=== PATIENT | female | born 1955 | race Caucasian/White ===

== ENCOUNTER → 2017-07-01 | Outpatient (CLI) | payer BC ==
--- NOTE | 2017-07-01 12:18 | MR ---
EXAMINATION TYPE: MR lumbar spine wo con DATE OF EXAM: 07/01/2017 12:06 PM COMPARISON: NONE HISTORY: Lumbar Radiculopathy , rt foot numbness Multiplanar, MultiSpin echo imaging of the lumbar spine was performed. L1-L2: Mild to moderate disc desiccation is noted. Circumferential disc bulge with mild effacement ve ntral thecal sac. No evidence for herniation protrusion or central stenosis. Foramina are patent bila terally. L2-L3: Moderate disc desiccation noted. Circumferential disc bulge greatest posteriorly effaces the v entral thecal sac. There is constriction of the thecal sac with borderline stenosis. Mild bilateral f oraminal encroachment identified. L3-L4: Moderate disc desiccation noted. Circumferential disc bulge with annular tear greatest posteri samir effaces the ventral thecal sac. There is constriction of the thecal sac with borderline stenosis . Mild bilateral foraminal encroachment identified. L4-L5: Severe disc desiccation with vacuum disc. Broad-based subligamentous disc herniation difficult to exclude. Effacement ventral thecal sac with effacement of the ventral thecal sac. No evidence for central stenosis. Bilateral lateral recess stenosis suspected. L5-S1: Normal disc appearance without desiccation. No herniation, protrusion or disc bulging. No ca nal stenosis is present. Foramina are patent bilaterally. Lumbar segments are intact. No paraspinal masses are identified. Conus medullaris has a normal appe arance. IMPRESSION: 1. Multilevel degenerative disc disease. 2. Borderline central stenosis at L2-3 and L3-4. 3. Bilateral lateral recess stenosis L4-5.
== END | disposition home or self-care (01) ==
LOC: RADMRIMAIN 10:47
PROVIDERS: ATTEND Family Medicine
DX: M48.06 Spinal stenosis, lumbar region (principal); M51.16 Intervertebral disc disorders with radiculopathy, lumbar region
CPT/HCPCS: 72148

== ENCOUNTER → 2017-09-03 | Outpatient (CLI) | payer BC ==
[2017-09-03 09:44] LABS: Blood Urea Nitrogen 18 mg/dL (7-17); Non-African American GFR(MDRD) >60 (>60 ml/min/1.73 sqM)
--- NOTE | 2017-09-03 10:59 | MR ---
EXAMINATION TYPE: MR iac wo/w con DATE OF EXAM: 09/03/2017 10:37 AM COMPARISON: NONE HISTORY: Hearing loss TECHNIQUE: Multiplanar and multispin-echo imaging of the brain was performed both before and after the administr ation of contrast. High-resolution images are obtained of the internal auditory canals performed uti lizing 10.5 mL intravenous Gadavist contrast. The ventricles, basal cisterns and sulci overlying the cerebral convexities are within normal limits. Mild periventricular white matter ischemic demyelination and a few remote deep white matter insults . There is no evidence for midline shift or mass effect. Acute intracranial hemorrhage or extra-axial collection is not evident. There are no abnormal areas of increased or decreased signal intensity within the brain parenchyma. High-resolution imaging of the internal auditory canals fails demonstrate evidence for an enhancing a coustic schwannoma or cerebellopontine cistern angle mass. Following contrast administration, there is no evidence for pathologic enhancement or enhancing mass. Mucous retention cyst right maxillary sinus. Chronic ethmoidal and maxillary sinusitis. Mastoid air c ells are well-aerated. IMPRESSION: 1. No evidence of acoustic schwannoma or cerebellopontine angle mass.
== END | disposition home or self-care (01) ==
LOC: RADMRIMAIN 09:13
PROVIDERS: ATTEND Otolaryngology
DX: H93.19 Tinnitus, unspecified ear (principal); H91.90 Unspecified hearing loss, unspecified ear
CPT/HCPCS: 82565; 84520; 70553; 36415; A9581

== ENCOUNTER 2020-02-17 23:50 | Inpatient (IN) | payer MEDICARE ==
[2020-02-18] MEDS ORDERED: MORPHINE SULFATE 4 MG/ML SYRINGE IV STA ×2 (00:14→02:11)
--- NOTE | 2020-02-18 01:23 | ED ---
General Adult HPI - General Chief complaint: Recheck/Abnormal Lab/Rx Stated complaint: cant walk Time Seen by Provider: 02/18/20 00:02 Source: patient Mode of arrival: wheelchair Limitations: no limitations - History of Present Illness Initial comments: This patient is 64-year-old woman who presents to be evaluated for a number of symptoms. She states that she has been having some leg pains and some difficulty walking. This been going on for a couple of weeks. For the past few days she has also been having increasing exertional dyspnea and she noted some left upper quadrant/costal margin pains that have been going on for the past day. The patient denies anginal type symptoms, no diaphoresis, nausea vomiting, palpitations, or syncope. Patient denies bloody or melanotic stools. -: days(s) Location: chest, abdomen Radiation: non-radiation Quality: aching Consistency: constant Improves with: none Worsens with: none Associated Symptoms: shortness of breath Treatments Prior to Arrival: none - Related Data Home Medications Medication Instructions Recorded Confirmed Aspirin [Adult Low Dose Aspirin EC] 81 mg PO DAILY 02/18/20 02/18/20 Lisinopril 20 mg PO DAILY 02/18/20 02/18/20 Vit B Complx C/Folic Acid/Zinc 1 each PO DAILY 02/18/20 02/18/20 [Renaplex Tablet] metFORMIN HCL [Glucophage] 500 mg PO DAILY 02/18/20 02/18/20 predniSONE See Taper PO DAILY 02/18/20 02/18/20 Allergies Allergy/AdvReac Type Severity Reaction Status Date / Time No Known Allergies Allergy Verified 02/18/20 08:31 Review of Systems ROS Statement: Those systems with pertinent positive or pertinent negative responses have been documented in the HPI. ROS Other: All systems not noted in ROS Statement are negative. Constitutional: Reports: weakness. Denies: fever, chills Eyes: Denies: vision change Respiratory: Reports: dyspnea. Denies: cough, wheezes, hemoptysis Cardiovascular: Reports: as per HPI, chest pain, dyspnea on exertion. Denies: palpitations, orthopnea, edema, syncope Gastrointestinal: Denies: abdominal pain, nausea, vomiting, melena, hematochezia Genitourinary: Denies: dysuria, hematuria Musculoskeletal: Denies: back pain Skin: Denies: rash Neurological: Denies: headache, weakness, numbness, paresthesias Hematological/Lymphatic: Denies: easy bleeding Past Medical History Past Medical History: Diabetes Mellitus, Hypertension History of Any Multi-Drug Resistant Organisms: None Reported Past Surgical History: Section, Orthopedic Surgery, Tonsillectomy Past Psychological History: No Psychological Hx Reported Smoking Status: Never smoker Past Alcohol Use History: None Reported Past Drug Use History: None Reported - Past Family History Mother Additional Family Medical History / Comment(s): MRSA infection in foot General Exam Limitations: no limitations General appearance: alert, in distress Head exam: Present: atraumatic, normocephalic Eye exam: Present: normal appearance. Absent: scleral icterus, conjunctival injection ENT exam: Present: normal oropharynx Neck exam: Present: normal inspection, full ROM. Absent: tenderness, meningismus Respiratory exam: Present: respiratory distress (Mild tachypnea). Absent: wheezes, rales, rhonchi, stridor, chest wall tenderness, accessory muscle use Cardiovascular Exam: Present: normal rhythm, tachycardia (Rate is approximately 112 at my exam), systolic murmur. Absent: diastolic murmur, rubs, gallop GI/Abdominal exam: Present: soft. Absent: distended, tenderness, guarding, rebound, rigid, mass, pulsatile mass, hernia Extremities exam: Present: normal inspection, normal capillary refill, other (Minimal left leg edema and comparison with right). Absent: tenderness, calf tenderness Back exam: Present: normal inspection. Absent: CVA tenderness (R), CVA tenderness (L) Neurological exam: Present: alert. Absent: motor sensory deficit Skin exam: Present: warm, dry, intact, pallor. Absent: rash Course Vital Signs 02/17/20 02/18/20 02/18/20 23:52 00:48 00:50 Temperature 98.3 F Pulse Rate 124 H 110 H 109 H Respiratory 18 Rate Blood Pressure 141/63 O2 Sat by Pulse 96 90 L Oximetry 02/18/20 02/18/20 02/18/20 01:00 01:10 01:20 Temperature Pulse Rate 107 H 107 H 100 Respiratory Rate Blood Pressure O2 Sat by Pulse 91 L 90 L 97 Oximetry 02/18/20 02/18/20 02/18/20 01:30 01:40 01:50 Temperature Pulse Rate 105 H 109 H 110 H Respiratory Rate Blood Pressure 130/78 130/78 O2 Sat by Pulse 98 98 97 Oximetry 02/18/20 02/18/20 02/18/20 02:00 02:10 02:20 Temperature Pulse Rate 107 H 115 H 106 H Respiratory Rate Blood Pressure 130/78 130/78 130/79 O2 Sat by Pulse 96 Oximetry 02/18/20 02/18/20 02/18/20 02:30 02:40 02:50 Temperature Pulse Rate 102 H 101 H 105 H Respiratory Rate Blood Pressure 130/79 130/79 130/79 O2 Sat by Pulse 96 97 97 Oximetry 02/18/20 02/18/20 02/18/20 03:00 03:10 03:20 Temperature Pulse Rate 107 H Respiratory Rate Blood Pressure 130/79 124/75 124/75 O2 Sat by Pulse 96 87 L Oximetry 02/18/20 02/18/20 02/18/20 03:30 03:40 03:50 Temperature Pulse Rate 100 100 101 H Respiratory Rate Blood Pressure 124/75 124/75 124/75 O2 Sat by Pulse 99 100 100 Oximetry 02/18/20 02/18/20 02/18/20 04:00 04:10 04:20 Temperature Pulse Rate 105 H 104 H 110 H Respiratory 18 Rate Blood Pressure 124/75 138/77 138/77 O2 Sat by Pulse 99 100 97 Oximetry 02/18/20 02/18/20 02/18/20 04:30 04:40 04:50 Temperature Pulse Rate 102 H 100 105 H Respiratory 18 Rate Blood Pressure 138/77 138/77 138/77 O2 Sat by Pulse 97 99 98 Oximetry EKG Findings - EKG Results: EKG: interpreted by ERMD, sinus rhythm, normal axis, normal QRS, normal ST/T, no acute changes EKG shows: tachycardia (Rate 106 bpm) Medical Decision Making - Medical Decision Making Patient is 64-year-old woman presenting with a constellation of symptoms that do include increasing exertional dyspnea and some pain on the left side of her torso at the costal margin. The initial workup does not reveal any cardiac ischemia however she is found to have severe abnormalities on the CBC, concerning for possible leukemia. Patient be admitted for transfusion as well as hematology consultation. - Lab Data Result diagrams: 02/26/20 06:02 02/25/20 05:38 Lab Results 02/18/20 02/18/20 02/18/20 Range/Units 01:00 01:00 01:00 WBC 115.1 H* (3.8-10.6) k/uL RBC 1.72 L (3.80-5.40) m/uL Hgb 6.3 L* (11.4-16.0) gm/dL Hct 19.9 L* (34.0-46.0) % MCV 115.4 H (80.0-100.0) fL MCH 36.6 H (25.0-35.0) pg MCHC 31.7 (31.0-37.0) g/dL RDW 16.1 H (11.5-15.5) % Plt Count 126 L (150-450) k/uL Neutrophils % (Manual) 44 % Band Neutrophils % 11 % Lymphocytes % (Manual) 16 % Monocytes % (Manual) 8 % Eosinophils % (Manual) 1 % Metamyelocytes % 15 % Myelocytes % 4 % Blast Cells % 3 H* % Neutrophils # (Manual) 63.30 H (1.3-7.7) k/uL Lymphocytes # (Manual) 18.42 H (1.0-4.8) k/uL Monocytes # (Manual) 9.21 H (0-1.0) k/uL Eosinophils # (Manual) 1.15 H (0-0.7) k/uL Metamyelocytes # (Man) 17.27 H (0) k/uL Myelocytes # (Manual) 4.60 H (0) k/uL Blast Cells # (Man) 3.45 H (0) k/uL Nucleated RBCs 0 (0-0) /100 WBC Manual Slide Review Performed Pathologist Review See comment A Poikilocytosis (manual Present Anisocytosis Slight Anisocytosis (manual) Not Reportable Macrocytosis Marked A PT 11.3 (9.0-12.0) sec INR 1.1 (<1.2) APTT 15.9 L (22.0-30.0) sec D-Dimer 5.75 H (<0.60) mg/L FEU Sodium 142 (137-145) mmol/L Potassium 4.7 (3.5-5.1) mmol/L Chloride 109 H (98-107) mmol/L Carbon Dioxide 22 (22-30) mmol/L Anion Gap 11 mmol/L BUN 19 H (7-17) mg/dL Creatinine 0.68 (0.52-1.04) mg/dL Est GFR (CKD-EPI)AfAm >90 (>60 ml/min/1.73 sqM) Est GFR (CKD-EPI)NonAf >90 (>60 ml/min/1.73 sqM) Glucose 148 H (74-99) mg/dL Lactic Ac Sepsis Rflx Plasma Lactic Acid Aj (0.7-2.0) mmol/L Calcium 8.7 (8.4-10.2) mg/dL Total Bilirubin 0.7 (0.2-1.3) mg/dL AST 90 H (14-36) U/L ALT 35 H (4-34) U/L Alkaline Phosphatase 178 H (38-126) U/L Troponin I (0.000-0.034) ng/mL NT-Pro-B Natriuret Pep pg/mL Total Protein 7.1 (6.3-8.2) g/dL Albumin 3.5 (3.5-5.0) g/dL Urine Color Urine Appearance (Clear) Urine pH (5.0-8.0) Ur Specific Sweeny (1.001-1.035) Urine Protein (Negative) Urine Glucose (UA) (Negative) Urine Ketones (Negative) Urine Blood (Negative) Urine Nitrite (Negative) Urine Bilirubin (Negative) Urine Urobilinogen (<2.0) mg/dL Ur Leukocyte Esterase (Negative) Urine RBC (0-5) /hpf Urine WBC (0-5) /hpf Urine WBC Clumps (None) /hpf Ur Squamous Epith Cells (0-4) /hpf Urine Bacteria (None) /hpf Hyaline Casts (0-2) /lpf Urine Mucus (None) /hpf Coronavirus (PCR) (Not Detectd) Blood Type Blood Type Recheck Bld Type Recheck Status Antibody Screen Antibody Identification Antigen Identification Direct Antiglob Test Crossmatch Spec Expiration Date 02/18/20 02/18/20 02/18/20 Range/Units 01:00 01:00 02:10 WBC (3.8-10.6) k/uL RBC (3.80-5.40) m/uL Hgb (11.4-16.0) gm/dL Hct (34.0-46.0) % MCV (80.0-100.0) fL MCH (25.0-35.0) pg MCHC (31.0-37.0) g/dL RDW (11.5-15.5) % Plt Count (150-450) k/uL Neutrophils % (Manual) % Band Neutrophils % % Lymphocytes % (Manual) % Monocytes % (Manual) % Eosinophils % (Manual) % Metamyelocytes % % Myelocytes % % Blast Cells % % Neutrophils # (Manual) (1.3-7.7) k/uL Lymphocytes # (Manual) (1.0-4.8) k/uL Monocytes # (Manual) (0-1.0) k/uL Eosinophils # (Manual) (0-0.7) k/uL Metamyelocytes # (Man) (0) k/uL Myelocytes # (Manual) (0) k/uL Blast Cells # (Man) (0) k/uL Nucleated RBCs (0-0) /100 WBC Manual Slide Review Pathologist Review Poikilocytosis (manual Anisocytosis Anisocytosis (manual) Macrocytosis PT (9.0-12.0) sec INR (<1.2) APTT (22.0-30.0) sec D-Dimer (<0.60) mg/L FEU Sodium (137-145) mmol/L Potassium (3.5-5.1) mmol/L Chloride (98-107) mmol/L Carbon Dioxide (22-30) mmol/L Anion Gap mmol/L BUN (7-17) mg/dL Creatinine (0.52-1.04) mg/dL Est GFR (CKD-EPI)AfAm (>60 ml/min/1.73 sqM) Est GFR (CKD-EPI)NonAf (>60 ml/min/1.73 sqM) Glucose (74-99) mg/dL Lactic Ac Sepsis Rflx Plasma Lactic Acid Aj (0.7-2.0) mmol/L Calcium (8.4-10.2) mg/dL Total Bilirubin (0.2-1.3) mg/dL AST (14-36) U/L ALT (4-34) U/L Alkaline Phosphatase (38-126) U/L Troponin I <0.012 (0.000-0.034) ng/mL NT-Pro-B Natriuret Pep 183 pg/mL Total Protein (6.3-8.2) g/dL Albumin (3.5-5.0) g/dL Urine Color Urine Appearance (Clear) Urine pH (5.0-8.0) Ur Specific Sweeny (1.001-1.035) Urine Protein (Negative) Urine Glucose (UA) (Negative) Urine Ketones (Negative) Urine Blood (Negative) Urine Nitrite (Negative) Urine Bilirubin (Negative) Urine Urobilinogen (<2.0) mg/dL Ur Leukocyte Esterase (Negative) Urine RBC (0-5) /hpf Urine WBC (0-5) /hpf Urine WBC Clumps (None) /hpf Ur Squamous Epith Cells (0-4) /hpf Urine Bacteria (None) /hpf Hyaline Casts (0-2) /lpf Urine Mucus (None) /hpf Coronavirus (PCR) (Not Detectd) Blood Type O Positive Blood Type Recheck No Previous Record Bld Type Recheck Status CABO Indicated Antibody Screen POSITIVE Antibody Identification Clin Significant ABs Ruled Out Antigen Identification C Antigen - POSITIVE Direct Antiglob Test Negative Crossmatch See Detail Spec Expiration Date 02/21/2020 - 230902/18/20 02/18/20 02/18/20 Range/Units 02:10 02:10 02:58 WBC (3.8-10.6) k/uL RBC (3.80-5.40) m/uL Hgb (11.4-16.0) gm/dL Hct (34.0-46.0) % MCV (80.0-100.0) fL MCH (25.0-35.0) pg MCHC (31.0-37.0) g/dL RDW (11.5-15.5) % Plt Count (150-450) k/uL Neutrophils % (Manual) % Band Neutrophils % % Lymphocytes % (Manual) % Monocytes % (Manual) % Eosinophils % (Manual) % Metamyelocytes % % Myelocytes % % Blast Cells % % Neutrophils # (Manual) (1.3-7.7) k/uL Lymphocytes # (Manual) (1.0-4.8) k/uL Monocytes # (Manual) (0-1.0) k/uL Eosinophils # (Manual) (0-0.7) k/uL Metamyelocytes # (Man) (0) k/uL Myelocytes # (Manual) (0) k/uL Blast Cells # (Man) (0) k/uL Nucleated RBCs (0-0) /100 WBC Manual Slide Review Pathologist Review Poikilocytosis (manual Anisocytosis Anisocytosis (manual) Macrocytosis PT (9.0-12.0) sec INR (<1.2) APTT (22.0-30.0) sec D-Dimer (<0.60) mg/L FEU Sodium (137-145) mmol/L Potassium (3.5-5.1) mmol/L Chloride (98-107) mmol/L Carbon Dioxide (22-30) mmol/L Anion Gap mmol/L BUN (7-17) mg/dL Creatinine (0.52-1.04) mg/dL Est GFR (CKD-EPI)AfAm (>60 ml/min/1.73 sqM) Est GFR (CKD-EPI)NonAf (>60 ml/min/1.73 sqM) Glucose (74-99) mg/dL Lactic Ac Sepsis Rflx Y Plasma Lactic Acid Aj 2.6 H* (0.7-2.0) mmol/L Calcium (8.4-10.2) mg/dL Total Bilirubin (0.2-1.3) mg/dL AST (14-36) U/L ALT (4-34) U/L Alkaline Phosphatase (38-126) U/L Troponin I (0.000-0.034) ng/mL NT-Pro-B Natriuret Pep pg/mL Total Protein (6.3-8.2) g/dL Albumin (3.5-5.0) g/dL Urine Color Yellow Urine Appearance Cloudy H (Clear) Urine pH 5.5 (5.0-8.0) Ur Specific Sweeny 1.021 (1.001-1.035) Urine Protein 2+ H (Negative) Urine Glucose (UA) Negative (Negative) Urine Ketones Negative (Negative) Urine Blood Trace H (Negative) Urine Nitrite Negative (Negative) Urine Bilirubin Negative (Negative) Urine Urobilinogen <2.0 (<2.0) mg/dL Ur Leukocyte Esterase Large H (Negative) Urine RBC 47 H (0-5) /hpf Urine WBC 111 H (0-5) /hpf Urine WBC Clumps Many H (None) /hpf Ur Squamous Epith Cells 2 (0-4) /hpf Urine Bacteria Many H (None) /hpf Hyaline Casts 5 H (0-2) /lpf Urine Mucus Occasional H (None) /hpf Coronavirus (PCR) (Not Detectd) Blood Type Blood Type Recheck Bld Type Recheck Status Antibody Screen Antibody Identification Antigen Identification Direct Antiglob Test Crossmatch Spec Expiration Date 02/18/20 Range/Units 03:20 WBC (3.8-10.6) k/uL RBC (3.80-5.40) m/uL Hgb (11.4-16.0) gm/dL Hct (34.0-46.0) % MCV (80.0-100.0) fL MCH (25.0-35.0) pg MCHC (31.0-37.0) g/dL RDW (11.5-15.5) % Plt Count (150-450) k/uL Neutrophils % (Manual) % Band Neutrophils % % Lymphocytes % (Manual) % Monocytes % (Manual) % Eosinophils % (Manual) % Metamyelocytes % % Myelocytes % % Blast Cells % % Neutrophils # (Manual) (1.3-7.7) k/uL Lymphocytes # (Manual) (1.0-4.8) k/uL Monocytes # (Manual) (0-1.0) k/uL Eosinophils # (Manual) (0-0.7) k/uL Metamyelocytes # (Man) (0) k/uL Myelocytes # (Manual) (0) k/uL Blast Cells # (Man) (0) k/uL Nucleated RBCs (0-0) /100 WBC Manual Slide Review Pathologist Review Poikilocytosis (manual Anisocytosis Anisocytosis (manual) Macrocytosis PT (9.0-12.0) sec INR (<1.2) APTT (22.0-30.0) sec D-Dimer (<0.60) mg/L FEU Sodium (137-145) mmol/L Potassium (3.5-5.1) mmol/L Chloride (98-107) mmol/L Carbon Dioxide (22-30) mmol/L Anion Gap mmol/L BUN (7-17) mg/dL Creatinine (0.52-1.04) mg/dL Est GFR (CKD-EPI)AfAm (>60 ml/min/1.73 sqM) Est GFR (CKD-EPI)NonAf (>60 ml/min/1.73 sqM) Glucose (74-99) mg/dL Lactic Ac Sepsis Rflx Plasma Lactic Acid Aj (0.7-2.0) mmol/L Calcium (8.4-10.2) mg/dL Total Bilirubin (0.2-1.3) mg/dL AST (14-36) U/L ALT (4-34) U/L Alkaline Phosphatase (38-126) U/L Troponin I (0.000-0.034) ng/mL NT-Pro-B Natriuret Pep pg/mL Total Protein (6.3-8.2) g/dL Albumin (3.5-5.0) g/dL Urine Color Urine Appearance (Clear) Urine pH (5.0-8.0) Ur Specific Sweeny (1.001-1.035) Urine Protein (Negative) Urine Glucose (UA) (Negative) Urine Ketones (Negative) Urine Blood (Negative) Urine Nitrite (Negative) Urine Bilirubin (Negative) Urine Urobilinogen (<2.0) mg/dL Ur Leukocyte Esterase (Negative) Urine RBC (0-5) /hpf Urine WBC (0-5) /hpf Urine WBC Clumps (None) /hpf Ur Squamous Epith Cells (0-4) /hpf Urine Bacteria (None) /hpf Hyaline Casts (0-2) /lpf Urine Mucus (None) /hpf Coronavirus (PCR) Not Detected (Not Detectd) Blood Type Blood Type Recheck Bld Type Recheck Status Antibody Screen Antibody Identification Antigen Identification Direct Antiglob Test Crossmatch Spec Expiration Date Critical Care Time Critical Care Time: Yes (35 minutes) Disposition Clinical Impression: Leukocytosis, Anemia, Urinary tract infection Disposition: ADMITTED IP TO THIS HOSP Condition: Fair
[2020-02-18 01:25] LABS: Anisocytosis Slight; MCH 36.6 pg (25.0-35.0); MCHC 31.7 g/dL (31.0-37.0); MCV 115.4 fL (80.0-100.0); Macrocytosis Marked; Mean Platelet Volume 8.7; Platelet Count 126 k/uL (150-450); RBC 1.72 m/uL (3.80-5.40); RDW 16.1 % (11.5-15.5)
[2020-02-18 01:33] LABS: HGB 6.3 gm/dL (11.4-16.0); WBC 115.1 k/uL (3.8-10.6)
[2020-02-18 01:34] LABS: HCT 19.9 % (34.0-46.0)
[2020-02-18 01:36] LABS: ALT 35 U/L (4-34); African American GFR (CKD) >90 (>60 ml/min/1.73 sqM); Albumin 3.5 g/dL (3.5-5.0); Anion Gap 11 mmol/L; Blood Urea Nitrogen 19 mg/dL (7-17); Calcium 8.7 mg/dL (8.4-10.2); Carbon Dioxide 22 mmol/L (22-30); Chloride 109 mmol/L (98-107); Glucose 148 mg/dL (74-99); Non-African American GFR(CKD) >90 (>60 ml/min/1.73 sqM); Sodium 142 mmol/L (137-145); Total Bilirubin 0.7 mg/dL (0.2-1.3); Total Protein 7.1 g/dL (6.3-8.2)
[2020-02-18 01:51] LABS: AST 90 U/L (14-36); Alkaline Phosphatase 178 U/L (38-126); Potassium 4.7 mmol/L (3.5-5.1)
[2020-02-18 01:58] LABS: Blast Cells # (M) 3.45 k/uL (0); Nucleated Red Blood Cells 0 /100 WBC (0-0); Total Cells Counted 200
[2020-02-18 02:00] LABS: INR 1.1 (<1.2); Prothrombin Time 11.3 sec (9.0-12.0)
[2020-02-18 02:04] LABS: Partial Thromboplastin Time 15.9 sec (22.0-30.0)
[2020-02-18 02:06] LABS: D-Dimer 5.75 mg/L FEU (<0.60)
[2020-02-18 02:44] LABS: Appearance,Urine Cloudy (Clear); Bacteria,Urine Many /hpf; Bilirubin,Urine Negative (Negative); Blood,Urine Trace (Negative); Color,Urine Yellow; Glucose,Urine (UA) Negative (Negative); Hyaline Casts,Urine 5 /lpf (0-2); Ketones,Urine Negative (Negative); Leukocyte Esterase,Urine Large (Negative); Mucus,Urine Occasional /hpf; Nitrite,Urine Negative (Negative); PH, Urine 5.5 (5.0-8.0); Protein,Urine 2+ (Negative); RBC,Urine 47 /hpf (0-5); Specific Gravity,Urine 1.021 (1.001-1.035); Squamous Epithelial Cell,Urine 2 /hpf (0-4); Urobilinogen,Urine <2.0 mg/dL (<2.0); WBC,Urine 111 /hpf (0-5)
[2020-02-18] MEDS ORDERED: SODIUM CHLORIDE 0.9% 1,000 ML IV ONE (02:59)
[2020-02-18] MEDS ORDERED: SODIUM CHLORIDE 0.9% 1,000 ML IV STA (02:59)
--- NOTE | 2020-02-18 03:50 | CT ---
EXAMINATION TYPE: CT chest angio for PE DATE OF EXAM: 02/18/2020 COMPARISON: None HISTORY: elevated d-dimer CT DLP: 503.1 mGycm Automated exposure control for dose reduction was used. CONTRAST: Performed with IV Contrast, patient injected with 100 mL of Isovue 370. There are 3-D post processed images. There is normal-appearing mediastinum. Thoracic aorta appears normal without evidence of aneurysm or dissection. There are no hilar masses. Heart size is fairly normal. There is no pericardial effusion. There is mild pleural thickening at the lung bases. There is normal contrast opacification of the pulmonary arteries. There are no filling defects. There is mild atelectasis right lung base. The upper lung pham are clear. There is no evidence of pulmonary mass. Bony thorax is intact. Thora cic spine is intact. There is some spurring in the lower thoracic spine. IMPRESSION: No evidence of pulmonary embolism. There is some mild infiltrate and atelectasis and pleural thickeni ng at the lung bases more on the right side.
[2020-02-18] MEDS ORDERED: ACETAMINOPHEN TAB 325 MG TAB PO PRN (04:06)
[2020-02-18] MEDS ORDERED: NALOXONE 0.4 MG/ML 1 ML VIAL IV PRN (04:06)
[2020-02-18 06:17] LABS: Band Neutrophils % 11 %; Eosinophils # (M) 1.15 k/uL (0-0.7); Lymphocytes # (M) 18.42 k/uL (1.0-4.8); Metamyelocytes # (M) 17.27 k/uL (0); Metamyelocytes % 15 %; Monocytes # (M) 9.21 k/uL (0-1.0); Myelocytes % 4 %; Neutrophils % (M) 44 %
[2020-02-18 06:20] LABS: Poikilocytosis (M) Present
[2020-02-18 07:40] LABS: Glucose,Whole Blood 108 mg/dL (75-99)
[2020-02-18] MEDS ORDERED: HEPARIN SODIUM,PORCINE 5,000 UNIT/ML 1 ML VIAL SQ SCH (08:00)
--- NOTE | 2020-02-18 08:05 | US ---
EXAMINATION TYPE: US venous doppler duplex LE DATE OF EXAM: 02/18/2020 7:32 AM COMPARISON: CLINICAL HISTORY: Possible DVT.. bilateral leg pain, on aspirin, no hx blood clots SIDE PERFORMED: Bilateral TECHNIQUE: The lower extremity deep venous system is examined utilizing real time linear array sonog ankur with graded compression, doppler sonography and color-flow sonography. VESSELS IMAGED: External Iliac Vein (EIV) Common Femoral Vein Deep Femoral Vein Greater Saphenous Vein * Femoral Vein Popliteal Vein Small Saphenous Vein * Proximal Calf Veins (* superficial vessels) No popliteal fossa lesion is seen. Right Leg: Negative for DVT Left Leg: Negative for DVT IMPRESSION: THIS EXAMINATION IS NEGATIVE FOR DVT WITHIN BOTH LEGS.
[2020-02-18] MEDS: FAMOTIDINE 20 MG TAB PO SCH ×2 (08:18→19:38)
[2020-02-18] MEDS: HYDROcodone/APAP 5-325MG 1 EACH TAB PO PRN ×3 (08:18→21:14)
[2020-02-18] MEDS ORDERED: ASPIRIN 81 MG PO SCH (11:30)
[2020-02-18] MEDS ORDERED: metFORMIN 500 MG TAB PO SCH (11:30)
[2020-02-18 11:39] LABS: Glucose,Whole Blood 159 mg/dL (75-99)
--- NOTE | 2020-02-18 14:37 | P.CONS ---
History of Present Illness - Reason for Consult Consult date: 02/18/20 Leukocytosis, bicytopenia - History of Present Illness The patient is a 64-year-old white female with multiple medical problems, overall well controlled at baseline. Over the past 2-3 weeks the patient had been having some increased weakness, aching and heaviness in her legs which is slowly progressive. She also noted some dyspnea with exertion, also slowly progressive. Over the past 2-3 days she developed left upper quadrant abdominal pain, intermittent ranging from 3-7 /10. She therefore came into the [facility] room where she was found to have markedly elevated WBC at 115. Hemoglobin was 6.3 with platelets mildly low at 126. WBC differentials showed predominant neutrophils, but there was marked left shift with increase in all cell types, presence of immature cell forms including 3% blasts. Consult was therefore placed a further evaluation and recommendations. The patient denied any prior history of blood related problems. She thinks her last blood draw was with her PCP at least 7-8 months ago but she is not sure of the same. No history of any fevers/chills/chest pain/nausea/vomiting/unusual bleeding or bruising. Review of Systems Constitutional: Reports fatigue, Reports poor appetite, Reports weakness, Reports weight loss Eyes: denies blurred vision, denies pain Ears: deny: decreased hearing, ear discharge, earache, tinnitus Ears, nose, mouth and throat: Denies headache, Denies sore throat Cardiovascular: Reports dyspnea on exertion Respiratory: Reports as per HPI, Denies cough Gastrointestinal: Reports abdominal pain, Reports loss of appetite Genitourinary: Denies dysuria, Denies hematuria Menstruation: Reports postmenopausal Musculoskeletal: Reports shooting leg pain Integumentary: Denies pruritus, Denies rash Neurological: Denies numbness, Denies weakness Psychiatric: Denies anxiety, Denies depression Endocrine: Reports fatigue, Reports weight change Hematologic/Lymphatic: Reports as per HPI Past Medical History Past Medical History: Diabetes Mellitus, Hypertension, Osteoarthritis (OA) History of Any Multi-Drug Resistant Organisms: None Reported Past Surgical History: Section, Orthopedic Surgery, Tonsillectomy Past Anesthesia/Blood Transfusion Reactions: No Reported Reaction Past Psychological History: No Psychological Hx Reported Smoking Status: Never smoker Past Alcohol Use History: None Reported Past Drug Use History: None Reported - Past Family History Mother Additional Family Medical History / Comment(s): MRSA infection in foot Medications and Allergies Home Medications Medication Instructions Recorded Confirmed Type Aspirin [Adult Low Dose Aspirin EC] 81 mg PO DAILY 02/18/20 02/18/20 History Lisinopril 20 mg PO DAILY 02/18/20 02/18/20 History Vit B Complx C/Folic Acid/Zinc 1 each PO DAILY 02/18/20 02/18/20 History [Renaplex Tablet] metFORMIN HCL [Glucophage] 500 mg PO DAILY 02/18/20 02/18/20 History predniSONE See Taper PO DAILY 02/18/20 02/18/20 History Allergies Allergy/AdvReac Type Severity Reaction Status Date / Time No Known Allergies Allergy Verified 02/18/20 08:31 Physical Exam Vitals: Vital Signs Temp Pulse Pulse Resp BP BP Pulse Ox 02/18/20 13:31 97.9 F 91 20 136/82 97 02/18/20 11:29 98.6 F 91 20 128/78 98 02/18/20 09:40 98.4 F 91 18 125/62 96 02/18/20 09:11 97.4 F L 109 H 20 136/78 97 02/18/20 09:01 97.2 F L 105 H 20 137/67 97 02/18/20 08:00 109 H 02/18/20 06:10 98.9 F 110 H 20 136/60 93 L 02/18/20 04:50 105 H 18 138/77 98 02/18/20 04:40 100 138/77 99 02/18/20 04:30 102 H 138/77 97 02/18/20 04:20 110 H 138/77 97 02/18/20 04:10 104 H 138/77 100 02/18/20 04:00 105 H 18 124/75 99 02/18/20 03:50 101 H 124/75 100 02/18/20 03:40 100 124/75 100 02/18/20 03:30 100 124/75 99 02/18/20 03:20 124/75 87 L 02/18/20 03:10 124/75 02/18/20 03:00 107 H 130/79 96 02/18/20 02:50 105 H 130/79 97 02/18/20 02:40 101 H 130/79 97 02/18/20 02:30 102 H 130/79 96 02/18/20 02:20 106 H 130/79 96 02/18/20 02:10 115 H 130/78 02/18/20 02:00 107 H 130/78 02/18/20 01:50 110 H 130/78 97 02/18/20 01:40 109 H 130/78 98 02/18/20 01:30 105 H 98 02/18/20 01:20 100 97 02/18/20 01:10 107 H 90 L 02/18/20 01:00 107 H 91 L 02/18/20 00:50 109 H 90 L 02/18/20 00:48 110 H 02/17/20 23:52 98.3 F 124 H 18 141/63 96 Intake and Output 02/17/20 02/18/20 02/18/20 22:59 06:59 14:59 Intake Total 3370 Balance 3370 Intake: Intake, IV Titration 1010 Amount Sodium Chloride 0.9% 1, 910 000 ml @ 130 mls/hr IV . [id number] STA Rx#:[id number] cefTRIAXone 1 gm In 50 Sodium Chloride 0.9% 50 ml @ 100 mls/hr IVPB DAILY@2100 ELISEO Rx#: [id number] cefTRIAXone 1 gm In 50 Sodium Chloride 0.9% 50 ml @ 100 mls/hr IVPB ONCE STA Rx#:[id number] Oral 1740 Blood Product 620 Rc As-1 Unit 310 [id number] Other: Voiding Method Bedside Commode # Voids 1 7 Weight 94.801 kg 94.801 kg - Constitutional General appearance: no acute distress - EENT Eyes: EOMI, PERRLA ENT: hearing grossly normal, normal oropharynx - Neck Neck: no lymphadenopathy Thyroid: bilateral: normal size - Respiratory Respiratory: bilateral: CTA - Cardiovascular Rhythm: regular Heart sounds: normal: S1, S2 - Gastrointestinal General gastrointestinal: normal bowel sounds, splenomegaly (Possible) Localized gastrointestinal: tender: LUQ - Integumentary Integumentary: normal - Neurologic Neurologic: CNII-XII intact - Musculoskeletal Musculoskeletal: generalized weakness, strength equal bilaterally - Psychiatric Psychiatric: A&O x's 3, appropriate affect Results CBC & Chem 7: 02/18/20 01:00 02/18/20 01:00 Labs: Abnormal Lab Results - Last 24 Hours (Table) 02/18/20 02/18/20 02/18/20 Range/Units 01:00 01:00 01:00 WBC 115.1 H* (3.8-10.6) k/uL RBC 1.72 L (3.80-5.40) m/uL Hgb 6.3 L* (11.4-16.0) gm/dL Hct 19.9 L* (34.0-46.0) % MCV 115.4 H (80.0-100.0) fL MCH 36.6 H (25.0-35.0) pg RDW 16.1 H (11.5-15.5) % Plt Count 126 L (150-450) k/uL Blast Cells % 3 H* % Neutrophils # (Manual) 63.30 H (1.3-7.7) k/uL Lymphocytes # (Manual) 18.42 H (1.0-4.8) k/uL Monocytes # (Manual) 9.21 H (0-1.0) k/uL Eosinophils # (Manual) 1.15 H (0-0.7) k/uL Metamyelocytes # (Man) 17.27 H (0) k/uL Myelocytes # (Manual) 4.60 H (0) k/uL Blast Cells # (Man) 3.45 H (0) k/uL Macrocytosis Marked A APTT 15.9 L (22.0-30.0) sec D-Dimer 5.75 H (<0.60) mg/L FEU Chloride 109 H (98-107) mmol/L BUN 19 H (7-17) mg/dL Glucose 148 H (74-99) mg/dL POC Glucose (mg/dL) (75-99) mg/dL Plasma Lactic Acid Aj (0.7-2.0) mmol/L AST 90 H (14-36) U/L ALT 35 H (4-34) U/L Alkaline Phosphatase 178 H (38-126) U/L Urine Appearance (Clear) Urine Protein (Negative) Urine Blood (Negative) Ur Leukocyte Esterase (Negative) Urine RBC (0-5) /hpf Urine WBC (0-5) /hpf Urine WBC Clumps (None) /hpf Urine Bacteria (None) /hpf Hyaline Casts (0-2) /lpf Urine Mucus (None) /hpf Crossmatch 02/18/20 02/18/2020 Range/Units 02:10 02:10 02:10 WBC (3.8-10.6) k/uL RBC (3.80-5.40) m/uL Hgb (11.4-16.0) gm/dL Hct (34.0-46.0) % MCV (80.0-100.0) fL MCH (25.0-35.0) pg RDW (11.5-15.5) % Plt Count (150-450) k/uL Blast Cells % % Neutrophils # (Manual) (1.3-7.7) k/uL Lymphocytes # (Manual) (1.0-4.8) k/uL Monocytes # (Manual) (0-1.0) k/uL Eosinophils # (Manual) (0-0.7) k/uL Metamyelocytes # (Man) (0) k/uL Myelocytes # (Manual) (0) k/uL Blast Cells # (Man) (0) k/uL Macrocytosis APTT (22.0-30.0) sec D-Dimer (<0.60) mg/L FEU Chloride (98-107) mmol/L BUN (7-17) mg/dL Glucose (74-99) mg/dL POC Glucose (mg/dL) (75-99) mg/dL Plasma Lactic Acid Aj 2.6 H* (0.7-2.0) mmol/L AST (14-36) U/L ALT (4-34) U/L Alkaline Phosphatase (38-126) U/L Urine Appearance Cloudy H (Clear) Urine Protein 2+ H (Negative) Urine Blood Trace H (Negative) Ur Leukocyte Esterase Large H (Negative) Urine RBC 47 H (0-5) /hpf Urine WBC 111 H (0-5) /hpf Urine WBC Clumps Many H (None) /hpf Urine Bacteria Many H (None) /hpf Hyaline Casts 5 H (0-2) /lpf Urine Mucus Occasional H (None) /hpf Crossmatch See Detail 02/18/20 02/18/20 02/18/20 Range/Units 06:11 07:39 11:02 WBC (3.8-10.6) k/uL RBC (3.80-5.40) m/uL Hgb (11.4-16.0) gm/dL Hct (34.0-46.0) % MCV (80.0-100.0) fL MCH (25.0-35.0) pg RDW (11.5-15.5) % Plt Count (150-450) k/uL Blast Cells % % Neutrophils # (Manual) (1.3-7.7) k/uL Lymphocytes # (Manual) (1.0-4.8) k/uL Monocytes # (Manual) (0-1.0) k/uL Eosinophils # (Manual) (0-0.7) k/uL Metamyelocytes # (Man) (0) k/uL Myelocytes # (Manual) (0) k/uL Blast Cells # (Man) (0) k/uL Macrocytosis APTT (22.0-30.0) sec D-Dimer (<0.60) mg/L FEU Chloride (98-107) mmol/L BUN (7-17) mg/dL Glucose (74-99) mg/dL POC Glucose (mg/dL) 108 H (75-99) mg/dL Plasma Lactic Acid Aj 3.5 H* 3.1 H* (0.7-2.0) mmol/L AST (14-36) U/L ALT (4-34) U/L Alkaline Phosphatase (38-126) U/L Urine Appearance (Clear) Urine Protein (Negative) Urine Blood (Negative) Ur Leukocyte Esterase (Negative) Urine RBC (0-5) /hpf Urine WBC (0-5) /hpf Urine WBC Clumps (None) /hpf Urine Bacteria (None) /hpf Hyaline Casts (0-2) /lpf Urine Mucus (None) /hpf Crossmatch 02/18/20 Range/Units 11:38 WBC (3.8-10.6) k/uL RBC (3.80-5.40) m/uL Hgb (11.4-16.0) gm/dL Hct (34.0-46.0) % MCV (80.0-100.0) fL MCH (25.0-35.0) pg RDW (11.5-15.5) % Plt Count (150-450) k/uL Blast Cells % % Neutrophils # (Manual) (1.3-7.7) k/uL Lymphocytes # (Manual) (1.0-4.8) k/uL Monocytes # (Manual) (0-1.0) k/uL Eosinophils # (Manual) (0-0.7) k/uL Metamyelocytes # (Man) (0) k/uL Myelocytes # (Manual) (0) k/uL Blast Cells # (Man) (0) k/uL Macrocytosis APTT (22.0-30.0) sec D-Dimer (<0.60) mg/L FEU Chloride (98-107) mmol/L BUN (7-17) mg/dL Glucose (74-99) mg/dL POC Glucose (mg/dL) 159 H (75-99) mg/dL Plasma Lactic Acid Aj (0.7-2.0) mmol/L AST (14-36) U/L ALT (4-34) U/L Alkaline Phosphatase (38-126) U/L Urine Appearance (Clear) Urine Protein (Negative) Urine Blood (Negative) Ur Leukocyte Esterase (Negative) Urine RBC (0-5) /hpf Urine WBC (0-5) /hpf Urine WBC Clumps (None) /hpf Urine Bacteria (None) /hpf Hyaline Casts (0-2) /lpf Urine Mucus (None) /hpf Crossmatch Microbiology - Last 24 Hours (Table) 02/18/20 02:10 Urine Culture - Preliminary Urine,Voided CT scan - chest: report reviewed Venous US: report reviewed Assessment and Plan (1) Leukocytosis Narrative/Plan: The patient has marked leukocytosis, with predominant neutrophils were also significant left shift including 3% blasts. This, in association with her symptoms is most suggestive of a chronic myeloproliferative disorder in accelerated phase with possible transformation to acute leukemia not ruled out. A major differential would be CML. The above was discussed with the patient. At this time she does not have any definite evidence of leukostasis or tumor lysis. - Maintain IV hydration - Check labs for tumor lysis and continue to monitor for the same, as well as leuko stasis related organ dysfunction - Start Hydrea for cytoreduction to improve symptoms - Order molecular testing on peripheral blood for BCR/ABL - Plan for bone marrow aspiration biopsy on 02/20/20. The procedure was explained in detail to the patient. She is willing to proceed. - The patient has left upper quadrant pain. As splenomegaly and occasionally splenic infarct / rupture is associated with her suspected condition, CT of the abdomen and pelvis will be ordered Current Visit: Yes Status: Acute Code(s): D72.829 - ELEVATED WHITE BLOOD CELL COUNT, UNSPECIFIED SNOMED Code(s): 542955016 (2) Bicytopenia Narrative/Plan: Due to above. The patient has received 1 unit of PRBC. Platelet counts are only mildly decreased. Monitor for further drops in counts especially with starting Hydrea and support as needed. Only irradiated blood products to be utilized Current Visit: Yes Status: Acute Code(s): D75.89 - OTHER SPECIFIED DISEASES OF BLOOD AND BLOOD-FORMING ORGANS SNOMED Code(s): 36291386 (3) Urinary tract infection Narrative/Plan: Cultures awaited. Start antibiotics. Patient denied any antibiotic ALLERGIES. If she has a concomitant UTI, that could be making her leukocytosis and related symptoms worse Current Visit: Yes Status: Acute Code(s): N39.0 - URINARY TRACT INFECTION, SITE NOT SPECIFIED SNOMED Code(s): 51422299
[2020-02-18] MEDS: ENOXAPARIN 40 MG/0.4 ML SYRINGE SQ SCH (15:07)
[2020-02-18] MEDS: SODIUM CHLORIDE 0.9% 1,000 ML IV SCH ×2 (15:09→21:08)
[2020-02-18] MEDS: IOPAMIDOL CONTRAST (ORAL USE) VIAL PO PRN ×2 (15:59→16:58)
[2020-02-18 16:58] LABS: Glucose,Whole Blood 142 mg/dL (75-99)
--- NOTE | 2020-02-18 17:27 | P.HPIM ---
History of Present Illness H&P Date: 02/18/20 Chief Complaint: Aching all over History of presenting complaint: This is a pleasant 64-year-old patient who presents with progressive symptoms of aching all over the body. No obvious fevers questionable chills. Appetite has been okay. Bowel movements frequency is variable. No nausea vomiting. The symptoms been going on for at least a month. No change in weight. No urinary symptoms. No respiratory symptoms. Was found to have a greatly elevated white count in the ER on a low hemoglobin. Urine blood was ordered. Oncology was consulted. A possible leukemia expression Review of systems: GEN.: Tired EYES: None HEENT: None NECK: None RESPIRATORY: None CARDIOVASCULAR: None GASTROINTESTINAL: As above GENITOURINARY: None MUSCULOSKELETAL: Aches and pains all over LYMPHATICS: None HEMATOLOGICAL: None PSYCHIATRY: None NEUROLOGICAL: None. Past medical history to include: Diabetes, hypertension, osteoarthritis, Social history: Does not smoke or drink cold. Lives with her . Physical examination: VITAL SIGNS: 97.4, 109, 20, 136/78, 97% on room air GENERAL: BMI 35.9, sitting up in a chair, tired. EYES: [Pupils equal. Conjunctiva pale l. HEENT: External appearance of nose and ears normal, oral cavity grossly normal. NECK: JVD not raised; masses not palpable. HEART: First and second heart sounds are normal; no edema. LUNGS: Respiratory rate normal; clear to auscultation. ABDOMEN: Soft, nontender, liver spleen not palpable, no masses palpable. PSYCH: Alert and oriented x3; mood and affect tiredl. NEUROLOGICAL: Cranial nerves grossly intact; no facial asymmetry, power and sensation grossly intact. LYMPHATICS: No lymph nodes palpable in the axilla and neck INVESTIGATIONS, reviewed in the clinical context: White count 115.1 hemoglobin 6.3, MCV 115.4 which is 126 Blood cells 3 increased neutrophils and lymphocytes D-dimer 5.75 potassium 4.7 creatinine 0.68 lactic acid 2.6 UA positive Doppler ultrasound-lower extremity-negative Chest CTA-negative for PE Assessment: -Patient presented with systemic symptoms for over 4 weeks. Including joint aches and pains. No obvious fever. Elevated white count with blasts cells. Could be progressive rapid CML. Rule out acute transformation -Pancytopenia from above -Obesity BMI 35.9 -Diabetes mellitus type 2 on oral hypoglycemic -Essential hypertension -Acute UTI from cystitis Plan: Unit of blood was already ordered. Oncology was consulted. IV fluids. IV ceftriaxone. Care was discussed with the patient question were answered. Past Medical History Past Medical History: Diabetes Mellitus, Hypertension, Osteoarthritis (OA) History of Any Multi-Drug Resistant Organisms: None Reported Past Surgical History: Section, Orthopedic Surgery, Tonsillectomy Past Anesthesia/Blood Transfusion Reactions: No Reported Reaction Past Psychological History: No Psychological Hx Reported Smoking Status: Never smoker Past Alcohol Use History: None Reported Past Drug Use History: None Reported - Past Family History Mother Additional Family Medical History / Comment(s): MRSA infection in foot Medications and Allergies Home Medications Medication Instructions Recorded Confirmed Type Aspirin [Adult Low Dose Aspirin EC] 81 mg PO DAILY 02/18/20 02/18/20 History Lisinopril 20 mg PO DAILY 02/18/20 02/18/20 History Vit B Complx C/Folic Acid/Zinc 1 each PO DAILY 02/18/20 02/18/20 History [Renaplex Tablet] metFORMIN HCL [Glucophage] 500 mg PO DAILY 02/18/20 02/18/20 History predniSONE See Taper PO DAILY 02/18/20 02/18/20 History Allergies Allergy/AdvReac Type Severity Reaction Status Date / Time No Known Allergies Allergy Verified 02/18/20 08:31 Physical Exam Vitals: Vital Signs Temp Pulse Pulse Resp BP BP Pulse Ox 02/18/20 09:40 98.4 F 91 18 125/62 96 02/18/20 09:11 97.4 F L 109 H 20 136/78 97 02/18/20 09:01 97.2 F L 105 H 20 137/67 97 02/18/20 06:10 98.9 F 110 H 20 136/60 93 L 02/18/20 04:50 105 H 18 138/77 98 02/18/20 04:40 100 138/77 99 02/18/20 04:30 102 H 138/77 97 02/18/20 04:20 110 H 138/77 97 02/18/20 04:10 104 H 138/77 100 02/18/20 04:00 105 H 18 124/75 99 02/18/20 03:50 101 H 124/75 100 02/18/20 03:40 100 124/75 100 02/18/20 03:30 100 124/75 99 02/18/20 03:20 124/75 87 L 02/18/20 03:10 124/75 02/18/20 03:00 107 H 130/79 96 02/18/20 02:50 105 H 130/79 97 02/18/20 02:40 101 H 130/79 97 02/18/20 02:30 102 H 130/79 96 02/18/20 02:20 106 H 130/79 96 02/18/20 02:10 115 H 130/78 02/18/20 02:00 107 H 130/78 02/18/20 01:50 110 H 130/78 97 02/18/20 01:40 109 H 130/78 98 02/18/20 01:30 105 H 98 02/18/20 01:20 100 97 02/18/20 01:10 107 H 90 L 02/18/20 01:00 107 H 91 L 02/18/20 00:50 109 H 90 L 02/18/20 00:48 110 H 02/17/20 23:52 98.3 F 124 H 18 141/63 96 Intake and Output 02/17/20 02/18/20 02/18/20 22:59 06:59 14:59 Intake Total 0 Balance 0 Intake: Blood Product 0 Rc As-1 Unit 0 [id number] Other: # Voids 1 Weight 94.801 kg 94.801 kg Results CBC & Chem 7: 02/18/20 01:00 02/18/20 01:00 Labs: Abnormal Lab Results - Last 24 Hours (Table) 02/18/20 02/18/20 02/18/20 Range/Units 01:00 01:00 01:00 WBC 115.1 H* (3.8-10.6) k/uL RBC 1.72 L (3.80-5.40) m/uL Hgb 6.3 L* (11.4-16.0) gm/dL Hct 19.9 L* (34.0-46.0) % MCV 115.4 H (80.0-100.0) fL MCH 36.6 H (25.0-35.0) pg RDW 16.1 H (11.5-15.5) % Plt Count 126 L (150-450) k/uL Blast Cells % 3 H* % Neutrophils # (Manual) 63.30 H (1.3-7.7) k/uL Lymphocytes # (Manual) 18.42 H (1.0-4.8) k/uL Monocytes # (Manual) 9.21 H (0-1.0) k/uL Eosinophils # (Manual) 1.15 H (0-0.7) k/uL Metamyelocytes # (Man) 17.27 H (0) k/uL Myelocytes # (Manual) 4.60 H (0) k/uL Blast Cells # (Man) 3.45 H (0) k/uL Macrocytosis Marked A APTT 15.9 L (22.0-30.0) sec D-Dimer 5.75 H (<0.60) mg/L FEU Chloride 109 H (98-107) mmol/L BUN 19 H (7-17) mg/dL Glucose 148 H (74-99) mg/dL POC Glucose (mg/dL) (75-99) mg/dL Plasma Lactic Acid Aj (0.7-2.0) mmol/L AST 90 H (14-36) U/L ALT 35 H (4-34) U/L Alkaline Phosphatase 178 H (38-126) U/L Urine Appearance (Clear) Urine Protein (Negative) Urine Blood (Negative) Ur Leukocyte Esterase (Negative) Urine RBC (0-5) /hpf Urine WBC (0-5) /hpf Urine WBC Clumps (None) /hpf Urine Bacteria (None) /hpf Hyaline Casts (0-2) /lpf Urine Mucus (None) /hpf Crossmatch 02/18/20 02/18/20 02/18/20 Range/Units 02:10 02:10 02:10 WBC (3.8-10.6) k/uL RBC (3.80-5.40) m/uL Hgb (11.4-16.0) gm/dL Hct (34.0-46.0) % MCV (80.0-100.0) fL MCH (25.0-35.0) pg RDW (11.5-15.5) % Plt Count (150-450) k/uL Blast Cells % % Neutrophils # (Manual) (1.3-7.7) k/uL Lymphocytes # (Manual) (1.0-4.8) k/uL Monocytes # (Manual) (0-1.0) k/uL Eosinophils # (Manual) (0-0.7) k/uL Metamyelocytes # (Man) (0) k/uL Myelocytes # (Manual) (0) k/uL Blast Cells # (Man) (0) k/uL Macrocytosis APTT (22.0-30.0) sec D-Dimer (<0.60) mg/L FEU Chloride (98-107) mmol/L BUN (7-17) mg/dL Glucose (74-99) mg/dL POC Glucose (mg/dL) (75-99) mg/dL Plasma Lactic Acid Aj 2.6 H* (0.7-2.0) mmol/L AST (14-36) U/L ALT (4-34) U/L Alkaline Phosphatase (38-126) U/L Urine Appearance Cloudy H (Clear) Urine Protein 2+ H (Negative) Urine Blood Trace H (Negative) Ur Leukocyte Esterase Large H (Negative) Urine RBC 47 H (0-5) /hpf Urine WBC 111 H (0-5) /hpf Urine WBC Clumps Many H (None) /hpf Urine Bacteria Many H (None) /hpf Hyaline Casts 5 H (0-2) /lpf Urine Mucus Occasional H (None) /hpf Crossmatch See Detail 02/18/20 02/18/20 Range/Units 06:11 07:39 WBC (3.8-10.6) k/uL RBC (3.80-5.40) m/uL Hgb (11.4-16.0) gm/dL Hct (34.0-46.0) % MCV (80.0-100.0) fL MCH (25.0-35.0) pg RDW (11.5-15.5) % Plt Count (150-450) k/uL Blast Cells % % Neutrophils # (Manual) (1.3-7.7) k/uL Lymphocytes # (Manual) (1.0-4.8) k/uL Monocytes # (Manual) (0-1.0) k/uL Eosinophils # (Manual) (0-0.7) k/uL Metamyelocytes # (Man) (0) k/uL Myelocytes # (Manual) (0) k/uL Blast Cells # (Man) (0) k/uL Macrocytosis APTT (22.0-30.0) sec D-Dimer (<0.60) mg/L FEU Chloride (98-107) mmol/L BUN (7-17) mg/dL Glucose (74-99) mg/dL POC Glucose (mg/dL) 108 H (75-99) mg/dL Plasma Lactic Acid Aj 3.5 H* (0.7-2.0) mmol/L AST (14-36) U/L ALT (4-34) U/L Alkaline Phosphatase (38-126) U/L Urine Appearance (Clear) Urine Protein (Negative) Urine Blood (Negative) Ur Leukocyte Esterase (Negative) Urine RBC (0-5) /hpf Urine WBC (0-5) /hpf Urine WBC Clumps (None) /hpf Urine Bacteria (None) /hpf Hyaline Casts (0-2) /lpf Urine Mucus (None) /hpf Crossmatch Microbiology - Last 24 Hours (Table) 02/18/20 02:10 Urine Culture - Preliminary Urine,Voided Thrombosis Risk Factor Assmnt - Choose All That Apply Each Factor Represents 1 point: Medical pt on bed rest, Obesity (BMI >25) Each Risk Factor Represents 2 Points: Patient confined to bed, Malignancy Other congenital or acquired thrombophilia - If yes, enter type in comment: No Thrombosis Risk Factor Assessment Total Risk Factor Score: 6 Thrombosis Risk Factor Assessment Level: High Risk
--- NOTE | 2020-02-18 17:51 | CT ---
EXAMINATION TYPE: CT abdomen pelvis w con DATE OF EXAM: 02/18/2020 COMPARISON: None HISTORY: LUQ pain CT DLP: 1809.1 mGycm Automated exposure control for dose reduction was used. CONTRAST: Performed with IV Contrast, patient injected with 100 mL of Isovue 300. There is oral contrast also. There is some patchy linear density at the lung bases. Heart size is normal. There is no pericardial effusion. There is no pleural effusion. Liver spleen pancreas gallbladder appear normal. Bile ducts are not dilated. Stomach is intact. There is no adrenal mass. Kidneys show satisfactory contrast opacification. There is no hydronephrosi s. Ureters are not dilated. There is no retroperitoneal adenopathy. There is no evidence of inguinal hernia. Bladder is almost empty. There is no evidence of a pelvic ma ss. Uterus is anteverted. There is no free fluid in the pelvis. There are some multiple sigmoid diver ticula without sign of diverticulitis. There are diverticula scattered throughout the remainder of th e colon. Appendix not definitely seen. No sign of thickened appendix. There is no mesenteric edema. There is no ascites or free air. There is no evidence of a bowel obstru ction. Lumbar spine is intact. There is no compression fracture. Bony pelvis appears intact. Hip join ts are intact. There is normal contrast opacification of the small bowel. There is small umbilical he rnia that contains fat. There is hypertrophic facet arthropathy in the lower lumbar spine with mild m ultilevel lumbar spinal stenosis. IMPRESSION: There is moderate colonic diverticulosis without diverticulitis. I do not see a cause for left upper quadrant pain. Mild scarring and subsegmental atelectasis at the lung bases.
[2020-02-18] MEDS: HYDROXYUREA 500 MG CAP PO SCH (19:38)
[2020-02-18 20:06] LABS: Glucose,Whole Blood 226 mg/dL (75-99)
[2020-02-19] MEDS: HYDROcodone/APAP 5-325MG 1 EACH TAB PO PRN ×5 (01:02→19:21)
[2020-02-19] MEDS: ENOXAPARIN 40 MG/0.4 ML SYRINGE SQ SCH (07:11)
[2020-02-19] MEDS: HYDROXYUREA 500 MG CAP PO SCH ×2 (07:11→20:15)
[2020-02-19] MEDS: FAMOTIDINE 20 MG TAB PO SCH ×2 (07:11→20:14)
[2020-02-19] MEDS: LISINOPRIL 20 MG TAB PO SCH (07:11)
[2020-02-19 07:13] LABS: Glucose,Whole Blood 145 mg/dL (75-99)
[2020-02-19 07:50] LABS: Anisocytosis Slight; HCT 20.3 % (34.0-46.0); Hypochromasia Slight; MCH 33.8 pg (25.0-35.0); MCHC 31.2 g/dL (31.0-37.0); Macrocytosis Marked; Mean Platelet Volume 11.1; RBC 1.87 m/uL (3.80-5.40); RDW 18.7 % (11.5-15.5)
[2020-02-19 07:53] LABS: HGB 6.3 gm/dL (11.4-16.0); MCV 108.5 fL (80.0-100.0); Platelet Count 25 k/uL (150-450)
[2020-02-19 07:57] LABS: ALT 29 U/L (4-34); AST 91 U/L (14-36); African American GFR (CKD) >90 (>60 ml/min/1.73 sqM); Albumin 2.6 g/dL (3.5-5.0); Alkaline Phosphatase 200 U/L (38-126); Anion Gap 5 mmol/L; Blood Urea Nitrogen 13 mg/dL (7-17); Calcium 8.1 mg/dL (8.4-10.2); Carbon Dioxide 24 mmol/L (22-30); Chloride 108 mmol/L (98-107); Glucose 124 mg/dL (74-99); Non-African American GFR(CKD) >90 (>60 ml/min/1.73 sqM); Phosphorus 3.7 mg/dL (2.5-4.5); Potassium 4.6 mmol/L (3.5-5.1); Sodium 137 mmol/L (137-145); Total Bilirubin 0.7 mg/dL (0.2-1.3); Total Protein 5.8 g/dL (6.3-8.2); Uric Acid 4.8 mg/dL (3.7-7.4)
[2020-02-19 08:07] LABS: Band Neutrophils % 7 %; Metamyelocytes % 12 %; Myelocytes % 5 %; Neutrophils % (M) 43 %
[2020-02-19 08:08] LABS: Basophils # (M) 0.92 k/uL (0-0.2); Blast Cells # (M) 5.54 k/uL (0); Lymphocytes # (M) 15.71 k/uL (1.0-4.8); Metamyelocytes # (M) 11.09 k/uL (0); Monocytes # (M) 11.09 k/uL (0-1.0); Myelocytes # (M) 4.62 k/uL (0); Nucleated Red Blood Cells 1 /100 WBC (0-0); Total Cells Counted 200; WBC 92.4 k/uL (3.8-10.6)
[2020-02-19 08:10] LABS: Poikilocytosis (M) Present
[2020-02-19] MEDS: SODIUM CHLORIDE 0.9% 1,000 ML IV SCH (09:52)
[2020-02-19 11:27] LABS: Glucose,Whole Blood 167 mg/dL (75-99)
[2020-02-19] MEDS: MORPHINE SULFATE 4 MG/ML SYRINGE IV PRN ×3 (11:32→22:06)
--- NOTE | 2020-02-19 14:34 | P.PN ---
Subjective Progress Note Date: 02/19/20 patient feels somewhat better today. Generalized weakness persists. She denied any shortness of breath, nausea/vomiting/fever/obvious bleeding. Lower extremity discomfort is mildly improved Objective - Vital Signs Vital signs: Vital Signs Temp 98.4 F 02/19/20 11:26 Pulse 107 H 02/19/20 11:26 Resp 21 02/19/20 11:26 BP 115/51 02/19/20 11:26 Pulse Ox 97 02/19/20 11:26 Intake & Output 02/18/20 02/19/20 02/19/20 18:59 06:59 18:59 Intake Total 3370 1200 2240 Balance 3370 1200 2240 Weight 94.801 kg Intake: IV 1200 Sodium Chloride 0.9% 1, 1200 000 ml @ 75 mls/hr IV . [id number] [facility] Rx#:[id number] Intake, IV Titration 1010 650 Amount Sodium Chloride 0.9% 1, 910 000 ml @ 130 mls/hr IV . [id number] [facility] Rx#:[id number] Sodium Chloride 0.9% 1, 650 000 ml @ 75 mls/hr IV . [id number] [facility] Rx#:[id number] cefTRIAXone 1 gm In 50 Sodium Chloride 0.9% 50 ml @ 100 mls/hr IVPB DAILY@2100 [facility] Rx#: [id number] cefTRIAXone 1 gm In 50 Sodium Chloride 0.9% 50 ml @ 100 mls/hr IVPB ONCE [facility] Rx#:[id number] Oral 1740 1590 Blood Product 620 Rc As-1 Unit 310 [id number] Other: Voiding Method Bedside Commode Bedside Commode Bedside Commode # Voids 7 3 3 - Constitutional General appearance: Present: no acute distress - EENT Eyes: Present: EOMI ENT: Present: hearing grossly normal, normal oropharynx - Respiratory Respiratory: bilateral: CTA - Cardiovascular Rhythm: regular Heart sounds: normal: S1, S2 - Gastrointestinal General gastrointestinal: Present: normal bowel sounds, soft - Integumentary Integumentary: Present: normal - Neurologic Neurologic: Present: CNII-XII intact - Musculoskeletal Musculoskeletal: Present: generalized weakness, strength equal bilaterally - Psychiatric Psychiatric: Present: A&O x's 3, appropriate affect - Labs CBC & Chem 7: 02/19/20 07:28 02/19/20 07:28 Labs: Abnormal Lab Results - Last 24 Hours (Table) 02/18/20 02/18/20 02/18/20 Range/Units 15:27 16:57 20:05 WBC (3.8-10.6) k/uL RBC (3.80-5.40) m/uL Hgb (11.4-16.0) gm/dL Hct (34.0-46.0) % MCV (80.0-100.0) fL RDW (11.5-15.5) % Plt Count (150-450) k/uL Blast Cells % % Neutrophils # (Manual) (1.3-7.7) k/uL Lymphocytes # (Manual) (1.0-4.8) k/uL Monocytes # (Manual) (0-1.0) k/uL Basophils # (Manual) (0-0.2) k/uL Metamyelocytes # (Man) (0) k/uL Myelocytes # (Manual) (0) k/uL Blast Cells # (Man) (0) k/uL Nucleated RBCs (0-0) /100 WBC Macrocytosis Chloride (98-107) mmol/L Glucose (74-99) mg/dL POC Glucose (mg/dL) 142 H 226 H (75-99) mg/dL Plasma Lactic Acid Aj 3.2 H* (0.7-2.0) mmol/L Calcium (8.4-10.2) mg/dL AST (14-36) U/L Alkaline Phosphatase (38-126) U/L Total Protein (6.3-8.2) g/dL Albumin (3.5-5.0) g/dL 02/19/20 02/19/20 02/19/20 Range/Units 07:12 07:28 07:28 WBC 92.4 H* (3.8-10.6) k/uL RBC 1.87 L (3.80-5.40) m/uL Hgb 6.3 L* (11.4-16.0) gm/dL Hct 20.3 L (34.0-46.0) % MCV 108.5 H D (80.0-100.0) fL RDW 18.7 H (11.5-15.5) % Plt Count 25 L D (150-450) k/uL Blast Cells % 6 H* % Neutrophils # (Manual) 46.20 H (1.3-7.7) k/uL Lymphocytes # (Manual) 15.71 H (1.0-4.8) k/uL Monocytes # (Manual) 11.09 H (0-1.0) k/uL Basophils # (Manual) 0.92 H (0-0.2) k/uL Metamyelocytes # (Man) 11.09 H (0) k/uL Myelocytes # (Manual) 4.62 H (0) k/uL Blast Cells # (Man) 5.54 H (0) k/uL Nucleated RBCs 1 H (0-0) /100 WBC Macrocytosis Marked A Chloride 108 H (98-107) mmol/L Glucose 124 H (74-99) mg/dL POC Glucose (mg/dL) 145 H (75-99) mg/dL Plasma Lactic Acid Aj (0.7-2.0) mmol/L Calcium 8.1 L (8.4-10.2) mg/dL AST 91 H (14-36) U/L Alkaline Phosphatase 200 H (38-126) U/L Total Protein 5.8 L (6.3-8.2) g/dL Albumin 2.6 L (3.5-5.0) g/dL 02/19/20 Range/Units 11:26 WBC (3.8-10.6) k/uL RBC (3.80-5.40) m/uL Hgb (11.4-16.0) gm/dL Hct (34.0-46.0) % MCV (80.0-100.0) fL RDW (11.5-15.5) % Plt Count (150-450) k/uL Blast Cells % % Neutrophils # (Manual) (1.3-7.7) k/uL Lymphocytes # (Manual) (1.0-4.8) k/uL Monocytes # (Manual) (0-1.0) k/uL Basophils # (Manual) (0-0.2) k/uL Metamyelocytes # (Man) (0) k/uL Myelocytes # (Manual) (0) k/uL Blast Cells # (Man) (0) k/uL Nucleated RBCs (0-0) /100 WBC Macrocytosis Chloride (98-107) mmol/L Glucose (74-99) mg/dL POC Glucose (mg/dL) 167 H (75-99) mg/dL Plasma Lactic Acid Aj (0.7-2.0) mmol/L Calcium (8.4-10.2) mg/dL AST (14-36) U/L Alkaline Phosphatase (38-126) U/L Total Protein (6.3-8.2) g/dL Albumin (3.5-5.0) g/dL Microbiology - Last 24 Hours (Table) 02/18/20 02:10 Urine Culture - Preliminary Urine,Voided Gram Neg Bacilli 02/18/20 02:05 Blood Culture - Preliminary Blood No Growth after 24 hours Assessment and Plan (1) Leukocytosis Narrative/Plan: Patient started on Hydrea. His WBC count is down to 92,000. BCR/ABL pending. Continue Hydrea. No evidence of tumor lysis or leukostasis at this time. Bone marrow planned for tomorrow tentatively Current Visit: Yes Status: Acute Code(s): D72.829 - ELEVATED WHITE BLOOD CELL COUNT, UNSPECIFIED SNOMED Code(s): 266862557 (2) Bicytopenia Narrative/Plan: Platelets dropped significantly after starting Hydrea but still in a safe range. Continue to monitor and transfuse to keep greater than 10,000, unless there is active bleeding. Hemoglobin was at 6.3 after 1 unit PRBC. Additional PRBC ordered. Only irradiated blood products Current Visit: Yes Status: Acute Code(s): D75.89 - OTHER SPECIFIED DISEASES OF BLOOD AND BLOOD-FORMING ORGANS SNOMED Code(s): 94752948 (3) Urinary tract infection Narrative/Plan: Urine culture was positive. The patient is on Rocephin Current Visit: Yes Status: Acute Code(s): N39.0 - URINARY TRACT INFECTION, SITE NOT SPECIFIED SNOMED Code(s): 70232531
[2020-02-19 17:25] LABS: Glucose,Whole Blood 149 mg/dL (75-99)
--- NOTE | 2020-02-19 19:30 | P.PN ---
Progress Note - Text Progress Note Date: 02/19/20 Chief Complaint: Aching all over History of presenting complaint: This is a pleasant 64-year-old patient who presents with progressive symptoms of aching all over the body. No obvious fevers questionable chills. Appetite has been okay. Bowel movements frequency is variable. No nausea vomiting. The symptoms been going on for at least a month. No change in weight. No urinary symptoms. No respiratory symptoms. Was found to have a greatly elevated white count in the ER on a low hemoglobin. Urine blood was ordered. Oncology was consulted. A possible leukemia expression Admitted with-severe leukocytosis. Probable leukemia. Receive a unit of blood. Also started on hydroxyurea. Also acute UTI. On ceftriaxone. Today-tired. Pain in the left buttock area. Did tolerate some diet. Getting IV fluids and ceftriaxone. Review of systems: Was done for constitutional, cardiovascular, GI, pulmonary. relevant finding as above Active Medications Acetaminophen (Tylenol Tab) 650 mg PO Q6HR PRN PRN Reason: Mild Pain or Fever > 100.5 Hydrocodone Bitart/Acetaminophen ([place] 5-325) 1 each PO Q4HR PRN PRN Reason: Pain Last Admin: 02/19/20 19:21 Dose: 1 each Documented by: Enoxaparin Sodium (Lovenox) 40 mg SQ DAILY [facility] Last Admin: 02/19/20 07:11 Dose: 40 mg Documented by: Famotidine (Pepcid) 20 mg PO BID [facility] Last Admin: 02/19/20 07:11 Dose: 20 mg Documented by: Hydroxyurea (Hydrea) 1,000 mg PO BID [facility] Last Admin: 02/19/20 07:11 Dose: 1,000 mg Documented by: Ceftriaxone Sodium 1 gm/ (Sodium Chloride) 50 mls @ 100 mls/hr IVPB DAILY@2100 [facility] Last Admin: 02/17/20 23:50 Dose: 100 mls/hr Documented by: Sodium Chloride (Saline 0.9%) 1,000 mls @ 75 mls/hr IV .[id number] [facility] Last Admin: 02/19/20 09:52 Dose: 75 mls/hr Documented by: Lisinopril (Zestril) 20 mg PO DAILY [facility] Last Admin: 02/19/20 07:11 Dose: 20 mg Documented by: Morphine Sulfate (Morphine Sulfate (Inj)) 4 mg IV Q4H PRN PRN Reason: Pain Last Admin: 02/19/20 17:19 Dose: 4 mg Documented by: Naloxone HCl (Narcan) 0.2 mg IV Q2M PRN PRN Reason: Opioid Reversal Physical examination: VITAL SIGNS: 98.4, 107, 21, 13337, 97% on 3 L GENERAL: Laying in bed, tired EYES: [Pupils equal. Conjunctiva pale l. HEENT: External appearance of nose and ears normal, oral cavity grossly normal. NECK: JVD not raised; masses not palpable. HEART: First and second heart sounds are normal; no edema. LUNGS: Respiratory rate normal; clear to auscultation. ABDOMEN: Soft, nontender, liver spleen not palpable, no masses palpable. PSYCH: Alert and oriented x3; mood and affect tiredl. INVESTIGATIONS, reviewed in the clinical context: White count 22.4 hemoglobin 6.3 potential 4.6 creatinine 0.59 albumin 2.6 uric acid 4.8 Previous testing White count 115.1 hemoglobin 6.3, MCV 115.4 which is 126 Blood cells 3 increased neutrophils and lymphocytes D-dimer 5.75 potassium 4.7 creatinine 0.68 lactic acid 2.6 UA positive Doppler ultrasound-lower extremity-negative Chest CTA-negative for PE Assessment: -Severe leukocytosis-Patient presented with systemic symptoms for over 4 weeks. Including joint aches and pains. No obvious fever. Elevated white count with blasts cells. Could be progressive rapid CML. Rule out acute transformation, slow to respond -Pancytopenia from above -Obesity BMI 35.9 -Diabetes mellitus type 2 on oral hypoglycemic -Essential hypertension -Acute UTI from cystitis, growing gram-negative bacilli Plan: -Patient is on hydroxyurea. Currently no evidence of tumor lysis. Patient is to receive irradiated blood cells. Follow with oncology. Patient scheduled for bone marrow biopsy tomorrow
[2020-02-19 19:59] LABS: Glucose,Whole Blood 156 mg/dL (75-99)
[2020-02-20] MEDS: MORPHINE SULFATE 4 MG/ML SYRINGE IV PRN ×5 (03:09→19:58)
[2020-02-20] MEDS: SODIUM CHLORIDE 0.9% 1,000 ML IV SCH (03:09)
[2020-02-20] MEDS: HYDROcodone/APAP 5-325MG 1 EACH TAB PO PRN ×3 (05:38→17:52)
[2020-02-20 05:52] LABS: Anisocytosis Slight; MCH 36.4 pg (25.0-35.0); MCHC 33.6 g/dL (31.0-37.0); MCV 108.4 fL (80.0-100.0); Macrocytosis Marked; Mean Platelet Volume 10.5; RBC 1.78 m/uL (3.80-5.40); RDW 18.1 % (11.5-15.5)
[2020-02-20 05:54] LABS: HCT 19.2 % (34.0-46.0); HGB 6.5 gm/dL (11.4-16.0)
[2020-02-20 05:58] LABS: ALT 28 U/L (4-34); AST 86 U/L (14-36); African American GFR (CKD) >90 (>60 ml/min/1.73 sqM); Albumin 2.7 g/dL (3.5-5.0); Alkaline Phosphatase 241 U/L (38-126); Anion Gap 7 mmol/L; Blood Urea Nitrogen 14 mg/dL (7-17); Calcium 8.2 mg/dL (8.4-10.2); Carbon Dioxide 24 mmol/L (22-30); Chloride 106 mmol/L (98-107); Glucose 127 mg/dL (74-99); Non-African American GFR(CKD) >90 (>60 ml/min/1.73 sqM); Phosphorus 3.5 mg/dL (2.5-4.5); Potassium 4.9 mmol/L (3.5-5.1); Sodium 137 mmol/L (137-145); Total Bilirubin 0.7 mg/dL (0.2-1.3); Total Protein 6.1 g/dL (6.3-8.2); Uric Acid 4.2 mg/dL (3.7-7.4)
[2020-02-20 06:11] LABS: Band Neutrophils % 8 %; Lymphocytes # (M) 12.55 k/uL (1.0-4.8); Metamyelocytes # (M) 16.41 k/uL (0); Metamyelocytes % 17 %; Myelocytes # (M) 7.72 k/uL (0); Myelocytes % 8 %; Neutrophils % (M) 31 %; Nucleated Red Blood Cells 1 /100 WBC (0-0); Total Cells Counted 200; WBC 96.5 k/uL (3.8-10.6)
[2020-02-20 06:14] LABS: Platelet Count 19 k/uL (150-450)
[2020-02-20 07:05] LABS: Glucose,Whole Blood 151 mg/dL (75-99)
[2020-02-20] MEDS: FAMOTIDINE 20 MG TAB PO SCH ×2 (07:28→19:59)
[2020-02-20] MEDS: LISINOPRIL 20 MG TAB PO SCH (07:28)
[2020-02-20] MEDS: ENOXAPARIN 40 MG/0.4 ML SYRINGE SQ SCH (07:29)
[2020-02-20] MEDS: HYDROXYUREA 500 MG CAP PO SCH ×2 (08:22→19:59)
--- NOTE | 2020-02-20 11:32 | P.PN ---
Subjective Progress Note Date: 02/20/20 Principal diagnosis: leukocytosis, bicytopenia, suspicions for leukemia In follow-up patient has complaints of general malaise, poor appetite, denies nausea, vomiting, hemoptysis, cough, chest pain, abdominal pain or cramping, dysuria, hematuria, diarrhea or constipation. She does have easy bruising. She states that she started using a walker about 2 weeks ago prior to that she is independently ambulatory Objective - Vital Signs Vital signs: Vital Signs Temp 99.1 F 02/20/20 05:00 Pulse 125 H 02/20/20 05:00 Resp 22 02/20/20 05:00 BP 155/66 02/20/20 05:00 Pulse Ox 93 L 02/20/20 05:00 Intake & Output 02/19/20 02/20/20 02/20/20 18:59 06:59 18:59 Intake Total 2240 1190 Output Total 2000 Balance 2240 -810 Intake: Intake, IV Titration 650 600 Amount Sodium Chloride 0.9% 1, 650 600 000 ml @ 75 mls/hr IV . [id number] [facility] Rx#:[id number] Oral 1590 590 Output: Urine 1000 Post Void Residual 1000 Other: Voiding Method Bedside Commode Bedside Commode # Voids 3 2 - Constitutional General appearance: Present: cooperative, mild distress, obese - EENT Eyes: Present: anicteric sclerae, EOMI ENT: Present: hearing grossly normal, normal oropharynx - Respiratory Respiratory: bilateral: CTA - Cardiovascular Details: tachycardia Rhythm: regular Abnormal Heart Sounds: Absent: systolic murmur, diastolic murmur, rub, S3 Gallop, S4 Gallop, click, other - Peripheral edema leg Peripheral Edema: bilateral: Trace - Gastrointestinal General gastrointestinal: Present: normal bowel sounds, soft. Absent: absent bowel sounds, decreased bowel sounds, distended, hepatomegaly, hyperactive bowel sounds, organomegaly, rigid, scaphoid, splenomegaly, tenderness, umbilical hernia, ventral hernia - Integumentary Integumentary: Present: pale - Neurologic Neurologic: Present: CNII-XII intact - Musculoskeletal Musculoskeletal: Present: generalized weakness - Psychiatric Psychiatric: Present: A&O x's 3, appropriate affect, intact judgment & insight - Labs CBC & Chem 7: 02/20/20 05:18 02/20/20 05:18 Labs: Abnormal Lab Results - Last 24 Hours (Table) 02/18/20 02/19/20 02/19/20 Range/Units 02:10 11:26 17:24 WBC (3.8-10.6) k/uL RBC (3.80-5.40) m/uL Hgb (11.4-16.0) gm/dL Hct (34.0-46.0) % MCV (80.0-100.0) fL MCH (25.0-35.0) pg RDW (11.5-15.5) % Plt Count (150-450) k/uL Neutrophils # (Manual) (1.3-7.7) k/uL Lymphocytes # (Manual) (1.0-4.8) k/uL Monocytes # (Manual) (0-1.0) k/uL Metamyelocytes # (Man) (0) k/uL Myelocytes # (Manual) (0) k/uL Nucleated RBCs (0-0) /100 WBC Macrocytosis Glucose (74-99) mg/dL POC Glucose (mg/dL) 167 H 149 H (75-99) mg/dL Calcium (8.4-10.2) mg/dL AST (14-36) U/L Alkaline Phosphatase (38-126) U/L Total Protein (6.3-8.2) g/dL Albumin (3.5-5.0) g/dL Crossmatch See Detail 02/19/20 02/20/20 02/20/20 Range/Units 19:57 05:18 05:18 WBC 96.5 H* (3.8-10.6) k/uL RBC 1.78 L (3.80-5.40) m/uL Hgb 6.5 L* (11.4-16.0) gm/dL Hct 19.2 L* (34.0-46.0) % MCV 108.4 H (80.0-100.0) fL MCH 36.4 H (25.0-35.0) pg RDW 18.1 H (11.5-15.5) % Plt Count 19 L* (150-450) k/uL Neutrophils # (Manual) 37.60 H (1.3-7.7) k/uL Lymphocytes # (Manual) 12.55 H (1.0-4.8) k/uL Monocytes # (Manual) 22.20 H (0-1.0) k/uL Metamyelocytes # (Man) 16.41 H (0) k/uL Myelocytes # (Manual) 7.72 H (0) k/uL Nucleated RBCs 1 H (0-0) /100 WBC Macrocytosis Marked A Glucose 127 H (74-99) mg/dL POC Glucose (mg/dL) 156 H (75-99) mg/dL Calcium 8.2 L (8.4-10.2) mg/dL AST 86 H (14-36) U/L Alkaline Phosphatase 241 H (38-126) U/L Total Protein 6.1 L (6.3-8.2) g/dL Albumin 2.7 L (3.5-5.0) g/dL Crossmatch 02/20/20 Range/Units 06:59 WBC (3.8-10.6) k/uL RBC (3.80-5.40) m/uL Hgb (11.4-16.0) gm/dL Hct (34.0-46.0) % MCV (80.0-100.0) fL MCH (25.0-35.0) pg RDW (11.5-15.5) % Plt Count (150-450) k/uL Neutrophils # (Manual) (1.3-7.7) k/uL Lymphocytes # (Manual) (1.0-4.8) k/uL Monocytes # (Manual) (0-1.0) k/uL Metamyelocytes # (Man) (0) k/uL Myelocytes # (Manual) (0) k/uL Nucleated RBCs (0-0) /100 WBC Macrocytosis Glucose (74-99) mg/dL POC Glucose (mg/dL) 151 H (75-99) mg/dL Calcium (8.4-10.2) mg/dL AST (14-36) U/L Alkaline Phosphatase (38-126) U/L Total Protein (6.3-8.2) g/dL Albumin (3.5-5.0) g/dL Crossmatch Microbiology - Last 24 Hours (Table) 02/18/20 02:10 Urine Culture - Final Urine,Voided Escherichia coli 02/18/20 02:05 Blood Culture - Preliminary Blood No Growth after 48 hours Assessment and Plan (1) Bicytopenia Current Visit: Yes Status: Acute Priority: High Code(s): D75.89 - OTHER SPECIFIED DISEASES OF BLOOD AND BLOOD-FORMING ORGANS SNOMED Code(s): 65101437 (2) Leukocytosis Current Visit: Yes Status: Acute Priority: High Code(s): D72.829 - ELEVATED WHITE BLOOD CELL COUNT, UNSPECIFIED SNOMED Code(s): 745261976 Plan: 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 Reviewed with patient that bon e marrow biopsy is going to be scheduled for tomorrow. Reviewed the procedure, she had no further questions. 1 unit of irradiated packed red blood cells for hemoglobin of 6.5. Continue Hydrea for leukocytosis. No evidence to suggest tumor lysis syndrome at this time. Continue to monitor labs daily. Platelets 19,000, felt to be r/t hydrea. Cont to monitor CBC daily, Hydrea dose may have to be adjusted. Transfuse with irradiated single donor platelets for platelet count less than 10,000 or if bleeding. No aspirin, NSAIDs, hold anticoagulation/DVT proph at this time. Patient is being treated for gram-negative bacilli UTI, asymptomatic
[2020-02-20 12:01] LABS: Glucose,Whole Blood 126 mg/dL (75-99)
[2020-02-20 17:18] LABS: Glucose,Whole Blood 170 mg/dL (75-99)
[2020-02-20 20:04] LABS: Glucose,Whole Blood 152 mg/dL (75-99)
--- NOTE | 2020-02-20 20:43 | P.PN ---
Progress Note - Text Progress Note Date: 02/20/20 Chief Complaint: Aching all over History of presenting complaint: This is a pleasant 64-year-old patient who presents with progressive symptoms of aching all over the body. No obvious fevers questionable chills. Appetite has been okay. Bowel movements frequency is variable. No nausea vomiting. The symptoms been going on for at least a month. No change in weight. No urinary symptoms. No respiratory symptoms. Was found to have a greatly elevated white count in the ER on a low hemoglobin. Urine blood was ordered. Oncology was consulted. A possible leukemia expression Admitted with-severe leukocytosis. Probable leukemia. Receive a unit of blood. Also started on hydroxyurea. Also acute UTI. On ceftriaxone. Today-hurting and different joints. Bone marrow biopsy postponed till tomorrow. Tired Review of systems: Was done for constitutional, cardiovascular, GI, pulmonary. relevant finding as above Active Medications Acetaminophen (Tylenol Tab) 650 mg PO Q6HR PRN PRN Reason: Mild Pain or Fever > 100.5 Hydrocodone Bitart/Acetaminophen ([place] 5-325) 1 each PO Q4HR PRN PRN Reason: Pain Last Admin: 02/20/20 17:52 Dose: 1 each Documented by: Famotidine (Pepcid) 20 mg PO BID [facility] Last Admin: 02/20/20 19:59 Dose: 20 mg Documented by: Hydroxyurea (Hydrea) 1,000 mg PO BID [facility] Last Admin: 02/20/20 19:59 Dose: 1,000 mg Documented by: Ceftriaxone Sodium 1 gm/ (Sodium Chloride) 50 mls @ 100 mls/hr IVPB DAILY@2100 [facility] Last Admin: 02/20/20 20:00 Dose: 100 mls/hr Documented by: Sodium Chloride (Saline 0.9%) 1,000 mls @ 75 mls/hr IV .[id number] [facility] Last Admin: 02/20/20 03:09 Dose: 75 mls/hr Documented by: Lisinopril (Zestril) 20 mg PO DAILY [facility] Last Admin: 02/20/20 07:28 Dose: 20 mg Documented by: Morphine Sulfate (Morphine Sulfate (Inj)) 4 mg IV Q4H PRN PRN Reason: Pain Last Admin: 02/20/20 19:58 Dose: 4 mg Documented by: Naloxone HCl (Narcan) 0.2 mg IV Q2M PRN PRN Reason: Opioid Reversal Physical examination: VITAL SIGNS: 99.9, 114, 20, 146/66, 95% on 3 L GENERAL: Awake, tired EYES: [Pupils equal. Conjunctiva pale HEENT: External appearance of nose and ears normal, oral cavity grossly normal. NECK: JVD not raised; masses not palpable. HEART: First and second heart sounds are normal; no edema. LUNGS: Respiratory rate normal; clear to auscultation. ABDOMEN: Soft, nontender, liver spleen not palpable, no masses palpable. PSYCH: Alert and oriented x3; mood and affect, anxious. INVESTIGATIONS, reviewed in the clinical context: White count 96.5, hemoglobin 6.5, Hx 19 creatinine 0.61 uric acid 4.2 Previous testing White count 115.1 hemoglobin 6.3, MCV 115.4 which is 126 Blood cells 3 increased neutrophils and lymphocytes D-dimer 5.75 potassium 4.7 creatinine 0.68 lactic acid 2.6 UA positive, urine culture-E. coli Doppler ultrasound-lower extremity-negative Chest CTA-negative for PE Assessment: -Severe leukocytosis-Patient presented with systemic symptoms for over 4 weeks. Including joint aches and pains. No obvious fever. Elevated white count with blasts cells. Could be progressive rapid CML. Rule out acute transformation, slow to respond -Pancytopenia from above -Obesity BMI 35.9 -Diabetes mellitus type 2 on oral hypoglycemic -Essential hypertension -Acute UTI from cystitis, growing gram-negative bacilli -Severe anemia from above Plan: -Patient will receive irradiated red blood cells . Bone marrow biopsy-postponed till tomorrow. Follow with oncology. Switch antibiotics to Keflex tomorrow
[2020-02-21] MEDS: MORPHINE SULFATE 4 MG/ML SYRINGE IV PRN ×2 (01:09→04:56)
[2020-02-21] MEDS: SODIUM CHLORIDE 0.9% 1,000 ML IV SCH ×3 (01:10→15:59)
[2020-02-21] MEDS: HYDROcodone/APAP 5-325MG 1 EACH TAB PO PRN ×4 (01:55→21:22)
[2020-02-21 06:57] LABS: ALT 29 U/L (4-34); AST 102 U/L (14-36); African American GFR (CKD) >90 (>60 ml/min/1.73 sqM); Albumin 2.5 g/dL (3.5-5.0); Alkaline Phosphatase 223 U/L (38-126); Anion Gap 5 mmol/L; Blood Urea Nitrogen 18 mg/dL (7-17); Carbon Dioxide 23 mmol/L (22-30); Chloride 107 mmol/L (98-107); Glucose 130 mg/dL (74-99); Non-African American GFR(CKD) >90 (>60 ml/min/1.73 sqM); Phosphorus 3.8 mg/dL (2.5-4.5); Potassium 4.9 mmol/L (3.5-5.1); Sodium 135 mmol/L (137-145); Total Bilirubin 0.7 mg/dL (0.2-1.3); Total Protein 5.6 g/dL (6.3-8.2); Uric Acid 4.3 mg/dL (3.7-7.4)
[2020-02-21 06:59] LABS: Anisocytosis Slight; HGB 7.4 gm/dL (11.4-16.0); MCH 35.6 pg (25.0-35.0); MCHC 33.6 g/dL (31.0-37.0); MCV 105.7 fL (80.0-100.0); Macrocytosis Marked; Mean Platelet Volume 11.3; RBC 2.09 m/uL (3.80-5.40); RDW 18.9 % (11.5-15.5)
[2020-02-21 07:04] LABS: Glucose,Whole Blood 143 mg/dL (75-99)
[2020-02-21 07:06] LABS: WBC 80.3 k/uL (3.8-10.6)
[2020-02-21 07:07] LABS: Platelet Count 21 k/uL (150-450)
[2020-02-21 08:25] LABS: Band Neutrophils % 1 %; Lymphocytes # (M) 14.45 k/uL (1.0-4.8); Monocytes # (M) 23.29 k/uL (0-1.0); Myelocytes % 1 %; Neutrophils % (M) 51 %
[2020-02-21 08:26] LABS: Nucleated Red Blood Cells 0 /100 WBC (0-0); Total Cells Counted 200
[2020-02-21 08:35] LABS: Poikilocytosis (M) Present
[2020-02-21] MEDS: CEPHALEXIN 500 MG CAP PO SCH ×3 (09:36→21:10)
[2020-02-21] MEDS: HYDROXYUREA 500 MG CAP PO SCH ×2 (09:36→21:10)
[2020-02-21] MEDS: LISINOPRIL 20 MG TAB PO SCH (09:36)
[2020-02-21] MEDS: FAMOTIDINE 20 MG TAB PO SCH ×2 (09:36→21:10)
[2020-02-21 11:25] LABS: Glucose,Whole Blood 122 mg/dL (75-99)
--- NOTE | 2020-02-21 12:49 | P.PN ---
Subjective Progress Note Date: 02/21/20 Principal diagnosis: leukocytosis, bicytopenia, suspicions for leukemia In follow-up patient cont to have complaints of general malaise, aching legs, weakness. Objective - Vital Signs Vital signs: Vital Signs Temp 98.9 F 02/21/20 11:47 Pulse 111 H 02/21/20 11:47 Resp 17 02/21/20 11:47 BP 131/75 02/21/20 11:47 Pulse Ox 96 02/21/20 11:47 Intake & Output 02/20/20 02/21/20 02/21/20 18:59 06:59 18:59 Intake Total 1170 225 Balance 1170 225 Intake: IV 225 Sodium Chloride 0.9% 1, 225 000 ml @ 75 mls/hr IV . [id number] [facility] Rx#:[id number] Intake, IV Titration 450 Amount Sodium Chloride 0.9% 1, 450 000 ml @ 75 mls/hr IV . [id number] [facility] Rx#:[id number] Oral 100 Blood Product 620 Rc Pheresis Irrad As 3 310 Unit [id number] Other: Voiding Method Bedside Commode Bedpan Bedpan Incontinent Incontinent # Voids 2 3 - Constitutional General appearance: Present: cooperative, mild distress, obese - EENT Eyes: Present: anicteric sclerae, EOMI ENT: Present: hearing grossly normal - Respiratory Details: respirations even and unlabored - Cardiovascular Details: skin warm and dry, radial pulse 2+, regular - Neurologic Neurologic: Present: CNII-XII intact - Musculoskeletal Musculoskeletal: Present: generalized weakness - Psychiatric Psychiatric: Present: A&O x's 3, appropriate affect, intact judgment & insight - Labs CBC & Chem 7: 02/21/20 06:29 02/21/20 06:29 Labs: Abnormal Lab Results - Last 24 Hours (Table) 02/18/20 02/18/20 02/20/20 Range/Units 01:00 02:10 11:32 WBC (3.8-10.6) k/uL RBC (3.80-5.40) m/uL Hgb (11.4-16.0) gm/dL Hct (34.0-46.0) % MCV (80.0-100.0) fL MCH (25.0-35.0) pg RDW (11.5-15.5) % Plt Count (150-450) k/uL Blast Cells % % Neutrophils # (Manual) (1.3-7.7) k/uL Lymphocytes # (Manual) (1.0-4.8) k/uL Monocytes # (Manual) (0-1.0) k/uL Eosinophils # (Manual) (0-0.7) k/uL Myelocytes # (Manual) (0) k/uL Blast Cells # (Man) (0) k/uL Pathologist Review See comment A Macrocytosis Sodium (137-145) mmol/L BUN (7-17) mg/dL Glucose (74-99) mg/dL POC Glucose (mg/dL) 126 H (75-99) mg/dL Calcium (8.4-10.2) mg/dL AST (14-36) U/L Alkaline Phosphatase (38-126) U/L Total Protein (6.3-8.2) g/dL Albumin (3.5-5.0) g/dL Crossmatch See Detail 02/20/20 02/20/20 02/21/20 Range/Units 17:04 20:03 06:29 WBC 80.3 H* (3.8-10.6) k/uL RBC 2.09 L (3.80-5.40) m/uL Hgb 7.4 L (11.4-16.0) gm/dL Hct 22.0 L (34.0-46.0) % MCV 105.7 H (80.0-100.0) fL MCH 35.6 H (25.0-35.0) pg RDW 18.9 H (11.5-15.5) % Plt Count 21 L (150-450) k/uL Blast Cells % 1 H* % Neutrophils # (Manual) 41.70 H (1.3-7.7) k/uL Lymphocytes # (Manual) 14.45 H (1.0-4.8) k/uL Monocytes # (Manual) 23.29 H (0-1.0) k/uL Eosinophils # (Manual) 0.80 H (0-0.7) k/uL Myelocytes # (Manual) 0.80 H (0) k/uL Blast Cells # (Man) 0.80 H (0) k/uL Pathologist Review Macrocytosis Marked A Sodium (137-145) mmol/L BUN (7-17) mg/dL Glucose (74-99) mg/dL POC Glucose (mg/dL) 170 H 152 H (75-99) mg/dL Calcium (8.4-10.2) mg/dL AST (14-36) U/L Alkaline Phosphatase (38-126) U/L Total Protein (6.3-8.2) g/dL Albumin (3.5-5.0) g/dL Crossmatch 02/21/20 02/21/20 02/21/20 Range/Units 06:29 07:02 11:23 WBC (3.8-10.6) k/uL RBC (3.80-5.40) m/uL Hgb (11.4-16.0) gm/dL Hct (34.0-46.0) % MCV (80.0-100.0) fL MCH (25.0-35.0) pg RDW (11.5-15.5) % Plt Count (150-450) k/uL Blast Cells % % Neutrophils # (Manual) (1.3-7.7) k/uL Lymphocytes # (Manual) (1.0-4.8) k/uL Monocytes # (Manual) (0-1.0) k/uL Eosinophils # (Manual) (0-0.7) k/uL Myelocytes # (Manual) (0) k/uL Blast Cells # (Man) (0) k/uL Pathologist Review Macrocytosis Sodium 135 L (137-145) mmol/L BUN 18 H (7-17) mg/dL Glucose 130 H (74-99) mg/dL POC Glucose (mg/dL) 143 H 122 H (75-99) mg/dL Calcium 8.0 L (8.4-10.2) mg/dL AST 102 H (14-36) U/L Alkaline Phosphatase 223 H (38-126) U/L Total Protein 5.6 L (6.3-8.2) g/dL Albumin 2.5 L (3.5-5.0) g/dL Crossmatch Microbiology - Last 24 Hours (Table) 02/18/20 02:05 Blood Culture - Preliminary Blood No Growth after 72 hours 02/18/20 02:10 Urine Culture - Final Urine,Voided Escherichia coli Assessment and Plan (1) Bicytopenia Current Visit: Yes Status: Acute Priority: High Code(s): D75.89 - OTHER SPECIFIED DISEASES OF BLOOD AND BLOOD-FORMING ORGANS SNOMED Code(s): 37692668 (2) Leukocytosis Current Visit: Yes Status: Acute Priority: High Code(s): D72.829 - ELEVATED WHITE BLOOD CELL COUNT, UNSPECIFIED SNOMED Code(s): 244742771 Plan: 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 Still pending room time for bone marrow biopsy. BCR-ABL results pending Hemoglobin of 7.3, n transfusion today. Transfuse to keep Hgb 7 or higher, irradiated blood products. Platelets 21,000 post 1 unit SCP. R/T hydrea, disease. Hydrea dose may have to be adjusted Cont to monitor CBC daily. Transfuse with irradiated single donor platelets for platelet count less than 10,000 or if bleeding. No aspirin, NSAIDs, hold anticoagulation/DVT proph at this time. Continue same dose Hydrea for leukocytosis at this time. WBC down to 80.3. No evidence to suggest tumor lysis syndrome at this time. Continue to monitor labs daily. Patient is being treated for gram-negative bacilli UTI, asymptomatic. Doctor attests: I performed a history and physical examination of this patient, developed impression and plan of care, discussed with dictator. I agree with dictators note, documented as a scribe.
[2020-02-21 17:26] LABS: Glucose,Whole Blood 120 mg/dL (75-99)
[2020-02-21 20:36] LABS: Glucose,Whole Blood 150 mg/dL (75-99)
--- NOTE | 2020-02-21 21:56 | P.PN ---
Progress Note - Text Progress Note Date: 02/21/20 Chief Complaint: Aching all over History of presenting complaint: This is a pleasant 64-year-old patient who presents with progressive symptoms of aching all over the body. No obvious fevers questionable chills. Appetite has been okay. Bowel movements frequency is variable. No nausea vomiting. The symptoms been going on for at least a month. No change in weight. No urinary symptoms. No respiratory symptoms. Was found to have a greatly elevated white count in the ER on a low hemoglobin. Urine blood was ordered. Oncology was consulted. A possible leukemia expression Admitted with-severe leukocytosis. Probable leukemia. Receive a unit of blood. Also started on hydroxyurea. Also acute UTI. On ceftriaxone. Receive 2 units of any irradiated red blood cells Today-tired. Some aches and pains. Pending bone marrow biopsy. Review of systems: Was done for constitutional, cardiovascular, GI, pulmonary. relevant finding as above Active Medications Acetaminophen (Tylenol Tab) 650 mg PO Q6HR PRN PRN Reason: Mild Pain or Fever > 100.5 Last Admin: 02/20/20 20:39 Dose: 650 mg Documented by: Hydrocodone Bitart/Acetaminophen ([place] 5-325) 1 each PO Q4HR PRN PRN Reason: Pain Last Admin: 02/21/20 21:22 Dose: 1 each Documented by: Cephalexin (Keflex) 500 mg PO TID [facility] Last Admin: 02/21/20 21:10 Dose: 500 mg Documented by: Famotidine (Pepcid) 20 mg PO BID [facility] Last Admin: 02/21/20 21:10 Dose: 20 mg Documented by: Hydroxyurea (Hydrea) 1,000 mg PO BID [facility] Last Admin: 02/21/20 21:10 Dose: 1,000 mg Documented by: Sodium Chloride (Saline 0.9%) 1,000 mls @ 75 mls/hr IV .[id number] [facility] Last Admin: 02/21/20 15:59 Dose: 75 mls/hr Documented by: Lisinopril (Zestril) 20 mg PO DAILY [facility] Last Admin: 02/21/20 09:36 Dose: 20 mg Documented by: Morphine Sulfate (Morphine Sulfate (Inj)) 4 mg IV Q4H PRN PRN Reason: Pain Last Admin: 02/21/20 04:56 Dose: 4 mg Documented by: Naloxone HCl (Narcan) 0.2 mg IV Q2M PRN PRN Reason: Opioid Reversal Physical examination: VITAL SIGNS: 98.9, 107, 17, 131/75, 96% on 3 L GENERAL: Awake, tired EYES: [Pupils equal. Conjunctiva pale HEENT: External appearance of nose and ears normal, oral cavity grossly normal. NECK: JVD not raised; masses not palpable. HEART: First and second heart sounds are normal; no edema. LUNGS: Respiratory rate normal; clear to auscultation. ABDOMEN: Soft, nontender, liver spleen not palpable, no masses palpable. PSYCH: Alert and oriented x3; mood and affect, anxious. INVESTIGATIONS, reviewed in the clinical context: White count 18.3 hemoglobin 7.4 platelets is 21 pressure 4.9 and creatinine 0.67 Previous testing White count 115.1 hemoglobin 6.3, MCV 115.4 which is 126 Blood cells 3 increased neutrophils and lymphocytes D-dimer 5.75 potassium 4.7 creatinine 0.68 lactic acid 2.6 UA positive, urine culture-E. coli Doppler ultrasound-lower extremity-negative Chest CTA-negative for PE Assessment: -Severe leukocytosis-Patient presented with systemic symptoms for over 4 weeks. Including joint aches and pains. No obvious fever. Elevated white count with blasts cells. Could be progressive rapid CML. Rule out acute transformation, slow to respond -Pancytopenia from above -Obesity BMI 35.9 -Diabetes mellitus type 2 on oral hypoglycemic -Essential hypertension -Acute UTI from cystitis, growing E. coli -Severe anemia from above Plan: Patient on oral antibiotics. Awaiting bone marrow biopsy. Other medications to continue. Follow with oncology.
[2020-02-22] MEDS: MORPHINE SULFATE 4 MG/ML SYRINGE IV PRN (00:35)
[2020-02-22] MEDS: HYDROcodone/APAP 5-325MG 1 EACH TAB PO PRN ×3 (05:29→20:02)
[2020-02-22 06:40] LABS: Anisocytosis Slight; HCT 21.9 % (34.0-46.0); HGB 7.3 gm/dL (11.4-16.0); MCH 34.8 pg (25.0-35.0); MCHC 33.2 g/dL (31.0-37.0); MCV 104.7 fL (80.0-100.0); RBC 2.09 m/uL (3.80-5.40); RDW 18.3 % (11.5-15.5)
[2020-02-22 06:51] LABS: Macrocytosis Marked; Platelet Count 10 k/uL (150-450)
[2020-02-22 07:12] LABS: Glucose,Whole Blood 141 mg/dL (75-99)
[2020-02-22 08:16] LABS: Band Neutrophils % 4 %; Metamyelocytes % 3 %; Myelocytes % 1 %; Neutrophils % (M) 58 %; Nucleated Red Blood Cells 1 /100 WBC (0-0); Total Cells Counted 200
[2020-02-22 08:17] LABS: Blast Cells # (M) 0.66 k/uL (0); Large Platelets Present; Metamyelocytes # (M) 1.97 k/uL (0); Monocytes # (M) 14.48 k/uL (0-1.0); Myelocytes # (M) 0.66 k/uL (0); Poikilocytosis (M) Present; WBC 65.8 k/uL (3.8-10.6)
[2020-02-22 08:37] LABS: Reticulocyte % 0.2 % (0.5-2.0)
[2020-02-22] MEDS ORDERED: IV FLUID CONTINUATION 1,000 ML IV ONE ×2 (09:11)
--- NOTE | 2020-02-22 09:35 | P.PCN ---
Date of Procedure: 02/22/20 Preoperative Diagnosis: Leukocytosis, Bicytopenia, suspected MPD Postoperative Diagnosis: Same Procedure(s) Performed: Bone marrow aspiration biopsy Surgeon: Juan R Queen Hand Bulldozer #1: Stated None Pathology: other Condition: stable Disposition: floor Indications for Procedure: Patient presented with new onset severe leukocytosis, as well as anemia and thrombocytopenia. Suspected MPD Operative Findings: Adequate biopsy sample. Aspirate sample likely hemodiluted Description of Procedure: The procedure was limited to the patient on the floor. Informed consent was obtained on the floor. She presented to the outpatient endoscopy suite and was placed in the left lateral decubitus position. Area over both posterior iliac crest was cleaned and prepped with chlorhexidine and sterile draping. IV sedation was then initiated. Local anesthesia was administered with lidocaine to the right posterior hilar crest. A Jamshidi needle was then inserted. Aspirate was difficult to obtain, with only small amounts being obtained at 1 time with rapid clotting. Therefore 3 passes were made with similar results. Multiple small samples were obtained. Biopsy was also obtained which was satisfactory. On withdrawal of the needle hemostasis was easily achieved. Blood loss was minimal and recovery from sedation was satisfactory. She appeared to have tolerated the procedure well without any obvious immediate complications.
[2020-02-22] MEDS: CEPHALEXIN 500 MG CAP PO SCH ×3 (11:05→20:02)
[2020-02-22] MEDS: LISINOPRIL 20 MG TAB PO SCH (11:25)
[2020-02-22] MEDS: FAMOTIDINE 20 MG TAB PO SCH ×2 (11:25→20:03)
[2020-02-22] MEDS: HYDROXYUREA 500 MG CAP PO SCH ×2 (11:27→20:03)
[2020-02-22 11:29] LABS: Glucose,Whole Blood 145 mg/dL (75-99)
--- NOTE | 2020-02-22 11:31 | P.PN ---
Progress Note - Text Progress Note Date: 02/22/20 briefly saw pt post BM Bx and Asp, procedure site shows no evidence of hematoma or bruising at this point. Case discussed with RN who is monitoring closely, platelets ordered post procedure, they ere 10,000 this AM. Encouraged pt to consider rehab.
[2020-02-22] MEDS: SODIUM CHLORIDE 0.9% 1,000 ML IV SCH ×2 (12:17→21:53)
[2020-02-22 16:57] LABS: Glucose,Whole Blood 190 mg/dL (75-99)
[2020-02-22 20:39] LABS: Glucose,Whole Blood 197 mg/dL (75-99)
[2020-02-23] MEDS: HYDROcodone/APAP 5-325MG 1 EACH TAB PO PRN ×2 (05:30→10:37)
[2020-02-23 06:48] LABS: Glucose,Whole Blood 157 mg/dL (75-99)
[2020-02-23 07:08] LABS: Anisocytosis Slight; HCT 20.2 % (34.0-46.0); MCH 33.6 pg (25.0-35.0); MCHC 32.1 g/dL (31.0-37.0); MCV 104.7 fL (80.0-100.0); Macrocytosis Marked; Mean Platelet Volume 10.7; RBC 1.93 m/uL (3.80-5.40); RDW 17.9 % (11.5-15.5); WBC 41.4 k/uL (3.8-10.6)
[2020-02-23 07:10] LABS: Platelet Count 15 k/uL (150-450)
[2020-02-23 07:11] LABS: HGB 6.5 gm/dL (11.4-16.0)
[2020-02-23] MEDS: LISINOPRIL 20 MG TAB PO SCH (07:49)
[2020-02-23] MEDS: CEPHALEXIN 500 MG CAP PO SCH ×3 (07:49→21:51)
[2020-02-23] MEDS: FAMOTIDINE 20 MG TAB PO SCH ×2 (07:49→21:51)
[2020-02-23] MEDS: HYDROXYUREA 500 MG CAP PO SCH (07:49)
[2020-02-23 08:00] LABS: Metamyelocytes # (M) 1.24 k/uL (0); Metamyelocytes % 3 %; Monocytes # (M) 6.62 k/uL (0-1.0); Myelocytes # (M) 0.83 k/uL (0); Myelocytes % 2 %; Neutrophils # (M) 27.32 k/uL (1.3-7.7); Neutrophils % (M) 66 %; Nucleated Red Blood Cells 0 /100 WBC (0-0); Total Cells Counted 200
[2020-02-23 08:01] LABS: Polychromasia Present
[2020-02-23] MEDS ORDERED: PROPOFOL 10 MG/ML 20 ML VIAL IV ONE (08:57)
[2020-02-23] MEDS ORDERED: fentaNYL (PF) 50 MCG/ML 2 ML AMP ONE (08:57)
[2020-02-23] MEDS ORDERED: MIDAZOLAM 2 MG/2 ML VIAL ONE (08:57)
[2020-02-23] MEDS ORDERED: HYDROXYUREA 500 MG CAP PO SCH ×2 (09:00→21:00)
--- NOTE | 2020-02-23 09:25 | P.PN ---
Progress Note - Text Progress Note Date: 02/22/20 Chief Complaint: Aching all over History of presenting complaint: This is a pleasant 64-year-old patient who presents with progressive symptoms of aching all over the body. No obvious fevers questionable chills. Appetite has been okay. Bowel movements frequency is variable. No nausea vomiting. The symptoms been going on for at least a month. No change in weight. No urinary symptoms. No respiratory symptoms. Was found to have a greatly elevated white count in the ER on a low hemoglobin. Urine blood was ordered. Oncology was consulted. A possible leukemia expression Admitted with-severe leukocytosis. Probable leukemia. Receive a unit of blood. Also started on hydroxyurea. Also acute UTI. On ceftriaxone. Receive 2 units of any irradiated red blood cells Today-eating some. Tired. Aches and pains present. Getting platelet transfusion today. Review of systems: Was done for constitutional, cardiovascular, GI, pulmonary. relevant finding as above Current medications reviewed in today's electronic records Physical examination: VITAL SIGNS: 99.3, 117, 22, 127/73, 95% on room air GENERAL: Awake, tired EYES: [Pupils equal. Conjunctiva pale HEENT: External appearance of nose and ears normal, oral cavity grossly normal. Herpetic vesicles on the lips NECK: JVD not raised; masses not palpable. HEART: First and second heart sounds are normal; no edema. LUNGS: Respiratory rate normal; clear to auscultation. ABDOMEN: Soft, nontender, liver spleen not palpable, no masses palpable. PSYCH: Alert and oriented x3; mood and affect, anxious. INVESTIGATIONS, reviewed in the clinical context: White count 65.8 hemoglobin 7.3 platelets 10 Previous testing White count 115.1 hemoglobin 6.3, MCV 115.4 which is 126 Blood cells 3 increased neutrophils and lymphocytes D-dimer 5.75 potassium 4.7 creatinine 0.68 lactic acid 2.6 UA positive, urine culture-E. coli Doppler ultrasound-lower extremity-negative Chest CTA-negative for PE Assessment: -Severe leukocytosis-Patient presented with systemic symptoms for over 4 weeks. Including joint aches and pains. No obvious fever. Elevated white count with blasts cells. Could be progressive rapid CML. Rule out acute transformation, slow to respond -Pancytopenia from above -Obesity BMI 35.9 -Diabetes mellitus type 2 on oral hypoglycemic -Essential hypertension -Acute UTI from cystitis, growing E. coli -Severe anemia from above -Acute herpes labialis- lips Plan: Discussed with [employer] from oncology. They'll decide about treatment as an outpatient. Suggesting patient should go to rehab. As a matter spoke at length to the patient. She is requiring assistance. She is finally agreed to proceed to go to inpatient rehab. Acyclovir will be added. Total time spent today was about 40 minutes with over 25 minutes in discussion.
--- NOTE | 2020-02-23 10:26 | P.PN ---
Subjective Progress Note Date: 02/23/20 Principal diagnosis: leukocytosis, bicytopenia, suspicions for leukemia In follow-up patient in chair today, she is more alert, her bone marrow site is tender, no pain in the leg, persistent general malaise, aching legs and weakness. No pain or other c/o. Objective - Vital Signs Vital signs: Vital Signs Temp 99.1 F 02/23/20 05:00 Pulse 128 H 02/23/20 05:00 Resp 17 02/23/20 05:00 BP 154/78 02/23/20 05:00 Pulse Ox 97 02/23/20 05:00 Intake & Output 02/22/20 02/23/20 02/23/20 18:59 06:59 18:59 Intake Total 1115 900 240 Balance 1115 900 240 Intake: IV 700 900 Sodium Chloride 0.9% 1, 600 900 000 ml @ 75 mls/hr IV . [id number] [facility] Rx#:[id number] Oral 200 240 Blood Product 215 Platelet Irr Pheresis 3 215 Acda Unit [id number] Other: Voiding Method Incontinent Bedside Commode Diaper # Voids 2 2 1 - Constitutional General appearance: Present: cooperative, no acute distress, obese - EENT Eyes: Present: anicteric sclerae, EOMI ENT: Present: hearing grossly normal - Respiratory Respiratory: bilateral: CTA - Cardiovascular Heart sounds: normal: S1, S2 - Peripheral edema leg Peripheral Edema: bilateral: None - Gastrointestinal General gastrointestinal: Present: soft - Integumentary Integumentary Comment(s): rt lower lip bruising, pustules - Neurologic Neurologic: Present: CNII-XII intact - Musculoskeletal Musculoskeletal: Present: generalized weakness - Psychiatric Psychiatric: Present: A&O x's 3, appropriate affect, intact judgment & insight - Labs CBC & Chem 7: 02/23/20 06:25 02/21/20 06:29 Labs: Abnormal Lab Results - Last 24 Hours (Table) 02/22/20 02/22/20 02/22/20 Range/Units 11:13 16:55 20:38 WBC (3.8-10.6) k/uL RBC (3.80-5.40) m/uL Hgb (11.4-16.0) gm/dL Hct (34.0-46.0) % MCV (80.0-100.0) fL RDW (11.5-15.5) % Plt Count (150-450) k/uL Neutrophils # (Manual) (1.3-7.7) k/uL Lymphocytes # (Manual) (1.0-4.8) k/uL Monocytes # (Manual) (0-1.0) k/uL Metamyelocytes # (Man) (0) k/uL Myelocytes # (Manual) (0) k/uL Macrocytosis POC Glucose (mg/dL) 145 H 190 H 197 H (75-99) mg/dL 02/23/20 02/23/20 Range/Units 06:25 06:46 WBC 41.4 H (3.8-10.6) k/uL RBC 1.93 L (3.80-5.40) m/uL Hgb 6.5 L* (11.4-16.0) gm/dL Hct 20.2 L (34.0-46.0) % MCV 104.7 H (80.0-100.0) fL RDW 17.9 H (11.5-15.5) % Plt Count 15 L* (150-450) k/uL Neutrophils # (Manual) 27.32 H (1.3-7.7) k/uL Lymphocytes # (Manual) 5.80 H (1.0-4.8) k/uL Monocytes # (Manual) 6.62 H (0-1.0) k/uL Metamyelocytes # (Man) 1.24 H (0) k/uL Myelocytes # (Manual) 0.83 H (0) k/uL Macrocytosis Marked A POC Glucose (mg/dL) 157 H (75-99) mg/dL Microbiology - Last 24 Hours (Table) 02/18/20 02:05 Blood Culture - Preliminary Blood No Growth after 120 hours Assessment and Plan (1) Bicytopenia Narrative/Plan: 1 unit PRBCs today for Hgb 6.5 Plt [id number] transfusion [place] hydrea contributing to progressively low counts, dose adjusted Current Visit: Yes Status: Acute Priority: High Code(s): D75.89 - OTHER SPECIFIED DISEASES OF BLOOD AND BLOOD-FORMING ORGANS SNOMED Code(s): 36638684 (2) Leukocytosis Narrative/Plan: Hydrea has decreased leukocytosis by 2/3's. Hydrea being adjusted for Hgb/plt lower then baseline S/P bone marrow biopsy Pending BCR-ABL Current Visit: Yes Status: Acute Priority: High Code(s): D72.829 - ELEVATED WHITE BLOOD CELL COUNT, UNSPECIFIED SNOMED Code(s): 196446731 Plan: 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 Bone marrow biopsy done 5/6, 7-10 days for results. BCR-ABL results still pending Hemoglobin of 6.5, transfusion today. Transfuse to keep Hgb 7 or higher, irradiated blood products. Platelets 15,000 post 1 unit SDP post procedure yesterday. Transfuse with irradiated single donor platelets for platelet count less than 10,000 or if bleeding. No aspirin, NSAIDs, hold anticoagulation/DVT proph at this time. Hydrea dose adjusted. WBC down to 41.4. No evidence to suggest tumor lysis syndrome. WBC is significantly improved. TLS labs PRN Patient is being treated for gram-negative bacilli UTI, asymptomatic. Agree and encourage rehab for pt. Pt can continue hydrea for now. It will be at least 2 weeks before diagnosis and treatment can be ordered and begin. No treatment will be initiated while pt is in rehab. She will need weekly CBC, transfusions may be required until treatment is optimized. All of the above was reviewed with the pt, she verbalized understanding, all questions answered Doctor attests: I performed a history and physical examination of this patient, developed impression and plan of care, discussed with dictator. I agree with dictators note, documented as a scribe.
[2020-02-23] MEDS: ACYCLOVIR 800 MG TAB PO SCH ×3 (10:38→21:52)
[2020-02-23 11:14] LABS: Glucose,Whole Blood 267 mg/dL (75-99)
[2020-02-23] MEDS: MORPHINE SULFATE 4 MG/ML SYRINGE IV PRN ×2 (12:34→22:22)
--- NOTE | 2020-02-23 14:33 | P.CONS ---
History of Present Illness - Chief Complaint Medical debility - History of Present Illness I had the opportunity to see patient for inpatient rehab consultation with regard to medical debility. She was admitted to [facility] February 17 with generalized aching. Problem may have been coming on for a month. To myself, patient reports that discomfort appears remarks in the bottom or buttock area. Seen in consultation by Dr. Queen who notes presentation suspicious for CML. Chest CTA negative for PE. Lower extremity venous Doppler negative for right or left leg DVT. CT of abdomen and pelvis demonstrates moderate diverticulosis only. PT reports minimal assistance for transfers and gait 40 feet with roller walker. OT reports minimal assistance for upper dressing, maximal assistance for lower dressing, toileting transfers and moderate assistance for bathing. Both PT and OT reports fatigue and endurance issues. Previous functional history as elicited from patient: 64-year-old right-handed white female who is lives and 2 floor home with . Patient unemployed and retired. Patient reports that prior to a month ago she is independent with cooking, laundry, driving, sitdown shower and gait without device. Dr. Calabrese is PMD. Denies tobacco or alcohol. Family history father with cancer. Review of Systems Review of systems: ENT: Denies sneezes or discharge. Eyes: Denies discharge or photophobia. Cardiac: Denies chest pain or palpitation. Pulmonary: Denies cough or shortness of breath. Breast: Denies discharge or lumps. Gastrointestinal: Denies nausea, emesis, constipation, diarrhea. Genitourinary: Denies discharge or frequency. Musculoskeletal: Achiness bottom. Neurologic: Weakness legs. Endocrine: Denies shakes or sweats. Oncology: Denies cancers. Dermatologic: Denies rash, itching, pruritus. ALLERGY/immunology: Denies sneezes, rashes. Past Medical History Past Medical History: Diabetes Mellitus, Hypertension, Osteoarthritis (OA) History of Any Multi-Drug Resistant Organisms: None Reported Past Surgical History: Section, Orthopedic Surgery, Tonsillectomy Past Anesthesia/Blood Transfusion Reactions: No Reported Reaction Past Psychological History: No Psychological Hx Reported Smoking Status: Never smoker Past Alcohol Use History: None Reported Past Drug Use History: None Reported - Past Family History Mother Additional Family Medical History / Comment(s): MRSA infection in foot Medications and Allergies Home Medications Medication Instructions Recorded Confirmed Type Aspirin [Adult Low Dose Aspirin EC] 81 mg PO DAILY 05/02/20 05/02/20 History Lisinopril 20 mg PO DAILY 02/18/20 02/18/20 History Vit B Complx C/Folic Acid/Zinc 1 each PO DAILY 02/18/20 02/18/20 History [Renaplex Tablet] metFORMIN HCL [Glucophage] 500 mg PO DAILY 02/18/20 02/18/20 History predniSONE See Taper PO DAILY 02/18/20 02/18/20 History Allergies Allergy/AdvReac Type Severity Reaction Status Date / Time No Known Allergies Allergy Verified 02/18/20 08:31 Physical Exam Vitals: Vital Signs Temp Pulse Pulse Resp BP BP Pulse Ox 02/23/20 12:53 98.6 F 113 H 20 118/68 02/23/20 12:23 97.9 F 112 H 20 135/62 02/23/20 12:13 98.5 F 113 H 20 117/59 02/23/20 11:40 97.3 F L 118 H 18 131/60 98 02/23/20 05:00 99.1 F 128 H 17 154/78 97 02/22/20 21:00 99.3 F 120 H 24 117/59 95 Intake and Output 02/22/20 02/23/20 02/23/20 22:59 06:59 14:59 Intake Total 300 600 240 Balance 300 600 240 Intake: IV 300 600 Sodium Chloride 0.9% 1, 300 600 000 ml @ 75 mls/hr IV . [id number] [facility] Rx#:[id number] Oral 240 Blood Product 0 Rc Irr As1 Unit 0 [id number] Other: Voiding Method Bedside Commode Diaper # Voids 2 1 Skin: Good color, texture, turgor. General: Obese build and comfortable appearance. Head: Normocephalic, atraumatic. Eyes: Symmetric. Pupils equal round. Ears: Symmetric. Hearing within normal limits. Mouth: Clear. Neck: Supple. Carotid without bruit. Cardiac: Regular rate and rhythm. Lungs: Clear anteriorly and posteriorly. Abdomen: Soft active nontender. Extremities: Normal tone. Neurological: Mental status: Alert, cooperative, pleasant. Appears at least slightly confused. Cranial nerves: Symmetric facial tone and trapezius. Motor: Able to elevate arms off the bed but unable to elevate legs off of bed. Sensation: Intact throughout. DTRs: Symmetric and equal throughout. Mobility: Requires physical assist for bed mobility. Results CBC & Chem 7: 02/23/20 06:25 02/21/20 06:29 Labs: Abnormal Lab Results - Last 24 Hours (Table) 02/22/20 02/22/20 02/23/20 Range/Units 16:55 20:38 06:25 WBC 41.4 H (3.8-10.6) k/uL RBC 1.93 L (3.80-5.40) m/uL Hgb 6.5 L* (11.4-16.0) gm/dL Hct 20.2 L (34.0-46.0) % MCV 104.7 H (80.0-100.0) fL RDW 17.9 H (11.5-15.5) % Plt Count 15 L* (150-450) k/uL Neutrophils # (Manual) 27.32 H (1.3-7.7) k/uL Lymphocytes # (Manual) 5.80 H (1.0-4.8) k/uL Monocytes # (Manual) 6.62 H (0-1.0) k/uL Metamyelocytes # (Man) 1.24 H (0) k/uL Myelocytes # (Manual) 0.83 H (0) k/uL Macrocytosis Marked A POC Glucose (mg/dL) 190 H 197 H (75-99) mg/dL Crossmatch 02/23/20 02/23/20 02/23/20 Range/Units 06:46 08:47 11:09 WBC (3.8-10.6) k/uL RBC (3.80-5.40) m/uL Hgb (11.4-16.0) gm/dL Hct (34.0-46.0) % MCV (80.0-100.0) fL RDW (11.5-15.5) % Plt Count (150-450) k/uL Neutrophils # (Manual) (1.3-7.7) k/uL Lymphocytes # (Manual) (1.0-4.8) k/uL Monocytes # (Manual) (0-1.0) k/uL Metamyelocytes # (Man) (0) k/uL Myelocytes # (Manual) (0) k/uL Macrocytosis POC Glucose (mg/dL) 157 H 267 H (75-99) mg/dL Crossmatch See Detail Microbiology - Last 24 Hours (Table) 02/18/20 02:05 Blood Culture - Preliminary Blood No Growth after 120 hours Assessment and Plan (1) Bicytopenia Current Visit: Yes Status: Acute Priority: High Code(s): D75.89 - OTHER SPECIFIED DISEASES OF BLOOD AND BLOOD-FORMING ORGANS SNOMED Code(s): 32483699 Plan: Impression: 1. Medical debility. 2. Bicytopenia, rule out CML. 3. Hypertension. 4. Diabetes. 5. Osteoarthritis. Comments and plan: PT and OT are ongoing. We'll add speech therapy for communication and cognition, as she appears to be at least mildly confused. Have discussed possible inpatient rehab with patient I am not sure that she understood what I was talking about. Would of course have to follow closely for ability tolerate and benefit from therapies, note current issues or comments of fatigue and endurance per PT and OT.
[2020-02-23] MEDS: SODIUM CHLORIDE 0.9% 1,000 ML IV SCH (16:33)
[2020-02-23 17:13] LABS: Glucose,Whole Blood 211 mg/dL (75-99)
--- NOTE | 2020-02-23 19:01 | P.PN ---
Progress Note - Text Progress Note Date: 02/23/20 Chief Complaint: Aching all over History of presenting complaint: This is a pleasant 64-year-old patient who presents with progressive symptoms of aching all over the body. No obvious fevers questionable chills. Appetite has been okay. Bowel movements frequency is variable. No nausea vomiting. The symptoms been going on for at least a month. No change in weight. No urinary symptoms. No respiratory symptoms. Was found to have a greatly elevated white count in the ER on a low hemoglobin. Urine blood was ordered. Oncology was consulted. A possible leukemia expression Admitted with-severe leukocytosis. Probable leukemia. Receive a unit of blood. Also started on hydroxyurea. Also acute UTI. On ceftriaxone. Receive 2 units of any irradiated red blood cells Today-tolerating diet. Some aches and pain. Dr. Sellers consulted for subacute rehab Review of systems: Was done for constitutional, cardiovascular, GI, pulmonary. relevant finding as above Active Medications Acetaminophen (Tylenol Tab) 650 mg PO Q6HR PRN PRN Reason: Mild Pain or Fever > 100.5 Last Admin: 02/20/20 20:39 Dose: 650 mg Documented by: Hydrocodone Bitart/Acetaminophen ([place] 5-325) 1 each PO Q4HR PRN PRN Reason: Pain Last Admin: 02/23/20 10:37 Dose: 1 each Documented by: Acyclovir (Zovirax) 800 mg PO TID [facility] Last Admin: 02/23/20 16:30 Dose: 800 mg Documented by: Cephalexin (Keflex) 500 mg PO TID [facility] Last Admin: 02/23/20 16:30 Dose: 500 mg Documented by: Famotidine (Pepcid) 20 mg PO BID [facility] Last Admin: 02/23/20 07:49 Dose: 20 mg Documented by: Hydroxyurea (Hydrea) 1,000 mg PO HS [facility] Hydroxyurea (Hydrea) 500 mg PO DAILY [facility] Sodium Chloride (Saline 0.9%) 1,000 mls @ 75 mls/hr IV .[id number] [facility] Last Admin: 02/23/20 16:33 Dose: 75 mls/hr Documented by: Lisinopril (Zestril) 20 mg PO DAILY [facility] Last Admin: 02/23/20 07:49 Dose: 20 mg Documented by: Morphine Sulfate (Morphine Sulfate (Inj)) 4 mg IV Q4H PRN PRN Reason: Pain Last Admin: 02/23/20 12:34 Dose: 4 mg Documented by: Naloxone HCl (Narcan) 0.2 mg IV Q2M PRN PRN Reason: Opioid Reversal Physical examination: VITAL SIGNS:6 98.6, 113, 20, 118/68, GENERAL: Awake, tired EYES: [Pupils equal. Conjunctiva pale HEENT: External appearance of nose and ears normal, oral cavity grossly normal. Herpetic vesicles on the lips NECK: JVD not raised; masses not palpable. HEART: First and second heart sounds are normal; no edema. LUNGS: Respiratory rate normal; clear to auscultation. ABDOMEN: Soft, nontender, liver spleen not palpable, no masses palpable. PSYCH: Alert and oriented x3; mood and affect, anxious. INVESTIGATIONS, reviewed in the clinical context: White count 41.4, hemoglobin 6.5, platelet 15 Previous testing White count 115.1 hemoglobin 6.3, MCV 115.4 which is 126 Blood cells 3 increased neutrophils and lymphocytes D-dimer 5.75 potassium 4.7 creatinine 0.68 lactic acid 2.6 UA positive, urine culture-E. coli Doppler ultrasound-lower extremity-negative Chest CTA-negative for PE Assessment: -Severe leukocytosis-Patient presented with systemic symptoms for over 4 weeks. Including joint aches and pains. No obvious fever. Elevated white count with blasts cells. Could be progressive rapid CML. Rule out acute transformation, slow to respond -Pancytopenia from above -Obesity BMI 35.9 -Diabetes mellitus type 2 on oral hypoglycemic -Essential hypertension -Acute UTI from cystitis, growing E. coli -Severe anemia from above -Acute herpes labialis- lips Plan: Patient ordered another unit of radiated red blood cell. Awaiting input from Dr. Sellers of [facility]. We have. Discussed the certified social workers in health care. Discussed with patient.
[2020-02-23 21:21] LABS: Glucose,Whole Blood 150 mg/dL (75-99)
[2020-02-24] MEDS: SODIUM CHLORIDE 0.9% 1,000 ML IV SCH ×3 (05:16→20:14)
[2020-02-24 06:58] LABS: Glucose,Whole Blood 135 mg/dL (75-99)
[2020-02-24] MEDS: ACYCLOVIR 800 MG TAB PO SCH ×3 (08:44→21:09)
[2020-02-24] MEDS: LISINOPRIL 20 MG TAB PO SCH (08:44)
[2020-02-24] MEDS: CEPHALEXIN 500 MG CAP PO SCH ×3 (08:44→21:09)
[2020-02-24] MEDS: FAMOTIDINE 20 MG TAB PO SCH ×2 (08:44→21:09)
[2020-02-24] MEDS: HYDROcodone/APAP 5-325MG 1 EACH TAB PO PRN ×2 (08:45→16:38)
[2020-02-24] MEDS ORDERED: HYDROXYUREA 500 MG CAP PO SCH (09:00)
[2020-02-24 11:28] LABS: Glucose,Whole Blood 189 mg/dL (75-99)
[2020-02-24 11:45] VITALS: BMI 35.9
[2020-02-24 12:16] LABS: Anisocytosis Slight; HCT 23.1 % (34.0-46.0); HGB 7.7 gm/dL (11.4-16.0); MCH 34.4 pg (25.0-35.0); MCHC 33.4 g/dL (31.0-37.0); Macrocytosis Moderate; Mean Platelet Volume 9.9; RBC 2.24 m/uL (3.80-5.40); RDW 18.2 % (11.5-15.5)
[2020-02-24 12:18] LABS: INR 1.1 (<1.2)
[2020-02-24 12:19] LABS: Partial Thromboplastin Time 26.4 sec (22.0-30.0); Prothrombin Time 11.4 sec (9.0-12.0)
[2020-02-24 12:24] LABS: Platelet Count 8 k/uL (150-450)
[2020-02-24 12:25] LABS: ALT 40 U/L (4-34); AST 66 U/L (14-36); African American GFR (CKD) >90 (>60 ml/min/1.73 sqM); Albumin 2.4 g/dL (3.5-5.0); Alkaline Phosphatase 179 U/L (38-126); Anion Gap 9 mmol/L; Blood Urea Nitrogen 27 mg/dL (7-17); Calcium 8.1 mg/dL (8.4-10.2); Carbon Dioxide 21 mmol/L (22-30); Chloride 109 mmol/L (98-107); Glucose 163 mg/dL (74-99); Non-African American GFR(CKD) 90 (>60 ml/min/1.73 sqM); Potassium 4.5 mmol/L (3.5-5.1); Sodium 139 mmol/L (137-145); Total Bilirubin 1.4 mg/dL (0.2-1.3); Total Protein 5.8 g/dL (6.3-8.2)
[2020-02-24 12:43] LABS: Band Neutrophils % 1 %; Blast Cells # (M) 0.45 k/uL (0); Lymphocytes # (M) 5.15 k/uL (1.0-4.8); Metamyelocytes # (M) 0.45 k/uL (0); Metamyelocytes % 2 %; Monocytes # (M) 4.26 k/uL (0-1.0); Myelocytes # (M) 0.22 k/uL (0); Myelocytes % 1 %; Neutrophils % (M) 55 %; Nucleated Red Blood Cells 1 /100 WBC (0-0); Total Cells Counted 200; WBC 22.4 k/uL (3.8-10.6)
[2020-02-24 12:44] LABS: Hypersegmented Neutrophils Present; Rouleaux Present
--- NOTE | 2020-02-24 14:58 | P.PN ---
Subjective Progress Note Date: 02/24/20 Patient overall looks and feels better. She continues to complain of generalized weakness and lower extremity pain below the knee. She feels that the leg pain is somewhat improved. Objective - Vital Signs Vital signs: Vital Signs Temp 98.1 F 02/24/20 11:20 Pulse 122 H 02/24/20 11:20 Resp 18 02/24/20 11:20 BP 117/56 02/24/20 11:20 Pulse Ox 92 L 02/24/20 11:20 Intake & Output 02/23/20 02/24/20 02/24/20 18:59 06:59 18:59 Intake Total 0578 317 7828 Balance 5258 068 9924 Weight 94.801 kg Intake: IV 600 600 Sodium Chloride 0.9% 1, 600 600 000 ml @ 75 mls/hr IV . [id number] [facility] Rx#:[id number] Oral 240 240 600 Blood Product 310 Rc Irr As1 Unit 310 [id number] Other: Voiding Method Bedside Commode Bedside Commode Diaper Diaper # Voids 1 2 2 # Bowel Movements 1 - Constitutional General appearance: Present: no acute distress - EENT EENT Comment(s): Evidence of herpetic-type viral infection right lower lip Eyes: Present: EOMI ENT: Present: hearing grossly normal, normal oropharynx - Respiratory Respiratory: bilateral: CTA - Cardiovascular Rhythm: regular Heart sounds: normal: S1, S2 - Gastrointestinal General gastrointestinal: Present: soft - Integumentary Integumentary: Present: normal - Neurologic Neurologic: Present: CNII-XII intact - Musculoskeletal Musculoskeletal: Present: generalized weakness, strength equal bilaterally - Psychiatric Psychiatric: Present: A&O x's 3, appropriate affect - Labs CBC & Chem 7: 02/24/20 11:39 02/24/20 11:39 Labs: Abnormal Lab Results - Last 24 Hours (Table) 02/23/20 02/23/20 02/23/20 Range/Units 08:47 17:11 21:20 WBC (3.8-10.6) k/uL RBC (3.80-5.40) m/uL Hgb (11.4-16.0) gm/dL Hct (34.0-46.0) % MCV (80.0-100.0) fL RDW (11.5-15.5) % Plt Count (150-450) k/uL Blast Cells % % Neutrophils # (Manual) (1.3-7.7) k/uL Lymphocytes # (Manual) (1.0-4.8) k/uL Monocytes # (Manual) (0-1.0) k/uL Metamyelocytes # (Man) (0) k/uL Myelocytes # (Manual) (0) k/uL Blast Cells # (Man) (0) k/uL Nucleated RBCs (0-0) /100 WBC Chloride (98-107) mmol/L Carbon Dioxide (22-30) mmol/L BUN (7-17) mg/dL Glucose (74-99) mg/dL POC Glucose (mg/dL) 211 H 150 H (75-99) mg/dL Calcium (8.4-10.2) mg/dL Total Bilirubin (0.2-1.3) mg/dL AST (14-36) U/L ALT (4-34) U/L Alkaline Phosphatase (38-126) U/L Total Protein (6.3-8.2) g/dL Albumin (3.5-5.0) g/dL Crossmatch See Detail 02/24/20 02/24/20 02/24/20 Range/Units 06:56 11:23 11:39 WBC 22.4 H (3.8-10.6) k/uL RBC 2.24 L (3.80-5.40) m/uL Hgb 7.7 L (11.4-16.0) gm/dL Hct 23.1 L (34.0-46.0) % MCV 103.0 H (80.0-100.0) fL RDW 18.2 H (11.5-15.5) % Plt Count 8 L* (150-450) k/uL Blast Cells % 2 H* % Neutrophils # (Manual) 12.50 H (1.3-7.7) k/uL Lymphocytes # (Manual) 5.15 H (1.0-4.8) k/uL Monocytes # (Manual) 4.26 H (0-1.0) k/uL Metamyelocytes # (Man) 0.45 H (0) k/uL Myelocytes # (Manual) 0.22 H (0) k/uL Blast Cells # (Man) 0.45 H (0) k/uL Nucleated RBCs 1 H (0-0) /100 WBC Chloride (98-107) mmol/L Carbon Dioxide (22-30) mmol/L BUN (7-17) mg/dL Glucose (74-99) mg/dL POC Glucose (mg/dL) 135 H 189 H (75-99) mg/dL Calcium (8.4-10.2) mg/dL Total Bilirubin (0.2-1.3) mg/dL AST (14-36) U/L ALT (4-34) U/L Alkaline Phosphatase (38-126) U/L Total Protein (6.3-8.2) g/dL Albumin (3.5-5.0) g/dL Crossmatch 02/24/20 Range/Units 11:39 WBC (3.8-10.6) k/uL RBC (3.80-5.40) m/uL Hgb (11.4-16.0) gm/dL Hct (34.0-46.0) % MCV (80.0-100.0) fL RDW (11.5-15.5) % Plt Count (150-450) k/uL Blast Cells % % Neutrophils # (Manual) (1.3-7.7) k/uL Lymphocytes # (Manual) (1.0-4.8) k/uL Monocytes # (Manual) (0-1.0) k/uL Metamyelocytes # (Man) (0) k/uL Myelocytes # (Manual) (0) k/uL Blast Cells # (Man) (0) k/uL Nucleated RBCs (0-0) /100 WBC Chloride 109 H (98-107) mmol/L Carbon Dioxide 21 L (22-30) mmol/L BUN 27 H (7-17) mg/dL Glucose 163 H (74-99) mg/dL POC Glucose (mg/dL) (75-99) mg/dL Calcium 8.1 L (8.4-10.2) mg/dL Total Bilirubin 1.4 H (0.2-1.3) mg/dL AST 66 H (14-36) U/L ALT 40 H (4-34) U/L Alkaline Phosphatase 179 H (38-126) U/L Total Protein 5.8 L (6.3-8.2) g/dL Albumin 2.4 L (3.5-5.0) g/dL Crossmatch Microbiology - Last 24 Hours (Table) 02/18/20 02:05 Blood Culture - Final Blood No Growth after 144 hours Assessment and Plan (1) Leukocytosis Narrative/Plan: The patient is suspected to have a myeloproliferative disorder, with chronic myeloid leukemia the primary differential. She is status post molecular testing in the peripheral blood, as well as bone marrow aspiration biopsy with results pending. Meantime she has been started on Hydrea with an excellent response with drop in WBC down to 22.2. - We are awaiting results of the above diagnostic workup to decide specific treatment plan. In the meantime the patient will be continued on Hydrea. Given the marked drop in WBC, we will decrease the dose further especially as the patient is having other cytopenias. no evidence of tumor lysis. Current Visit: Yes Status: Acute Priority: High Code(s): D72.829 - ELEVATED WHITE BLOOD CELL COUNT, UNSPECIFIED SNOMED Code(s): 925180457 (2) Bicytopenia Narrative/Plan: Hemoglobin greater than 7 today. Platelet counts were 8000. She will receive a unit of platelets. Hydrea dose will be decreased further as noted. Continue to monitor with ongoing supportive transfusions. It is anticipated that once the patient starts specific treatment, her cytopenias will improve Current Visit: Yes Status: Acute Priority: High Code(s): D75.89 - OTHER SPECIFIED DISEASES OF BLOOD AND BLOOD-FORMING ORGANS SNOMED Code(s): 58439702 (3) Urinary tract infection Narrative/Plan: Patient is on cephalexin for E. coli UTI. Defer to the admitting service for duration of treatment Current Visit: Yes Status: Acute Code(s): N39.0 - URINARY TRACT INFECTION, SITE NOT SPECIFIED SNOMED Code(s): 58199834 Plan: Okay to discharge from our standpoint once patient receives platelet transfusions. Agree with plan for inpatient rehab.
[2020-02-24 17:05] LABS: Glucose,Whole Blood 149 mg/dL (75-99)
--- NOTE | 2020-02-24 17:20 | P.PN ---
Progress Note - Text Progress Note Date: 02/24/20 Chief Complaint: Aching all over History of presenting complaint: This is a pleasant 64-year-old patient who presents with progressive symptoms of aching all over the body. No obvious fevers questionable chills. Appetite has been okay. Bowel movements frequency is variable. No nausea vomiting. The symptoms been going on for at least a month. No change in weight. No urinary symptoms. No respiratory symptoms. Was found to have a greatly elevated white count in the ER on a low hemoglobin. Urine blood was ordered. Oncology was consulted. A possible leukemia expression Admitted with-severe leukocytosis. Probable leukemia. . Also started on hydroxyurea. Also acute UTI. On ceftriaxone. Receive 3 units of any irradiated red blood cells. Also has received 5 units of platelets Today-. Tired. Tolerating some diet. Had a bowel movement. Has been accepted at [facility] under Dr. Sellers for rehab. As of this evening the limiting. Awaiting a radiated platelets to be given. Review of systems: Was done for constitutional, cardiovascular, GI, pulmonary. relevant finding as above Active Medications Acetaminophen (Tylenol Tab) 650 mg PO Q6HR PRN PRN Reason: Mild Pain or Fever > 100.5 Last Admin: 02/20/20 20:39 Dose: 650 mg Documented by: Hydrocodone Bitart/Acetaminophen ([place] 5-325) 1 each PO Q4HR PRN PRN Reason: Pain Last Admin: 02/24/20 16:38 Dose: 1 each Documented by: Acyclovir (Zovirax) 800 mg PO TID [facility] Last Admin: 02/24/20 16:38 Dose: 800 mg Documented by: Cephalexin (Keflex) 500 mg PO TID [facility] Last Admin: 02/24/20 16:38 Dose: 500 mg Documented by: Famotidine (Pepcid) 20 mg PO BID [facility] Last Admin: 02/24/20 08:44 Dose: 20 mg Documented by: Hydroxyurea (Hydrea) 500 mg PO BID [facility] Sodium Chloride (Saline 0.9%) 1,000 mls @ 75 mls/hr IV .[id number] [facility] Last Admin: 02/24/20 16:41 Dose: Not Given Documented by: Lisinopril (Zestril) 20 mg PO DAILY [facility] Last Admin: 02/24/20 08:44 Dose: 20 mg Documented by: Morphine Sulfate (Morphine Sulfate (Inj)) 4 mg IV Q4H PRN PRN Reason: Pain Last Admin: 02/23/20 22:22 Dose: 4 mg Documented by: Naloxone HCl (Narcan) 0.2 mg IV Q2M PRN PRN Reason: Opioid Reversal Physical examination: VITAL SIGNS: 98.1, 120s, 18, 117/56, 92% on room air GENERAL: Awake, tired EYES: [Pupils equal. Conjunctiva pale HEENT: External appearance of nose and ears normal, oral cavity grossly normal. Herpetic vesicles on the lips NECK: JVD not raised; masses not palpable. HEART: First and second heart sounds are normal; no edema. LUNGS: Respiratory rate normal; clear to auscultation. ABDOMEN: Soft, nontender, liver spleen not palpable, no masses palpable. PSYCH: Alert and oriented x3; mood and affect, anxious. INVESTIGATIONS, reviewed in the clinical context: White count 22.4, hemoglobin 7.7, platelets 8 potassium 4.5 bun 27 creatinine 0.7 to total bilirubin 1.4 albumin 2.4 Previous testing White count 115.1 hemoglobin 6.3, MCV 115.4 which is 126 Blood cells 3 increased neutrophils and lymphocytes D-dimer 5.75 potassium 4.7 creatinine 0.68 lactic acid 2.6 UA positive, urine culture-E. 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 Monitor testing and bone marrow aspiration [id number] pending. Patient responding to hydroxyurea in the meantime. -Pancytopenia from above -Obesity BMI 35.9 -Diabetes mellitus type 2 on oral hypoglycemic -Essential hypertension -Acute UTI from cystitis, growing E. coli -Severe anemia from above -Acute herpes labialis- lips Plan: Spoke to the nurse a few times regarding the platelet that are to be given following irradiation.. Also earlier spoke to [employer]humi from hematology. Discharge therefore has been held for today.. Patient has been accepted at [facility] under Dr. Sellers.. Should be able to go tomorrow. Total time spent today was about 40 minutes with over 25 minutes of discussion minutes of discussion.
[2020-02-24 19:57] LABS: Glucose,Whole Blood 203 mg/dL (75-99)
[2020-02-24] MEDS: MORPHINE SULFATE 4 MG/ML SYRINGE IV PRN (20:16)
[2020-02-24] MEDS: HYDROXYUREA 500 MG CAP PO SCH (21:11)
[2020-02-25] MEDS: HYDROcodone/APAP 5-325MG 1 EACH TAB PO PRN ×4 (02:07→21:14)
[2020-02-25 06:37] LABS: Anisocytosis Slight; HCT 20.2 % (34.0-46.0); MCHC 32.9 g/dL (31.0-37.0); MCV 103.3 fL (80.0-100.0); Macrocytosis Moderate; Mean Platelet Volume 8.6; RBC 1.96 m/uL (3.80-5.40); RDW 18.1 % (11.5-15.5)
[2020-02-25 06:45] LABS: Platelet Count 5 k/uL (150-450)
[2020-02-25 06:48] LABS: HGB 6.7 gm/dL (11.4-16.0)
[2020-02-25 06:55] LABS: ALT 48 U/L (4-34); AST 63 U/L (14-36); African American GFR (CKD) >90 (>60 ml/min/1.73 sqM); Albumin 2.2 g/dL (3.5-5.0); Alkaline Phosphatase 176 U/L (38-126); Anion Gap 5 mmol/L; Blood Urea Nitrogen 24 mg/dL (7-17); Calcium 7.8 mg/dL (8.4-10.2); Carbon Dioxide 23 mmol/L (22-30); Chloride 111 mmol/L (98-107); Glucose 126 mg/dL (74-99); Non-African American GFR(CKD) >90 (>60 ml/min/1.73 sqM); Potassium 4.4 mmol/L (3.5-5.1); Sodium 139 mmol/L (137-145); Total Bilirubin 1.3 mg/dL (0.2-1.3); Total Protein 5.3 g/dL (6.3-8.2)
[2020-02-25 07:09] LABS: Glucose,Whole Blood 127 mg/dL (75-99)
[2020-02-25 07:20] LABS: Band Neutrophils % 1 %; Lymphocytes # (M) 3.99 k/uL (1.0-4.8); Monocytes # (M) 5.51 k/uL (0-1.0); Myelocytes # (M) 0.38 k/uL (0); Myelocytes % 2 %; Neutrophils % (M) 47 %
[2020-02-25 07:21] LABS: Blast Cells # (M) 0.19 k/uL (0); Nucleated Red Blood Cells 0 /100 WBC (0-0); Total Cells Counted 200
[2020-02-25] MEDS: CEPHALEXIN 500 MG CAP PO SCH ×3 (08:59→21:37)
[2020-02-25] MEDS: FAMOTIDINE 20 MG TAB PO SCH ×2 (08:59→21:37)
[2020-02-25] MEDS: ACYCLOVIR 800 MG TAB PO SCH ×3 (08:59→21:37)
[2020-02-25] MEDS: LISINOPRIL 20 MG TAB PO SCH (08:59)
[2020-02-25] MEDS: HYDROXYUREA 500 MG CAP PO SCH ×2 (08:59→21:37)
[2020-02-25] MEDS: SODIUM CHLORIDE 0.9% 1,000 ML IV SCH (09:02)
[2020-02-25 11:45] LABS: Glucose,Whole Blood 163 mg/dL (75-99)
[2020-02-25 17:28] LABS: Glucose,Whole Blood 150 mg/dL (75-99)
[2020-02-25 21:14] LABS: Glucose,Whole Blood 145 mg/dL (75-99)
[2020-02-26] MEDS: HYDROcodone/APAP 5-325MG 1 EACH TAB PO PRN ×4 (01:38→19:45)
[2020-02-26 06:24] LABS: Anisocytosis Slight; HCT 21.8 % (34.0-46.0); HGB 7.1 gm/dL (11.4-16.0); MCH 32.1 pg (25.0-35.0); MCHC 32.4 g/dL (31.0-37.0); MCV 99.4 fL (80.0-100.0); Macrocytosis Moderate; Mean Platelet Volume 9.4; RBC 2.19 m/uL (3.80-5.40); RDW 18.7 % (11.5-15.5); WBC 14.7 k/uL (3.8-10.6)
[2020-02-26 06:35] LABS: Platelet Count 34 k/uL (150-450)
[2020-02-26 07:01] LABS: Band Neutrophils % 3 %; Blast Cells # (M) 0.29 k/uL (0); Monocytes # (M) 3.68 k/uL (0-1.0); Neutrophils % (M) 38 %; Nucleated Red Blood Cells 0 /100 WBC (0-0); Total Cells Counted 100
[2020-02-26 07:02] LABS: Hypersegmented Neutrophils Present
[2020-02-26 07:18] LABS: Glucose,Whole Blood 136 mg/dL (75-99)
[2020-02-26] MEDS: CEPHALEXIN 500 MG CAP PO SCH ×3 (07:44→21:22)
[2020-02-26] MEDS: ACYCLOVIR 800 MG TAB PO SCH ×3 (07:44→21:22)
[2020-02-26] MEDS: LISINOPRIL 20 MG TAB PO SCH (07:44)
[2020-02-26] MEDS: FAMOTIDINE 20 MG TAB PO SCH ×2 (07:44→21:22)
[2020-02-26] MEDS: HYDROXYUREA 500 MG CAP PO SCH ×2 (07:44→21:22)
[2020-02-26] MEDS: SODIUM CHLORIDE 0.9% 1,000 ML IV SCH ×2 (09:00→19:45)
[2020-02-26 12:06] LABS: Glucose,Whole Blood 158 mg/dL (75-99)
[2020-02-26 17:09] LABS: Glucose,Whole Blood 127 mg/dL (75-99)
[2020-02-26 20:02] LABS: Glucose,Whole Blood 153 mg/dL (75-99)
--- NOTE | 2020-02-27 00:25 | P.PN ---
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 This is a pleasant 64-year-old patient who presents with progressive symptoms of aching all over the body. No obvious fevers questionable chills. Appetite has been okay. Bowel movements frequency is variable. No nausea vomiting. The symptoms been going on for at least a month. No change in weight. No urinary symptoms. No respiratory symptoms. Was found to have a greatly elevated white count in the ER on a low hemoglobin. Urine blood was ordered. Oncology was consulted. A possible leukemia expression Admitted with-severe leukocytosis. Probable leukemia. . Also started on hydroxyurea. Also acute UTI. On ceftriaxone. Receive 3 units of any irradiated red blood cells. Also has received 5 units of platelets 02/24/2020-. Tired. Tolerating some diet. Had a bowel movement. Has been accepted at [facility] under Dr. Sellers for rehab. As of this evening the limiting. Awaiting a radiated platelets to be given. 02/25/2020 Patient is currently sitting in the chair. Feeling tired and lethargic. Hemoglobin dropped to 6.7 and platelet count of 5. Patient is being transfused with irradiated platelets and also PRBC. Patient will need follow-up as an outpatient with oncology/hematology. Anticipate discharge in the next 24-48 hours. Objective - Vital Signs Vital signs: Vital Signs Temp 98.4 F 02/25/20 15:11 Pulse 112 H 02/25/20 15:11 Resp 16 02/25/20 15:11 BP 152/77 02/25/20 15:11 Pulse Ox 97 02/25/20 12:19 Intake & Output 02/24/20 02/25/20 02/25/20 18:59 06:59 18:59 Intake Total 1450 1450 0 Balance 1450 1450 0 Weight 94.801 kg Intake: IV 600 Sodium Chloride 0.9% 1, 600 000 ml @ 75 mls/hr IV . [id number] [facility] Rx#:[id number] Intake, IV Titration 600 Amount Sodium Chloride 0.9% 1, 600 000 ml @ 75 mls/hr IV . [id number] [facility] Rx#:[id number] Oral 850 850 Blood Product 0 Rc Irr As1 Unit 0 [id number] Other: Voiding Method Bedside Commode Bedside Commode Bedside Commode Diaper Diaper Diaper # Voids 2 2 - Exam GENERAL: Awake, tired EYES: [Pupils equal. Conjunctiva pale HEENT: External appearance of nose and ears normal, oral cavity grossly normal. Herpetic vesicles on the lips NECK: JVD not raised; masses not palpable. HEART: First and second heart sounds are normal; no edema. LUNGS: Respiratory rate normal; clear to auscultation. ABDOMEN: Soft, nontender, liver spleen not palpable, no masses palpable. PSYCH: Alert and oriented x3; mood and affect, anxious. - Labs CBC & Chem 7: 02/26/20 06:02 02/25/20 05:38 Labs: Abnormal Lab Results - Last 24 Hours (Table) 02/23/20 02/24/20 02/24/20 Range/Units 08:47 17:01 19:56 WBC (3.8-10.6) k/uL RBC (3.80-5.40) m/uL Hgb (11.4-16.0) gm/dL Hct (34.0-46.0) % MCV (80.0-100.0) fL RDW (11.5-15.5) % Plt Count (150-450) k/uL Blast Cells % % Neutrophils # (Manual) (1.3-7.7) k/uL Monocytes # (Manual) (0-1.0) k/uL Myelocytes # (Manual) (0) k/uL Blast Cells # (Man) (0) k/uL Chloride (98-107) mmol/L BUN (7-17) mg/dL Glucose (74-99) mg/dL POC Glucose (mg/dL) 149 H 203 H (75-99) mg/dL Calcium (8.4-10.2) mg/dL AST (14-36) U/L ALT (4-34) U/L Alkaline Phosphatase (38-126) U/L Total Protein (6.3-8.2) g/dL Albumin (3.5-5.0) g/dL Crossmatch See Detail 02/25/20 02/25/20 02/25/20 Range/Units 05:38 05:38 07:04 WBC 19.0 H (3.8-10.6) k/uL RBC 1.96 L (3.80-5.40) m/uL Hgb 6.7 L* (11.4-16.0) gm/dL Hct 20.2 L (34.0-46.0) % MCV 103.3 H (80.0-100.0) fL RDW 18.1 H (11.5-15.5) % Plt Count 5 L* (150-450) k/uL Blast Cells % 1 H* % Neutrophils # (Manual) 9.10 H (1.3-7.7) k/uL Monocytes # (Manual) 5.51 H (0-1.0) k/uL Myelocytes # (Manual) 0.38 H (0) k/uL Blast Cells # (Man) 0.19 H (0) k/uL Chloride 111 H (98-107) mmol/L BUN 24 H (7-17) mg/dL Glucose 126 H (74-99) mg/dL POC Glucose (mg/dL) 127 H (75-99) mg/dL Calcium 7.8 L (8.4-10.2) mg/dL AST 63 H (14-36) U/L ALT 48 H (4-34) U/L Alkaline Phosphatase 176 H (38-126) U/L Total Protein 5.3 L (6.3-8.2) g/dL Albumin 2.2 L (3.5-5.0) g/dL Crossmatch 02/25/20 Range/Units 11:40 WBC (3.8-10.6) k/uL RBC (3.80-5.40) m/uL Hgb (11.4-16.0) gm/dL Hct (34.0-46.0) % MCV (80.0-100.0) fL RDW (11.5-15.5) % Plt Count (150-450) k/uL Blast Cells % % Neutrophils # (Manual) (1.3-7.7) k/uL Monocytes # (Manual) (0-1.0) k/uL Myelocytes # (Manual) (0) k/uL Blast Cells # (Man) (0) k/uL Chloride (98-107) mmol/L BUN (7-17) mg/dL Glucose (74-99) mg/dL POC Glucose (mg/dL) 163 H (75-99) mg/dL Calcium (8.4-10.2) mg/dL AST (14-36) U/L ALT (4-34) U/L Alkaline Phosphatase (38-126) U/L Total Protein (6.3-8.2) g/dL Albumin (3.5-5.0) g/dL Crossmatch Assessment and Plan Assessment: INVESTIGATIONS, reviewed in the clinical context: White count 22.4, hemoglobin 7.7, platelets 8 potassium 4.5 bun 27 creatinine 0.7 to total bilirubin 1.4 albumin 2.4 Previous testing White count 115.1 hemoglobin 6.3, MCV 115.4 which is 126 Blood cells 3 increased neutrophils and lymphocytes D-dimer 5.75 potassium 4.7 creatinine 0.68 lactic acid 2.6 UA positive, urine culture-E. 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 Monitor testing and bone marrow aspiration [id number] pending. Patient responding to hydroxyurea in the meantime. -Pancytopenia from above -Obesity BMI 35.9 -Diabetes mellitus type 2 on oral hypoglycemic -Essential hypertension -Acute UTI from cystitis, growing E. coli -Severe anemia from above -Acute herpes labialis- lips Plan: Patient will be continued on platelet and blood transfusion. Monitor H&H and platelets closely. Hematology/ oncology on board. Patient has been accepted at [facility] under Dr. Sellers.. Time with Patient: Greater than 30
--- NOTE | 2020-02-27 00:28 | P.PN ---
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 This is a pleasant 64-year-old patient who presents with progressive symptoms of aching all over the body. No obvious fevers questionable chills. Appetite has been okay. Bowel movements frequency is variable. No nausea vomiting. The symptoms been going on for at least a month. No change in weight. No urinary symptoms. No respiratory symptoms. Was found to have a greatly elevated white count in the ER on a low hemoglobin. Urine blood was ordered. Oncology was consulted. A possible leukemia expression Admitted with-severe leukocytosis. Probable leukemia. . Also started on hydroxyurea. Also acute UTI. On ceftriaxone. Receive 3 units of any irradiated red blood cells. Also has received 5 units of platelets 02/24/2020-. Tired. Tolerating some diet. Had a bowel movement. Has been accepted at [facility] under Dr. Sellers for rehab. As of this evening the limiting. Awaiting a radiated platelets to be given. 02/25/2020 Patient is currently sitting in the chair. Feeling tired and lethargic. Hemoglobin dropped to 6.7 and platelet count of 5. Patient is being transfused with irradiated platelets and also PRBC. Patient will need follow-up as an outpatient with oncology/hematology. Anticipate discharge in the next 24-48 hours. 02/26/2020 Patient says that she feels better today. No complaints of chest pain or shortness of breath. Able to tolerate oral diet. Patient underwent platelet transfusion and count increased to 35 now. Hemoglobin is 7.1 today. Follow-up repeat CBC and BMP tomorrow. Follow-up biopsy reports. Current medications reviewed. Objective - Vital Signs Vital signs: Vital Signs Temp 98.5 F 02/26/20 21:00 Pulse 116 H 02/26/20 21:00 Resp 20 02/26/20 21:00 BP 115/61 02/26/20 21:00 Pulse Ox 98 02/26/20 21:00 Intake & Output 02/26/20 02/26/20 02/27/20 06:59 18:59 06:59 Intake Total 305 1250 500 Balance 305 1250 500 Intake: IV 600 Sodium Chloride 0.9% 1, 600 000 ml @ 75 mls/hr IV . [id number] [facility] Rx#:[id number] Oral 650 500 Blood Product 305 Platelet Irr Pheresis 2 305 [employer] Unit [id number] Other: Voiding Method Bedside Commode Diaper # Voids 3 3 2 # Bowel Movements 1 1 - Exam GENERAL: Awake, tired EYES: [Pupils equal. Conjunctiva pale HEENT: External appearance of nose and ears normal, oral cavity grossly normal. Herpetic vesicles on the lips NECK: JVD not raised; masses not palpable. HEART: First and second heart sounds are normal; no edema. LUNGS: Respiratory rate normal; clear to auscultation. ABDOMEN: Soft, nontender, liver spleen not palpable, no masses palpable. PSYCH: Alert and oriented x3; mood and affect, anxious. - Labs CBC & Chem 7: 02/26/20 06:02 02/25/20 05:38 Labs: Abnormal Lab Results - Last 24 Hours (Table) 02/26/20 02/26/20 02/26/20 Range/Units 06:02 07:09 11:46 WBC 14.7 H (3.8-10.6) k/uL RBC 2.19 L (3.80-5.40) m/uL Hgb 7.1 L (11.4-16.0) gm/dL Hct 21.8 L (34.0-46.0) % RDW 18.7 H (11.5-15.5) % Plt Count 34 L D (150-450) k/uL Blast Cells % 2 H* % Monocytes # (Manual) 3.68 H (0-1.0) k/uL Blast Cells # (Man) 0.29 H (0) k/uL POC Glucose (mg/dL) 136 H 158 H (75-99) mg/dL 02/26/20 02/26/20 Range/Units 17:08 19:58 WBC (3.8-10.6) k/uL RBC (3.80-5.40) m/uL Hgb (11.4-16.0) gm/dL Hct (34.0-46.0) % RDW (11.5-15.5) % Plt Count (150-450) k/uL Blast Cells % % Monocytes # (Manual) (0-1.0) k/uL Blast Cells # (Man) (0) k/uL POC Glucose (mg/dL) 127 H 153 H (75-99) mg/dL Assessment and Plan Assessment: INVESTIGATIONS, reviewed in the clinical context: White count 22.4, hemoglobin 7.7, platelets 8 potassium 4.5 bun 27 creatinine 0.7 to total bilirubin 1.4 albumin 2.4 Previous testing White count 115.1 hemoglobin 6.3, MCV 115.4 which is 126 Blood cells 3 increased neutrophils and lymphocytes D-dimer 5.75 potassium 4.7 creatinine 0.68 lactic acid 2.6 UA positive, urine culture-E. 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 Monitor testing and bone marrow aspiration [id number] pending. Patient responding to hydroxyurea in the meantime. -Pancytopenia from above -Obesity BMI 35.9 -Diabetes mellitus type 2 on oral hypoglycemic -Essential hypertension -Acute UTI from cystitis, growing E. coli -Severe anemia from above -Acute herpes labialis- lips currently on acyclovir. Plan: Patient was transfused with platelets and blood transfusion. Monitor H&H and platelets closely. Hematology/ oncology on board. Patient has been accepted at [facility] under Dr. Sellers.. Time with Patient: Greater than 30
[2020-02-27] MEDS: HYDROcodone/APAP 5-325MG 1 EACH TAB PO PRN ×2 (02:49→06:26)
[2020-02-27 06:58] LABS: Glucose,Whole Blood 137 mg/dL (75-99)
[2020-02-27] MEDS: ACYCLOVIR 800 MG TAB PO SCH ×3 (08:20→21:27)
[2020-02-27] MEDS: FAMOTIDINE 20 MG TAB PO SCH ×2 (08:20→21:27)
[2020-02-27] MEDS: HYDROXYUREA 500 MG CAP PO SCH (08:20)
[2020-02-27] MEDS: CEPHALEXIN 500 MG CAP PO SCH ×3 (08:20→21:27)
[2020-02-27] MEDS: LISINOPRIL 20 MG TAB PO SCH (08:20)
[2020-02-27 09:41] LABS: Anisocytosis Slight; HCT 21.9 % (34.0-46.0); HGB 7.1 gm/dL (11.4-16.0); Hypochromasia Slight; MCHC 32.6 g/dL (31.0-37.0); MCV 101.2 fL (80.0-100.0); Macrocytosis Moderate; Mean Platelet Volume 8.1; RBC 2.16 m/uL (3.80-5.40); RDW 18.2 % (11.5-15.5)
[2020-02-27 09:43] LABS: Platelet Count 23 k/uL (150-450)
[2020-02-27 10:07] LABS: ALT 39 U/L (4-34); AST 43 U/L (14-36); African American GFR (CKD) >90 (>60 ml/min/1.73 sqM); Albumin 2.2 g/dL (3.5-5.0); Alkaline Phosphatase 152 U/L (38-126); Anion Gap 8 mmol/L; Blood Urea Nitrogen 18 mg/dL (7-17); Calcium 7.9 mg/dL (8.4-10.2); Carbon Dioxide 21 mmol/L (22-30); Chloride 107 mmol/L (98-107); Glucose 229 mg/dL (74-99); Non-African American GFR(CKD) >90 (>60 ml/min/1.73 sqM); Potassium 4.3 mmol/L (3.5-5.1); Sodium 136 mmol/L (137-145); Total Bilirubin 1.4 mg/dL (0.2-1.3); Total Protein 5.3 g/dL (6.3-8.2)
[2020-02-27] MEDS ORDERED: FUROSEMIDE 10 MG/ML 2 ML VIAL IV ONE (10:48)
[2020-02-27 11:14] LABS: Glucose,Whole Blood 174 mg/dL (75-99)
[2020-02-27 11:15] LABS: Blast Cells # (M) 0.19 k/uL (0); Lymphocytes # (M) 2.04 k/uL (1.0-4.8); Monocytes # (M) 2.81 k/uL (0-1.0); Myelocytes % 1 %; Neutrophils # (M) 4.66 k/uL (1.3-7.7); Neutrophils % (M) 48 %; Nucleated Red Blood Cells 1 /100 WBC (0-0); Total Cells Counted 200; WBC 9.7 k/uL (3.8-10.6)
[2020-02-27 11:17] LABS: Poikilocytosis (M) Present
--- NOTE | 2020-02-27 13:50 | P.PN ---
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 This is a pleasant 64-year-old patient who presents with progressive symptoms of aching all over the body. No obvious fevers questionable chills. Appetite has been okay. Bowel movements frequency is variable. No nausea vomiting. The symptoms been going on for at least a month. No change in weight. No urinary symptoms. No respiratory symptoms. Was found to have a greatly elevated white count in the ER on a low hemoglobin. Urine blood was ordered. Oncology was consulted. A possible leukemia expression Admitted with-severe leukocytosis. Probable leukemia. . Also started on hydroxyurea. Also acute UTI. On ceftriaxone. Receive 3 units of any irradiated red blood cells. Also has received 5 units of platelets 02/24/2020-. Tired. Tolerating some diet. Had a bowel movement. Has been accepted at [facility] under Dr. Sellers for rehab. As of this evening the limiting. Awaiting a radiated platelets to be given. 02/25/2020 Patient is currently sitting in the chair. Feeling tired and lethargic. Hemoglobin dropped to 6.7 and platelet count of 5. Patient is being transfused with irradiated platelets and also PRBC. Patient will need follow-up as an outpatient with oncology/hematology. Anticipate discharge in the next 24-48 hours. 02/26/2020 Patient says that she feels better today. No complaints of chest pain or shortness of breath. Able to tolerate oral diet. Patient underwent platelet transfusion and count increased to 35 now. Hemoglobin is 7.1 today. Follow-up repeat CBC and BMP tomorrow. Follow-up biopsy reports. Current medications reviewed. 02/27/2020 Patient is seen and evaluated in follow-up today. Patient is currently sitting up in the chair stating she is having some shortness of breath and is currently wearing 3 L of oxygen via nasal cannula. States she does not wear oxygen at home. Patient also has some mild lower extremity swelling. Will give a one- time dose of 20 mg Lasix IV push. Patient's hemoglobin is 7.1 today and platelets are at 23 and is not requiring a transfusion at this time. Oncology /hematology following. Patient currently remains on Hydrea and dose will be decreased per oncology. Patient transition to oral Keflex as urine cultures finalized showing E. coli and will continue at this time. Anticipate discharge to [facility] rehab for inpatient rehabilitation in 24 hours. Will repeat a.m. labs. Objective - Vital Signs Vital signs: Vital Signs Temp 98.9 F 02/27/20 05:00 Pulse 114 H 02/27/20 05:00 Resp 20 02/27/20 05:00 BP 116/63 02/27/20 05:00 Pulse Ox 96 02/27/20 05:00 Intake & Output 02/26/20 02/27/20 02/27/20 18:59 06:59 18:59 Intake Total 1250 500 Balance 1250 500 Intake: IV 600 Sodium Chloride 0.9% 1, 600 000 ml @ 75 mls/hr IV . [id number] [facility] Rx#:[id number] Oral 650 500 Other: Voiding Method Bedside Commode Bedside Commode Diaper Diaper # Voids 3 1 # Bowel Movements 1 - Exam GENERAL: Awake, slightly lethargic. Sitting up in the chair, alert and oriented 3 EYES: Pupils equal. Conjunctiva pale HEENT: External appearance of nose and ears normal, oral cavity grossly normal. Herpetic vesicles noted on the left lower lip with crusting noted NECK: JVD not raised; masses not palpable. HEART: First and second heart sounds are normal; no edema. LUNGS: Respiratory rate normal; clear to auscultation. ABDOMEN: Soft, nontender, liver spleen not palpable, no masses palpable. PSYCH: Alert and oriented x3; mood and affect, anxious. - Labs CBC & Chem 7: 02/27/20 09:12 02/27/20 09:12 Labs: Abnormal Lab Results - Last 24 Hours (Table) 02/26/20 02/26/20 02/27/20 Range/Units 17:08 19:58 06:57 RBC (3.80-5.40) m/uL Hgb (11.4-16.0) gm/dL Hct (34.0-46.0) % MCV (80.0-100.0) fL RDW (11.5-15.5) % Plt Count (150-450) k/uL Blast Cells % % Monocytes # (Manual) (0-1.0) k/uL Myelocytes # (Manual) (0) k/uL Blast Cells # (Man) (0) k/uL Nucleated RBCs (0-0) /100 WBC Sodium (137-145) mmol/L Carbon Dioxide (22-30) mmol/L BUN (7-17) mg/dL Glucose (74-99) mg/dL POC Glucose (mg/dL) 127 H 153 H 137 H (75-99) mg/dL Calcium (8.4-10.2) mg/dL Total Bilirubin (0.2-1.3) mg/dL AST (14-36) U/L ALT (4-34) U/L Alkaline Phosphatase (38-126) U/L Total Protein (6.3-8.2) g/dL Albumin (3.5-5.0) g/dL 02/27/20 02/27/20 02/27/20 Range/Units 09:12 09:12 11:13 RBC 2.16 L (3.80-5.40) m/uL Hgb 7.1 L (11.4-16.0) gm/dL Hct 21.9 L (34.0-46.0) % MCV 101.2 H (80.0-100.0) fL RDW 18.2 H (11.5-15.5) % Plt Count 23 L (150-450) k/uL Blast Cells % 2 H* % Monocytes # (Manual) 2.81 H (0-1.0) k/uL Myelocytes # (Manual) 0.10 H (0) k/uL Blast Cells # (Man) 0.19 H (0) k/uL Nucleated RBCs 1 H (0-0) /100 WBC Sodium 136 L (137-145) mmol/L Carbon Dioxide 21 L (22-30) mmol/L BUN 18 H (7-17) mg/dL Glucose 229 H (74-99) mg/dL POC Glucose (mg/dL) 174 H (75-99) mg/dL Calcium 7.9 L (8.4-10.2) mg/dL Total Bilirubin 1.4 H (0.2-1.3) mg/dL AST 43 H (14-36) U/L ALT 39 H (4-34) U/L Alkaline Phosphatase 152 H (38-126) U/L Total Protein 5.3 L (6.3-8.2) g/dL Albumin 2.2 L (3.5-5.0) g/dL Assessment and Plan Assessment: Assessment: -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 Monitor testing and bone marrow aspiration biopsy pending. Patient responding to hydroxyurea in the meantime. -Pancytopenia from above -Obesity BMI 35.9 -Diabetes mellitus type 2 on oral hypoglycemic -Essential hypertension -Acute UTI from cystitis, growing E. coli -Severe anemia from above -Acute herpes labialis- lips currently on acyclovir. Plan: Patient hemoglobin is 7.1 and platelets are 23 today requiring no transfusions. Will repeat a.m. labs. Patient was given a one-time dose of Lasix and discussed with nursing staff about weaning off oxygen. Hematology/ oncology on board. Patient remains on Hydrea and will continue at this time. Patient has been accepted at [facility] under Dr. Ross. Anticipate discharge in 24 hours.
--- NOTE | 2020-02-27 15:38 | P.PN ---
Subjective Progress Note Date: 02/27/20 Principal diagnosis: leukocytosis, bicytopenia, suspicions for leukemia In follow-up patient in chair today, she looks better, more alert, feels failry well, certainly better then on admit, she has c/o, BLE swelling. Bone marrow site is no longer tender, no pain in the leg. Wants to participate in rehab. No pain or other c/o. Objective - Vital Signs Vital signs: Vital Signs Temp 98.9 F 02/27/20 05:00 Pulse 114 H 02/27/20 05:00 Resp 20 02/27/20 05:00 BP 116/63 02/27/20 05:00 Pulse Ox 96 02/27/20 05:00 Intake & Output 02/26/20 02/27/20 02/27/20 18:59 06:59 18:59 Intake Total 1250 500 Balance 1250 500 Weight 94.801 kg Intake: IV 600 Sodium Chloride 0.9% 1, 600 000 ml @ 75 mls/hr IV . [id number] [facility] Rx#:[id number] Oral 650 500 Other: Voiding Method Bedside Commode Bedside Commode Diaper Diaper # Voids 3 1 2 # Bowel Movements 1 - Constitutional General appearance: Present: cooperative, no acute distress, obese - EENT Eyes: Present: anicteric sclerae, EOMI ENT: Present: hearing grossly normal, normal oropharynx - Respiratory Respiratory: bilateral: CTA, diminished - Cardiovascular Heart sounds: normal: S1, S2 - Peripheral edema leg Peripheral Edema: bilateral: 3+ (non-pitting) - Gastrointestinal General gastrointestinal: Present: normal bowel sounds, soft - Neurologic Neurologic: Present: CNII-XII intact - Musculoskeletal Musculoskeletal: Present: generalized weakness - Psychiatric Psychiatric: Present: A&O x's 3, appropriate affect, intact judgment & insight - Labs CBC & Chem 7: 02/27/20 09:12 02/27/20 09:12 Labs: Abnormal Lab Results - Last 24 Hours (Table) 02/26/20 02/26/20 02/27/20 Range/Units 17:08 19:58 06:57 RBC (3.80-5.40) m/uL Hgb (11.4-16.0) gm/dL Hct (34.0-46.0) % MCV (80.0-100.0) fL RDW (11.5-15.5) % Plt Count (150-450) k/uL Blast Cells % % Monocytes # (Manual) (0-1.0) k/uL Myelocytes # (Manual) (0) k/uL Blast Cells # (Man) (0) k/uL Nucleated RBCs (0-0) /100 WBC Sodium (137-145) mmol/L Carbon Dioxide (22-30) mmol/L BUN (7-17) mg/dL Glucose (74-99) mg/dL POC Glucose (mg/dL) 127 H 153 H 137 H (75-99) mg/dL Calcium (8.4-10.2) mg/dL Total Bilirubin (0.2-1.3) mg/dL AST (14-36) U/L ALT (4-34) U/L Alkaline Phosphatase (38-126) U/L Total Protein (6.3-8.2) g/dL Albumin (3.5-5.0) g/dL 02/27/20 02/27/20 02/27/20 Range/Units 09:12 09:12 11:13 RBC 2.16 L (3.80-5.40) m/uL Hgb 7.1 L (11.4-16.0) gm/dL Hct 21.9 L (34.0-46.0) % MCV 101.2 H (80.0-100.0) fL RDW 18.2 H (11.5-15.5) % Plt Count 23 L (150-450) k/uL Blast Cells % 2 H* % Monocytes # (Manual) 2.81 H (0-1.0) k/uL Myelocytes # (Manual) 0.10 H (0) k/uL Blast Cells # (Man) 0.19 H (0) k/uL Nucleated RBCs 1 H (0-0) /100 WBC Sodium 136 L (137-145) mmol/L Carbon Dioxide 21 L (22-30) mmol/L BUN 18 H (7-17) mg/dL Glucose 229 H (74-99) mg/dL POC Glucose (mg/dL) 174 H (75-99) mg/dL Calcium 7.9 L (8.4-10.2) mg/dL Total Bilirubin 1.4 H (0.2-1.3) mg/dL AST 43 H (14-36) U/L ALT 39 H (4-34) U/L Alkaline Phosphatase 152 H (38-126) U/L Total Protein 5.3 L (6.3-8.2) g/dL Albumin 2.2 L (3.5-5.0) g/dL Assessment and Plan (1) Bicytopenia Narrative/Plan: Hgb stable at 7.1 [place] [address]-[id number] transfusion Hydrea contributing to progressively low counts, dose further adjusted Current Visit: Yes Status: Acute Priority: High Code(s): D75.89 - OTHER SPECIFIED DISEASES OF BLOOD AND BLOOD-FORMING ORGANS SNOMED Code(s): 43111335 (2) Leukocytosis Narrative/Plan: Hydrea has decreased leukocytosis from >then 100 to WNL. Hydrea being adjusted for bicytopenia S/P bone marrow biopsy Pending BCR-ABL-and contacted lab regarding this test, drawn/collected 02/19/20. Still unable to get any results. Current Visit: Yes Status: Acute Priority: High Code(s): D72.829 - ELEVATED WHITE BLOOD CELL COUNT, UNSPECIFIED SNOMED Code(s): 734536434 Plan: 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 Bone marrow biopsy done 02/21, 7-10 days for results. BCR-ABL results STILL pending Hemoglobin stable 7.1 today. Transfuse to keep Hgb 7 or higher, irradiated blood products. Platelets 24,000. Transfuse with irradiated single donor platelets for platelet count less than 10,000 or if bleeding. No aspirin, NSAIDs, hold anticoagulation/DVT proph at this time. Hydrea dose adjusted again. WBC 9.7. No evidence to suggest tumor lysis syndrome. WBC is significantly improved. TLS labs PRN Patient is being treated for gram-negative bacilli UTI. Agree and encourage rehab for pt. She is motivated to begin as she is feeling better. Discussed with IM CIRCULATION TENDER. Continue hydrea daily until results of BCR-ABL/bone marrow so more targeted therapy can be initiated. No treatment will be initiated while pt is in rehab. She will need weekly CBC for now. As the hydrea dose has been decreased her Hgb and plt have improved and not been requiring transfusions as frequently. Transfusions may be required until treatment is optimized. All of the above was reviewed with the pt, she verbalized understanding, all questions answered
[2020-02-27 17:19] LABS: Glucose,Whole Blood 119 mg/dL (75-99)
[2020-02-27 20:25] LABS: Glucose,Whole Blood 118 mg/dL (75-99)
[2020-02-28] MEDS: HYDROcodone/APAP 5-325MG 1 EACH TAB PO PRN ×2 (03:28→08:12)
[2020-02-28 07:23] LABS: Glucose,Whole Blood 127 mg/dL (75-99)
[2020-02-28 07:41] LABS: Anisocytosis Slight; HCT 23.5 % (34.0-46.0); HGB 7.6 gm/dL (11.4-16.0); MCHC 32.5 g/dL (31.0-37.0); MCV 98.6 fL (80.0-100.0); Macrocytosis Slight; Mean Platelet Volume 8.9; RBC 2.39 m/uL (3.80-5.40); RDW 17.3 % (11.5-15.5)
[2020-02-28 07:42] LABS: Platelet Count 16 k/uL (150-450)
[2020-02-28] MEDS: FAMOTIDINE 20 MG TAB PO SCH (07:57)
[2020-02-28] MEDS: LISINOPRIL 20 MG TAB PO SCH (07:57)
[2020-02-28] MEDS: CEPHALEXIN 500 MG CAP PO SCH (07:57)
[2020-02-28] MEDS: ACYCLOVIR 800 MG TAB PO SCH (07:57)
[2020-02-28] MEDS ORDERED: HYDROXYUREA 500 MG CAP PO SCH ×2 (09:00→21:00)
[2020-02-28 09:30] LABS: Band Neutrophils % 1 %; Neutrophils % (M) 41 %
[2020-02-28 09:31] LABS: Blast Cells # (M) 0.18 k/uL (0); Lymphocytes # (M) 3.52 k/uL (1.0-4.8); Monocytes # (M) 6.86 k/uL (0-1.0); Nucleated Red Blood Cells 1 /100 WBC (0-0); Total Cells Counted 200; WBC 17.6 k/uL (3.8-10.6)
[2020-02-28 09:33] LABS: Poikilocytosis (M) Present
[2020-02-28] MEDS ORDERED: FUROSEMIDE 10 MG/ML 2 ML VIAL IV ONE (09:37)
[2020-02-28 11:52] LABS: Glucose,Whole Blood 143 mg/dL (75-99)
[2020-02-28 12:33] VITALS: BP 123/66; PULSE 116; RESP 18; TEMP 98
--- NOTE | 2020-02-28 12:43 | P.DS ---
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 Monitor testing and bone marrow aspiration biopsy pending. Patient responding to hydroxyurea in the meantime. -Pancytopenia from above -Obesity BMI 35.9 -Diabetes mellitus type 2 on oral hypoglycemic -Essential hypertension -Acute UTI from cystitis, growing E. coli -Severe anemia from above -Acute herpes labialis- lips currently on acyclovir. Discharge disposition Patient is being transferred in a stable condition with guarded prognosis to [facility] for continued PT/OT therapy. Total time taken is 35 minutes History of present illness This is a 64-year-old female who was recently admitted for generalized weakness along with aching all over the body and was being closely monitored. College he was consulted and following. Patient was found to have low hemoglobin and an elevated white blood count. Patient had urinalysis which showed E. coli and was treated with Keflex orally. Patient was initiated on hydroxyurea and is curr ently on 500 mg daily. Patient also received transfusions of PRBCs along with platelets. Hemoglobin today is 7.6 and platelet count is 16. No transfusions required today. Recommending repeat labs in the morning to monitor hemoglobin and platelet count closely. Patient continues to be weak requiring assistance and will be going to [facility] for inpatient rehab for continued strength and mobility. Patient also has herpes labialis outbreak and remains on acyclovir and will continue at this time. Patient will follow-up with oncology in the outpatient setting. Patient's having some bilateral lower extremity swelling and edema that slightly improved status post Lasix IV push yesterday. Patient will be given another Lasix 20 mg IV push and will continue on 20 mg daily orally for the next 1 week and then may discontinue. Discussed with the patient at length about increasing activity as tolerated and elevating the legs and wearing compression hoses while at rest. Patient awaiting biopsy reports with oncology at this time. Currently no reports of chest pain, shortness of breath, or palpitations. Patient is afebrile. No reports of nausea or vomiting and patient is tolerating diet. Patient will be transferred to [facility] inpatient rehab today. On exam vital signs are stable. Temp is 98F, pulse is 105, respirations are 20, blood pressure is 123/66, oxygen saturation is 93% on room air. Patient has been intermittently using 2-3 L of oxygen via nasal cannula although denies any shortness of breath. Cardio S1, S2 are present. Respiratory shows diminished breath sounds with no wheezing or rhonchi noted. Abdomen is soft and nontender. Nervous system shows diffuse weakness Please refer to medication reconciliation sheet for a list of medications. Patient Condition at Discharge: Fair Plan - Discharge Summary Discharge Rx Participant: No New Discharge Prescriptions: New Hydroxyurea [Hydrea] 500 mg PO DAILY cap HYDROcodone/APAP 5-325MG [[place] 5-325] 1 each PO Q4HR PRN #10 tab PRN Reason: Pain Famotidine [Pepcid] 20 mg PO BID tab Acetaminophen Tab [Tylenol] 650 mg PO Q6HR PRN tab PRN Reason: Mild Pain Or Fever > 100.5 Acyclovir [Zovirax] 800 mg PO TID tab Furosemide [Lasix] 20 mg PO DAILY 7 Days #7 tab Continue Vit B Complx C/Folic Acid/Zinc [Renaplex Tablet] 1 each PO DAILY Lisinopril 20 mg PO DAILY Discontinued metFORMIN HCL [Glucophage] 500 mg PO DAILY Aspirin [Adult Low Dose Aspirin EC] 81 mg PO DAILY predniSONE See Taper PO DAILY Discharge Medication List Lisinopril 20 mg PO DAILY 02/18/20 [History] Vit B Complx C/Folic Acid/Zinc [Renaplex Tablet] 1 each PO DAILY 02/18/20 [History] Acetaminophen Tab [Tylenol] 650 mg PO Q6HR PRN tab 02/28/20 [Rx] Acyclovir [Zovirax] 800 mg PO TID tab 02/28/20 [Rx] Famotidine [Pepcid] 20 mg PO BID tab 02/28/20 [Rx] Furosemide [Lasix] 20 mg PO DAILY 7 Days #7 tab 05/12/20 [Rx] HYDROcodone/APAP 5-325MG [[place] 5-325] 1 each PO Q4HR PRN #10 tab 02/28/20 [Rx] Hydroxyurea [Hydrea] 500 mg PO DAILY cap 02/28/20 [Rx] Follow up Appointment(s)/Referral(s): Juan R Queen MD [STAFF PHYSICIAN] - 02/27/20 9:45 am Home Chambers DO [Primary Care Provider] - 1-2 days Ambulatory/Diagnostic Orders: Miscellaneous Lab Order [LAB.AMB] Location: None Selected Activity/Diet/Wound Care/Special Instructions: Patient will be going to [facility] inpatient rehab Activity as tolerated Repeat CBC in one day Continue with REDD rosario Ambulate lower extremities while at rest Continue physical therapy Continue with consistent carbohydrate diet Continue taking lasix 20 mg daily for one week and then may discontinue Discharge Disposition: OTHER INSTITUTION NOT DEFINED
--- NOTE | 2020-02-28 16:19 | P.PN ---
Subjective Progress Note Date: 02/28/20 Principal diagnosis: leukocytosis, bicytopenia, suspicions for leukemia In follow-up patient in chair today, legs still swollen, no pain, awaiting transfer to rehab. Objective - Vital Signs Vital signs: Vital Signs Temp 98 F 02/28/20 11:20 Pulse 116 H 02/28/20 11:20 Resp 18 02/28/20 11:20 BP 123/66 02/28/20 11:20 Pulse Ox 93 L 02/28/20 11:20 Intake & Output 02/27/20 02/28/20 02/28/20 18:59 06:59 18:59 Intake Total 600 Balance 600 Weight 94.801 kg Intake: Oral 600 Other: Voiding Method Bedside Commode Toilet Diaper # Voids 2 2 2 - Constitutional General appearance: Present: cooperative, no acute distress, obese - EENT Eyes: Present: anicteric sclerae, EOMI, poor dentition ENT: Present: hearing grossly normal - Respiratory Respiratory: bilateral: CTA - Cardiovascular Rhythm: regular Heart sounds: normal: S1, S2 Abnormal Heart Sounds: Absent: systolic murmur, diastolic murmur, rub, S3 Gallop , S4 Gallop, click, other - Peripheral edema leg Peripheral Edema: bilateral: 2+, Pitting - Gastrointestinal General gastrointestinal: Present: normal bowel sounds, soft - Integumentary Integumentary Comment(s): bruising in known areas of trauma - Neurologic Neurologic: Present: CNII-XII intact - Musculoskeletal Musculoskeletal: Present: generalized weakness - Psychiatric Psychiatric: Present: A&O x's 3, appropriate affect, intact judgment & insight - Labs CBC & Chem 7: 02/28/20 07:00 02/27/20 09:12 Labs: Abnormal Lab Results - Last 24 Hours (Table) 02/27/20 02/27/20 02/28/20 Range/Units 17:15 20:23 07:00 WBC 17.6 H (3.8-10.6) k/uL RBC 2.39 L (3.80-5.40) m/uL Hgb 7.6 L (11.4-16.0) gm/dL Hct 23.5 L (34.0-46.0) % RDW 17.3 H (11.5-15.5) % Plt Count 16 L* (150-450) k/uL Blast Cells % 1 H* % Monocytes # (Manual) 6.86 H (0-1.0) k/uL Blast Cells # (Man) 0.18 H (0) k/uL Nucleated RBCs 1 H (0-0) /100 WBC POC Glucose (mg/dL) 119 H 118 H (75-99) mg/dL 02/28/20 02/28/20 Range/Units 07:12 11:51 WBC (3.8-10.6) k/uL RBC (3.80-5.40) m/uL Hgb (11.4-16.0) gm/dL Hct (34.0-46.0) % RDW (11.5-15.5) % Plt Count (150-450) k/uL Blast Cells % % Monocytes # (Manual) (0-1.0) k/uL Blast Cells # (Man) (0) k/uL Nucleated RBCs (0-0) /100 WBC POC Glucose (mg/dL) 127 H 143 H (75-99) mg/dL Assessment and Plan (1) Bicytopenia Narrative/Plan: Hgb stable at 7.6 today-[place]t [address]-cj transfusion Hydrea contributing to progressively low counts but, notable increase from WNL to 17, resumed at BID dosing Current Visit: Yes Status: Acute Priority: High Code(s): D75.89 - OTHER SPECIFIED DISEASES OF BLOOD AND BLOOD-FORMING ORGANS SNOMED Code(s): 51785304 (2) Leukocytosis Narrative/Plan: Hydrea has decreased leukocytosis from >then 100 to WNL, today 17, after omitting last nights dose. Hydrea resume at BID S/P bone marrow biopsy BCR-ABL negative. This was discussed with pt. Preliminary being requested on bone marrow. Pt understands that we do not have absolute diagnosis but, it is more concerning for a more aggressive process then CML. We will discuss what options are avsuman jones to her once we have a preliminary. We will also contact her when we have more info I would anticipate being on her case in rehab so, we will follow her there Current Visit: Yes Status: Acute Priority: High Code(s): D72.829 - ELEVATED WHITE BLOOD CELL COUNT, UNSPECIFIED SNOMED Code(s): 155577821 Plan: Change to BID hydrea until diagnosis confirmed. Weekly CBC. Transfusions may be required until treatment is optimized.
--- NOTE | 2020-02-29 06:45 | CDI ---
Documentation Clarification Form Date: 02/29/2020 06:18:41 AM From: Yoselin Pandey Phone: If you have a question about this query, please contact Susan Miranda Sales Recruitment Specialist at [phone] between 8am and 5pm. Admit Date: 02/18/2020 04:09:00 AM Patient Name: Cande Gallo Visit Number: [id number] Discharge Date: 02/28/2020 05:05:00 PM ATTENTION: The Clinical Documentation Specialists (CDI) and [facility] Coding Staff appreciate your assistance in clarifying documentation. Please respond to the clarification below the line at the bottom and electronically sign. The CDI & [facility] Coding staff will review the response and follow-up if needed. Please note: Queries are made part of the Legal Health Record. If you have any questions, please contact the author of this message via ITS. Dr. Juan R Queen Per path report from bone marrow aspiration there is documentation " the possibility of AML cannot be completely ruled out. " Please clarify if this patient has CML or AML/ Patient history/risk factors: Clinical Indicators: elevated WBC's, bicytopenia Labs: WBC's 115.1, HGB 6.3 platelets 19.9 Vital Signs:98.3 F, 124 bpm, 141/63, 96 RA down to 90 Treatment: transfusion of platelets and RBC's bone marrow aspiration Consults: Could be progressive CML Other treatment: hydrea In your professional opinion, can you please specify the acuity, laterality and neoplastic behavior, if known? AML CML Other, please specify Unable to determine MTDD
--- NOTE | 2020-03-05 12:29 | CDI ---
Documentation Clarification Form Date: 03/05/2020 01:23:45 PM From: Yoselin Pandey Phone: If you have a question about this query, please contact Susan Miranda Dryland Farmer at [phone] between 8am and 5pm. Admit Date: 02/18/2020 04:09:00 AM Patient Name: Cande Gallo Visit Number: [id number] Discharge Date: 02/28/2020 05:05:00 PM ATTENTION: The Clinical Documentation Specialists (CDI) and [facility] Coding Staff appreciate your assistance in clarifying documentation. Please respond to the clarification below the line at the bottom and electronically sign. The CDI & [facility] Coding staff will review the response and follow-up if needed. Please note: Queries are made part of the Legal Health Record. If you have any questions, please contact the author of this message via ITS. Dr. Jacob Suarez Your patient has a documented diagnosis of pancytopenia- which may lack sufficient clinical evidence/support. Patient's WBC's are elevated throughout stay with a diagnosis of CML. History/Risk Factors: CML, anemia and thrombocytopenia. WBC's 115.1 and lowest on 02/26 9.7 Treatment: Bone Marrow Bx. Transfusion RBC's and platelents Based on the clinical evidence and your professional judgment, do you feel pancytopenia is a valid diagnosis or was it ruled out? Yes, pancytopenia present/active during this admission as evidence by (additional clinical support): No, pancytopenia was ruled out. Other (please specify diagnosis) Unable to determine ____, pancytopenia was ruled out MTDD
== END 2020-02-28 17:05 | DRG 841 ==
LOC: EC 23:50 → SUPCPDRO 23:50 → 5NMEDONC 02-18 04:09
PROVIDERS: ADMIT Hospitalist; ATTEND Hospitalist
PROC: 30233N1 Transfusion of Nonautologous Red Blood Cells into Peripheral Vein, Percutaneous Approach (ICD-10-PCS; 2020-02-18)
PROC: 30233R1 Transfusion of Nonautologous Platelets into Peripheral Vein, Percutaneous Approach (ICD-10-PCS; 2020-02-22)
PROC: 07DR3ZX Extraction of Iliac Bone Marrow, Percutaneous Approach, Diagnostic (ICD-10-PCS; principal; 2020-02-22 08:30)
DX: C92.10 Chronic myeloid leukemia, BCR/ABL-positive, not having achieved remission (principal); N30.00 Acute cystitis without hematuria; B00.1 Herpesviral vesicular dermatitis; B96.20 Unspecified Escherichia coli [E. coli] as the cause of diseases classified elsewhere; E11.9 Type 2 diabetes mellitus without complications; E66.9 Obesity, unspecified; I10 Essential (primary) hypertension; K57.90 Diverticulosis of intestine, part unspecified, without perforation or abscess without bleeding; M19.90 Unspecified osteoarthritis, unspecified site; Z68.35 Body mass index [BMI] 35.0-35.9, adult; Z79.82 Long term (current) use of aspirin; Z79.84 Long term (current) use of oral hypoglycemic drugs; Z79.899 Other long term (current) drug therapy; Z80.9 Family history of malignant neoplasm, unspecified; Z11.59 Encounter for screening for other viral diseases; Z56.0 Unemployment, unspecified; D69.59 Other secondary thrombocytopenia; D64.9 Anemia, unspecified
CPT/HCPCS: 36415; 38222; 71275; 74177; 80053; 81001; 81206; 81207; 83605; 83880; 84100; 84484; 84550; 85025; 85045; 85379; 85610; 85730; 86850; 86870; 86880; 86900; 86901; 86920; 87040; 87077; 87086; 87186; 87635; 93005; 93970; 96365; 96366; 96374; 96376; 99291

== ENCOUNTER 2020-03-19 10:51 | Inpatient (IN) | payer MEDICARE ==
[2020-03-19] MEDS ORDERED: PANTOPRAZOLE 40 MG/10 ML VIAL IVP STA (12:03)
[2020-03-19 12:35] LABS: MCH 31.2 pg (25.0-35.0); MCHC 34.6 g/dL (31.0-37.0); MCV 90.3 fL (80.0-100.0); Mean Platelet Volume 7.2; RBC 2.02 m/uL (3.80-5.40); RDW 13.9 % (11.5-15.5)
[2020-03-19 12:37] LABS: WBC 0.2 k/uL (3.8-10.6)
[2020-03-19 12:38] LABS: INR 1.4 (<1.2); Partial Thromboplastin Time 26.2 sec (22.0-30.0); Prothrombin Time 14.3 sec (9.0-12.0)
[2020-03-19 12:40] LABS: HCT 18.2 % (34.0-46.0); HGB 6.3 gm/dL (11.4-16.0)
[2020-03-19 12:47] LABS: Appearance,Urine Cloudy (Clear); Bacteria,Urine Few /hpf; Bilirubin,Urine Negative (Negative); Blood,Urine Trace (Negative); Color,Urine Yellow; Glucose,Urine (UA) Trace (Negative); Ketones,Urine Negative (Negative); Leukocyte Esterase,Urine Negative (Negative); Mucus,Urine Rare /hpf; Nitrite,Urine Negative (Negative); PH, Urine 5.5 (5.0-8.0); Protein,Urine 1+ (Negative); Specific Gravity,Urine 1.017 (1.001-1.035); Squamous Epithelial Cell,Urine 2 /hpf (0-4); Urobilinogen,Urine <2.0 mg/dL (<2.0); WBC,Urine 1 /hpf (0-5)
[2020-03-19 12:48] LABS: ALT 25 U/L (4-34); AST 16 U/L (14-36); African American GFR (CKD) >90 (>60 ml/min/1.73 sqM); Albumin 2.5 g/dL (3.5-5.0); Alkaline Phosphatase 125 U/L (38-126); Anion Gap 12 mmol/L; Blood Urea Nitrogen 15 mg/dL (7-17); Calcium 7.6 mg/dL (8.4-10.2); Carbon Dioxide 17 mmol/L (22-30); Chloride 106 mmol/L (98-107); Glucose 218 mg/dL (74-99); Magnesium 1.9 mg/dL (1.6-2.3); Non-African American GFR(CKD) >90 (>60 ml/min/1.73 sqM); Phosphorus 3.9 mg/dL (2.5-4.5); Potassium 3.1 mmol/L (3.5-5.1); Sodium 135 mmol/L (137-145); Total Protein 5.6 g/dL (6.3-8.2)
[2020-03-19 13:31] LABS: Platelet Count 2 k/uL (150-450)
[2020-03-19 13:32] LABS: Poikilocytosis (M) Present
[2020-03-19 13:46] LABS: Bilirubin, Delta 0.3 mg/dL (0.0-0.2); Bilirubin,Unconjugated 0.7 mg/dL (0.0-1.1)
[2020-03-19] MEDS ORDERED: MORPHINE SULFATE 4 MG/ML SYRINGE IV STA (13:50)
[2020-03-19] MEDS ORDERED: ONDANSETRON 4 MG/2 ML VIAL IVP STA (13:55)
--- NOTE | 2020-03-19 14:01 | US ---
EXAMINATION TYPE: US gallbladder DATE OF EXAM: 03/19/2020 COMPARISON: NONE CLINICAL HISTORY: 65 year-old female right upper quadrant tenderness, jaundice . Epigastric pain, gilmar sea, jaundice TECHNIQUE: Multiple sonographic images of the right upper quadrant are obtained. FINDINGS: EXAM MEASUREMENTS: Liver Length: 17.9 cm Gallbladder Wall: 0.3 cm CBD: 4.5 mm Right Kidney: 11.5 x 5.6 x 4.4 cm Pancreas: Tail obscured by overlying bowel gas Liver: Mildly echogenic. There is also a hypoechoic area noted = 2.3 x 1.4 x 1.8cm probable focal sp aring at the paloma hepatis Gallbladder: Internal echoes suggesting sludge. No abnormal distention. Evidence for sonographic Issa's sign: yes CBD: appears wnl Right Kidney: no evidence of hydronephrosis Large fluid collection along the midline. IMPRESSION: 1. Hepatic steatosis. 2. A 2.3 cm hypoechoic area in the region of the paloma hepatis, suspected focal fatty sparing. This c an be reassessed by ultrasound in 3-6 months. 3. Sludge-filled gallbladder without ancillary imaging findings of acute cholecystitis. However, sono graphic Issa sign is reported positive. If further imaging evaluation gallbladder is desired, HIDA scan can be performed. 4. Large fluid collection along the upper abdominal midline, suspect markedly distended stomach. Jacob elate for patient's recent ingestion and any history of gastroparesis.
[2020-03-19] MEDS ORDERED: SODIUM CHLORIDE 0.9% 500 ML 500 ML IV ONE (14:58)
[2020-03-19] MEDS ORDERED: POTASSIUM CHLORIDE ER 20 MEQ TAB.ER PO STA (14:58)
--- NOTE | 2020-03-19 15:36 | CT ---
EXAMINATION TYPE: CT abdomen pelvis w con DATE OF EXAM: 03/19/2020 HISTORY: abdominal pain, vomiting, hx of leukemia CT DLP: 1422.9mGycm Automated Exposure Control for Dose Reduction was Utilized. CONTRAST: CT scan of the abdomen and pelvis is performed without oral but with IV Contrast, patient injected wi th 100 mL of Isovue 300. COMPARISON: CT abdomen and pelvis February 18, 2020 FINDINGS: LUNG BASES: Stable trace right pleural effusion. Small to tiny left pleural effusion increased in siz e from prior with adjacent compressive atelectasis. New Small to moderate-sized pericardial effusion present measuring up to 10 mm in thickness axial image 5. Suspicious for new nodules as there is 9 mm nodule or nodular consolidation with surrounding groundglass opacity left midlung axial image 4 just posterior to fissure. New tiny nodular opacities lateral right lower lobe axial images 1 and 2 noted measuring 3 to 4 mm. LIVER/GB: Liver remains low dense consistent with diffuse fatty infiltration. Gallbladder slightly di stended margins on current study with dependent intensity suggesting gallbladder sludge similar to pr ior study. Findings correlate with same day ultrasound. PANCREAS: No significant abnormality is seen. SPLEEN: No significant abnormality is seen. ADRENALS: No significant abnormality is seen. KIDNEYS: Symmetric cortical medullary uptake without hydronephrosis seen bilaterally. BOWEL: Suboptimal evaluation bowel without enteric contrast. Distended stomach with air-fluid level. Fluid no dilated and prominent duodenal sweep. There is 2.9 cm fluid-filled duodenal diverticulum milton ng its second portion image 48. 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 Moderate wall thickening and prominence of proximal jejunal which is somewhat prominent in size and gradually transitions into nondistended jejunal an ileal loop througho ut the remainder of the abdomen. Fecal material seen in nondistended colon. A few scattered colonic d iverticula most prominent in the sigmoid colon. [id number] wall thickening throughout the colon with areas of mild fat stranding seen along the course of the left colon. More focal moderate fat st randing or inflammatory change there are diverticula in the level of hepatic flexure coronal image 43 for reference. No well-formed fluid collection or drainable abscess. UTERUS/ADNEXA: Anteverted uterus. Scattered pelvic phleboliths. Normal size ovaries bilaterally. LYMPH NODES: No greater than 1cm abdominal or pelvic lymph nodes are appreciated. OSSEOUS STRUCTURES: Transitional type L6 vertebra lumbosacral junction. Moderate disc space narrowing and vacuum disc phenomenon L5- L6 level. Set arthropathy lower lumbar levels. Multilevel spurring th roughout the spine is present. Mild to moderate narrowing and spurring of both hip joints OTHER: Mild calcified plaque of aorta extends into branch vessels. IMPRESSION: 1. Suboptimal evaluation of bowel without enteric contrast. Cannot exclude multifocal areas of entero colitis. Proximal ileal level is causing proximal small bowel obstruction with fluid-filled dilated s tomach and duodenal sweep. Lymphoma involvement in the bowel causing the proximal small bowel obstruc tion would be in differential. There is definitive focal uncomplicated [id number] acute diverti culitis in the region of the hepatic flexure likely accounting for patient's right upper quadrant maría n. Probable fatty infiltration and gallbladder sludge noted. 2. Clinical correlation and possible follow-up for developing left greater than right bibasilar nodul es are more likely areas of nodular consolidation. Small to moderate size pericardial effusion is now present.
[2020-03-19] MEDS ORDERED: PIPERACILLIN-TAZOBACTAM 3.375 GM in SODIUM CHLORIDE 0.9% 100 ML IVPB STA (15:39)
[2020-03-19] MEDS ORDERED: NALOXONE 0.4 MG/ML 1 ML VIAL IV PRN (16:21)
--- NOTE | 2020-03-19 16:25 | ED ---
General Adult HPI - General Chief complaint: Recheck/Abnormal Lab/Rx Stated complaint: lab recheck Time Seen by Provider: 03/19/20 11:19 Source: patient, family, RN notes reviewed, old records reviewed Mode of arrival: wheelchair Limitations: no limitations - History of Present Illness Initial comments: 65-year-old female patient past history of acute mild leukemia previously completed chemotherapy approximately 2 weeks ago presents to ED after she was c alled by her cancer Center that she has low blood counts. Patient reports she has abdominal pain which has been ongoing for the last 2 days. She also reports that she recently had a bowel movement and had blood in her stool. Denies any other complaints. Systemic: Pt denies fatigue, fever/chills, rash. Pt denies weakness, night sweats, weight loss. Neuro: Pt denies headache, visual disturbances, syncope or pre-syncope. HEENT: Pt denies ocular discharge or irritation, otalgia, rhinorrhea, pha ryngitis or notable lymphadenopathy. Cardiopulmonary: Pt denies chest pain, SOB, heart palpitations, dyspnea on exertion. Abdominal/GI: Pt denies abdominal pain, n/v/d. : Pt denies dysuria, burning w/ urination, frequency/urgency. Denies new onset urinary or bowel incontinence. MSK: Pt denies myalgia, loss of strength or function in extremities. Neuro: Pt denies new onset weakness, paresthesias. - Related Data Home Medications Medication Instructions Recorded Confirmed Lisinopril 20 mg PO DAILY 02/18/20 02/18/20 Vit B Complx C/Folic Acid/Zinc 1 each PO DAILY 02/18/20 02/18/20 [Renaplex Tablet] Previous Rx's Medication Instructions Recorded Acetaminophen Tab [Tylenol] 650 mg PO Q6HR PRN tab 02/28/20 Acyclovir [Zovirax] 800 mg PO TID tab 02/28/20 Famotidine [Pepcid] 20 mg PO BID tab 02/28/20 Furosemide [Lasix] 20 mg PO DAILY 7 Days #7 tab 02/28/20 HYDROcodone/APAP 5-325MG [[place] 1 each PO Q4HR PRN #10 tab 02/28/20 5-325] Hydroxyurea [Hydrea] 500 mg PO DAILY cap 02/28/20 Allergies Allergy/AdvReac Type Severity Reaction Status Date / Time No Known Allergies Allergy Verified 03/19/20 10:56 Review of Systems ROS Statement: Those systems with pertinent positive or pertinent negative responses have been documented in the HPI. ROS Other: All systems not noted in ROS Statement are negative. Past Medical History Past Medical History: Diabetes Mellitus, Fibromyalgia, Hypertension Additional Past Medical History / Comment(s): leukemia History of Any Multi-Drug Resistant Organisms: None Reported Past Surgical History: Section, Orthopedic Surgery, Tonsillectomy Past Anesthesia/Blood Transfusion Reactions: No Reported Reaction Past Psychological History: No Psychological Hx Reported Smoking Status: Never smoker Past Alcohol Use History: None Reported Past Drug Use History: None Reported - Past Family History Mother Additional Family Medical History / Comment(s): MRSA infection in foot General Exam - General Exam Comments Initial Comments: Constitutional: NAD, AOX3, Pt has pleasant affect. HEENT: NC/AT, trachea midline, neck supple, no lymphadenopathy. Posterior pharynx non erythematous, without exudates. External ears appear normal, without discharge. Mucous membranes moist. Eyes PERRLA, EOM intact. There is no scleral icterus. Cardiopulmonary: RRR, no murmurs, rubs or gallops, no JVD noted. Lungs CTAB in anterior and posterior pham. No peripheral edema. Abdominal exam: Abdomen soft and non-distended. Moderately tender to palpation right upper quadrant. Bowel sounds active in LLQ. No hepatosplenomegaly. No ecchymosis Neuro: CN II-XII grossly intact. No nuchal rigidity. No raccon eyes, no daniels sign, no hemotympanum. No cervical spinal tenderness. MSK: No posterior calf tenderness bilaterally, homans sign negative bilaterally. Posterior tibialis and radial pulse +2 bilaterally. Sensation intact in upper and lower extremities. Full active ROM in upper and lower extremities, 5/5 stregnth. Limitations: no limitations Course Vital Signs 03/19/20 03/19/20 03/19/20 10:53 11:57 12:00 Temperature 97.4 F L Pulse Rate 125 H 113 H 112 H Respiratory 20 26 H 22 Rate Blood Pressure 88/56 106/65 O2 Sat by Pulse 99 97 Oximetry 03/19/20 03/19/20 03/19/20 12:30 13:00 13:09 Temperature Pulse Rate 112 H 102 H 102 H Respiratory 21 25 H 25 H Rate Blood Pressure 105/63 106/68 106/68 O2 Sat by Pulse 99 97 97 Oximetry 03/19/20 03/19/20 13:53 15:35 Temperature 97.5 F L Pulse Rate 102 H 92 Respiratory 25 H 18 Rate Blood Pressure 99/59 113/59 O2 Sat by Pulse 100 94 L Oximetry Medical Decision Making - Medical Decision Making 65-year-old female patient past history of acute mild leukemia previously completed chemotherapy approximately 2 weeks ago presents to ED after she was called by her cancer Center that she has low blood counts. Patient reports she has abdominal pain which has been ongoing for the last 2 days. She also reports that she recently had a bowel movement and had blood in her stool. Denies any other complaints. Patient will sign displayed mild tachycardia. Physical exam is a mildly upper quadrant tenderness. Patient does have mild pallor. Laboratory investigations were conducted. Patient is neutropenic 0.2. Hemoglobin is 6.3. Platelets are 2. Potassium 3.1. Lactic acid 3.2. Patient potassium was supplemented. Patient was transfused 1 unit of platelets one unit of packed red cells. Occult blood is positive. Patient initiated on Protonix. Call that ultrasound displayed hepatic steatosis, 2.3 cm hypoechoic area of the paloma hepatis./Vital gallbladder without any other signs of acute cholecystitis. Large fluid collection along the upper abdominal midline. CT abdomen and pelvis was obtained which displayed small bowel obstruction, acute diverticulitis in the hepatic flexure. Patient initiated on vancomycin. Will be admitted to Dr. Tse with surgery consult. Case was also discussed with Dr. Harding. Case discussed with Dr. Shields. - Lab Data Result diagrams: 03/19/20 11:56 03/19/20 11:56 Lab Results 03/19/20 03/19/20 03/19/20 Range/Units 11:56 11:56 11:56 WBC 0.2 L* (3.8-10.6) k/uL RBC 2.02 L (3.80-5.40) m/uL Hgb 6.3 L* (11.4-16.0) gm/dL Hct 18.2 L* (34.0-46.0) % MCV 90.3 D (80.0-100.0) fL MCH 31.2 (25.0-35.0) pg MCHC 34.6 (31.0-37.0) g/dL RDW 13.9 (11.5-15.5) % Plt Count 2 L* D (150-450) k/uL Neutrophils % DIRECTOR OF REHABILITATION Lymphocytes % DIRECTOR OF REHABILITATION Monocytes % DIRECTOR OF REHABILITATION Eosinophils % DIRECTOR OF REHABILITATION Basophils % DIRECTOR OF REHABILITATION Neutrophils # DIRECTOR OF REHABILITATION Lymphocytes # DIRECTOR OF REHABILITATION Monocytes # DIRECTOR OF REHABILITATION Eosinophils # DIRECTOR OF REHABILITATION Basophils # DIRECTOR OF REHABILITATION Differential Comment Manual Slide Review Performed Poikilocytosis (manual Present PT 14.3 H (9.0-12.0) sec INR 1.4 H (<1.2) APTT 26.2 (22.0-30.0) sec Sodium (137-145) mmol/L Potassium (3.5-5.1) mmol/L Chloride (98-107) mmol/L Carbon Dioxide (22-30) mmol/L Anion Gap mmol/L BUN (7-17) mg/dL Creatinine (0.52-1.04) mg/dL Est GFR (CKD-EPI)AfAm (>60 ml/min/1.73 sqM) Est GFR (CKD-EPI)NonAf (>60 ml/min/1.73 sqM) Glucose (74-99) mg/dL Lactic Ac Sepsis Rflx Plasma Lactic Acid Aj (0.7-2.0) mmol/L Calcium (8.4-10.2) mg/dL Phosphorus (2.5-4.5) mg/dL Magnesium (1.6-2.3) mg/dL Total Bilirubin (0.2-1.3) mg/dL Conjugated Bilirubin (0.0-0.3) mg/dL Unconjugated Bilirubin (0.0-1.1) mg/dL Delta Bilirubin (0.0-0.2) mg/dL AST (14-36) U/L ALT (4-34) U/L Alkaline Phosphatase (38-126) U/L Total Protein (6.3-8.2) g/dL Albumin (3.5-5.0) g/dL Lipase (23-300) U/L Urine Color Urine Appearance (Clear) Urine pH (5.0-8.0) Ur Specific [place] (1.001-1.035) Urine Protein (Negative) Urine Glucose (UA) (Negative) Urine Ketones (Negative) Urine Blood (Negative) Urine Nitrite (Negative) Urine Bilirubin (Negative) Urine Urobilinogen (<2.0) mg/dL Ur Leukocyte Esterase (Negative) Urine WBC (0-5) /hpf Ur Squamous Epith Cells (0-4) /hpf Urine Bacteria (None) /hpf Urine Mucus (None) /hpf Stool Occult Blood (Negative) Blood Type O Positive Blood Type Recheck O Pos Bld Type Recheck Status No Antibody Screen NEGATIVE Crossmatch See Detail Transfuse Platelets Spec Expiration Date 03/22/2020 - 235503/19/20 03/19/20 03/19/20 Range/Units 11:56 11:56 12:00 WBC (3.8-10.6) k/uL RBC (3.80-5.40) m/uL Hgb (11.4-16.0) gm/dL Hct (34.0-46.0) % MCV (80.0-100.0) fL MCH (25.0-35.0) pg MCHC (31.0-37.0) g/dL RDW (11.5-15.5) % Plt Count (150-450) k/uL Neutrophils % Lymphocytes % Monocytes % Eosinophils % Basophils % Neutrophils # Lymphocytes # Monocytes # Eosinophils # Basophils # Differential Comment Manual Slide Review Poikilocytosis (manual PT (9.0-12.0) sec INR (<1.2) APTT (22.0-30.0) sec Sodium 135 L (137-145) mmol/L Potassium 3.1 L (3.5-5.1) mmol/L Chloride 106 (98-107) mmol/L Carbon Dioxide 17 L (22-30) mmol/L Anion Gap 12 mmol/L BUN 15 (7-17) mg/dL Creatinine 0.53 (0.52-1.04) mg/dL Est GFR (CKD-EPI)AfAm >90 (>60 ml/min/1.73 sqM) Est GFR (CKD-EPI)NonAf >90 (>60 ml/min/1.73 sqM) Glucose 218 H (74-99) mg/dL Lactic Ac Sepsis Rflx Plasma Lactic Acid Aj 3.2 H* (0.7-2.0) mmol/L Calcium 7.6 L (8.4-10.2) mg/dL Phosphorus 3.9 (2.5-4.5) mg/dL Magnesium 1.9 (1.6-2.3) mg/dL Total Bilirubin 1.0 (0.2-1.3) mg/dL Conjugated Bilirubin 0.0 (0.0-0.3) mg/dL Unconjugated Bilirubin 0.7 (0.0-1.1) mg/dL Delta Bilirubin 0.3 H (0.0-0.2) mg/dL AST 16 (14-36) U/L ALT 25 (4-34) U/L Alkaline Phosphatase 125 (38-126) U/L Total Protein 5.6 L (6.3-8.2) g/dL Albumin 2.5 L (3.5-5.0) g/dL Lipase 52 (23-300) U/L Urine Color Yellow Urine Appearance Cloudy H (Clear) Urine pH 5.5 (5.0-8.0) Ur Specific [place] 1.017 (1.001-1.035) Urine Protein 1+ H (Negative) Urine Glucose (UA) Trace H (Negative) Urine Ketones Negative (Negative) Urine Blood Trace H (Negative) Urine Nitrite Negative (Negative) Urine Bilirubin Negative (Negative) Urine Urobilinogen <2.0 (<2.0) mg/dL Ur Leukocyte Esterase Negative (Negative) Urine WBC 1 (0-5) /hpf Ur Squamous Epith Cells 2 (0-4) /hpf Urine Bacteria Few H (None) /hpf Urine Mucus Rare H (None) /hpf Stool Occult Blood (Negative) Blood Type Blood Type Recheck Bld Type Recheck Status Antibody Screen Crossmatch Transfuse Platelets Spec Expiration Date 03/19/20 03/19/20 03/19/20 Range/Units 12:42 13:24 14:15 WBC (3.8-10.6) k/uL RBC (3.80-5.40) m/uL Hgb (11.4-16.0) gm/dL Hct (34.0-46.0) % MCV (80.0-100.0) fL MCH (25.0-35.0) pg MCHC (31.0-37.0) g/dL RDW (11.5-15.5) % Plt Count (150-450) k/uL Neutrophils % Lymphocytes % Monocytes % Eosinophils % Basophils % Neutrophils # Lymphocytes # Monocytes # Eosinophils # Basophils # Differential Comment Manual Slide Review Poikilocytosis (manual PT (9.0-12.0) sec INR (<1.2) APTT (22.0-30.0) sec Sodium (137-145) mmol/L Potassium (3.5-5.1) mmol/L Chloride (98-107) mmol/L Carbon Dioxide (22-30) mmol/L Anion Gap mmol/L BUN (7-17) mg/dL Creatinine (0.52-1.04) mg/dL Est GFR (CKD-EPI)AfAm (>60 ml/min/1.73 sqM) Est GFR (CKD-EPI)NonAf (>60 ml/min/1.73 sqM) Glucose (74-99) mg/dL Lactic Ac Sepsis Rflx Y Plasma Lactic Acid Aj (0.7-2.0) mmol/L Calcium (8.4-10.2) mg/dL Phosphorus (2.5-4.5) mg/dL Magnesium (1.6-2.3) mg/dL Total Bilirubin (0.2-1.3) mg/dL Conjugated Bilirubin (0.0-0.3) mg/dL Unconjugated Bilirubin (0.0-1.1) mg/dL Delta Bilirubin (0.0-0.2) mg/dL AST (14-36) U/L ALT (4-34) U/L Alkaline Phosphatase (38-126) U/L Total Protein (6.3-8.2) g/dL Albumin (3.5-5.0) g/dL Lipase (23-300) U/L Urine Color Urine Appearance (Clear) Urine pH (5.0-8.0) Ur Specific [place] (1.001-1.035) Urine Protein (Negative) Urine Glucose (UA) (Negative) Urine Ketones (Negative) Urine Blood (Negative) Urine Nitrite (Negative) Urine Bilirubin (Negative) Urine Urobilinogen (<2.0) mg/dL Ur Leukocyte Esterase (Negative) Urine WBC (0-5) /hpf Ur Squamous Epith Cells (0-4) /hpf Urine Bacteria (None) /hpf Urine Mucus (None) /hpf Stool Occult Blood Positive H (Negative) Blood Type Blood Type Recheck Bld Type Recheck Status Antibody Screen Crossmatch Transfuse Platelets 03/19/2020 Spec Expiration Date Disposition Clinical Impression: GI bleed, Small bowel obstruction, Acute diverticulitis Disposition: ADMITTED IP TO THIS HOSP Condition: Serious Is patient prescribed a controlled substance at d/c from ED?: No Referrals: Home Chambers DO [Primary Care Provider] - 1-2 days
--- NOTE | 2020-03-19 16:38 | ED ---
Medical Decision Making - Lab Data Result diagrams: 03/19/20 11:56 03/19/20 11:56 Lab Results 03/19/20 03/19/20 03/19/20 Range/Units 11:56 11:56 11:56 WBC 0.2 L* (3.8-10.6) k/uL RBC 2.02 L (3.80-5.40) m/uL Hgb 6.3 L* (11.4-16.0) gm/dL Hct 18.2 L* (34.0-46.0) % MCV 90.3 D (80.0-100.0) fL MCH 31.2 (25.0-35.0) pg MCHC 34.6 (31.0-37.0) g/dL RDW 13.9 (11.5-15.5) % Plt Count 2 L* D (150-450) k/uL Neutrophils % [employer] SUR[employer]YOR Lymphocytes % [employer] SUR[employer]YOR Monocytes % [employer] SUR[employer]YOR Eosinophils % [employer] SUR[employer]YOR Basophils % [employer] SURVEYOR Neutrophils # SH[employer] SUR[employer]YOR Lymphocytes # SH[employer] SUR[employer]YOR Monocytes # SH[employer] SUR[employer]YOR Eosinophils # [employer] SUR[employer]YOR Basophils # SH[employer]S SUR[employer]YOR Differential Comment Manual Slide Review Performed Poikilocytosis (manual Present PT 14.3 H (9.0-12.0) sec INR 1.4 H (<1.2) APTT 26.2 (22.0-30.0) sec Sodium (137-145) mmol/L Potassium (3.5-5.1) mmol/L Chloride (98-107) mmol/L Carbon Dioxide (22-30) mmol/L Anion Gap mmol/L BUN (7-17) mg/dL Creatinine (0.52-1.04) mg/dL Est GFR (CKD-EPI)AfAm (>60 ml/min/1.73 sqM) Est GFR (CKD-EPI)NonAf (>60 ml/min/1.73 sqM) Glucose (74-99) mg/dL Lactic Ac Sepsis Rflx Plasma Lactic Acid Aj (0.7-2.0) mmol/L Calcium (8.4-10.2) mg/dL Phosphorus (2.5-4.5) mg/dL Magnesium (1.6-2.3) mg/dL Total Bilirubin (0.2-1.3) mg/dL Conjugated Bilirubin (0.0-0.3) mg/dL Unconjugated Bilirubin (0.0-1.1) mg/dL Delta Bilirubin (0.0-0.2) mg/dL AST (14-36) U/L ALT (4-34) U/L Alkaline Phosphatase (38-126) U/L Total Protein (6.3-8.2) g/dL Albumin (3.5-5.0) g/dL Lipase (23-300) U/L Urine Color Urine Appearance (Clear) Urine pH (5.0-8.0) Ur Specific [place] (1.001-1.035) Urine Protein (Negative) Urine Glucose (UA) (Negative) Urine Ketones (Negative) Urine Blood (Negative) Urine Nitrite (Negative) Urine Bilirubin (Negative) Urine Urobilinogen (<2.0) mg/dL Ur Leukocyte Esterase (Negative) Urine WBC (0-5) /hpf Ur Squamous Epith Cells (0-4) /hpf Urine Bacteria (None) /hpf Urine Mucus (None) /hpf Stool Occult Blood (Negative) Blood Type O Positive Blood Type Recheck O Pos Bld Type Recheck Status No Antibody Screen NEGATIVE Crossmatch See Detail Transfuse Platelets Spec Expiration Date 03/22/2020 - 235503/19/20 03/19/20 03/19/20 Range/Units 11:56 11:56 12:00 WBC (3.8-10.6) k/uL RBC (3.80-5.40) m/uL Hgb (11.4-16.0) gm/dL Hct (34.0-46.0) % MCV (80.0-100.0) fL MCH (25.0-35.0) pg MCHC (31.0-37.0) g/dL RDW (11.5-15.5) % Plt Count (150-450) k/uL Neutrophils % Lymphocytes % Monocytes % Eosinophils % Basophils % Neutrophils # Lymphocytes # Monocytes # Eosinophils # Basophils # Differential Comment Manual Slide Review Poikilocytosis (manual PT (9.0-12.0) sec INR (<1.2) APTT (22.0-30.0) sec Sodium 135 L (137-145) mmol/L Potassium 3.1 L (3.5-5.1) mmol/L Chloride 106 (98-107) mmol/L Carbon Dioxide 17 L (22-30) mmol/L Anion Gap 12 mmol/L BUN 15 (7-17) mg/dL Creatinine 0.53 (0.52-1.04) mg/dL Est GFR (CKD-EPI)AfAm >90 (>60 ml/min/1.73 sqM) Est GFR (CKD-EPI)NonAf >90 (>60 ml/min/1.73 sqM) Glucose 218 H (74-99) mg/dL Lactic Ac Sepsis Rflx Plasma Lactic Acid Aj 3.2 H* (0.7-2.0) mmol/L Calcium 7.6 L (8.4-10.2) mg/dL Phosphorus 3.9 (2.5-4.5) mg/dL Magnesium 1.9 (1.6-2.3) mg/dL Total Bilirubin 1.0 (0.2-1.3) mg/dL Conjugated Bilirubin 0.0 (0.0-0.3) mg/dL Unconjugated Bilirubin 0.7 (0.0-1.1) mg/dL Delta Bilirubin 0.3 H (0.0-0.2) mg/dL AST 16 (14-36) U/L ALT 25 (4-34) U/L Alkaline Phosphatase 125 (38-126) U/L Total Protein 5.6 L (6.3-8.2) g/dL Albumin 2.5 L (3.5-5.0) g/dL Lipase 52 (23-300) U/L Urine Color Yellow Urine Appearance Cloudy H (Clear) Urine pH 5.5 (5.0-8.0) Ur Specific [place] 1.017 (1.001-1.035) Urine Protein 1+ H (Negative) Urine Glucose (UA) Trace H (Negative) Urine Ketones Negative (Negative) Urine Blood Trace H (Negative) Urine Nitrite Negative (Negative) Urine Bilirubin Negative (Negative) Urine Urobilinogen <2.0 (<2.0) mg/dL Ur Leukocyte Esterase Negative (Negative) Urine WBC 1 (0-5) /hpf Ur Squamous Epith Cells 2 (0-4) /hpf Urine Bacteria Few H (None) /hpf Urine Mucus Rare H (None) /hpf Stool Occult Blood (Negative) Blood Type Blood Type Recheck Bld Type Recheck Status Antibody Screen Crossmatch Transfuse Platelets Spec Expiration Date 03/19/20 03/19/20 03/19/20 Range/Units 12:42 13:24 14:15 WBC (3.8-10.6) k/uL RBC (3.80-5.40) m/uL Hgb (11.4-16.0) gm/dL Hct (34.0-46.0) % MCV (80.0-100.0) fL MCH (25.0-35.0) pg MCHC (31.0-37.0) g/dL RDW (11.5-15.5) % Plt Count (150-450) k/uL Neutrophils % Lymphocytes % Monocytes % Eosinophils % Basophils % Neutrophils # Lymphocytes # Monocytes # Eosinophils # Basophils # Differential Comment Manual Slide Review Poikilocytosis (manual PT (9.0-12.0) sec INR (<1.2) APTT (22.0-30.0) sec Sodium (137-145) mmol/L Potassium (3.5-5.1) mmol/L Chloride (98-107) mmol/L Carbon Dioxide (22-30) mmol/L Anion Gap mmol/L BUN (7-17) mg/dL Creatinine (0.52-1.04) mg/dL Est GFR (CKD-EPI)AfAm (>60 ml/min/1.73 sqM) Est GFR (CKD-EPI)NonAf (>60 ml/min/1.73 sqM) Glucose (74-99) mg/dL Lactic Ac Sepsis Rflx Y Plasma Lactic Acid Aj (0.7-2.0) mmol/L Calcium (8.4-10.2) mg/dL Phosphorus (2.5-4.5) mg/dL Magnesium (1.6-2.3) mg/dL Total Bilirubin (0.2-1.3) mg/dL Conjugated Bilirubin (0.0-0.3) mg/dL Unconjugated Bilirubin (0.0-1.1) mg/dL Delta Bilirubin (0.0-0.2) mg/dL AST (14-36) U/L ALT (4-34) U/L Alkaline Phosphatase (38-126) U/L Total Protein (6.3-8.2) g/dL Albumin (3.5-5.0) g/dL Lipase (23-300) U/L Urine Color Urine Appearance (Clear) Urine pH (5.0-8.0) Ur Specific [place] (1.001-1.035) Urine Protein (Negative) Urine Glucose (UA) (Negative) Urine Ketones (Negative) Urine Blood (Negative) Urine Nitrite (Negative) Urine Bilirubin (Negative) Urine Urobilinogen (<2.0) mg/dL Ur Leukocyte Esterase (Negative) Urine WBC (0-5) /hpf Ur Squamous Epith Cells (0-4) /hpf Urine Bacteria (None) /hpf Urine Mucus (None) /hpf Stool Occult Blood Positive H (Negative) Blood Type Blood Type Recheck Bld Type Recheck Status Antibody Screen Crossmatch Transfuse Platelets 03/19/2020 Spec Expiration Date Disposition Clinical Impression: GI bleed, Small bowel obstruction, Acute diverticulitis, Pancytopenia Disposition: ADMITTED IP TO THIS [facility] Condition: Serious Is patient prescribed a controlled substance at d/c from ED?: No Referrals: Home Chambers DO [Primary Care Provider] - 1-2 days
[2020-03-19] MEDS ORDERED: VANCOMYCIN IV PER PHARMACY 1 EACH MISC MISCELLANE PRN (17:52)
--- NOTE | 2020-03-19 18:34 | XR ---
EXAMINATION TYPE: XR chest 1V portable DATE OF EXAM: 03/19/2020 Comparison: None Clinical History: 65-year-old female with CHF, shortness of breath Findings: Heart borderline enlarged. Diffuse interstitial opacity. Mild patchy left basilar opacity. No sizable effusion. Left PICC tip to the cavoatrial junction. Impression: Borderline cardiomegaly with diffuse interstitial opacity. Correlate for CHF with early interstitial edema.
--- NOTE | 2020-03-19 18:46 | HP ---
HISTORY AND PHYSICAL DATE OF SERVICE: 03/19/2020 CHIEF COMPLAINTS: Weakness as well as vomiting and severe pancytopenia. HISTORY OF PRESENT ILLNESS: This 65-year-old woman with a past medical history of multiple medical problems, including diabetes, fibromyalgia, hypertension, was recently diagnosed with leukemia, acute myeloid leukemia, chemotherapy per Dr. Queen. The patient finished the chemotherapy about 2 weeks ago, but currently the patient presented to the emergency room with severe pancytopenia. The patient also had some abdominal discomfort which has been ongoing for the last 2 days. Patient also had some vomiting. The patient was noted to have severe pancytopenia with WBC 0.2, hemoglobin 6.3, and platelets of 2. Platelet transfusion has been arranged. The patient has multiple petechiae and ecchymotic spots over the body at this time. Otherwise, lactic acid is elevated at 4.2. Neutropenic sepsis is also considered. The patient is also being given empiric antibiotics. The patient also had a CT scan of the abdomen and pelvis because of the abdominal symptoms which was a suboptimal evaluation and showed possibly multifocal areas of enterocolitis. Mild to moderate acute diverticulitis in the region of the hepatic flexure was also noted. There is no history of any fever, rigor or chills. No history of headache, loss of consciousness, seizures. The patient is admitted for further evaluation and treatment. PAST MEDICAL HISTORY: History of diabetes, fibromyalgia, hypertension, history of leukemia, as mentioned earlier. MEDICATIONS: Medications prior to admission were: 1. Vitamin B complex 1 p.o. daily. 2. Lisinopril 20 mg daily. 3. Hydrea 500 mg p.o. daily. 4. Hydrocodone 5 mg q.4 p.r.n. 5. Lasix 20 mg p.o. daily. 6. Pepcid 20 mg p.o. b.i.d. 7. Zovirax 800 mg p.o. t.i.d. 8. Tylenol 650 q.6 p.r.n. ALLERGIES: NONE. FAMILY HISTORY: History of MRSA infection of the foot in the family. SOCIAL HISTORY: No history of smoking. No history of alcohol intake. REVIEW OF SYSTEMS: ENT: No diminished hearing. No diminished vision. CARDIOVASCULAR SYSTEM: As mentioned earlier. RESPIRATORY SYSTEM: As mentioned earlier. GI: As mentioned earlier. : No dysuria or retention. NERVOUS SYSTEM: No numbness, weakness. ALLERGY/IMMUNOLOGY: No asthma, hayfever. MUSCULOSKELETAL: As mentioned earlier. HEMATOLOGY/ONCOLOGY: As mentioned earlier. ENDOCRINE: No history of diabetes, hypothyroidism. CONSTITUTIONAL: As mentioned earlier. DERMATOLOGY: Negative. RHEUMATOLOGY: Negative. PSYCHIATRY: As mentioned earlier. PHYSICAL EXAMINATION: Patient alert and oriented x3. Pulse is 121, blood pressure 115/58, respiration 18, temperature 97.9, pulse ox 94% on room air. HEENT: Conjunctivae pale. Oral mucosa moist. NECK: No jugular venous distention. No carotid bruit. No lymph node enlargement. CARDIOVASCULAR SYSTEM: S1, S2 muffled. No S3. No S4. RESPIRATORY SYSTEM: Breath sounds diminished at the bases. A few scattered rhonchi. No crackles. ABDOMEN: Soft, obese, non-tender. No mass palpable. LEGS: No edema. No swelling. NERVOUS SYSTEM: Higher functions as mentioned earlier. Moves all 4 limbs. No focal motor or sensory deficit. LYMPHATICS: No lymph node palpable in neck, axillae or groin. SKIN: No ulcer, rash, bleeding. Diffuse ecchymotic patches present. JOINTS: No active deforming arthropathy. LABS: Labs at this time show WBC 0.2, hemoglobin 6.3, and platelets are 2. INR 1.4. Sodium 135, potassium 3.1, lactic acid 3.2. ASSESSMENT: 1. Severe neutropenia secondary to chemotherapy with severe neutropenia, anemia, as well as thrombocytopenia. 2. Possible neutropenic sepsis. 3. Abdominal pain with possibly mild to moderate acute diverticulitis in the region of hepatic flexure. 4. Possible enterocolitis on the CT scan. 5. Left greater than right bibasilar nodules. 6. Mild coagulopathy. 7. Hyponatremia. 8. Hypokalemia. 9. Elevated lactic acid secondary to sepsis. 10.Hypoalbuminemia with mild protein-calorie malnutrition. 11.Diabetes mellitus, type 2. 12.Fibromyalgia. 13.Hypertension. 14.History of recently diagnosed leukemia. 15.Obesity with a body mass index of 33.8. 16.FULL CODE. RECOMMENDATIONS AND DISCUSSION: In this 65-year-old woman who presented with multiple complex medical issues, we will monitor the patient closely, continue the current medications, continue symptomatic treatment. Will initiate the combination of cefepime and vancomycin. Obtain cultures. Will treat the patient for sepsis. Otherwise, platelet transfusion, blood transfusion. Monitor fluid/electrolyte balance closely. I would also recommend a baseline chest x- ray. Ultrasound abdomen was noted. The prognosis is extremely guarded because of multiple complex medical issues. Symptomatic treatment will be provided. Further recommendations to follow. MMODL / IJN: [id number] / MTDD
[2020-03-19] MEDS ORDERED: VANCOMYCIN 1,500 MG in SODIUM CHLORIDE 0.9% 250 ML IVPB ONE (19:00)
[2020-03-19] MEDS: POTASSIUM CHLORIDE 20 MEQ in WATER FOR INJECTION 1 100ML.BAG IVPB SCH (23:45)
[2020-03-20] MEDS: PIPERACILLIN-TAZOBACTAM 3.375 GM in SODIUM CHLORIDE 0.9% 100 ML IVPB SCH ×2 (00:14→08:50)
[2020-03-20] MEDS: POTASSIUM CHLORIDE 20 MEQ in WATER FOR INJECTION 1 100ML.BAG IVPB SCH (02:00)
[2020-03-20] MEDS ORDERED: VANCOMYCIN 1,500 MG in SODIUM CHLORIDE 0.9% 250 ML IVPB SCH ×3 (05:00→23:00)
[2020-03-20 06:45] LABS: African American GFR (CKD) >90 (>60 ml/min/1.73 sqM); Anion Gap 9 mmol/L; Blood Urea Nitrogen 21 mg/dL (7-17); Calcium 7.2 mg/dL (8.4-10.2); Carbon Dioxide 20 mmol/L (22-30); Chloride 110 mmol/L (98-107); Glucose 139 mg/dL (74-99); MCH 30.7 pg (25.0-35.0); MCHC 33.5 g/dL (31.0-37.0); MCV 91.6 fL (80.0-100.0); Mean Platelet Volume 8.1; Non-African American GFR(CKD) >90 (>60 ml/min/1.73 sqM); Potassium 3.4 mmol/L (3.5-5.1); RBC 2.06 m/uL (3.80-5.40); RDW 13.8 % (11.5-15.5); Sodium 139 mmol/L (137-145)
[2020-03-20 06:52] LABS: HCT 18.9 % (34.0-46.0); HGB 6.3 gm/dL (11.4-16.0)
[2020-03-20 07:19] LABS: Anisocytosis (M) Present; WBC 0.3 k/uL (3.8-10.6)
[2020-03-20 07:20] LABS: Hypochromasia (M) Present; Platelet Count 3 k/uL (150-450)
[2020-03-20] MEDS: PANTOPRAZOLE 40 MG/10 ML VIAL IVP SCH (08:50)
--- NOTE | 2020-03-20 11:44 | P.PN ---
Subjective 60-year-old female admitted Acute upper and lower GI bleed secondary to severe pancytopenia secondary to chemotherapy for acute myeloid leukemia. had platelets of 2000 yesterday received platelet transfusion presently her platelets are 3000 still has coffee-ground emesis via NG tube patient received 1 unit of PRBC transfusion hemoglobin remained at 6.3 no evidence of lower GI bleed at this time. Patient will receive her transfer transfusion. Which will see transfusion today with irradiated cells. Patient on vancomycin and Zosyn Vanco mycin will be discontinued has there is no evidence of gram-positive sepsis CAT scan of the abdomen did show some enterocolitis and my limited colitis although patient will be started on oral Ceftin as her diverticulitis or colitis is minimal and most probably noninfectious and due to her pancytopenia I'll discontinue Zosyn and patient will be started on oral Ceftin. Patient looks really tired fa tigued.Constitutional: Denied any fatigue denied any fever. Cardio vascular: As mentioned in HPI Gastrointestinal denied any nausea vomiting Pulmonary: Denied any shortness of breath cough Neurologic denied any new focal deficits All inpatient medications were reviewed and appropriate changes in these medications as dictated in the interval history and assessment and plan. Objective - Vital Signs Vital signs: Vital Signs Temp 97 F L 03/20/20 08:00 Pulse 104 H 03/20/20 08:00 Resp 16 03/20/20 08:00 BP 112/61 03/20/20 08:00 Pulse Ox 98 03/20/20 08:00 Intake & Output 03/19/20 03/20/20 03/20/20 18:59 06:59 18:59 Intake Total 1652 635 Output Total 2200 Balance 1652 -1565 Weight 89.358 kg 88.5 kg Intake: Amount of Fluid Infused ( 1000 ml) Intake, IV Titration 325 Amount Piperacillin-Tazobactam 3 100 .375 gm In Sodium Chloride 0.9% 100 ml @ 25 mls/hr IVPB Q8HR [facility] Rx# :[id number] Potassium Chloride 20 meq 100 In Water For Injection 1 100ml.bag @ 50 mls/hr IVPB Q2H [facility] Rx#: [id number] Vancomycin 1,500 mg In 125 Sodium Chloride 0.9% 250 ml @ 125 mls/hr IVPB Q8H [facility] Rx#:[id number] Blood Product 652 310 Platelet Irr Pheresis Pas 652 -C Unit [id number] Rc Irr As1 Unit 310 [id number] Output: Gastric Drainage 1000 Urine 1200 Other: # Voids 1 - Exam PHYSICAL EXAMINATION: GENERAL: The patient is alert and oriented x3, not in any acute distress. Appears to be really tired and fatigued HEENT: Pupils are round and equally reacting to light. EOMI. No scleral icterus. Does have conjunctival pallor. Normocephalic, atraumatic. No pharyngeal erythema. No thyromegaly. CARDIOVASCULAR: S1 and S2 present. No murmurs, rubs, or gallops. PULMONARY: Chest is clear to auscultation, no wheezing or crackles. ABDOMEN: Soft, nontender, nondistended, normoactive bowel sounds. No palpable organomegaly. MUSCULOSKELETAL: No joint swelling or deformity. EXTREMITIES: No cyanosis, clubbing, or pedal edema. NEUROLOGICAL: Gross neurological examination did not reveal any focal deficits. SKIN: Multiple bruises in multiple areas. - Labs CBC & Chem 7: 03/20/20 05:45 03/20/20 05:45 Labs: Abnormal Lab Results - Last 24 Hours (Table) 03/19/20 03/19/20 03/19/20 Range/Units 11:56 11:56 11:56 WBC 0.2 L* (3.8-10.6) k/uL RBC 2.02 L (3.80-5.40) m/uL Hgb 6.3 L* (11.4-16.0) gm/dL Hct 18.2 L* (34.0-46.0) % Plt Count 2 L* D (150-450) k/uL PT 14.3 H (9.0-12.0) sec INR 1.4 H (<1.2) Sodium (137-145) mmol/L Potassium (3.5-5.1) mmol/L Chloride (98-107) mmol/L Carbon Dioxide (22-30) mmol/L BUN (7-17) mg/dL Glucose (74-99) mg/dL Plasma Lactic Acid Aj (0.7-2.0) mmol/L Calcium (8.4-10.2) mg/dL Delta Bilirubin (0.0-0.2) mg/dL Total Protein (6.3-8.2) g/dL Albumin (3.5-5.0) g/dL Urine Appearance (Clear) Urine Protein (Negative) Urine Glucose (UA) (Negative) Urine Blood (Negative) Urine Bacteria (None) /hpf Urine Mucus (None) /hpf Stool Occult Blood (Negative) Crossmatch See Detail 03/19/20 03/19/20 03/19/20 Range/Units 11:56 11:56 12:00 WBC (3.8-10.6) k/uL RBC (3.80-5.40) m/uL Hgb (11.4-16.0) gm/dL Hct (34.0-46.0) % Plt Count (150-450) k/uL PT (9.0-12.0) sec INR (<1.2) Sodium 135 L (137-145) mmol/L Potassium 3.1 L (3.5-5.1) mmol/L Chloride (98-107) mmol/L Carbon Dioxide 17 L (22-30) mmol/L BUN (7-17) mg/dL Glucose 218 H (74-99) mg/dL Plasma Lactic Acid Aj 3.2 H* (0.7-2.0) mmol/L Calcium 7.6 L (8.4-10.2) mg/dL Delta Bilirubin 0.3 H (0.0-0.2) mg/dL Total Protein 5.6 L (6.3-8.2) g/dL Albumin 2.5 L (3.5-5.0) g/dL Urine Appearance Cloudy H (Clear) Urine Protein 1+ H (Negative) Urine Glucose (UA) Trace H (Negative) Urine Blood Trace H (Negative) Urine Bacteria Few H (None) /hpf Urine Mucus Rare H (None) /hpf Stool Occult Blood (Negative) Crossmatch 03/19/20 03/19/20 03/20/20 Range/Units 13:24 16:13 05:45 WBC 0.3 L* (3.8-10.6) k/uL RBC 2.06 L (3.80-5.40) m/uL Hgb 6.3 L* (11.4-16.0) gm/dL Hct 18.9 L* (34.0-46.0) % Plt Count 3 L* (150-450) k/uL PT (9.0-12.0) sec INR (<1.2) Sodium (137-145) mmol/L Potassium (3.5-5.1) mmol/L Chloride (98-107) mmol/L Carbon Dioxide (22-30) mmol/L BUN (7-17) mg/dL Glucose (74-99) mg/dL Plasma Lactic Acid Aj 2.3 H* (0.7-2.0) mmol/L Calcium (8.4-10.2) mg/dL Delta Bilirubin (0.0-0.2) mg/dL Total Protein (6.3-8.2) g/dL Albumin (3.5-5.0) g/dL Urine Appearance (Clear) Urine Protein (Negative) Urine Glucose (UA) (Negative) Urine Blood (Negative) Urine Bacteria (None) /hpf Urine Mucus (None) /hpf Stool Occult Blood Positive H (Negative) Crossmatch 03/20/20 Range/Units 05:45 WBC (3.8-10.6) k/uL RBC (3.80-5.40) m/uL Hgb (11.4-16.0) gm/dL Hct (34.0-46.0) % Plt Count (150-450) k/uL PT (9.0-12.0) sec INR (<1.2) Sodium (137-145) mmol/L Potassium 3.4 L (3.5-5.1) mmol/L Chloride 110 H (98-107) mmol/L Carbon Dioxide 20 L (22-30) mmol/L BUN 21 H (7-17) mg/dL Glucose 139 H (74-99) mg/dL Plasma Lactic Acid Aj (0.7-2.0) mmol/L Calcium 7.2 L (8.4-10.2) mg/dL Delta Bilirubin (0.0-0.2) mg/dL Total Protein (6.3-8.2) g/dL Albumin (3.5-5.0) g/dL Urine Appearance (Clear) Urine Protein (Negative) Urine Glucose (UA) (Negative) Urine Blood (Negative) Urine Bacteria (None) /hpf Urine Mucus (None) /hpf Stool Occult Blood (Negative) Crossmatch Assessment and Plan Plan: -Acute GI bleed secondary to severe thrombocytopenia: Continue with Protonix patient will be supplemented with platelets and PRBC transfusion. -Severe pancytopenia with the no evidence of neutropenic sepsis at this time patient will be continued on Ceftin patient is on prophylactic antibiotics because of severe neutropenia which will be continued and this is as per oncology -Enterocolitis and patient is an above-mentioned and medics -Severe pancytopenia: Seconded to chemotherapy -Hyponatremia hypovolemic hyponatremia improved with IV fluids -lactic acidosis secondary to intravascular depletion IV fluids as mentioned above next and-type 2 diabetes mellitus -Hypertension -Obesity -AML recently received chemo oncology is following the patient -Tachycardia: Secondary to anemia and GI bleed IV fluids and blood transfusion as mentioned above Because of severe thrombocytopenia we cannot use the heparin or any other anticoagulation DVT
--- NOTE | 2020-03-20 16:31 | P.CONS ---
History of Present Illness - Reason for Consult Consult date: 03/20/20 AML Requesting physician: Elizabeth Tse - Chief Complaint abd pain - History of Present Illness Mrs. Gallo is a very pleasant 65-year-old female patient who we initially seen on consult 02/18/20. Over the previous 2-3 weeks patient had been having increased weakness, achiness and heaviness in her legs that was progressive, dyspnea on exertion. 2-3 days prior to admission she developed left upper quadrant pain that was severe, she came to the emergency department. She had an elevated WBC of 115, hemoglobin 6.3 platelets 126,000. WBC differential showed predominantly neutrophils but, there was increase in all cell types and presence of immature cell forms, including 3% blasts. She had a bone marrow biopsy and aspirate on 02/22/20. She was started on Hydrea. She was sent for rehabilitation. Bone marrow biopsy returned acute myeloid leukemia. She completed 7+3 induction at the end of February. Patient was in the office for routine follow-up, she was noted to have abdominal pain 2 days, vomiting 1, patient was not tolerating oral intake, appeared very ill and weak. Her platelet count was 0. It was felt patient would best be treated inpatient. Xiomy sykes states that despite the NG tube, her abdominal discomfort is improved, she denies fevers, chills, oral irritation, nausea, vomiting, cough, hemoptysis, chest pain, abdomen is slightly distended, no dysuria, hematuria, a bloody bowel movement is noted from the emergency department, occult positive. Review of Systems 14 point review systems is negative except as stated in HPI Past Medical History Past Medical History: Cancer, Diabetes Mellitus, Fibromyalgia, Hypertension Additional Past Medical History / Comment(s): acute myeloid leukemia History of Any Multi-Drug Resistant Organisms: None Reported Past Surgical History: Section, Orthopedic Surgery, Tonsillectomy Past Anesthesia/Blood Transfusion Reactions: No Reported Reaction Past Psychological History: No Psychological Hx Reported Smoking Status: Never smoker Past Alcohol Use History: None Reported Past Drug Use History: None Reported - Past Family History Mother Additional Family Medical History / Comment(s): MRSA infection in foot Medications and Allergies Home Medications Medication Instructions Recorded Confirmed Type Lisinopril 20 mg PO DAILY 02/18/20 03/19/20 History Famotidine [Pepcid] 20 mg PO BID tab 02/28/20 03/19/20 Rx Acyclovir [Zovirax] 800 mg PO BID 03/19/20 03/19/20 History Ciprofloxacin HCl 500 mg PO DAILY 03/19/20 03/19/20 History Fluconazole [Diflucan] 100 mg PO DAILY 03/19/20 03/19/20 History Ibuprofen [Motrin] 800 mg PO TID PRN 03/19/20 03/19/20 History Nystatin 100,000 Unit/ml Susp 5 ml PO QID 03/19/20 03/19/20 History [Mycostatin Oral Susp] Allergies Allergy/AdvReac Type Severity Reaction Status Date / Time No Known Allergies Allergy Verified 03/19/20 19:16 Physical Exam Vitals: Vital Signs Temp Pulse Pulse Resp BP BP Pulse Ox 03/20/20 14:07 97.4 F L 107 H 16 127/66 03/20/20 14:04 97.7 F 111 H 16 130/77 03/20/20 12:00 109 H 16 105/56 97 03/20/20 11:34 16 03/20/20 08:00 97 F L 104 H 16 112/61 98 03/20/20 04:00 98.1 F 105 H 18 108/56 95 03/20/20 00:00 98.4 F 96 16 123/65 97 03/19/20 23:33 97.7 F 108 H 18 123/71 03/19/20 21:04 97.9 F 106 H 18 123/63 03/19/20 20:37 97.7 F 107 H 18 116/58 03/19/20 20:34 97.7 F 107 H 18 116/58 03/19/20 20:24 96.9 F L 108 H 17 109/55 95 03/19/20 20:00 98.0 F 109 H 16 109/55 94 L 03/19/20 18:54 97.9 F 121 H 18 115/58 94 L 03/19/20 18:50 98 F 106 H 18 113/55 97 03/19/20 17:21 97.9 F 121 H 18 115/58 Intake and Output 03/20/20 03/20/20 03/20/20 06:59 14:59 22:59 Intake Total 635 0 Output Total 2200 600 Balance -1565 -600 Intake: Intake, IV Titration 325 Amount Piperacillin-Tazobactam 3 100 .375 gm In Sodium Chloride 0.9% 100 ml @ 25 mls/hr IVPB Q8HR [facility] Rx# :[id number] Potassium Chloride 20 meq 100 In Water For Injection 1 100ml.bag @ 50 mls/hr IVPB Q2H [facility] Rx#: [id number] Vancomycin 1,500 mg In 125 Sodium Chloride 0.9% 250 ml @ 125 mls/hr IVPB Q8H [facility] Rx#:[id number] Blood Product 310 0 Platelet Irr Pheresis Pas 0 -C Unit [id number] Rc Irr As1 Unit 310 [id number] Output: Gastric Drainage 1000 Urine 1200 600 Other: # Voids 1 Weight 88.5 kg - Constitutional General appearance: average body habitus, cooperative, no acute distress - EENT Eyes: anicteric sclerae, EOMI ENT: hearing grossly normal, normal oropharynx - Neck Neck: no lymphadenopathy - Respiratory Respiratory: bilateral: CTA - Cardiovascular mild tachycardia Rhythm: regular Heart sounds: normal: S1, S2 Abnormal Heart Sounds: no systolic murmur, no diastolic murmur, no rub, no S3 Gallop, no S4 Gallop, no click, no other leg Peripheral Edema: bilateral: None - Gastrointestinal no rebound General gastrointestinal: no absent bowel sounds, no decreased bowel sounds, distended, no hepatomegaly, no hyperactive bowel sounds, normal bowel sounds, no organomegaly, no rigid, no scaphoid, soft, no splenomegaly, no tenderness, no umbilical hernia, no ventral hernia - Integumentary petechiae on the shins, no hematomas - Neurologic Neurologic: CNII-XII intact - Musculoskeletal Musculoskeletal: strength equal bilaterally - Psychiatric Psychiatric: A&O x's 3, appropriate affect, intact judgment & insight Results CBC & Chem 7: 03/20/20 05:45 03/20/20 05:45 Labs: Abnormal Lab Results - Last 24 Hours (Table) 03/19/20 03/19/20 03/20/20 Range/Units 11:56 16:13 05:45 WBC 0.3 L* (3.8-10.6) k/uL RBC 2.06 L (3.80-5.40) m/uL Hgb 6.3 L* (11.4-16.0) gm/dL Hct 18.9 L* (34.0-46.0) % Plt Count 3 L* (150-450) k/uL Potassium (3.5-5.1) mmol/L Chloride (98-107) mmol/L Carbon Dioxide (22-30) mmol/L BUN (7-17) mg/dL Glucose (74-99) mg/dL Plasma Lactic Acid Aj 2.3 H* (0.7-2.0) mmol/L Calcium (8.4-10.2) mg/dL Crossmatch See Detail 03/20/20 Range/Units 05:45 WBC (3.8-10.6) k/uL RBC (3.80-5.40) m/uL Hgb (11.4-16.0) gm/dL Hct (34.0-46.0) % Plt Count (150-450) k/uL Potassium 3.4 L (3.5-5.1) mmol/L Chloride 110 H (98-107) mmol/L Carbon Dioxide 20 L (22-30) mmol/L BUN 21 H (7-17) mg/dL Glucose 139 H (74-99) mg/dL Plasma Lactic Acid Aj (0.7-2.0) mmol/L Calcium 7.2 L (8.4-10.2) mg/dL Crossmatch Microbiology - Last 24 Hours (Table) 03/20/20 05:25 Urine Culture - Preliminary Urine,Voided CT scan - abdomen: report reviewed CT scan - pelvis: report reviewed Assessment and Plan (1) Pancytopenia due to antineoplastic chemotherapy Narrative/Plan: Anticipated pancytopenia secondary to chemotherapy. No G-CSF for low white blood cell count. Pending bone marrow biopsy for confirmation of remission status post induction. Transfuse to keep hemoglobin 7 or higher unless symptomatic. Transfuse today for hemoglobin of 6.3 Transfuse to keep platelets greater than 10,000 unless symptomatic. Transfuse today for platelet of 3000 Only irradiated blood products please Current Visit: Yes Status: Acute Priority: High Code(s): D61.810 - ANTINEOPLASTIC CHEMOTHERAPY INDUCED PANCYTOPENIA; T45.1X5A - ADVERSE EFFECT OF ANTINEOPLASTIC AND IMMUNOSUP DRUGS, INIT SNOMED Code(s): 423261243870806 (2) Small bowel obstruction Narrative/Plan: Low white blood cell count secondary to chemotherapy and leukemia likely impac ting the mucosa of the small bowel. Patient did not have any rebound or rigidity on exam. CT of the abdomen and pelvis report reviewed. Agree with NPO and bowel rest and NG tube. Surgery following Current Visit: Yes Status: Acute Priority: High Code(s): K56.609 - UNSP INTESTNL OBST, UNSP TO PARTIAL VERSUS COMPLETE OBST SNOMED Code(s): 339274913 (3) Acute myeloid leukemia Narrative/Plan: Patient is status post induction chemotherapy with 7+3 just about 10 days ago. She will be due for a bone marrow biopsy to confirm remission in the next 7-10 days. Current Visit: Yes Status: Acute Priority: High Code(s): C92.00 - ACUTE MYELOBLASTIC LEUKEMIA, NOT HAVING ACHIEVED REMISSION SNOMED Code(s): 34749318 Plan: Doctor attests: I performed a history and physical examination of this patient, developed impression and plan of care. Discussed with dictator. I agree with dictators note, documented as a scribe.
[2020-03-20] MEDS: ACYCLOVIR 800 MG TAB PO SCH ×2 (17:31→20:36)
[2020-03-20] MEDS: NYSTATIN 100,000 UNIT/ML SUSP 500,000 UNIT/5 ML CUP PO SCH ×3 (17:31→20:36)
[2020-03-20] MEDS: CEFDINIR 300 MG CAP PO SCH (20:36)
[2020-03-20] MEDS ORDERED: VANCOMYCIN IV PER PHARMACY 1 EACH MISC MISCELLANE PRN (22:37)
[2020-03-21 00:33] LABS: MCH 30.3 pg (25.0-35.0); MCHC 33.9 g/dL (31.0-37.0); MCV 89.3 fL (80.0-100.0); Mean Platelet Volume 8.2; RBC 2.18 m/uL (3.80-5.40); RDW 13.8 % (11.5-15.5)
[2020-03-21 00:36] LABS: HCT 19.4 % (34.0-46.0); HGB 6.6 gm/dL (11.4-16.0); WBC 0.2 k/uL (3.8-10.6)
[2020-03-21 00:38] LABS: Platelet Count 41 k/uL (150-450)
[2020-03-21 06:15] LABS: Glucose,Whole Blood 128 mg/dL (75-99)
[2020-03-21 06:43] LABS: MCH 31.6 pg (25.0-35.0); MCV 92.8 fL (80.0-100.0); Mean Platelet Volume 8.7; RBC 2.14 m/uL (3.80-5.40); RDW 14.2 % (11.5-15.5)
[2020-03-21 06:44] LABS: HCT 19.8 % (34.0-46.0); HGB 6.7 gm/dL (11.4-16.0); Platelet Count 39 k/uL (150-450); WBC 0.3 k/uL (3.8-10.6)
[2020-03-21 06:58] LABS: Calcium 7.4 mg/dL (8.4-10.2); Potassium 2.9 mmol/L (3.5-5.1)
--- NOTE | 2020-03-21 07:24 | P.GSCN ---
History of Present Illness Consult date: 03/20/20 Reason for Consult: GI bleeding, small bowel obstruction Requesting physician: Josh Muñoz History of present illness: CHIEF COMPLAINT: GI bleed, small bowel obstruction HISTORY OF PRESENT ILLNESS: 65-year-old female with history of leukemia who presented to the emergency room after she was called by her oncologist regarding abnormal labs. Patient examined at the bedside with Dr. Cedeno. She reports epigastric tenderness.. She denies passing flatus. She has an NG tube to low intermittent suction with bilious drainage. PAST MEDICAL HISTORY: See list. PAST SURGICAL HISTORY: See list. SOCIAL HISTORY: No illicit drug use. REVIEW OF SYSTEMS: CONSTITUTIONAL: Denies fever or chills. HEENT: Denies blurred vision, vision changes, or eye pain. Denies hemoptysis CARDIOVASCULAR: Denies chest pain or pressure. RESPIRATORY: No shortness of breath. GASTROINTESTINAL: Refer to HPI for pertinent findings HEMATOLOGIC: History of leukemia GENITOURINARY: Denies any blood in urine. SKIN: Denies pruitis. Denies rash. PHYSICAL EXAM: VITAL SIGNS: Reviewed. GENERAL: Well-developed in no acute distress. HEENT: No sclera icterus. Extraocular movements grossly intact. Moist buccal mucosa. Head is atraumatic, normocephalic. ABDOMEN: Soft. Nondistended. Tenderness to epigastric region. NG tube to low intermittent suction NEUROLOGIC: Alert and oriented. Cranial nerves II through XII grossly intact. LABORATORY DATA: WBC 0.3. Hemoglobin 6.3. Platelet count 3. IMAGING: CT abdomen and pelvis: Cannot exclude multifocal areas of enterocolitis. Proximal ileal level is causing proximal small bowel shock showed fluid-filled dilated stomach and duodenal sweep. Definite focal uncomplicated [id number] acute diverticulitis in the region of the hepatic flexure. Probable fatty infiltration and gallbladder sludge noted. ASSESSMENT: 1. Colitis, suspected ileus 2. Acute GI bleeding 3. Pancytopenia 4. History of leukemia PLAN: -Transfusions per oncology -Monitor labs -Continue Protonix -Continue NG tube to low intermittent suction -Continue nothing by mouth Nurse practitioner note has been reviewed by physician. Signing provider agrees with the documented findings, assessment, and plan of care. Past Medical History Past Medical History: Diabetes Mellitus, Fibromyalgia, Hypertension Additional Past Medical History / Comment(s): leukemia History of Any Multi-Drug Resistant Organisms: None Reported Past Surgical History: Section, Orthopedic Surgery, Tonsillectomy Past Anesthesia/Blood Transfusion Reactions: No Reported Reaction Past Psychological History: No Psychological Hx Reported Smoking Status: Never smoker Past Alcohol Use History: None Reported Past Drug Use History: None Reported - Past Family History Mother Additional Family Medical History / Comment(s): MRSA infection in foot Medications and Allergies Home Medications Medication Instructions Recorded Confirmed Type Lisinopril 20 mg PO DAILY 02/18/20 03/19/20 History Famotidine [Pepcid] 20 mg PO BID tab 02/28/20 03/19/20 Rx Acyclovir [Zovirax] 800 mg PO BID 03/19/20 03/19/20 History Ciprofloxacin HCl 500 mg PO DAILY 03/19/20 03/19/20 History Fluconazole [Diflucan] 100 mg PO DAILY 03/19/20 03/19/20 History Ibuprofen [Motrin] 800 mg PO TID PRN 03/19/20 03/19/20 History Nystatin 100,000 Unit/ml Susp 5 ml PO QID 03/19/20 03/19/20 History [Mycostatin Oral Susp] Allergies Allergy/AdvReac Type Severity Reaction Status Date / Time No Known Allergies Allergy Verified 03/19/20 19:16 Surgical - Exam Vital Signs Temp Pulse Resp BP Pulse Ox 97.4 F L 125 H 20 88/56 99 03/19/20 10:53 03/19/20 10:53 03/19/20 10:53 03/19/20 10:53 03/19/20 10:53 Results - Labs 03/21/20 06:02 03/21/20 06:02 Abnormal Lab Results - Last 24 Hours (Table) 03/19/20 03/19/20 03/19/20 Range/Units 11:56 11:56 11:56 WBC 0.2 L* (3.8-10.6) k/uL RBC 2.02 L (3.80-5.40) m/uL Hgb 6.3 L* (11.4-16.0) gm/dL Hct 18.2 L* (34.0-46.0) % Plt Count 2 L* D (150-450) k/uL Sodium 135 L (137-145) mmol/L Potassium 3.1 L (3.5-5.1) mmol/L Chloride (98-107) mmol/L Carbon Dioxide 17 L (22-30) mmol/L BUN (7-17) mg/dL Glucose 218 H (74-99) mg/dL Plasma Lactic Acid Aj (0.7-2.0) mmol/L Calcium 7.6 L (8.4-10.2) mg/dL Delta Bilirubin 0.3 H (0.0-0.2) mg/dL Total Protein 5.6 L (6.3-8.2) g/dL Albumin 2.5 L (3.5-5.0) g/dL Stool Occult Blood (Negative) Crossmatch See Detail 03/19/20 03/19/20 03/19/20 Range/Units 11:56 13:24 16:13 WBC (3.8-10.6) k/uL RBC (3.80-5.40) m/uL Hgb (11.4-16.0) gm/dL Hct (34.0-46.0) % Plt Count (150-450) k/uL Sodium (137-145) mmol/L Potassium (3.5-5.1) mmol/L Chloride (98-107) mmol/L Carbon Dioxide (22-30) mmol/L BUN (7-17) mg/dL Glucose (74-99) mg/dL Plasma Lactic Acid Aj 3.2 H* 2.3 H* (0.7-2.0) mmol/L Calcium (8.4-10.2) mg/dL Delta Bilirubin (0.0-0.2) mg/dL Total Protein (6.3-8.2) g/dL Albumin (3.5-5.0) g/dL Stool Occult Blood Positive H (Negative) Crossmatch 03/20/20 03/20/20 Range/Units 05:45 05:45 WBC 0.3 L* (3.8-10.6) k/uL RBC 2.06 L (3.80-5.40) m/uL Hgb 6.3 L* (11.4-16.0) gm/dL Hct 18.9 L* (34.0-46.0) % Plt Count 3 L* (150-450) k/uL Sodium (137-145) mmol/L Potassium 3.4 L (3.5-5.1) mmol/L Chloride 110 H (98-107) mmol/L Carbon Dioxide 20 L (22-30) mmol/L BUN 21 H (7-17) mg/dL Glucose 139 H (74-99) mg/dL Plasma Lactic Acid Aj (0.7-2.0) mmol/L Calcium 7.2 L (8.4-10.2) mg/dL Delta Bilirubin (0.0-0.2) mg/dL Total Protein (6.3-8.2) g/dL Albumin (3.5-5.0) g/dL Stool Occult Blood (Negative) Crossmatch Microbiology - Last 24 Hours (Table) 03/20/20 05:25 Urine Culture - Preliminary Urine,Voided Diabetes panel 03/19/20 03/20/20 Range/Units 11:56 05:45 Sodium 135 L 139 (137-145) mmol/L Potassium 3.1 L 3.4 L (3.5-5.1) mmol/L Chloride 106 110 H (98-107) mmol/L Carbon Dioxide 17 L 20 L (22-30) mmol/L BUN 15 21 H (7-17) mg/dL Creatinine 0.53 0.55 (0.52-1.04) mg/dL Glucose 218 H 139 H (74-99) mg/dL Calcium 7.6 L 7.2 L (8.4-10.2) mg/dL AST 16 (14-36) U/L ALT 25 (4-34) U/L Alkaline Phosphatase 125 (38-126) U/L Total Protein 5.6 L (6.3-8.2) g/dL Albumin 2.5 L (3.5-5.0) g/dL Calcium panel 03/19/20 03/20/20 Range/Units 11:56 05:45 Calcium 7.6 L 7.2 L (8.4-10.2) mg/dL Phosphorus 3.9 (2.5-4.5) mg/dL Albumin 2.5 L (3.5-5.0) g/dL Pituitary panel 03/19/20 03/20/20 Range/Units 11:56 05:45 Sodium 135 L 139 (137-145) mmol/L Potassium 3.1 L 3.4 L (3.5-5.1) mmol/L Chloride 106 110 H (98-107) mmol/L Carbon Dioxide 17 L 20 L (22-30) mmol/L BUN 15 21 H (7-17) mg/dL Creatinine 0.53 0.55 (0.52-1.04) mg/dL Glucose 218 H 139 H (74-99) mg/dL Calcium 7.6 L 7.2 L (8.4-10.2) mg/dL Adrenal panel 03/19/20 03/20/20 Range/Units 11:56 05:45 Sodium 135 L 139 (137-145) mmol/L Potassium 3.1 L 3.4 L (3.5-5.1) mmol/L Chloride 106 110 H (98-107) mmol/L Carbon Dioxide 17 L 20 L (22-30) mmol/L BUN 15 21 H (7-17) mg/dL Creatinine 0.53 0.55 (0.52-1.04) mg/dL Glucose 218 H 139 H (74-99) mg/dL Calcium 7.6 L 7.2 L (8.4-10.2) mg/dL Total Bilirubin 1.0 (0.2-1.3) mg/dL AST 16 (14-36) U/L ALT 25 (4-34) U/L Alkaline Phosphatase 125 (38-126) U/L Total Protein 5.6 L (6.3-8.2) g/dL Albumin 2.5 L (3.5-5.0) g/dL
[2020-03-21] MEDS ORDERED: Potassium Replacement Protocol 1 EACH MISC MISCELLANE PRN (08:01)
[2020-03-21] MEDS: ACYCLOVIR 800 MG TAB PO SCH ×2 (08:04→20:40)
[2020-03-21] MEDS: NYSTATIN 100,000 UNIT/ML SUSP 500,000 UNIT/5 ML CUP PO SCH ×4 (08:10→20:59)
[2020-03-21] MEDS: CEFDINIR 300 MG CAP PO SCH ×2 (08:10→20:40)
[2020-03-21] MEDS: PANTOPRAZOLE 40 MG/10 ML VIAL IVP SCH (08:10)
[2020-03-21] MEDS: FLUCONAZOLE 100 MG TAB PO SCH (08:11)
[2020-03-21] MEDS: POTASSIUM CHLORIDE 20 MEQ in WATER FOR INJECTION 1 100ML.BAG IVPB SCH ×3 (09:33→15:52)
--- NOTE | 2020-03-21 11:26 | P.PN ---
Subjective 60-year-old female admitted Acute upper and lower GI bleed secondary to severe pancytopenia secondary to chemotherapy for acute myeloid leukemia. had platelets of 2000 yesterday received platelet transfusion presently her platelets are 3000 still has coffee-ground emesis via NG tube patient received 1 unit of PRBC transfusion hemoglobin remained at 6.3 no evidence of lower GI bleed at this time. Patient will receive her transfer transfusion. Which will see transfusion today with irradiated cells. Patient on vancomycin and Zosyn Vanco mycin will be discontinued has there is no evidence of gram-positive sepsis CAT scan of the abdomen did show some enterocolitis and my limited colitis although patient will be started on oral Ceftin as her diverticulitis or colitis is minimal and most probably noninfectious and due to her pancytopenia I'll discontinue Zosyn and patient will be started on oral Ceftin. Patient looks really tired fa tigued.Constitutional: Denied any fatigue denied any fever. 03/21/2020 _Last night because patient has gram-positive cocci in the blood which turned out to be coag lazily to stab because of which I discontinued vancomycin that was started last night patient doesn't have any coffee-ground emesis today patient hemoglobin main stable at around 6.7 patient received 2 units of blood transfusion yesterday 2 units day before. Patient received 10 units of blood transfusion platelets went up from 3 couple days ago to 39,000 patient remains neutropenic patient remains on Ceftin although there is no evidence of tear sepsis at this time patient is on empiric antibiotic, antivirals and antifungals because of neutropenia from oncology. Infectious disease will be consulted if patient still has an NG tube of less fatigued compared to yesterday Cardio vascular: As mentioned in HPI Gastrointestinal denied any nausea vomiting Pulmonary: Denied any shortness of breath cough Neurologic denied any new focal deficits All inpatient medications were reviewed and appropriate changes in these medications as dictated in the interval history and assessment and plan. Objective - Vital Signs Vital signs: Vital Signs Temp 98.1 F 03/21/20 08:00 Pulse 102 H 03/21/20 08:00 Resp 16 03/21/20 08:00 BP 140/56 03/21/20 08:00 Pulse Ox 92 L 03/21/20 08:00 Intake & Output 03/20/20 03/21/20 03/21/20 18:59 06:59 18:59 Intake Total 1762 410 0 Output Total 1100 1000 1000 Balance 662 590 -1000 Weight 88.5 kg Intake: Intake, IV Titration 350 100 Amount Piperacillin-Tazobactam 3 100 100 .375 gm In Sodium Chloride 0.9% 100 ml @ 25 mls/hr IVPB Q8HR [facility] Rx# :[id number] Vancomycin 1,500 mg In 250 Sodium Chloride 0.9% 250 ml @ 125 mls/hr IVPB Q8H [facility] Rx#:[id number] Oral 0 Blood Product 1412 310 Platelet Irr Pheresis Pas 706 -C Unit [id number] Rc Irr As1 Unit 0 310 [id number] Output: Gastric Drainage 500 500 Urine [phone] Other: # Voids 1 1 0 # Bowel Movements 1 1 - Exam PHYSICAL EXAMINATION: GENERAL: The patient is alert and oriented x3, not in any acute distress. Appears to be really tired and fatigued HEENT: Pupils are round and equally reacting to light. EOMI. No scleral icterus. Does have conjunctival pallor. Normocephalic, atraumatic. No pharyngeal erythema. No thyromegaly. CARDIOVASCULAR: S1 and S2 present. No murmurs, rubs, or gallops. PULMONARY: Chest is clear to auscultation, no wheezing or crackles. ABDOMEN: Soft, nontender, nondistended, normoactive bowel sounds. No palpable organomegaly. MUSCULOSKELETAL: No joint swelling or deformity. EXTREMITIES: No cyanosis, clubbing, or pedal edema. NEUROLOGICAL: Gross neurological examination did not reveal any focal deficits. SKIN: Multiple bruises in multiple areas. - Labs CBC & Chem 7: 03/21/20 06:02 03/21/20 06:02 Labs: Abnormal Lab Results - Last 24 Hours (Table) 03/19/20 03/21/20 03/21/20 Range/Units 11:56 00:04 06:02 WBC 0.2 L* 0.3 L* (3.8-10.6) k/uL RBC 2.18 L 2.14 L (3.80-5.40) m/uL Hgb 6.6 L* 6.7 L* (11.4-16.0) gm/dL Hct 19.4 L* 19.8 L* (34.0-46.0) % Plt Count 41 L D 39 L (150-450) k/uL Potassium (3.5-5.1) mmol/L Chloride (98-107) mmol/L Carbon Dioxide (22-30) mmol/L BUN (7-17) mg/dL Glucose (74-99) mg/dL POC Glucose (mg/dL) (75-99) mg/dL Calcium (8.4-10.2) mg/dL Crossmatch See Detail 03/21/20 03/21/20 Range/Units 06:02 06:13 WBC (3.8-10.6) k/uL RBC (3.80-5.40) m/uL Hgb (11.4-16.0) gm/dL Hct (34.0-46.0) % Plt Count (150-450) k/uL Potassium 2.9 L (3.5-5.1) mmol/L Chloride 116 H (98-107) mmol/L Carbon Dioxide 20 L (22-30) mmol/L BUN 24 H (7-17) mg/dL Glucose 120 H (74-99) mg/dL POC Glucose (mg/dL) 128 H (75-99) mg/dL Calcium 7.4 L (8.4-10.2) mg/dL Crossmatch Microbiology - Last 24 Hours (Table) 03/19/20 17:38 Blood Culture Gram Stain - Preliminary Blood Blood Culture - Preliminary Coagulase Negative Staph 03/19/20 17:38 Blood Culture - Final Blood 03/20/20 05:25 Urine Culture - Preliminary Urine,Voided Assessment and Plan Plan: -Acute GI bleed secondary to severe thrombocytopenia: Continue with Protonix patient will be supplemented with platelets and PRBC transfusion. -Severe pancytopenia with the no evidence of neutropenic sepsis at this time patient will be continued on Ceftin patient is on prophylactic antibiotics because of severe neutropenia which will be continued and this is as per oncology -Enterocolitis and patient is an above-mentioned and medics -Bacteremia with coagulase-negative staph this a contamination vancomycin was discontinued -Severe pancytopenia: Seconded to chemotherapy -Hyponatremia hypovolemic hyponatremia improved with IV fluids -lactic acidosis secondary to intravascular depletion IV fluids as mentioned above, resolved now after IV fluid transfusion and blood transfusion -type 2 diabetes mellitus -Hypertension -Obesity -AML recently received chemo oncology is following the patient -Tachycardia: Secondary to anemia and GI bleed IV fluids and blood transfusion as mentioned above Because of severe thrombocytopenia we cannot use the heparin or any other anticoagulation DVT
--- NOTE | 2020-03-21 15:01 | P.PN ---
Subjective Progress Note Date: 03/21/20 CHIEF COMPLAINT: GI bleed, small bowel obstruction HISTORY OF PRESENT ILLNESS: Patient examined at the bedside with Dr. Cedeno. Patient denies abdominal pain. NG tube remains intact to low intermittent suction. Patient denies passing flatus or having a bowel movement. Blood pressure stable. Patient mildly tachycardic. Afebrile. WBC 0.3. Hemoglobin 6.7. Platelet count 39. Potassium 2.9. PHYSICAL EXAM: VITAL SIGNS: Reviewed. GENERAL: Well-developed in no acute distress. HEENT: No sclera icterus. Extraocular movements grossly intact. Moist buccal mucosa. Head is atraumatic, normocephalic. ABDOMEN: Soft. Nondistended. Nontender. NG tube to low intermittent suction NEUROLOGIC: Alert and oriented. Cranial nerves II through XII grossly intact. ASSESSMENT: 1. Colitis, suspected ileus 2. Acute GI bleeding 3. Pancytopenia 4. History of leukemia PLAN: -Transfusions per oncology/internal medicine -Monitor labs -Continue Protonix -Continue NG tube to low intermittent suction -Continue nothing by mouth until patient begins passing flatus Nurse practitioner note has been reviewed by physician. Signing provider agrees with the documented findings, assessment, and plan of care. Objective - Vital Signs Vital signs: Vital Signs Temp 98.1 F 03/21/20 08:00 Pulse 98 03/21/20 11:54 Resp 16 03/21/20 11:54 BP 117/63 03/21/20 11:54 Pulse Ox 95 03/21/20 11:54 Intake & Output 03/20/20 03/21/20 03/21/20 18:59 06:59 18:59 Intake Total 1762 410 0 Output Total 1100 1000 1000 Balance 662 -590 -1000 Weight 88.5 kg Intake: Intake, IV Titration 350 100 Amount Piperacillin-Tazobactam 3 100 100 .375 gm In Sodium Chloride 0.9% 100 ml @ 25 mls/hr IVPB Q8HR [facility] Rx# :[id number] Vancomycin 1,500 mg In 250 Sodium Chloride 0.9% 250 ml @ 125 mls/hr IVPB Q8H [facility] Rx#:[id number] Oral 0 Blood Product 1412 310 Platelet Irr Pheresis Pas 706 -C Unit [id number] Rc Irr As1 Unit 0 310 [id number] Output: Gastric Drainage 500 500 Urine [phone] Other: # Voids 1 1 0 # Bowel Movements 1 1 - Labs CBC & Chem 7: 03/21/20 06:02 03/21/20 06:02 Labs: Abnormal Lab Results - Last 24 Hours (Table) 03/19/20 03/21/20 03/21/20 Range/Units 11:56 00:04 06:02 WBC 0.2 L* 0.3 L* (3.8-10.6) k/uL RBC 2.18 L 2.14 L (3.80-5.40) m/uL Hgb 6.6 L* 6.7 L* (11.4-16.0) gm/dL Hct 19.4 L* 19.8 L* (34.0-46.0) % Plt Count 41 L D 39 L (150-450) k/uL Potassium (3.5-5.1) mmol/L Chloride (98-107) mmol/L Carbon Dioxide (22-30) mmol/L BUN (7-17) mg/dL Glucose (74-99) mg/dL POC Glucose (mg/dL) (75-99) mg/dL Calcium (8.4-10.2) mg/dL Crossmatch See Detail 03/21/20 03/21/20 Range/Units 06:02 06:13 WBC (3.8-10.6) k/uL RBC (3.80-5.40) m/uL Hgb (11.4-16.0) gm/dL Hct (34.0-46.0) % Plt Count (150-450) k/uL Potassium 2.9 L (3.5-5.1) mmol/L Chloride 116 H (98-107) mmol/L Carbon Dioxide 20 L (22-30) mmol/L BUN 24 H (7-17) mg/dL Glucose 120 H (74-99) mg/dL POC Glucose (mg/dL) 128 H (75-99) mg/dL Calcium 7.4 L (8.4-10.2) mg/dL Crossmatch Microbiology - Last 24 Hours (Table) 03/20/20 05:25 Urine Culture - Final Urine,Voided 03/19/20 17:38 Blood Culture Gram Stain - Preliminary Blood Blood Culture - Preliminary Coagulase Negative Staph 03/19/20 17:38 Blood Culture - Final Blood
--- NOTE | 2020-03-21 15:33 | P.PN ---
Subjective Progress Note Date: 03/21/20 Principal diagnosis: Ileus, bacteremia, pancytopenia secondary to chemotherapy, acute myeloid leukemia In follow-up today, again, patient is doing surprisingly well. She denies any fevers, her mouth is dry, throat is sensitive, mild epistaxis, no chest pain, difficulty in breathing, palpitations, nausea or vomiting, she did have an episode of very loose stool, stated the older was horrible but denied very dark or bloody stool, no swelling or pain. Objective - Vital Signs Vital signs: Vital Signs Temp 98.1 F 03/21/20 08:00 Pulse 98 03/21/20 11:54 Resp 16 03/21/20 11:54 BP 117/63 03/21/20 11:54 Pulse Ox 95 03/21/20 11:54 Intake & Output 03/20/20 03/21/20 03/21/20 18:59 06:59 18:59 Intake Total 1762 410 0 Output Total 1100 1000 1000 Balance 662 -590 -1000 Weight 88.5 kg Intake: Intake, IV Titration 350 100 Amount Piperacillin-Tazobactam 3 100 100 .375 gm In Sodium Chloride 0.9% 100 ml @ 25 mls/hr IVPB Q8HR [facility] Rx# :[id number] Vancomycin 1,500 mg In 250 Sodium Chloride 0.9% 250 ml @ 125 mls/hr IVPB Q8H [facility] Rx#:[id number] Oral 0 Blood Product 1412 310 Platelet Irr Pheresis Pas 706 -C Unit [id number] Rc Irr As1 Unit 0 310 [id number] Output: Gastric Drainage 500 500 Urine [phone] Other: # Voids 1 1 0 # Bowel Movements 1 1 - Constitutional General appearance: Present: average body habitus, cooperative, no acute distress - EENT EENT Comment(s): Scabbed over blood in the right nare Eyes: Present: anicteric sclerae, EOMI ENT: Present: hearing grossly normal - Respiratory Respiratory: bilateral: CTA - Cardiovascular Heart sounds: normal: S1, S2 Abnormal Heart Sounds: Absent: systolic murmur, diastolic murmur, rub, S3 Gallop, S4 Gallop, click, other - Peripheral edema leg Peripheral Edema: bilateral: Trace - Gastrointestinal General gastrointestinal: Present: normal bowel sounds, soft. Absent: absent bowel sounds, decreased bowel sounds, distended, hepatomegaly, hyperactive bowel sounds, organomegaly, rigid, scaphoid, splenomegaly, tenderness, umbilical hernia, ventral hernia - Integumentary Integumentary: Present: normal - Neurologic Neurologic: Present: CNII-XII intact - Musculoskeletal Musculoskeletal: Present: generalized weakness, strength equal bilaterally - Psychiatric Psychiatric: Present: A&O x's 3, appropriate affect, intact judgment & insight - Labs CBC & Chem 7: 03/21/20 06:02 03/21/20 06:02 Labs: Abnormal Lab Results - Last 24 Hours (Table) 03/19/20 03/21/20 03/21/20 Range/Units 11:56 00:04 06:02 WBC 0.2 L* 0.3 L* (3.8-10.6) k/uL RBC 2.18 L 2.14 L (3.80-5.40) m/uL Hgb 6.6 L* 6.7 L* (11.4-16.0) gm/dL Hct 19.4 L* 19.8 L* (34.0-46.0) % Plt Count 41 L D 39 L (150-450) k/uL Potassium (3.5-5.1) mmol/L Chloride (98-107) mmol/L Carbon Dioxide (22-30) mmol/L BUN (7-17) mg/dL Glucose (74-99) mg/dL POC Glucose (mg/dL) (75-99) mg/dL Calcium (8.4-10.2) mg/dL Crossmatch See Detail 03/21/20 03/21/20 Range/Units 06:02 06:13 WBC (3.8-10.6) k/uL RBC (3.80-5.40) m/uL Hgb (11.4-16.0) gm/dL Hct (34.0-46.0) % Plt Count (150-450) k/uL Potassium 2.9 L (3.5-5.1) mmol/L Chloride 116 H (98-107) mmol/L Carbon Dioxide 20 L (22-30) mmol/L BUN 24 H (7-17) mg/dL Glucose 120 H (74-99) mg/dL POC Glucose (mg/dL) 128 H (75-99) mg/dL Calcium 7.4 L (8.4-10.2) mg/dL Crossmatch Microbiology - Last 24 Hours (Table) 03/20/20 05:25 Urine Culture - Final Urine,Voided 03/19/20 17:38 Blood Culture Gram Stain - Preliminary Blood Blood Culture - Preliminary Coagulase Negative Staph 03/19/20 17:38 Blood Culture - Final Blood Assessment and Plan (1) Pancytopenia due to antineoplastic chemotherapy Narrative/Plan: Anticipated pancytopenia secondary to chemotherapy. No G-CSF for low white blood cell count. Pending bone marrow biopsy for confirmation of remission status post induction. Transfuse to keep hemoglobin 7 or higher unless symptomatic. Transfuse today for hemoglobin of 6.8 Transfuse to keep platelets greater than 10,000 unless symptomatic. No transfusion today, plt 39,000 Only irradiated blood products please Current Visit: Yes Status: Acute Priority: High Code(s): D61.810 - ANTINEOPLASTIC CHEMOTHERAPY INDUCED PANCYTOPENIA; T45.1X5A - ADVERSE EFFECT OF ANTINEOPLASTIC AND IMMUNOSUP DRUGS, INIT SNOMED Code(s): 898864177868812 (2) Small bowel obstruction Narrative/Plan: Low white blood cell count secondary to chemotherapy and leukemia likely impacting the mucosa of the small bowel. Patient did not have any rebound, unrealistic tenderness or rigidity on exam. She is tolerating the NG tube. She had an episode of diarrhea today. Agree with NPO/ice chips, bowel rest and NG tube. Surgery following. Would anticipate proportional improvement in GI function as patient's white blood cell increases. WBC is stable today. Continue to monitor for another 48 hours. If patient is still having to remain nothing by mouth, may consider temporary PPN for nutritional support end of the week. Current Visit: Yes Status: Acute Priority: High Code(s): K56.609 - UNSP INTESTNL OBST, UNSP TO PARTIAL VERSUS COMPLETE OBST SNOMED Code(s): 020165068 (3) Acute myeloid leukemia Narrative/Plan: Patient is status post induction chemotherapy with 7+3 just about 10 days ago. She will be due for a bone marrow biopsy to confirm remission in the next 7-10 days-confirmed bone marrow is due the week of the . Current Visit: Yes Status: Acute Priority: High Code(s): C92.00 - ACUTE MYELOBLASTIC LEUKEMIA, NOT HAVING ACHIEVED REMISSION SNOMED Code(s): 65631215
[2020-03-21] MEDS: POTASSIUM CHLORIDE ER 20 MEQ TAB.ER PO SCH ×2 (21:32→23:10)
[2020-03-22 00:58] LABS: Calcium 7.9 mg/dL (8.4-10.2); Magnesium 2.3 mg/dL (1.6-2.3); Potassium 3.5 mmol/L (3.5-5.1)
[2020-03-22] MEDS: POTASSIUM CHLORIDE ER 20 MEQ TAB.ER PO SCH (02:30)
--- NOTE | 2020-03-22 07:12 | P.CONS ---
History of Present Illness - Reason for Consult Consult date: 03/21/20 bacteremia Requesting physician: Madonna Angela - Chief Complaint abd pain and vomiting x 2 days - History of Present Illness Patient is a 65-year female past medical he significant for leukemia for the patient is currently on chemotherapy through the left arm PICC line that has been there for about 2 months now last chemo has been about 2 weeks ago patient has been sent to the ER after she was noticed to have low blood counts patient apparently was complaining of some abdominal pain for 2 days before she was in the hospital pain has been mostly in the upper abdominal area more of a dull aching to colicky 4 to 5-10 and radiation did have an episode of vomiting but no diarrhea or constipation on arrival to the ER the patient has been afebrile and no fever has been recorded in the hospital she was noticed to be pancytopenic with a white count of 0.2 patient creatinine was normal urine has been negative stool for occult blood was positive conn PCR was negative patient did have a CT of abdominal pelvis with concern for multifocal areas of enterocolitis proximal ileal level is causing possible small bowel obstruction and focal uncomfortable mild to moderate acute diverticulitis in the region of hepatic flexure patient also have a ultrasound of the abdomen which did show some hepatic steatosis and 2.3 cm hypoechoic area in the region of paloma hepatis sludge-filled gallbladder without concern for acute cholecystitis, patient did have blood cultures drawn which are now showing gram-positive cocci for the patient has been treated with vancomycin however subsequently has been discontinued for the culture has been finalized with coagulase-negative staph infectious disease has been consulted for further management of antibiotic therapy. Review of Systems Positive point has been mentioned in HPI rest of the systems are negative Past Medical History Past Medical History: Diabetes Mellitus, Fibromyalgia, Hypertension Additional Past Medical History / Comment(s): leukemia History of Any Multi-Drug Resistant Organisms: None Reported Past Surgical History: Section, Orthopedic Surgery, Tonsillectomy Past Anesthesia/Blood Transfusion Reactions: No Reported Reaction Past Psychological History: No Psychological Hx Reported Smoking Status: Never smoker Past Alcohol Use History: None Reported Past Drug Use History: None Reported - Past Family History Mother Additional Family Medical History / Comment(s): MRSA infection in foot Medications and Allergies Home Medications Medication Instructions Recorded Confirmed Type Lisinopril 20 mg PO DAILY 02/18/20 03/19/20 History Famotidine [Pepcid] 20 mg PO BID tab 02/28/20 03/19/20 Rx Acyclovir [Zovirax] 800 mg PO BID 03/19/20 03/19/20 History Ciprofloxacin HCl 500 mg PO DAILY 03/19/20 03/19/20 History Fluconazole [Diflucan] 100 mg PO DAILY 03/19/20 03/19/20 History Ibuprofen [Motrin] 800 mg PO TID PRN 03/19/20 03/19/20 History Nystatin 100,000 Unit/ml Susp 5 ml PO QID 03/19/20 03/19/20 History [Mycostatin Oral Susp] Allergies Allergy/AdvReac Type Severity Reaction Status Date / Time No Known Allergies Allergy Verified 03/19/20 19:16 Physical Exam Vitals: Vital Signs Temp Pulse Pulse Resp BP BP Pulse Ox 03/21/20 11:54 98 16 117/63 95 03/21/20 11:32 16 03/21/20 08:00 98.1 F 102 H 16 140/56 92 L 03/21/20 04:00 98.3 F 107 H 20 140/74 91 L 03/21/20 00:00 98.0 F 113 H 20 146/83 94 L 03/20/20 20:20 98.1 F 114 H 18 128/59 94 L 03/20/20 20:00 98.1 F 114 H 18 128/59 94 L 03/20/20 18:05 99.1 F 115 H 16 126/60 03/20/20 17:54 99 F 115 H 16 136/67 03/20/20 17:27 99.5 F 114 H 16 121/56 03/20/20 16:00 99.5 F 114 H 16 121/56 95 03/20/20 14:07 97.4 F L 107 H 16 127/66 03/20/20 14:04 97.7 F 111 H 16 130/77 Intake and Output 03/20/20 03/21/20 03/21/20 22:59 06:59 14:59 Intake Total 2072 100 0 Output Total 365 427 6323 Balance 1272 -600 -1000 Intake: Intake, IV Titration 350 100 Amount Piperacillin-Tazobactam 3 100 100 .375 gm In Sodium Chloride 0.9% 100 ml @ 25 mls/hr IVPB Q8HR [facility] Rx# :[id number] Vancomycin 1,500 mg In 250 Sodium Chloride 0.9% 250 ml @ 125 mls/hr IVPB Q8H [facility] Rx#:[id number] Oral 0 Blood Product 1722 Platelet Irr Pheresis Pas 706 -C Unit [id number] Rc Irr As1 Unit 310 [id number] Output: Gastric Drainage 500 500 Urine 098 090 1974 Other: # Voids 1 1 0 # Bowel Movements 1 1 Weight 88.5 kg GENERAL DESCRIPTION: Elderly female lying in bed, no distress. No tachypnea or accessory muscle of respiration use. HEENT: Shows Pallor , no scleral icterus. Oral mucous membrane is dry. NECK: Trachea central, no thyromegaly. LUNGS: Unlabored breathing. Clear to auscultation anteriorly. No wheeze or crackle. HEART: S1, S2, regular rate and rhythm. ABDOMEN: Soft, mild distention and upper quadrant tenderness , no guarding or rigidity EXTREMITIES: No edema of feet. SKIN: No rash, no masses palpable. NEUROLOGICAL: The patient is awake, alert, oriented x3, mood and affect normal Results CBC & Chem 7: 03/21/20 06:02 03/22/20 00:20 Labs: Abnormal Lab Results - Last 24 Hours (Table) 03/19/20 03/21/20 03/21/20 Range/Units 11:56 00:04 06:02 WBC 0.2 L* 0.3 L* (3.8-10.6) k/uL RBC 2.18 L 2.14 L (3.80-5.40) m/uL Hgb 6.6 L* 6.7 L* (11.4-16.0) gm/dL Hct 19.4 L* 19.8 L* (34.0-46.0) % Plt Count 41 L D 39 L (150-450) k/uL Potassium (3.5-5.1) mmol/L Chloride (98-107) mmol/L Carbon Dioxide (22-30) mmol/L BUN (7-17) mg/dL Glucose (74-99) mg/dL POC Glucose (mg/dL) (75-99) mg/dL Calcium (8.4-10.2) mg/dL Crossmatch See Detail 03/21/20 03/21/20 Range/Units 06:02 06:13 WBC (3.8-10.6) k/uL RBC (3.80-5.40) m/uL Hgb (11.4-16.0) gm/dL Hct (34.0-46.0) % Plt Count (150-450) k/uL Potassium 2.9 L (3.5-5.1) mmol/L Chloride 116 H (98-107) mmol/L Carbon Dioxide 20 L (22-30) mmol/L BUN 24 H (7-17) mg/dL Glucose 120 H (74-99) mg/dL POC Glucose (mg/dL) 128 H (75-99) mg/dL Calcium 7.4 L (8.4-10.2) mg/dL Crossmatch Microbiology - Last 24 Hours (Table) 03/20/20 05:25 Urine Culture - Final Urine,Voided 03/19/20 17:38 Blood Culture Gram Stain - Preliminary Blood Blood Culture - Preliminary Coagulase Negative Staph 03/19/20 17:38 Blood Culture - Final Blood Assessment and Plan Assessment: 1-patient with positive blood culture with coagulase-negative staph with concern for possible skin contamination however the patient did have a PICC line and will have to make sure not dealing with a PICC line infection 2-patient presented hospital with abdominal pain nausea vomiting in this patient who did have a CT findings suggestive of mild uncomplicated diverticulitis will need to call for the enteric gram-negative both aerobes and anaerobes currently with ileus with NG in (1) Coagulase negative Staphylococcus bacteremia Current Visit: Yes Status: Acute Code(s): R78.81 - BACTEREMIA; B95.7 - OTH STAPHYLOCOCCUS THE CAUSE OF DISEASES [facility] SNOMED Code(s): 139332697467 (2) Acute diverticulitis Current Visit: Yes Status: Acute Code(s): K57.92 - DVTRCLI OF INTEST, PART UNSP, W/O PERF OR ABSCESS W/O BLEED SNOMED Code(s): 408889482 Plan: 1-blood cultures repeated to make sure no evidence of persistent bacteremia 2-discontinue cefdinar 3-start the patient on Rocephin 2 g daily and Flagyl to cover for the diverticulitis We will follow on clinical condition and cultures to further adjust medication if needed Thank you for this consultation we will follow the patient along with you Time with Patient: Greater than 30
[2020-03-22 07:32] LABS: HCT 22.1 % (34.0-46.0); HGB 7.7 gm/dL (11.4-16.0); MCH 31.4 pg (25.0-35.0); MCHC 34.8 g/dL (31.0-37.0); MCV 90.5 fL (80.0-100.0); Mean Platelet Volume 7.9; RBC 2.45 m/uL (3.80-5.40); RDW 14.2 % (11.5-15.5)
[2020-03-22 07:41] LABS: WBC 0.4 k/uL (3.8-10.6)
[2020-03-22 07:43] LABS: Platelet Count 17 k/uL (150-450)
[2020-03-22 07:59] LABS: Calcium 7.8 mg/dL (8.4-10.2); Potassium 3.7 mmol/L (3.5-5.1)
[2020-03-22 09:03] LABS: Anisocytosis (M) Present; Poikilocytosis (M) Present
[2020-03-22] MEDS: PANTOPRAZOLE 40 MG/10 ML VIAL IVP SCH (09:17)
[2020-03-22] MEDS: FLUCONAZOLE 100 MG TAB PO SCH (09:17)
[2020-03-22] MEDS: metroNIDAZOLE-NS PMX 500 MG in SALINE 1 100ML.BAG IVPB SCH ×2 (09:17→15:59)
[2020-03-22] MEDS: ACYCLOVIR 800 MG TAB PO SCH ×2 (09:17→22:03)
[2020-03-22] MEDS: NYSTATIN 100,000 UNIT/ML SUSP 500,000 UNIT/5 ML CUP PO SCH ×4 (09:17→22:00)
--- NOTE | 2020-03-22 10:36 | P.PN ---
Subjective Progress Note Date: 03/22/20 Principal diagnosis: Ileus, bacteremia, pancytopenia secondary to chemotherapy, acute myeloid leukemia In follow-up today, patient is doing well. She denies any fevers, her mouth is dry, throat is sensitive, has some trouble swallowing her pills, she is not reporting any bleeding today, difficulty in breathing, palpitations, nausea or vomiting, she having multiple bowel movements, consistency is some formed and some liquid, she is not passing gas though. She denies any pain. Objective - Vital Signs Vital signs: Vital Signs Temp 97.6 F 03/22/20 07:50 Pulse 100 03/22/20 07:51 Resp 18 03/22/20 07:51 BP 139/77 03/22/20 07:50 Pulse Ox 94 L 03/22/20 07:50 Intake & Output 03/21/20 03/22/20 03/22/20 18:59 06:59 18:59 Intake Total 300 310 Output Total 1550 1100 450 Balance -1250 -790 -450 Weight 87.5 kg Intake: Intake, IV Titration 300 Amount Potassium Chloride 20 meq 300 In Water For Injection 1 100ml.bag @ 50 mls/hr IVPB Q2H [facility] Rx#: [id number] Oral 0 Blood Product 310 Rc Irr As1 Unit 310 [id number] Output: Gastric Drainage 150 Urine 1400 1100 450 Other: # Voids 0 1 1 # Bowel Movements 1 1 1 - Constitutional General appearance: Present: average body habitus, cooperative, no acute distress - EENT EENT Comment(s): thrush cleared Eyes: Present: anicteric sclerae, edentulous ENT: Present: hearing grossly normal, normal oropharynx - Respiratory Respiratory: bilateral: CTA - Cardiovascular Heart sounds: normal: S1, S2 - Peripheral edema leg Peripheral Edema: bilateral: Trace - Gastrointestinal General gastrointestinal: Present: decreased bowel sounds, soft. Absent: absent bowel sounds, distended, hepatomegaly, hyperactive bowel sounds, normal bowel sounds, organomegaly, rigid, scaphoid, splenomegaly, tenderness, umbilical he rnia, ventral hernia - Integumentary Integumentary Comment(s): Petechiae and purpura on the shins - Neurologic Neurologic: Present: CNII-XII intact - Musculoskeletal Musculoskeletal: Present: generalized weakness, strength equal bilaterally - Psychiatric Psychiatric: Present: A&O x's 3, appropriate affect, intact judgment & insight - Labs CBC & Chem 7: 03/22/20 06:53 03/22/20 06:53 Labs: Abnormal Lab Results - Last 24 Hours (Table) 03/19/20 03/22/20 03/22/20 Range/Units 11:56 00:20 06:53 WBC 0.4 L* (3.8-10.6) k/uL RBC 2.45 L (3.80-5.40) m/uL Hgb 7.7 L (11.4-16.0) gm/dL Hct 22.1 L (34.0-46.0) % Plt Count 17 L* D (150-450) k/uL Sodium (137-145) mmol/L Chloride 119 H (98-107) mmol/L Carbon Dioxide 20 L (22-30) mmol/L BUN 23 H (7-17) mg/dL Glucose 121 H (74-99) mg/dL Calcium 7.9 L (8.4-10.2) mg/dL Crossmatch See Detail 03/22/20 Range/Units 06:53 WBC (3.8-10.6) k/uL RBC (3.80-5.40) m/uL Hgb (11.4-16.0) gm/dL Hct (34.0-46.0) % Plt Count (150-450) k/uL Sodium 147 H (137-145) mmol/L Chloride 120 H (98-107) mmol/L Carbon Dioxide (22-30) mmol/L BUN 22 H (7-17) mg/dL Glucose 114 H (74-99) mg/dL Calcium 7.8 L (8.4-10.2) mg/dL Crossmatch Microbiology - Last 24 Hours (Table) 03/21/20 06:02 Blood Culture - Preliminary Blood No Growth after 24 hours 03/20/20 05:25 Urine Culture - Final Urine,Voided Assessment and Plan (1) Pancytopenia due to antineoplastic chemotherapy Narrative/Plan: Anticipated pancytopenia secondary to chemotherapy. No G-CSF for low white blood cell count. Pending bone marrow biopsy for confirmation of remission status post induction. WBC 0.4 today! Transfuse to keep hemoglobin 7 or higher unless symptomatic. No transfusion today for a hemoglobin of 7.7 Transfuse to keep platelets greater than 10,000 unless symptomatic. No transfusion today, plt 17,000 Only irradiated blood products please Current Visit: Yes Status: Acute Priority: High Code(s): D61.810 - ANTINEOPLASTIC CHEMOTHERAPY INDUCED PANCYTOPENIA; T45.1X5A - ADVERSE EFFECT OF ANTINEOPLASTIC AND IMMUNOSUP DRUGS, INIT SNOMED Code(s): 101336472793256 (2) Small bowel obstruction Narrative/Plan: Low white blood cell count secondary to chemotherapy and leukemia likely impacting the mucosa of the small bowel. Patient did not have any rebound, unrealistic tenderness or rigidity on exam today. Continues to tolerate the NG tube overall well. She is having bowel movements, some liquid and some formed stool. Continue with NPO/ice chips, bowel rest and NG tube per Surgery. Would anticipate proportional improvement in GI function as patient's white blood cell increases. WBC increased today. Continue to monitor for another 24 hours. If patient is still having to remain nothing by mouth, may consider temporary PPN for nutritional support end of the week. Sodium and chloride elevated. Have requested hydration to be changed to D545 with 20meq of potassium. Current Visit: Yes Status: Acute Priority: High Code(s): K56.609 - UNSP INTESTNL OBST, UNSP TO PARTIAL VERSUS COMPLETE OBST SNOMED Code(s): 035542590 (3) Acute myeloid leukemia Narrative/Plan: Patient is status post induction chemotherapy with 7+3. She will be due for a bone marrow biopsy to confirm remission the week of the . Current Visit: Yes Status: Acute Priority: High Code(s): C92.00 - ACUTE MYELOBLASTIC LEUKEMIA, NOT HAVING ACHIEVED REMISSION SNOMED Code(s): 89099614
--- NOTE | 2020-03-22 11:23 | P.PN ---
Subjective 60-year-old female admitted Acute upper and lower GI bleed secondary to severe pancytopenia secondary to chemotherapy for acute myeloid leukemia. had platelets of 2000 yesterday received platelet transfusion presently her platelets are 3000 still has coffee-ground emesis via NG tube patient received 1 unit of PRBC transfusion hemoglobin remained at 6.3 no evidence of lower GI bleed at this time. Patient will receive her transfer transfusion. Which will see transfusion today with irradiated cells. Patient on vancomycin and Zosyn Vanco mycin will be discontinued has there is no evidence of gram-positive sepsis CAT scan of the abdomen did show some enterocolitis and my limited colitis although patient will be started on oral Ceftin as her diverticulitis or colitis is minimal and most probably noninfectious and due to her pancytopenia I'll discontinue Zosyn and patient will be started on oral Ceftin. Patient looks really tired fa tigued.Constitutional: Denied any fatigue denied any fever. 03/21/2020 _Last night because patient has gram-positive cocci in the blood which turned out to be coagulase-negative staph because of which I discontinued vancomycin that was started last night patient doesn't have any coffee-ground emesis today patient hemoglobin main stable at around 6.7 patient received 2 units of blood transfusion yesterday 2 units day before. Patient received 10 units of blood transfusion platelets went up from 3 couple days ago to 39,000 patient remains neutropenic patient remains on Ceftin although there is no evidence of tear sepsis at this time patient is on empiric antibiotic, antivirals and antifungals because of neutropenia from oncology. Infectious disease will be consulted if patient still has an NG tube of less fatigued compared to yesterday 03/22/2020 Is presently on metronidazole and Rocephin, patient has significant decreased output from the NG tube patient had thousand cc last night but that today is pretty minimal because of which are NG tube will be removed. Patient was switched to D5 half-normal because of the potential hyponatremia and and hyperchloremia. Patient is feeling much better patient hemoglobin is 7.7 today with platelet count of 17,000 and a white blood cell count of 400 Cardio vascular: As mentioned in HPI Gastrointestinal denied any nausea vomiting Pulmonary: Denied any shortness of breath cough Neurologic denied any new focal deficits All inpatient medications were reviewed and appropriate changes in these medications as dictated in the interval history and assessment and plan. Objective - Vital Signs Vital signs: Vital Signs Temp 97.6 F 03/22/20 07:50 Pulse 100 03/22/20 07:51 Resp 18 03/22/20 07:51 BP 139/77 03/22/20 07:50 Pulse Ox 94 L 03/22/20 07:50 Intake & Output 03/21/20 03/22/20 03/22/20 18:59 06:59 18:59 Intake Total 300 310 Output Total 1550 1100 750 Balance -1250 -790 -750 Weight 87.5 kg Intake: Intake, IV Titration 300 Amount Potassium Chloride 20 meq 300 In Water For Injection 1 100ml.bag @ 50 mls/hr IVPB Q2H [facility] Rx#: [id number] Oral 0 Blood Product 310 Rc Irr As1 Unit 310 [id number] Output: Gastric Drainage 150 Urine 1400 1100 750 Other: # Voids 0 1 1 # Bowel Movements 1 1 1 - Exam PHYSICAL EXAMINATION: GENERAL: The patient is alert and oriented x3, not in any acute distress. Appears to be really tired and fatigued HEENT: Pupils are round and equally reacting to light. EOMI. No scleral icterus. Does have conjunctival pallor. Normocephalic, atraumatic. No pharyngeal erythema. No thyromegaly. CARDIOVASCULAR: S1 and S2 present. No murmurs, rubs, or gallops. PULMONARY: Chest is clear to auscultation, no wheezing or crackles. ABDOMEN: Soft, nontender, nondistended, normoactive bowel sounds. No palpable organomegaly. MUSCULOSKELETAL: No joint swelling or deformity. EXTREMITIES: No cyanosis, clubbing, or pedal edema. NEUROLOGICAL: Gross neurological examination did not reveal any focal deficits. SKIN: Multiple bruises in multiple areas. - Labs CBC & Chem 7: 03/22/20 06:53 03/22/20 06:53 Labs: Abnormal Lab Results - Last 24 Hours (Table) 03/19/20 03/22/20 03/22/20 Range/Units 11:56 00:20 06:53 WBC 0.4 L* (3.8-10.6) k/uL RBC 2.45 L (3.80-5.40) m/uL Hgb 7.7 L (11.4-16.0) gm/dL Hct 22.1 L (34.0-46.0) % Plt Count 17 L* D (150-450) k/uL Sodium (137-145) mmol/L Chloride 119 H (98-107) mmol/L Carbon Dioxide 20 L (22-30) mmol/L BUN 23 H (7-17) mg/dL Glucose 121 H (74-99) mg/dL Calcium 7.9 L (8.4-10.2) mg/dL Crossmatch See Detail 03/22/20 Range/Units 06:53 WBC (3.8-10.6) k/uL RBC (3.80-5.40) m/uL Hgb (11.4-16.0) gm/dL Hct (34.0-46.0) % Plt Count (150-450) k/uL Sodium 147 H (137-145) mmol/L Chloride 120 H (98-107) mmol/L Carbon Dioxide (22-30) mmol/L BUN 22 H (7-17) mg/dL Glucose 114 H (74-99) mg/dL Calcium 7.8 L (8.4-10.2) mg/dL Crossmatch Microbiology - Last 24 Hours (Table) 03/21/20 06:02 Blood Culture - Preliminary Blood No Growth after 24 hours 03/20/20 05:25 Urine Culture - Final Urine,Voided Assessment and Plan Plan: -Acute GI bleed secondary to severe thrombocytopenia, patient has a partial small bowel obstruction as well: Continue with Protonix patient will be supplemented with platelets and PRBC transfusion as needed today she will not need any of these transfusions. Patient's NG tube will be removed IV fluids were switched as mentioned above -Severe pancytopenia patient is on Rocephin and metronidazole as per infectious disease for possibility of colitis -Enterocolitis and patient is an above-mentioned medications -Bacteremia with coagulase-negative staph this a contamination vancomycin was discontinued. Patient does have a PICC line -Severe pancytopenia: Seconded to chemotherapy -Hyponatremia hypovolemic hyponatremia improved with IV fluids -lactic acidosis secondary to intravascular depletion IV fluids as mentioned above, resolved now after IV fluid transfusion and blood transfusion -type 2 diabetes mellitus -Hypertension -Obesity -AML recently received chemo oncology is following the patient -Tachycardia: Secondary to anemia and GI bleed IV fluids and blood transfusion as mentioned above Because of severe thrombocytopenia we cannot use the heparin or any other anticoagulation DVT
--- NOTE | 2020-03-22 12:19 | P.PN ---
Subjective Progress Note Date: 03/22/20 CHIEF COMPLAINT: GI bleed, small bowel obstruction HISTORY OF PRESENT ILLNESS: Patient examined at the bedside with Dr. Cedeno. Patient denies abdominal pain. NG tube remains intact to low intermittent suction. Patient denies passing flatus or having a bowel movement. PHYSICAL EXAM: VITAL SIGNS: Reviewed. GENERAL: Well-developed in no acute distress. HEENT: No sclera icterus. Extraocular movements grossly intact. Moist buccal mucosa. Head is atraumatic, normocephalic. ABDOMEN: Soft. Nondistended. Nontender. NG tube to low intermittent suction NEUROLOGIC: Alert and oriented. Cranial nerves II through XII grossly intact. ASSESSMENT: 1. Colitis, suspected ileus 2. Acute GI bleeding 3. Pancytopenia 4. History of leukemia PLAN: -Transfusions per oncology/internal medicine -Monitor labs -Continue Protonix -Discontinue NG tube -Keep patient nothing by mouth for today. Nurse practitioner note has been reviewed by physician. Signing provider agrees with the documented findings, assessment, and plan of care. Objective - Vital Signs Vital signs: Vital Signs Temp 98.6 F 03/22/20 11:19 Pulse 100 03/22/20 11:21 Resp 18 03/22/20 11:21 BP 141/72 03/22/20 11:19 Pulse Ox 96 03/22/20 11:19 Intake & Output 03/21/20 03/22/20 03/22/20 18:59 06:59 18:59 Intake Total 300 310 Output Total 1550 1100 750 Balance -1250 -790 -750 Weight 87.5 kg 87.5 kg Intake: Intake, IV Titration 300 Amount Potassium Chloride 20 meq 300 In Water For Injection 1 100ml.bag @ 50 mls/hr IVPB Q2H [facility] Rx#: [id number] Oral 0 Blood Product 310 Rc Irr As1 Unit 310 [id number] Output: Gastric Drainage 150 Urine 1400 1100 750 Other: # Voids 0 1 1 # Bowel Movements 1 1 1 - Labs CBC & Chem 7: 03/22/20 06:53 03/22/20 06:53 Labs: Abnormal Lab Results - Last 24 Hours (Table) 03/19/20 03/22/20 03/22/20 Range/Units 11:56 00:20 06:53 WBC 0.4 L* (3.8-10.6) k/uL RBC 2.45 L (3.80-5.40) m/uL Hgb 7.7 L (11.4-16.0) gm/dL Hct 22.1 L (34.0-46.0) % Plt Count 17 L* D (150-450) k/uL Sodium (137-145) mmol/L Chloride 119 H (98-107) mmol/L Carbon Dioxide 20 L (22-30) mmol/L BUN 23 H (7-17) mg/dL Glucose 121 H (74-99) mg/dL Calcium 7.9 L (8.4-10.2) mg/dL Crossmatch See Detail 03/22/20 Range/Units 06:53 WBC (3.8-10.6) k/uL RBC (3.80-5.40) m/uL Hgb (11.4-16.0) gm/dL Hct (34.0-46.0) % Plt Count (150-450) k/uL Sodium 147 H (137-145) mmol/L Chloride 120 H (98-107) mmol/L Carbon Dioxide (22-30) mmol/L BUN 22 H (7-17) mg/dL Glucose 114 H (74-99) mg/dL Calcium 7.8 L (8.4-10.2) mg/dL Crossmatch Microbiology - Last 24 Hours (Table) 03/21/20 06:02 Blood Culture - Preliminary Blood No Growth after 24 hours 03/20/20 05:25 Urine Culture - Final Urine,Voided
[2020-03-22] MEDS: D5-0.45% NACL WITH KCL 20MEQ/L 1,000 ML IV SCH ×2 (15:59→16:03)
--- NOTE | 2020-03-22 23:21 | PN ---
PROGRESS NOTE DATE OF SERVICE: 03/22/2020 REASON FOR FOLLOWUP: 1. Positive blood culture, possible contamination. 2. Diverticulitis. INTERVAL HISTORY: The patient is currently afebrile. The patient is breathing comfortably. She still has the NG in. Abdominal pain has decreased in intensity. No chest pain, shortness of breath or cough. Did have some diarrhea. PHYSICAL EXAMINATION: Blood pressure 124/73 with a pulse of 110, temperature 98.7. She is 96% on room air. General description is an elderly female up in the chair in no distress. RESPIRATORY SYSTEM: Unlabored breathing, decreased breath sounds at bases. No wheeze. HEART: S1, S2. Regular rate and rhythm. ABDOMEN: Soft, no distention. No guarding or rigidity. EXTREMITIES: No edema of feet. LABS: Hemoglobin 7.7, white count 0.4 with BUN of 22, creatinine 0.84. Blood culture repeat has been negative so far. DIAGNOSTIC IMPRESSION AND PLAN: 1. Patient with a positive blood culture with coagulase-negative Staph, possible skin contamination. Repeat culture has been negative. The patient still has PICC line and to be monitored closely. 2. Patient with ileus and a component of diverticulitis seen on the CT. The patient to continue Rocephin and Flagyl and monitor clinical course closely. MMODL / IJN: [id number] /
[2020-03-23] MEDS: metroNIDAZOLE-NS PMX 500 MG in SALINE 1 100ML.BAG IVPB SCH ×3 (00:22→16:00)
[2020-03-23] MEDS: D5-0.45% NACL WITH KCL 20MEQ/L 1,000 ML IV SCH ×2 (06:18→08:29)
--- NOTE | 2020-03-23 07:58 | P.PN ---
Subjective Progress Note Date: 03/23/20 CHIEF COMPLAINT: GI bleed, small bowel obstruction HISTORY OF PRESENT ILLNESS: Patient examined at the bedside with Dr. Cedeno. Patient denies abdominal pain. NG tube has been discontinued. Patient was started on clear liquid diet. She denies nausea or vomiting. Denies having a bowel movement. PHYSICAL EXAM: VITAL SIGNS: Reviewed. GENERAL: Well-developed in no acute distress. HEENT: No sclera icterus. Extraocular movements grossly intact. Moist buccal mucosa. Head is atraumatic, normocephalic. ABDOMEN: Soft. Nondistended. Nontender. NEUROLOGIC: Alert and oriented. Cranial nerves II through XII grossly intact. ASSESSMENT: 1. Colitis, suspected ileus 2. Acute GI bleeding 3. Pancytopenia 4. History of leukemia PLAN: -Monitor labs -Continue Protonix -Continue clear liquid diet. Await further bowel function -No surgical intervention recommended Nurse practitioner note has been reviewed by physician. Signing provider agrees with the documented findings, assessment, and plan of care. Objective - Vital Signs Vital signs: Vital Signs Temp 98.7 F 03/22/20 19:24 Pulse 107 H 03/23/20 04:25 Resp 18 03/23/20 04:25 BP 156/76 03/23/20 04:25 Pulse Ox 96 03/23/20 04:25 Intake & Output 03/22/20 03/23/20 03/23/20 18:59 06:59 18:59 Intake Total 300 1007 Output Total 2200 900 Balance -1900 107 Weight 87.5 kg 86.7 kg Intake: Intake, IV Titration 200 Amount D5-0.45% NaCl with KCl 200 20Meq/l 1,000 ml @ 100 mls/hr IV .Q10H [facility] Rx#: [id number] Oral 300 580 Blood Product 227 Platelet Irr Pheresis Pas 227 -C Unit [id number] Output: Urine 2200 900 Other: # Voids 2 2 # Bowel Movements 1 2 - Labs CBC & Chem 7: 03/22/20 06:53 03/22/20 06:53 Labs: Abnormal Lab Results - Last 24 Hours (Table) 03/22/20 03/22/20 Range/Units 06:53 06:53 Plt Count 17 L* D (150-450) k/uL Sodium 147 H (137-145) mmol/L Chloride 120 H (98-107) mmol/L BUN 22 H (7-17) mg/dL Glucose 114 H (74-99) mg/dL Calcium 7.8 L (8.4-10.2) mg/dL Microbiology - Last 24 Hours (Table) 03/21/20 06:02 Blood Culture - Preliminary Blood No Growth after 24 hours
[2020-03-23] MEDS: FLUCONAZOLE 100 MG TAB PO SCH (08:28)
[2020-03-23] MEDS: PANTOPRAZOLE 40 MG/10 ML VIAL IVP SCH (08:28)
[2020-03-23] MEDS: NYSTATIN 100,000 UNIT/ML SUSP 500,000 UNIT/5 ML CUP PO SCH ×4 (08:28→22:22)
[2020-03-23] MEDS: ACYCLOVIR 800 MG TAB PO SCH ×2 (08:28→22:22)
--- NOTE | 2020-03-23 11:47 | P.PN ---
Subjective 60-year-old female admitted Acute upper and lower GI bleed secondary to severe pancytopenia secondary to chemotherapy for acute myeloid leukemia. had platelets of 2000 yesterday received platelet transfusion presently her platelets are 3000 still has coffee-ground emesis via NG tube patient received 1 unit of PRBC transfusion hemoglobin remained at 6.3 no evidence of lower GI bleed at this time. Patient will receive her transfer transfusion. Which will see transfusion today with irradiated cells. Patient on vancomycin and Zosyn Vanco mycin will be discontinued has there is no evidence of gram-positive sepsis CAT scan of the abdomen did show some enterocolitis and my limited colitis although patient will be started on oral Ceftin as her diverticulitis or colitis is minimal and most probably noninfectious and due to her pancytopenia I'll discontinue Zosyn and patient will be started on oral Ceftin. Patient looks really tired fa tigued.Constitutional: Denied any fatigue denied any fever. 03/21/2020 _Last night because patient has gram-positive cocci in the blood which turned out to be coagulase-negative staph because of which I discontinued vancomycin that was started last night patient doesn't have any coffee-ground emesis today patient hemoglobin main stable at around 6.7 patient received 2 units of blood transfusion yesterday 2 units day before. Patient received 10 units of blood transfusion platelets went up from 3 couple days ago to 39,000 patient remains neutropenic patient remains on Ceftin although there is no evidence of tear sepsis at this time patient is on empiric antibiotic, antivirals and antifungals because of neutropenia from oncology. Infectious disease will be consulted if patient still has an NG tube of less fatigued compared to yesterday 03/22/2020 Is presently on metronidazole and Rocephin, patient has significant decreased output from the NG tube patient had thousand cc last night but that today is pretty minimal because of which are NG tube will be removed. Patient was switched to D5 half-normal because of the potential hyponatremia and and hyperchloremia. Patient is feeling much better patient hemoglobin is 7.7 today with platelet count of 17,000 and a white blood cell count of 400. 03/23/2020 Patient had epistaxis as today after which patient received the platelet trans fusion patient is bit tachycardic appears to be sinus tachycardia continue with IV fluids appear to be improving at this time NG tube is out patient does have bowel sounds. Patient was having diarrhea C. diff was negative and the lesion will be started on Questran patient is bit to intravascular well repleted as of which patient became tachycardic continue with IV fluids which she is on at this time and it in the form of 0.45% saline at 100 mL per hour Cardio vascular: As mentioned in HPI Gastrointestinal denied any nausea vomiting Pulmonary: Denied any shortness of breath cough Neurologic denied any new focal deficits All inpatient medications were reviewed and appropriate changes in these medications as dictated in the interval history and assessment and plan. Objective - Vital Signs Vital signs: Vital Signs Temp 98.6 F 03/23/20 11:10 Pulse 106 H 03/23/20 11:11 Resp 16 03/23/20 11:11 BP 144/71 03/23/20 11:10 Pulse Ox 96 03/23/20 11:10 Intake & Output 03/22/20 03/23/20 03/23/20 18:59 06:59 18:59 Intake Total 300 1007 1847 Output Total 2200 900 800 Balance -6436 437 7828 Weight 87.5 kg 86.7 kg Intake: IV 950 D5-0.45% NaCl with KCl 800 20Meq/l 1,000 ml @ 100 mls/hr IV .Q10H [facility] Rx#: [id number] cefTRIAXone 2 gm In 50 Sodium Chloride 0.9% 50 ml @ 100 mls/hr IVPB Q24HR [facility] Rx#:[id number] metroNIDAZOLE-NS PMX 500 100 mg In Saline 1 100ml.bag @ 100 mls/hr IVPB Q8HR [facility] Rx#:[id number] Intake, IV Titration 200 Amount D5-0.45% NaCl with KCl 200 20Meq/l 1,000 ml @ 100 mls/hr IV .Q10H [facility] Rx#: [id number] Oral 300 580 897 Blood Product 227 Platelet Irr Pheresis Pas 227 -C Unit [id number] Output: Urine 2200 900 800 Other: # Voids 2 2 # Bowel Movements 1 2 2 - Exam PHYSICAL EXAMINATION: GENERAL: The patient is alert and oriented x3, not in any acute distress. Appears to be really tired and fatigued HEENT: Pupils are round and equally reacting to light. EOMI. No scleral icterus. Does have conjunctival pallor. Normocephalic, atraumatic. No pharyngeal erythema. No thyromegaly. Patient has significant crusting in the nose consis tent with yesterday's epistaxis CARDIOVASCULAR: S1 and S2 present. No murmurs, rubs, or gallops. PULMONARY: Chest is clear to auscultation, no wheezing or crackles. ABDOMEN: Soft, nontender, nondistended, normoactive bowel sounds. No palpable organomegaly. MUSCULOSKELETAL: No joint swelling or deformity. EXTREMITIES: No cyanosis, clubbing, or pedal edema. NEUROLOGICAL: Gross neurological examination did not reveal any focal deficits. SKIN: Multiple bruises in multiple areas. - Labs CBC & Chem 7: 03/22/20 06:53 03/22/20 06:53 Labs: Microbiology - Last 24 Hours (Table) 03/19/20 17:38 Blood Culture Gram Stain - Final Blood Blood Culture - Final Staphylococcus epidermidis 03/22/20 06:53 Blood Culture - Preliminary Blood No Growth after 24 hours 03/21/20 06:02 Blood Culture - Preliminary Blood No Growth after 48 hours Assessment and Plan Plan: -Acute GI bleed secondary to severe thrombocytopenia, patient has a partial small bowel obstruction as well: Continue with Protonix patient will be supplemented with platelets and PRBC transfusion as needed today she will not need any of these transfusions. Patient's NG tube will be removed IV fluids were switched as mentioned above -Epistaxis secondary to thrombocytopenia improved after platelet transfusion -Partial small bowel obstruction resolved patient is presently having diarrhea and sinus tachycardia as mentioned above -Severe pancytopenia patient is on Rocephin and metronidazole as per infectious disease for possibility of colitis -Enterocolitis and patient is an above-mentioned medications -Bacteremia with coagulase-negative staph this a contamination vancomycin was discontinued. Patient does have a PICC line -Severe pancytopenia: Seconded to chemotherapy -Hyponatremia hypovolemic hyponatremia improved with IV fluids -lactic acidosis secondary to intravascular depletion IV fluids as mentioned above, resolved now after IV fluid transfusion and blood transfusion -type 2 diabetes mellitus -Hypertension -Obesity -AML recently received chemo oncology is following the patient -Tachycardia: Secondary to intravascular and patient can you with IV fluids will also order Questran for diarrhea Because of severe thrombocytopenia we cannot use the heparin or any other anticoagulation DVT
[2020-03-23] MEDS: CHOLESTYRAMINE (WITH SUGAR) 4 GM PACKET PO SCH ×2 (14:07→16:00)
--- NOTE | 2020-03-23 15:56 | PN ---
PROGRESS NOTE DATE OF SERVICE: 03/23/2020 REASON FOR FOLLOWUP: 1. Positive blood culture, likely skin contamination. 2. Diverticulitis. INTERVAL HISTORY: The patient is currently afebrile. The patient is breathing comfortably, feeling better. The patient's NG has been discontinued and the patient has been started on a clear liquid diet, which she has been tolerating. No nausea, no vomiting. Did have some diarrhea; no worsening. PHYSICAL EXAMINATION: Blood pressure is 144/71 with a pulse of 106, temperature of 98.6. She is 96% on room air. General description is an elderly female lying in bed in no distress. RESPIRATORY SYSTEM: Unlabored breathing. Clear to auscultation anteriorly. HEART: S1, S2. Regular rate and rhythm. ABDOMEN: Soft. No tenderness. LABS: No new labs have been obtained today. DIAGNOSTIC IMPRESSION AND PLAN: 1. Patient with a positive blood culture with Staphylococcus epidermidis, possible skin contamination. Repeat blood culture has been negative. Currently on vancomycin. 2. Patient with diverticulitis, currently covered with Rocephin and Flagyl; to continue. Switch to oral once her oral intake is improved. Continue with supportive care. MMODL / IJN: [id number] /
[2020-03-23 16:09] LABS: HCT 24.4 % (34.0-46.0); HGB 8.1 gm/dL (11.4-16.0); MCH 30.2 pg (25.0-35.0); MCHC 33.2 g/dL (31.0-37.0); Mean Platelet Volume 7.2; RBC 2.68 m/uL (3.80-5.40); RDW 14.2 % (11.5-15.5)
[2020-03-23 16:18] LABS: WBC 0.5 k/uL (3.8-10.6)
[2020-03-23 16:19] LABS: Platelet Count 21 k/uL (150-450)
--- NOTE | 2020-03-23 16:43 | P.PN ---
Subjective Progress Note Date: 03/23/20 Patient had NG tube removed, and was started on clear liquid diet. She is tolerating that well so far. He has bowel movements continue to be loose. She is having a mild right lower nosebleed. No fever or chills Objective - Vital Signs Vital signs: Vital Signs Temp 98.2 F 03/23/20 15:23 Pulse 114 H 03/23/20 15:25 Resp 16 03/23/20 15:25 BP 160/72 03/23/20 15:23 Pulse Ox 94 L 03/23/20 15:23 Intake & Output 03/22/20 03/23/20 03/23/20 18:59 06:59 18:59 Intake Total 300 1007 2084 Output Total 2200 900 1550 Balance -1900 107 534 Weight 87.5 kg 86.7 kg 86.7 kg Intake: IV 950 D5-0.45% NaCl with KCl 800 20Meq/l 1,000 ml @ 100 mls/hr IV .Q10H [facility] Rx#: [id number] cefTRIAXone 2 gm In 50 Sodium Chloride 0.9% 50 ml @ 100 mls/hr IVPB Q24HR [facility] Rx#:[id number] metroNIDAZOLE-NS PMX 500 100 mg In Saline 1 100ml.bag @ 100 mls/hr IVPB Q8HR [facility] Rx#:[id number] Intake, IV Titration 200 Amount D5-0.45% NaCl with KCl 200 20Meq/l 1,000 ml @ 100 mls/hr IV .Q10H [facility] Rx#: [id number] Oral 786 978 4908 Blood Product 227 Platelet Irr Pheresis Pas 227 -C Unit [id number] Output: Urine 2200 900 1550 Other: # Voids 2 2 # Bowel Movements 1 2 2 - Constitutional General appearance: Present: no acute distress - EENT Eyes: Present: EOMI ENT: Present: hearing grossly normal, normal oropharynx - Respiratory Respiratory: bilateral: CTA - Cardiovascular Rhythm: regular Heart sounds: normal: S1, S2 - Gastrointestinal General gastrointestinal: Present: normal bowel sounds, soft - Integumentary Integumentary: Present: normal - Neurologic Neurologic: Present: CNII-XII intact - Musculoskeletal Musculoskeletal: Present: generalized weakness, strength equal bilaterally - Psychiatric Psychiatric: Present: A&O x's 3, appropriate affect - Labs CBC & Chem 7: 03/23/20 15:52 03/22/20 06:53 Labs: Abnormal Lab Results - Last 24 Hours (Table) 03/23/20 Range/Units 15:52 WBC 0.5 L* (3.8-10.6) k/uL RBC 2.68 L (3.80-5.40) m/uL Hgb 8.1 L (11.4-16.0) gm/dL Hct 24.4 L (34.0-46.0) % Plt Count 21 L (150-450) k/uL Microbiology - Last 24 Hours (Table) 03/19/20 17:38 Blood Culture Gram Stain - Final Blood Blood Culture - Final Staphylococcus epidermidis 03/22/20 06:53 Blood Culture - Preliminary Blood No Growth after 24 hours 03/21/20 06:02 Blood Culture - Preliminary Blood No Growth after 48 hours Assessment and Plan (1) Neutropenic colitis Narrative/Plan: The patient's presentation was most likely due to neutropenic colitis and enteritis, causing partial small bowel obstruction. The patient is improved with alternative management. Bowel sounds are positive and she is having regular bowel movements. NG tube has been removed. Abdominal exam is significantly improved at this time with no significant tenderness. Patient is tolerating clear liquids well. Recommend continued diet with very cautious advancement depending on WBC recovery. Current Visit: Yes Status: Acute Code(s): D70.9 - NEUTROPENIA, UNSPECIFIED; K52.89 - OTHER SPECIFIED NONINFECTIVE GASTROENTERITIS AND COLITIS SNOMED Code(s): 094357292 (2) Pancytopenia due to antineoplastic chemotherapy Narrative/Plan: Patient's counts were adequate yesterday. Weight counts from today. Continue to monitor and transfuse as needed to keep hemoglobin greater than 7 and platelets greater than 10,000. WBC possibly showing some early recovery signs. Resuming satisfactory recovery of counts, the plan is for repeat bone marrow aspiration biopsy next week Current Visit: Yes Status: Acute Priority: High Code(s): D61.810 - ANTINEOPLASTIC CHEMOTHERAPY INDUCED PANCYTOPENIA; T45.1X5A - ADVERSE EFFECT OF ANTINEOPLASTIC AND IMMUNOSUP DRUGS, INIT SNOMED Code(s): 154638440973171 (3) Acute myeloid leukemia Narrative/Plan: Awaiting blood count recovery, currently on supportive treatment. Plan for bone marrow aspiration biopsy tentatively next week, assuming satisfactory count recovery Current Visit: Yes Status: Acute Priority: High Code(s): C92.00 - ACUTE MYELOBLASTIC LEUKEMIA, NOT HAVING ACHIEVED REMISSION SNOMED Code(s): 45593058 (4) Coagulase negative Staphylococcus bacteremia Narrative/Plan: The patient on IV antibiotics for the same. She is afebrile Current Visit: Yes Status: Acute Code(s): R78.81 - BACTEREMIA; B95.7 - OTH STAPHYLOCOCCUS THE CAUSE OF DISEASES CLASSD [facility] SNOMED Code(s): 851164746754
[2020-03-23 16:59] LABS: African American GFR (CKD) >90 (>60 ml/min/1.73 sqM); Anion Gap 11 mmol/L; Blood Urea Nitrogen 14 mg/dL (7-17); Calcium 7.4 mg/dL (8.4-10.2); Carbon Dioxide 15 mmol/L (22-30); Chloride 119 mmol/L (98-107); Glucose 157 mg/dL (74-99); Non-African American GFR(CKD) >90 (>60 ml/min/1.73 sqM); Potassium 2.9 mmol/L (3.5-5.1); Sodium 145 mmol/L (137-145)
[2020-03-23] MEDS: POTASSIUM CHLORIDE ER 20 MEQ TAB.ER PO SCH (17:24)
[2020-03-23] MEDS: POTASSIUM CHLORIDE 20 MEQ in WATER FOR INJECTION 1 100ML.BAG IVPB SCH ×3 (17:49→22:22)
[2020-03-24] MEDS: metroNIDAZOLE-NS PMX 500 MG in SALINE 1 100ML.BAG IVPB SCH ×3 (00:52→15:49)
[2020-03-24] MEDS: D5-0.45% NACL WITH KCL 20MEQ/L 1,000 ML IV SCH ×3 (02:32→22:57)
[2020-03-24 07:05] LABS: HCT 25.7 % (34.0-46.0); HGB 8.3 gm/dL (11.4-16.0); MCH 29.9 pg (25.0-35.0); MCHC 32.3 g/dL (31.0-37.0); MCV 92.5 fL (80.0-100.0); Mean Platelet Volume 7.1; RBC 2.78 m/uL (3.80-5.40); RDW 14.3 % (11.5-15.5)
[2020-03-24 07:14] LABS: WBC 0.3 k/uL (3.8-10.6)
[2020-03-24 07:39] LABS: ALT 19 U/L (4-34); AST 18 U/L (14-36); African American GFR (CKD) >90 (>60 ml/min/1.73 sqM); Albumin 2.3 g/dL (3.5-5.0); Alkaline Phosphatase 97 U/L (38-126); Anion Gap 7 mmol/L; Blood Urea Nitrogen 10 mg/dL (7-17); Calcium 7.3 mg/dL (8.4-10.2); Carbon Dioxide 18 mmol/L (22-30); Chloride 116 mmol/L (98-107); Glucose 133 mg/dL (74-99); Magnesium 1.5 mg/dL (1.6-2.3); Non-African American GFR(CKD) 89 (>60 ml/min/1.73 sqM); Potassium 2.9 mmol/L (3.5-5.1); Sodium 141 mmol/L (137-145); Total Bilirubin 1.1 mg/dL (0.2-1.3); Total Protein 5.4 g/dL (6.3-8.2)
[2020-03-24] MEDS: ACYCLOVIR 800 MG TAB PO SCH ×2 (07:44→22:57)
[2020-03-24] MEDS: NYSTATIN 100,000 UNIT/ML SUSP 500,000 UNIT/5 ML CUP PO SCH ×4 (07:44→22:57)
[2020-03-24] MEDS: FLUCONAZOLE 100 MG TAB PO SCH (07:45)
[2020-03-24] MEDS: PANTOPRAZOLE 40 MG/10 ML VIAL IVP SCH (07:45)
[2020-03-24] MEDS: CHOLESTYRAMINE (WITH SUGAR) 4 GM PACKET PO SCH ×3 (07:45→15:49)
[2020-03-24] MEDS ORDERED: Magnesium Replacement Protocol 1 EACH MISC MISCELLANE PRN (07:55)
[2020-03-24] MEDS ORDERED: Potassium Replacement Protocol 1 EACH MISC MISCELLANE PRN (07:55)
[2020-03-24] MEDS: POTASSIUM CHLORIDE 20 MEQ in WATER FOR INJECTION 1 100ML.BAG IVPB SCH ×3 (08:54→14:00)
[2020-03-24] MEDS: MAGNESIUM SULFATE-D5W PMX 1 GM in DEXTROSE/WATER 1 100ML.BAG IVPB SCH ×2 (08:55→10:15)
[2020-03-24 09:27] LABS: Platelet Count 9 k/uL (150-450)
[2020-03-24] MEDS ORDERED: LOPERAMIDE 2 MG CAP PO PRN (12:24)
--- NOTE | 2020-03-24 12:53 | XR ---
EXAMINATION TYPE: XR chest 1V DATE OF EXAM: 03/24/2020 HISTORY: Hypoxia. REFERENCE: Previous study dated 03/19/2020. FINDINGS: The heart is mildly enlarged. There is vascular congestion and mild edema. There is bluntin g of the left CP angle and I cannot exclude a small left effusion. IMPRESSION: MILD WORSENING IN THE PATIENT'S CONGESTIVE HEART FAILURE.
--- NOTE | 2020-03-24 13:13 | P.PN ---
Subjective Progress Note Date: 03/24/20 Principal diagnosis: Ileus Patient doing better today. Denies pain. Nasogastric tube has been out. She would like to try more to eat. Significant pancytopenia. Potassium 2.9. She is afebrile. Heart rate 110s. Objective - Vital Signs Vital signs: Vital Signs Temp 97 F L 03/24/20 12:02 Pulse 118 H 03/24/20 12:05 Resp 16 03/24/20 12:05 BP 149/77 03/24/20 12:02 Pulse Ox 92 L 03/24/20 12:02 Intake & Output 03/23/20 03/24/20 03/24/20 18:59 06:59 18:59 Intake Total 2321 897 Output Total 2550 900 Balance -229 -900 897 Weight 86.7 kg 93.5 kg Intake: IV 950 D5-0.45% NaCl with KCl 800 20Meq/l 1,000 ml @ 100 mls/hr IV .Q10H [facility] Rx#: [id number] cefTRIAXone 2 gm In 50 Sodium Chloride 0.9% 50 ml @ 100 mls/hr IVPB Q24HR [facility] Rx#:[id number] metroNIDAZOLE-NS PMX 500 100 mg In Saline 1 100ml.bag @ 100 mls/hr IVPB Q8HR [facility] Rx#:[id number] Oral 1371 897 Output: Urine 2550 900 Other: # Voids 2 0 # Bowel Movements 3 - Exam Abdomen: Soft, nondistended, nontender - Labs CBC & Chem 7: 03/24/20 06:47 03/24/20 06:47 Labs: Abnormal Lab Results - Last 24 Hours (Table) 03/23/20 03/23/20 03/24/20 Range/Units 15:52 15:52 06:47 WBC 0.5 L* 0.3 L* (3.8-10.6) k/uL RBC 2.68 L 2.78 L (3.80-5.40) m/uL Hgb 8.1 L 8.3 L (11.4-16.0) gm/dL Hct 24.4 L 25.7 L (34.0-46.0) % Plt Count 21 L 9 L* D (150-450) k/uL Potassium 2.9 L (3.5-5.1) mmol/L Chloride 119 H (98-107) mmol/L Carbon Dioxide 15 L (22-30) mmol/L Glucose 157 H (74-99) mg/dL Calcium 7.4 L (8.4-10.2) mg/dL Magnesium (1.6-2.3) mg/dL Total Protein (6.3-8.2) g/dL Albumin (3.5-5.0) g/dL 03/24/20 Range/Units 06:47 WBC (3.8-10.6) k/uL RBC (3.80-5.40) m/uL Hgb (11.4-16.0) gm/dL Hct (34.0-46.0) % Plt Count (150-450) k/uL Potassium 2.9 L (3.5-5.1) mmol/L Chloride 116 H (98-107) mmol/L Carbon Dioxide 18 L (22-30) mmol/L Glucose 133 H (74-99) mg/dL Calcium 7.3 L (8.4-10.2) mg/dL Magnesium 1.5 L (1.6-2.3) mg/dL Total Protein 5.4 L (6.3-8.2) g/dL Albumin 2.3 L (3.5-5.0) g/dL Microbiology - Last 24 Hours (Table) 03/22/20 06:53 Blood Culture - Preliminary Blood No Growth after 48 hours 03/21/20 06:02 Blood Culture - Preliminary Blood No Growth after 72 hours 03/19/20 17:38 Blood Culture Gram Stain - Final Blood Blood Culture - Final Staphylococcus epidermidis Assessment and Plan (1) Neutropenic colitis Narrative/Plan: Patient's labs still demonstrates significant pancytopenia. Continue clear liquids at this time. We'll follow. Current Visit: Yes Status: Acute Code(s): D70.9 - NEUTROPENIA, UNSPECIFIED; K52.89 - OTHER SPECIFIED NONINFECTIVE GASTROENTERITIS AND COLITIS SNOMED Code(s): 783897629
[2020-03-24] MEDS: LORATADINE 10 MG TAB PO SCH (13:39)
--- NOTE | 2020-03-24 13:46 | P.PN ---
Subjective Progress Note Date: 03/24/20 Principal diagnosis: Ileus, bacteremia, pancytopenia secondary to chemotherapy, acute myeloid leukemia In follow-up today, patient is having significant post nasal drip, it is pink, it makes her gag, she is hungry,tired of the clear liquid options. Denies fever, sore throat or mouth, no sensation of palpitations, denies feelings of anxiety, no abd pain, she had BM. No other bleeding to report. Objective - Vital Signs Vital signs: Vital Signs Temp 97 F L 03/24/20 12:02 Pulse 118 H 03/24/20 12:05 Resp 16 03/24/20 12:05 BP 149/77 03/24/20 12:02 Pulse Ox 92 L 03/24/20 12:02 Intake & Output 03/23/20 03/24/20 03/24/20 18:59 06:59 18:59 Intake Total 2321 1197 Output Total 2550 900 Balance -229 -900 1197 Weight 86.7 kg 93.5 kg Intake: IV 950 D5-0.45% NaCl with KCl 800 20Meq/l 1,000 ml @ 100 mls/hr IV .Q10H [facility] Rx#: [id number] cefTRIAXone 2 gm In 50 Sodium Chloride 0.9% 50 ml @ 100 mls/hr IVPB Q24HR [facility] Rx#:[id number] metroNIDAZOLE-NS PMX 500 100 mg In Saline 1 100ml.bag @ 100 mls/hr IVPB Q8HR [facility] Rx#:[id number] Oral 1371 1197 Output: Urine 2550 900 Other: # Voids 2 0 # Bowel Movements 3 - Constitutional General appearance: Present: average body habitus, cooperative, mild distress - EENT EENT Comment(s): right nare scabbed over, wet purpura on the tongue Eyes: Present: anicteric sclerae, EOMI ENT: Present: hearing grossly normal - Respiratory Respiratory: bilateral: CTA - Cardiovascular Details: tachycardia, regular rhythm Abnormal Heart Sounds: Absent: systolic murmur, diastolic murmur, rub, S3 Gallop, S4 Gallop, click, other - Peripheral edema leg Peripheral Edema: bilateral: None - Gastrointestinal General gastrointestinal: Present: decreased bowel sounds, soft. Absent: absent bowel sounds, distended, hepatomegaly, hyperactive bowel sounds, normal bowel sounds, organomegaly, rigid, scaphoid, splenomegaly, tenderness, umbilical hernia, ventral hernia - Integumentary Integumentary Comment(s): bilateral jaquez petechiae - Neurologic Neurologic: Present: CNII-XII intact - Musculoskeletal Musculoskeletal: Present: generalized weakness, strength equal bilaterally - Psychiatric Psychiatric: Present: A&O x's 3, appropriate affect, intact judgment & insight - Labs CBC & Chem 7: 03/24/20 06:47 03/24/20 06:47 Labs: Abnormal Lab Results - Last 24 Hours (Table) 03/23/20 03/23/20 03/24/20 Range/Units 15:52 15:52 06:47 WBC 0.5 L* 0.3 L* (3.8-10.6) k/uL RBC 2.68 L 2.78 L (3.80-5.40) m/uL Hgb 8.1 L 8.3 L (11.4-16.0) gm/dL Hct 24.4 L 25.7 L (34.0-46.0) % Plt Count 21 L 9 L* D (150-450) k/uL Potassium 2.9 L (3.5-5.1) mmol/L Chloride 119 H (98-107) mmol/L Carbon Dioxide 15 L (22-30) mmol/L Glucose 157 H (74-99) mg/dL Calcium 7.4 L (8.4-10.2) mg/dL Magnesium (1.6-2.3) mg/dL Total Protein (6.3-8.2) g/dL Albumin (3.5-5.0) g/dL 03/24/20 Range/Units 06:47 WBC (3.8-10.6) k/uL RBC (3.80-5.40) m/uL Hgb (11.4-16.0) gm/dL Hct (34.0-46.0) % Plt Count (150-450) k/uL Potassium 2.9 L (3.5-5.1) mmol/L Chloride 116 H (98-107) mmol/L Carbon Dioxide 18 L (22-30) mmol/L Glucose 133 H (74-99) mg/dL Calcium 7.3 L (8.4-10.2) mg/dL Magnesium 1.5 L (1.6-2.3) mg/dL Total Protein 5.4 L (6.3-8.2) g/dL Albumin 2.3 L (3.5-5.0) g/dL Microbiology - Last 24 Hours (Table) 03/22/20 06:53 Blood Culture - Preliminary Blood No Growth after 48 hours 03/21/20 06:02 Blood Culture - Preliminary Blood No Growth after 72 hours - Imaging and Cardiology Chest x-ray: report reviewed (mild worsening of CHF) Assessment and Plan (1) Pancytopenia due to antineoplastic chemotherapy Narrative/Plan: Anticipated pancytopenia secondary to chemotherapy. No G-CSF for low white blood cell count. Pending bone marrow biopsy for confirmation of remission status post induction. WBC 0.3 Transfuse to keep hemoglobin 7 or higher unless symptomatic. No transfusion today for a hemoglobin of 8.3 Transfuse to keep platelets greater than 10,000 unless symptomatic. Transfusion today, plt 9,000, symptomatic Only irradiated blood products please Current Visit: Yes Status: Acute Priority: High Code(s): D61.810 - ANTINEOPLASTIC CHEMOTHERAPY INDUCED PANCYTOPENIA; T45.1X5A - ADVERSE EFFECT OF ANTINEOPLASTIC AND IMMUNOSUP DRUGS, INIT SNOMED Code(s): 702428601295658 (2) Small bowel obstruction Narrative/Plan: Low white blood cell count secondary to chemotherapy and leukemia likely impacting the mucosa of the small bowel. Patient did not have any rebound, unrealistic tenderness or rigidity on exam again today. NG removed. She had BM. Would anticipate proportional improvement in GI function as patient's white blood cell increases. She is tolerating clear liquids but, is having difficulty getting past the same foods/fluids. No advancement in the diet until improvement in white blood cell count. Patient is to report immediately any abdominal pain or discomfort and to be return to nothing by mouth status. Sodium within normal limits. Patient is needing potassium supplementation. She continues on D545 with 20meq of potassium. Current Visit: Yes Status: Acute Priority: High Code(s): K56.609 - UNSP INTESTNL OBST, UNSP TO PARTIAL VERSUS COMPLETE OBST SNOMED Code(s): 927494828 (3) Acute myeloid leukemia Narrative/Plan: Patient is status post induction chemotherapy with 7+3. She will be due for a bone marrow biopsy to confirm remission the week of the . Current Visit: Yes Status: Acute Priority: High Code(s): C92.00 - ACUTE MYELOBLASTIC LEUKEMIA, NOT HAVING ACHIEVED REMISSION SNOMED Code(s): 63563383 Plan: Claritin ordered for severe postnasal drip. Chest x-ray report reviewed. Possible worsening of CHF. If patient's oral intake improves maybe some of her IV fluids can be decreased. She is requiring transfusions. Discussed with IM. Will do a 1 time dose of lasix post transfusion.
[2020-03-24] MEDS ORDERED: FUROSEMIDE 10 MG/ML 2 ML VIAL IV ONE (13:47)
[2020-03-24] MEDS ORDERED: FUROSEMIDE 10 MG/ML 4 ML VIAL IV STA (13:48)
--- NOTE | 2020-03-24 13:48 | P.PN ---
Subjective 60-year-old female admitted Acute upper and lower GI bleed secondary to severe pancytopenia secondary to chemotherapy for acute myeloid leukemia. had platelets of 2000 yesterday received platelet transfusion presently her platelets are 3000 still has coffee-ground emesis via NG tube patient received 1 unit of PRBC transfusion hemoglobin remained at 6.3 no evidence of lower GI bleed at this time. Patient will receive her transfer transfusion. Which will see transfusion today with irradiated cells. Patient on vancomycin and Zosyn Vanco mycin will be discontinued has there is no evidence of gram-positive sepsis CAT scan of the abdomen did show some enterocolitis and my limited colitis although patient will be started on oral Ceftin as her diverticulitis or colitis is minimal and most probably noninfectious and due to her pancytopenia I'll discontinue Zosyn and patient will be started on oral Ceftin. Patient looks really tired fa tigued.Constitutional: Denied any fatigue denied any fever. 03/21/2020 _Last night because patient has gram-positive cocci in the blood which turned out to be coagulase-negative staph because of which I discontinued vancomycin that was started last night patient doesn't have any coffee-ground emesis today patient hemoglobin main stable at around 6.7 patient received 2 units of blood transfusion yesterday 2 units day before. Patient received 10 units of blood transfusion platelets went up from 3 couple days ago to 39,000 patient remains neutropenic patient remains on Ceftin although there is no evidence of tear sepsis at this time patient is on empiric antibiotic, antivirals and antifungals because of neutropenia from oncology. Infectious disease will be consulted if patient still has an NG tube of less fatigued compared to yesterday 03/22/2020 Is presently on metronidazole and Rocephin, patient has significant decreased output from the NG tube patient had thousand cc last night but that today is pretty minimal because of which are NG tube will be removed. Patient was switched to D5 half-normal because of the potential hyponatremia and and hyperchloremia. Patient is feeling much better patient hemoglobin is 7.7 today with platelet count of 17,000 and a white blood cell count of 400. 03/23/2020 Patient had epistaxis as today after which patient received the platelet trans fusion patient is bit tachycardic appears to be sinus tachycardia continue with IV fluids appear to be improving at this time NG tube is out patient does have bowel sounds. Patient was having diarrhea C. diff was negative and the lesion will be started on Questran patient is bit to intravascular well repleted as of which patient became tachycardic continue with IV fluids which she is on at this time and it in the form of 0.45% saline at 100 mL per hour 03/24/2020 Patient is a bit volume overloaded after the chest x-ray which showed pulmonary edema patient given dose of Lasix patient will receive lactic platelet transfusion patient the IV fluids will be discontinued. Patient remains tachyc ardic Cardio vascular: As mentioned in HPI Gastrointestinal denied any nausea vomiting Pulmonary: Denied any shortness of breath cough Neurologic denied any new focal deficits All inpatient medications were reviewed and appropriate changes in these medications as dictated in the interval history and assessment and plan. Objective - Vital Signs Vital signs: Vital Signs Temp 97 F L 03/24/20 12:02 Pulse 118 H 03/24/20 12:05 Resp 16 03/24/20 12:05 BP 149/77 03/24/20 12:02 Pulse Ox 92 L 03/24/20 12:02 Intake & Output 03/23/20 03/24/20 03/24/20 18:59 06:59 18:59 Intake Total 2321 1434 Output Total 2550 900 Balance -229 -900 1434 Weight 86.7 kg 93.5 kg Intake: IV 950 D5-0.45% NaCl with KCl 800 20Meq/l 1,000 ml @ 100 mls/hr IV .Q10H [facility] Rx#: [id number] cefTRIAXone 2 gm In 50 Sodium Chloride 0.9% 50 ml @ 100 mls/hr IVPB Q24HR [facility] Rx#:[id number] metroNIDAZOLE-NS PMX 500 100 mg In Saline 1 100ml.bag @ 100 mls/hr IVPB Q8HR [facility] Rx#:[id number] Oral 1371 1434 Output: Urine 2550 900 Other: # Voids 2 0 # Bowel Movements 3 - Exam PHYSICAL EXAMINATION: GENERAL: The patient is alert and oriented x3, not in any acute distress. Appears to be really tired and fatigued HEENT: Pupils are round and equally reacting to light. EOMI. No scleral icterus. Does have conjunctival pallor. Normocephalic, atraumatic. No pharyngeal erythema. No thyromegaly. Patient has significant crusting in the nose consistent with yesterday's epistaxis CARDIOVASCULAR: S1 and S2 present. No murmurs, rubs, or gallops. PULMONARY: Chest is clear to auscultation, no wheezing or crackles. ABDOMEN: Soft, nontender, nondistended, normoactive bowel sounds. No palpable organomegaly. MUSCULOSKELETAL: No joint swelling or deformity. EXTREMITIES: No cyanosis, clubbing, or pedal edema. NEUROLOGICAL: Gross neurological examination did not reveal any focal deficits. SKIN: Multiple bruises in multiple areas. - Labs CBC & Chem 7: 03/24/20 06:47 03/24/20 06:47 Labs: Abnormal Lab Results - Last 24 Hours (Table) 03/23/20 03/23/20 03/24/20 Range/Units 15:52 15:52 06:47 WBC 0.5 L* 0.3 L* (3.8-10.6) k/uL RBC 2.68 L 2.78 L (3.80-5.40) m/uL Hgb 8.1 L 8.3 L (11.4-16.0) gm/dL Hct 24.4 L 25.7 L (34.0-46.0) % Plt Count 21 L 9 L* D (150-450) k/uL Potassium 2.9 L (3.5-5.1) mmol/L Chloride 119 H (98-107) mmol/L Carbon Dioxide 15 L (22-30) mmol/L Glucose 157 H (74-99) mg/dL Calcium 7.4 L (8.4-10.2) mg/dL Magnesium (1.6-2.3) mg/dL Total Protein (6.3-8.2) g/dL Albumin (3.5-5.0) g/dL 03/24/20 Range/Units 06:47 WBC (3.8-10.6) k/uL RBC (3.80-5.40) m/uL Hgb (11.4-16.0) gm/dL Hct (34.0-46.0) % Plt Count (150-450) k/uL Potassium 2.9 L (3.5-5.1) mmol/L Chloride 116 H (98-107) mmol/L Carbon Dioxide 18 L (22-30) mmol/L Glucose 133 H (74-99) mg/dL Calcium 7.3 L (8.4-10.2) mg/dL Magnesium 1.5 L (1.6-2.3) mg/dL Total Protein 5.4 L (6.3-8.2) g/dL Albumin 2.3 L (3.5-5.0) g/dL Microbiology - Last 24 Hours (Table) 03/22/20 06:53 Blood Culture - Preliminary Blood No Growth after 48 hours 03/21/20 06:02 Blood Culture - Preliminary Blood No Growth after 72 hours Assessment and Plan Plan: -Acute GI bleed secondary to severe thrombocytopenia, patient has a partial small bowel obstruction as well: Continue with Protonix patient will be supplemented with platelets and PRBC transfusion as needed today she will not need any of these transfusions. Patient's NG tube will be removed IV fluids were switched as mentioned above -Epistaxis secondary to thrombocytopenia improved after platelet transfusion -Partial small bowel obstruction resolved patient is presently having diarrhea and sinus tachycardia as mentioned above -Severe pancytopenia patient is on Rocephin and metronidazole as per infectious disease for possibility of colitis -Enterocolitis and patient is an above-mentioned medications -Bacteremia with coagulase-negative staph this a contamination vancomycin was discontinued. Patient does have a PICC line -Severe pancytopenia: Seconded to chemotherapy -Hyponatremia hypovolemic hyponatremia improved with IV fluids -lactic acidosis secondary to intravascular depletion IV fluids as mentioned above, resolved now after IV fluid transfusion and blood transfusion -type 2 diabetes mellitus -Hypertension -Obesity -AML recently received chemo oncology is following the patient -Tachycardia: Secondary to intravascular and patient can you with IV fluids will also order Questran for diarrhea Because of severe thrombocytopenia we cannot use the heparin or any other anticoagulation DVT
[2020-03-24] MEDS: METOPROLOL TARTRATE 12.5 MG TAB PO SCH ×2 (15:48→22:57)
[2020-03-24] MEDS ORDERED: ACETAMINOPHEN TAB 325 MG TAB PO STA (17:50)
[2020-03-24] MEDS ORDERED: VANCOMYCIN IV PER PHARMACY 1 EACH MISC MISCELLANE PRN (18:16)
[2020-03-24] MEDS ORDERED: ACETAMINOPHEN TAB 325 MG TAB PO PRN (18:19)
[2020-03-24] MEDS: VANCOMYCIN 1,500 MG in SODIUM CHLORIDE 0.9% 250 ML IVPB SCH (22:56)
--- NOTE | 2020-03-25 00:15 | PN ---
PROGRESS NOTE DATE OF SERVICE: 03/24/2020 REASON FOR FOLLOW UP: 1. Diverticulitis. 2. New fever. INTERVAL HISTORY: The patient did spike a fever this evening of 101-102 degrees Fahrenheit. The patient was slightly tachycardic. ( ) normally. No nausea, vomiting. No chest pain, shortness of breath or cough. No abdominal pain or any diarrhea. PHYSICAL EXAMINATION: Blood pressure 122/66 with a pulse of 119, temperature 97.9, T-max is 102. She is 91% on room air. General description is an elderly female up in the chair in no distress. Respiratory system: Unlabored breathing, decreased breath sounds at the base, no wheeze. Heart S1, S2. Tachycardic. Abdomen soft. No guarding or rigidity. Extremities: No edema of the feet. LABS: Creatinine 0.72. White count still low, it is 0.3. Lactic acid 3.1. DIAGNOSTIC IMPRESSION AND PLAN: 1. Patient with sepsis with concern for possible line-related as she recently grew Staph epi from the blood. Blood cultures will be repeated from the PICC line peripherally. Vancomycin. BUN and kidney function monitored closely. 2. Diverticulitis for which the patient is currently covered with Rocephin and Flagyl to continue and monitor clinical course closely. MMODL / IJN: [id number] /
[2020-03-25] MEDS: metroNIDAZOLE-NS PMX 500 MG in SALINE 1 100ML.BAG IVPB SCH ×3 (02:51→14:39)
[2020-03-25 06:51] LABS: HCT 22.3 % (34.0-46.0); HGB 7.6 gm/dL (11.4-16.0); MCH 30.4 pg (25.0-35.0); MCV 89.5 fL (80.0-100.0); Mean Platelet Volume 8.2; RBC 2.49 m/uL (3.80-5.40)
[2020-03-25 06:53] LABS: WBC 0.3 k/uL (3.8-10.6)
[2020-03-25 06:54] LABS: Platelet Count 32 k/uL (150-450)
[2020-03-25 07:01] LABS: Albumin 2.3 g/dL (3.5-5.0); Anion Gap 6 mmol/L; Carbon Dioxide 24 mmol/L (22-30); Chloride 106 mmol/L (98-107); Glucose 127 mg/dL (74-99); Sodium 136 mmol/L (137-145); Total Protein 5.3 g/dL (6.3-8.2)
[2020-03-25 07:02] LABS: ALT 15 U/L (4-34); AST 16 U/L (14-36); African American GFR (CKD) >90 (>60 ml/min/1.73 sqM); Alkaline Phosphatase 88 U/L (38-126); Calcium 6.7 mg/dL (8.4-10.2); Magnesium 1.5 mg/dL (1.6-2.3); Non-African American GFR(CKD) >90 (>60 ml/min/1.73 sqM)
[2020-03-25 07:07] LABS: Potassium 2.6 mmol/L (3.5-5.1)
[2020-03-25 07:46] LABS: Blood Urea Nitrogen 8 mg/dL (7-17)
[2020-03-25] MEDS: MAGNESIUM SULFATE-D5W PMX 1 GM in DEXTROSE/WATER 1 100ML.BAG IVPB SCH ×2 (09:02→10:36)
[2020-03-25] MEDS: VANCOMYCIN 1,500 MG in SODIUM CHLORIDE 0.9% 250 ML IVPB SCH ×2 (09:02→18:03)
[2020-03-25] MEDS: D5-0.45% NACL WITH KCL 20MEQ/L 1,000 ML IV SCH (09:02)
[2020-03-25] MEDS: POTASSIUM CHLORIDE 20 MEQ in WATER FOR INJECTION 1 100ML.BAG IVPB SCH ×6 (09:03→20:04)
[2020-03-25] MEDS: LORATADINE 10 MG TAB PO SCH (09:03)
[2020-03-25] MEDS: NYSTATIN 100,000 UNIT/ML SUSP 500,000 UNIT/5 ML CUP PO SCH ×4 (09:03→20:10)
[2020-03-25] MEDS: FLUCONAZOLE 100 MG TAB PO SCH (09:04)
[2020-03-25] MEDS: METOPROLOL TARTRATE 12.5 MG TAB PO SCH ×2 (09:04→20:07)
[2020-03-25] MEDS: PANTOPRAZOLE 40 MG/10 ML VIAL IVP SCH (09:04)
[2020-03-25] MEDS: ACYCLOVIR 800 MG TAB PO SCH ×2 (09:04→20:07)
[2020-03-25] MEDS: CHOLESTYRAMINE (WITH SUGAR) 4 GM PACKET PO SCH ×3 (09:18→14:36)
--- NOTE | 2020-03-25 10:55 | P.PN ---
Subjective Progress Note Date: 03/25/20 Principal diagnosis: Ileus Patient doing well today. Her numbers are improved. Tolerating clears. Denies diarrhea. No nausea or vomiting. Objective - Vital Signs Vital signs: Vital Signs Temp 98.1 F 03/25/20 08:46 Pulse 127 H 03/25/20 08:53 Resp 20 03/25/20 08:53 BP 151/72 03/25/20 08:46 Pulse Ox 90 L 03/25/20 08:46 Intake & Output 03/24/20 03/25/20 03/25/20 18:59 06:59 18:59 Intake Total 1995 3576 897 Output Total 3000 Balance 1995 576 897 Weight 90.2 kg Intake: IV 1220 D5-0.45% NaCl with KCl 1120 20Meq/l 1,000 ml @ 70 mls /hr IV .[id number] [facility] Rx#: [id number] metroNIDAZOLE-NS PMX 500 100 mg In Saline 1 100ml.bag @ 100 mls/hr IVPB Q8HR [facility] Rx#:[id number] Intake, IV Titration 250 Amount Vancomycin 1,500 mg In 250 Sodium Chloride 0.9% 250 ml @ 125 mls/hr IVPB Q12H [facility] Rx#:[id number] Oral 1554 780 897 Blood Product 442 1326 Platelet Irr Pheresis Pas 442 442 -C Unit [id number] Output: Urine 3000 Other: # Voids 0 3 - Exam Abdomen: Soft, nontender nondistended - Labs CBC & Chem 7: 03/25/20 06:21 03/25/20 06:21 Labs: Abnormal Lab Results - Last 24 Hours (Table) 03/24/20 03/25/20 03/25/20 Range/Units 16:39 06:21 06:21 WBC 0.3 L* (3.8-10.6) k/uL RBC 2.49 L (3.80-5.40) m/uL Hgb 7.6 L (11.4-16.0) gm/dL Hct 22.3 L (34.0-46.0) % Plt Count 32 L D (150-450) k/uL Sodium 136 L (137-145) mmol/L Potassium 2.6 L* (3.5-5.1) mmol/L Glucose 127 H (74-99) mg/dL Plasma Lactic Acid Aj 3.1 H* (0.7-2.0) mmol/L Calcium 6.7 L (8.4-10.2) mg/dL Magnesium 1.5 L (1.6-2.3) mg/dL Total Protein 5.3 L (6.3-8.2) g/dL Albumin 2.3 L (3.5-5.0) g/dL Microbiology - Last 24 Hours (Table) 03/22/20 06:53 Blood Culture - Preliminary Blood No Growth after 72 hours 03/21/20 06:02 Blood Culture - Preliminary Blood No Growth after 96 hours Assessment and Plan (1) Neutropenic colitis Narrative/Plan: Overall patient improving. Will await oncology evaluation of her CBC to determine if advancing diet is reasonable. May advance from our standpoint however. Current Visit: Yes Status: Acute Code(s): D70.9 - NEUTROPENIA, UNSPECIFIED; K52.89 - OTHER SPECIFIED NONINFECTIVE GASTROENTERITIS AND COLITIS SNOMED Code(s): 706396285
[2020-03-25] MEDS ORDERED: FUROSEMIDE 10 MG/ML 4 ML VIAL IV STA (10:58)
[2020-03-25] MEDS ORDERED: ALTEPLASE 2 MG VIAL (CATHFLO) IV STA (11:14)
--- NOTE | 2020-03-25 12:28 | P.PN ---
Subjective 60-year-old female admitted Acute upper and lower GI bleed secondary to severe pancytopenia secondary to chemotherapy for acute myeloid leukemia. had platelets of 2000 yesterday received platelet transfusion presently her platelets are 3000 still has coffee-ground emesis via NG tube patient received 1 unit of PRBC transfusion hemoglobin remained at 6.3 no evidence of lower GI bleed at this time. Patient will receive her transfer transfusion. Which will see transfusion today with irradiated cells. Patient on vancomycin and Zosyn Vanco mycin will be discontinued has there is no evidence of gram-positive sepsis CAT scan of the abdomen did show some enterocolitis and my limited colitis although patient will be started on oral Ceftin as her diverticulitis or colitis is minimal and most probably noninfectious and due to her pancytopenia I'll discontinue Zosyn and patient will be started on oral Ceftin. Patient looks really tired fa tigued.Constitutional: Denied any fatigue denied any fever. 03/21/2020 _Last night because patient has gram-positive cocci in the blood which turned out to be coagulase-negative staph because of which I discontinued vancomycin that was started last night patient doesn't have any coffee-ground emesis today patient hemoglobin main stable at around 6.7 patient received 2 units of blood transfusion yesterday 2 units day before. Patient received 10 units of blood transfusion platelets went up from 3 couple days ago to 39,000 patient remains neutropenic patient remains on Ceftin although there is no evidence of tear sepsis at this time patient is on empiric antibiotic, antivirals and antifungals because of neutropenia from oncology. Infectious disease will be consulted if patient still has an NG tube of less fatigued compared to yesterday 03/22/2020 Is presently on metronidazole and Rocephin, patient has significant decreased output from the NG tube patient had thousand cc last night but that today is pretty minimal because of which are NG tube will be removed. Patient was switched to D5 half-normal because of the potential hyponatremia and and hyperchloremia. Patient is feeling much better patient hemoglobin is 7.7 today with platelet count of 17,000 and a white blood cell count of 400. 03/23/2020 Patient had epistaxis as today after which patient received the platelet trans fusion patient is bit tachycardic appears to be sinus tachycardia continue with IV fluids appear to be improving at this time NG tube is out patient does have bowel sounds. Patient was having diarrhea C. diff was negative and the lesion will be started on Questran patient is bit to intravascular well repleted as of which patient became tachycardic continue with IV fluids which she is on at this time and it in the form of 0.45% saline at 100 mL per hour 03/24/2020 Patient is a bit volume overloaded after the chest x-ray which showed pulmonary edema patient given dose of Lasix patient will receive lactic platelet transfusion patient the IV fluids will be discontinued. Patient remains tachyc ardic 03/25/2020 Patient has crackles on lung exam IV fluids will be discontinued and patient will be given a dose of Lasix will repeat the chest x-ray. Patient's oral serum sodium has come down to 136. Patient had a fever last night blood cultures were obtained and vancomycin was added to her regimen patient is presently on vancomycin metronidazole and ceftriaxone. Patient white blood cell count remains at 300 hemoglobin 7.6 and platelet count is 32,000 patient did receive 10 units of platelets yesterday. Magnesium remains low which will be replaced. Cardio vascular: As mentioned in HPI Gastrointestinal denied any nausea vomiting Pulmonary: Denied any shortness of breath cough Neurologic denied any new focal deficits All inpatient medications were reviewed and appropriate changes in these medications as dictated in the interval history and assessment and plan. Objective - Vital Signs Vital signs: Vital Signs Temp 100.4 F H 03/25/20 11:04 Pulse 124 H 03/25/20 11:05 Resp 20 03/25/20 11:05 BP 129/74 03/25/20 11:04 Pulse Ox 94 L 03/25/20 11:04 Intake & Output 03/24/20 03/25/20 03/25/20 18:59 06:59 18:59 Intake Total 1995 3576 897 Output Total 3000 Balance 1995 576 897 Weight 90.2 kg Intake: IV 1220 D5-0.45% NaCl with KCl 1120 20Meq/l 1,000 ml @ 70 mls /hr IV .[id number] [facility] Rx#: [id number] metroNIDAZOLE-NS PMX 500 100 mg In Saline 1 100ml.bag @ 100 mls/hr IVPB Q8HR [facility] Rx#:[id number] Intake, IV Titration 250 Amount Vancomycin 1,500 mg In 250 Sodium Chloride 0.9% 250 ml @ 125 mls/hr IVPB Q12H [facility] Rx#:[id number] Oral 1554 780 897 Blood Product 442 1326 Platelet Irr Pheresis Pas 442 442 -C Unit [id number] Output: Urine 3000 Other: # Voids 0 3 - Exam PHYSICAL EXAMINATION: GENERAL: The patient is alert and oriented x3, not in any acute distress. Appears to be really tired and fatigued HEENT: Pupils are round and equally reacting to light. EOMI. No scleral icterus. Does have conjunctival pallor. Normocephalic, atraumatic. No pharyngeal erythema. No thyromegaly. Patient has significant crusting in the nose consistent with yesterday's epistaxis CARDIOVASCULAR: S1 and S2 present. No murmurs, rubs, or gallops. PULMONARY: Chest is clear to auscultation, no wheezing or crackles. ABDOMEN: Soft, nontender, nondistended, normoactive bowel sounds. No palpable organomegaly. MUSCULOSKELETAL: No joint swelling or deformity. EXTREMITIES: No cyanosis, clubbing, or pedal edema. NEUROLOGICAL: Gross neurological examination did not reveal any focal deficits. SKIN: Multiple bruises in multiple areas. - Labs CBC & Chem 7: 03/25/20 06:21 03/25/20 06:21 Labs: Abnormal Lab Results - Last 24 Hours (Table) 03/24/20 03/25/20 03/25/20 Range/Units 16:39 06:21 06:21 WBC 0.3 L* (3.8-10.6) k/uL RBC 2.49 L (3.80-5.40) m/uL Hgb 7.6 L (11.4-16.0) gm/dL Hct 22.3 L (34.0-46.0) % Plt Count 32 L D (150-450) k/uL Sodium 136 L (137-145) mmol/L Potassium 2.6 L* (3.5-5.1) mmol/L Glucose 127 H (74-99) mg/dL Plasma Lactic Acid Aj 3.1 H* (0.7-2.0) mmol/L Calcium 6.7 L (8.4-10.2) mg/dL Magnesium 1.5 L (1.6-2.3) mg/dL Total Protein 5.3 L (6.3-8.2) g/dL Albumin 2.3 L (3.5-5.0) g/dL Microbiology - Last 24 Hours (Table) 03/22/20 06:53 Blood Culture - Preliminary Blood No Growth after 72 hours 03/21/20 06:02 Blood Culture - Preliminary Blood No Growth after 96 hours Assessment and Plan Plan: -Acute GI bleed secondary to severe thrombocytopenia, patient has a partial small bowel obstruction as well: Continue with Protonix patient will be supplemented with platelets and PRBC transfusion as needed today she will not need any of these transfusions. IV fluids were discontinued because of pulmonary edema. Patient was given Lasix. -Fever and sepsis: Repeat blood cultures were obtained patient is being cont inued on ceftriaxone and metronidazole and vancomycin was ordered. -Pulmonary edema secondary to IV fluids patient will be given IV Lasix will order a chest x-ray. -Epistaxis secondary to thrombocytopenia improved after platelet transfusion -Partial small bowel obstruction patient is tolerating diet. -Severe pancytopenia patient is on Rocephin and metronidazole as per infectious disease for possibility of colitis -Enterocolitis and patient is an above-mentioned medications -Bacteremia with coagulase-negative staph this a contamination vancomycin was discontinued. Patient does have a PICC line -Severe pancytopenia: Secondary to chemotherapy -Hyponatremia resolved -lactic acidosis resolved -type 2 diabetes mellitus -Hypertension -Obesity -AML recently received chemo oncology is following the patient -Tachycardia: Probably secondary to shortness of breath from pulmonary edema patient was Because of severe thrombocytopenia we cannot use the heparin or any other anticoagulation DVT
--- NOTE | 2020-03-25 12:37 | XR ---
EXAMINATION TYPE: XR chest 1V DATE OF EXAM: 03/25/2020 HISTORY: CHF. REFERENCE: Previous study dated 03/24/2020 FINDINGS: Heart size is upper limits of normal. There is patchy airspace disease present bilaterally. There is a small left effusion. There is interstitial change and mild vascular congestion. IMPRESSION: WORSENING CHANGES OF INTERSTITIAL AIRSPACE DISEASE MAY REPRESENT CONGESTIVE HEART FAILURE. IN THE PRO PER CLINICAL SITUATION I COULD NOT EXCLUDE SUPERINFECTION WITH COVID 19. PLEASE CORRELATE WITH PATIEN T TESTING.
[2020-03-25] MEDS: CEFEPIME 2 GM in SODIUM CHLORIDE 0.9% 100 ML IVPB SCH (14:38)
[2020-03-25] MEDS: FUROSEMIDE 10 MG/ML 4 ML VIAL IV SCH (17:20)
[2020-03-26] MEDS: metroNIDAZOLE-NS PMX 500 MG in SALINE 1 100ML.BAG IVPB SCH ×4 (00:02→23:54)
[2020-03-26] MEDS: CEFEPIME 2 GM in SODIUM CHLORIDE 0.9% 100 ML IVPB SCH ×4 (00:02→23:53)
--- NOTE | 2020-03-26 04:05 | PN ---
PROGRESS NOTE DATE OF SERVICE: 03/25/2020 REASON FOR FOLLOWUP: Febrile neutropenia with sepsis. INTERVAL HISTORY: The patient overall fever pattern has improved with T-max of 100.4 today. The patient is breathing slightly comfortably. The patient denies having any chest pain or shortness of breath or cough. No nausea or vomiting. Abdominal pain is currently controlled and no worsening diarrhea. PHYSICAL EXAMINATION: Blood pressure 130/70 with a pulse of 124, temperature 98.6,. She is 97% on 2 L nasal cannula. General description is an elderly female lying in bed in no distress. RESPIRATORY SYSTEM: Unlabored breathing, decreased intensity of breath sounds, no wheeze. HEART: S1, S2. Regular rate and rhythm. ABDOMEN: Soft, no tenderness. LABS: Hemoglobin 7.6, white count 0.3, creatinine 0.69. Cultures obtained yesterday so far pending. DIAGNOSTIC IMPRESSION AND PLAN: Patient with febrile neutropenia in this patient admitted to the hospital with and GI symptom with concern for ileus and diverticulitis with persistent fever. Antibiotic has been switched to cefepime and Flagyl along with vancomycin while waiting for the culture to finalize. Monitor clinical course closely. MMODL / IJN: [id number] /
[2020-03-26 06:25] LABS: HCT 22.2 % (34.0-46.0); HGB 7.4 gm/dL (11.4-16.0); MCH 30.7 pg (25.0-35.0); MCHC 33.5 g/dL (31.0-37.0); MCV 91.6 fL (80.0-100.0); Mean Platelet Volume 8.1; RBC 2.42 m/uL (3.80-5.40)
[2020-03-26] MEDS: FUROSEMIDE 10 MG/ML 4 ML VIAL IV SCH ×2 (06:29→18:34)
[2020-03-26] MEDS: VANCOMYCIN 1,500 MG in SODIUM CHLORIDE 0.9% 250 ML IVPB SCH ×2 (06:29→20:08)
[2020-03-26 06:34] LABS: WBC 0.4 k/uL (3.8-10.6)
[2020-03-26 06:35] LABS: Platelet Count 12 k/uL (150-450)
[2020-03-26 06:42] LABS: ALT 13 U/L (4-34); AST 16 U/L (14-36); African American GFR (CKD) >90 (>60 ml/min/1.73 sqM); Albumin 2.2 g/dL (3.5-5.0); Alkaline Phosphatase 81 U/L (38-126); Anion Gap 9 mmol/L; Blood Urea Nitrogen 13 mg/dL (7-17); Calcium 6.7 mg/dL (8.4-10.2); Carbon Dioxide 24 mmol/L (22-30); Chloride 104 mmol/L (98-107); Glucose 97 mg/dL (74-99); Magnesium 1.8 mg/dL (1.6-2.3); Non-African American GFR(CKD) 80 (>60 ml/min/1.73 sqM); Sodium 137 mmol/L (137-145); Total Bilirubin 0.9 mg/dL (0.2-1.3); Total Protein 5.2 g/dL (6.3-8.2)
[2020-03-26] MEDS: LORATADINE 10 MG TAB PO SCH (08:39)
[2020-03-26] MEDS: POTASSIUM CHLORIDE ER 20 MEQ TAB.ER PO SCH ×2 (08:39→10:38)
[2020-03-26] MEDS: FLUCONAZOLE 100 MG TAB PO SCH (08:39)
[2020-03-26] MEDS: METOPROLOL TARTRATE 12.5 MG TAB PO SCH ×2 (08:39→20:07)
[2020-03-26] MEDS: ACYCLOVIR 800 MG TAB PO SCH ×2 (08:39→20:08)
[2020-03-26] MEDS: NYSTATIN 100,000 UNIT/ML SUSP 500,000 UNIT/5 ML CUP PO SCH ×4 (08:40→20:08)
[2020-03-26] MEDS: PANTOPRAZOLE 40 MG/10 ML VIAL IVP SCH (08:40)
--- NOTE | 2020-03-26 10:35 | P.PN ---
Progress Note - Text Progress Note Date: 03/26/20 The patient is sitting upright in a chair. She has no real complaints. She denies any significant pain. She states she has had some flatus but however no significant bowel movement. On exam her vital signs appear stable. Her abdomen soft. There is no rebound or guarding. Status post resolving ileus. Patient will have her diet advanced to full liquid diet.
[2020-03-26] MEDS: CHOLESTYRAMINE (WITH SUGAR) 4 GM PACKET PO SCH ×3 (10:38→18:32)
--- NOTE | 2020-03-26 11:53 | ECHOF ---
Referral Reason:lv fxn MEASUREMENTS -------- HEIGHT: 162.6 cm WEIGHT: 88.5 kg BP: 115/63 RVIDd: 2.9 cm (< 3.3) IVSd: 1.4 cm (0.6 - 1.1) LVIDd: 3.1 cm (3.9 - 5.3) LVPWd: 1.7 cm (0.6 - 1.1) IVSs: 1.8 cm LVIDs: 2.1 cm LVPWs: 2.0 cm Ao Diam: 2.6 cm (2.0 - 3.7) AV Cusp: 1.9 cm (1.5 - 2.6) LA Diam: 3.0 cm (2.7 - 3.8) MV EXCURSION: 9.371 mm (> 18.000) MV EF SLOPE: 72 mm/s (70 - 150) EPSS: 0.7 cm MV E Miguelito: 0.61 m/s MV DecT: 129 ms MV A Miguelito: 0.74 m/s MV E/A Ratio: 0.82 RAP: 5.00 mmHg RVSP: 30.82 mmHg FINDINGS -------- Resting tachycardia (HR>100bpm). This was a technically adequate study. The left ventricular size is normal. There is moderate concentric left ventricular hypertrophy. O verall left ventricular systolic function is normal with, an EF between 55 - 60 %. The right ventricle is normal in size. The left atrial size is normal. The right atrial size is normal. Interatrial and interventricular septum intact. The aortic valve is trileaflet and appears structurally normal. The mitral valve is normal. The mitral valve leaflets are mildly thickened. Mild mitral regurgita tion is present. The tricuspid valve appears structurally normal. Mild tricuspid regurgitation present. Right vent ricular systolic pressure is normal at < 35 mmHg. There is no pulmonic regurgitation present. The aortic root size is normal. Normal inferior vena cava with normal inspiratory collapse consistent with estimated right atrial pre ssure of 5 mmHg. There is no pericardial effusion. CONCLUSIONS -------- 1. Resting tachycardia (HR>100bpm). 2. This was a technically adequate study. 3. The left ventricular size is normal. 4. There is moderate concentric left ventricular hypertrophy. 5. Overall left ventricular systolic function is normal with, an EF between 55 - 60 %. 6. The right ventricle is normal in size. 7. The left atrial size is normal. 8. The right atrial size is normal. 9. Interatrial and interventricular septum intact. 10. The aortic valve is trileaflet and appears structurally normal. 11. The mitral valve is normal. 12. The mitral valve leaflets are mildly thickened. 13. Mild mitral regurgitation is present. 14. The tricuspid valve appears structurally normal. 15. Mild tricuspid regurgitation present. 16. Right ventricular systolic pressure is normal at < 35 mmHg. 17. There is no pulmonic regurgitation present. 18. The aortic root size is normal. 19. Normal inferior vena cava with normal inspiratory collapse consistent with estimated right atrial pressure of 5 mmHg. 20. There is no pericardial effusion. [employer]IST: Teresa Candelaria RDCS
[2020-03-26 11:59] LABS: Glucose,Whole Blood 173 mg/dL (75-99)
--- NOTE | 2020-03-26 14:23 | P.PN ---
Subjective Progress Note Date: 03/26/20 Principal diagnosis: Ileus, bacteremia, pancytopenia secondary to chemotherapy, acute myeloid leukemia In follow-up today, postnasal drip is slightly improved, patient does feel a little better than when I saw her on Thursday, no fevers overnight or this morning, denies oral irritation, nausea, chest pain, palpitations or anxiety (she remains tachycardic), shortness of breath, abdominal pain or cramping, she has had loose stools, denies black or bloody stool, dysuria, hematuria, swelling in the legs, some of her petechiae on her shins is starting to improve. She still has strength to stand, she has not been being ambulated much. Objective - Vital Signs Vital signs: Vital Signs Temp 96.8 F L 03/26/20 12:00 Pulse 109 H 03/26/20 12:00 Resp 17 03/26/20 12:00 BP 122/61 03/26/20 12:00 Pulse Ox 95 03/26/20 12:00 Intake & Output 03/25/20 03/26/20 03/26/20 18:59 06:59 18:59 Intake Total 1344 690 840 Output Total 800 1000 650 Balance 544 -310 190 Weight 88.9 kg 88.9 kg Intake: IV 150 cefTRIAXone 2 gm In 50 Sodium Chloride 0.9% 50 ml @ 100 mls/hr IVPB Q24HR ELISEO Rx#:[id number] metroNIDAZOLE-NS PMX 500 100 mg In Saline 1 100ml.bag @ 100 mls/hr IVPB Q8HR ELISEO Rx#:[id number] Oral 1344 540 840 Output: Urine 800 1000 650 Other: Voiding Method Bedside Commode # Voids 1 # Bowel Movements 1 - Constitutional General appearance: Present: average body habitus, cooperative, no acute distress - EENT EENT Comment(s): bilateral nares do have scabs from bleeding Eyes: Present: anicteric sclerae, EOMI ENT: Present: hearing grossly normal, normal oropharynx - Respiratory Respiratory: bilateral: CTA, diminished - Cardiovascular Details: regular rhythm, tachycardia, no more murmur, gallop or rub - Peripheral edema leg Peripheral Edema: bilateral: None - Gastrointestinal General gastrointestinal: Present: normal bowel sounds, soft. Absent: absent bowel sounds, decreased bowel sounds, distended, hepatomegaly, hyperactive bowel sounds, organomegaly, rigid, scaphoid, splenomegaly, tenderness, umbilical hernia, ventral hernia - Integumentary Integumentary Comment(s): petechiae on the bilateral shins, improving Integumentary: Present: pale - Neurologic Neurologic: Present: CNII-XII intact - Musculoskeletal Musculoskeletal: Present: generalized weakness, strength equal bilaterally - Psychiatric Psychiatric Comment(s): flat affect Psychiatric: Present: A&O x's 3, intact judgment & insight - Allied health notes Allied health notes reviewed: PT - Labs CBC & Chem 7: 03/26/20 05:28 03/26/20 05:28 Labs: Abnormal Lab Results - Last 24 Hours (Table) 03/26/20 03/26/20 03/26/20 Range/Units 05:28 05:28 11:57 WBC 0.4 L* (3.8-10.6) k/uL RBC 2.42 L (3.80-5.40) m/uL Hgb 7.4 L (11.4-16.0) gm/dL Hct 22.2 L (34.0-46.0) % Plt Count 12 L* D (150-450) k/uL Potassium 3.0 L (3.5-5.1) mmol/L POC Glucose (mg/dL) 173 H (75-99) mg/dL Calcium 6.7 L (8.4-10.2) mg/dL Total Protein 5.2 L (6.3-8.2) g/dL Albumin 2.2 L (3.5-5.0) g/dL Microbiology - Last 24 Hours (Table) 03/22/20 06:53 Blood Culture - Preliminary Blood No Growth after 96 hours 03/21/20 06:02 Blood Culture - Preliminary Blood No Growth after 120 hours 03/24/20 18:15 Blood Culture - Preliminary Blood No Growth after 24 hours 03/24/20 18:35 Blood Culture - Preliminary Blood No Growth after 24 hours - Imaging and Cardiology Chest x-ray: report reviewed (progressive study, worsening chest x-ray) echo report reviewed, ejection fraction 55-60%. Assessment and Plan (1) Pancytopenia due to antineoplastic chemotherapy Narrative/Plan: Anticipated pancytopenia secondary to chemotherapy. This is the week patient's counts should be recovering. We remain hopeful No G-CSF for low white blood cell count. Pending bone marrow biopsy for confirmation of remission status post induction. WBC 0.4 Transfuse to keep hemoglobin 7 or higher unless symptomatic. No transfusion today for a hemoglobin of 7.4 Transfuse to keep platelets greater than 10,000 unless symptomatic. No transfusion today, plt 12,000 Only irradiated blood products please Current Visit: Yes Status: Acute Priority: High Code(s): D61.810 - ANTINEOPLASTIC CHEMOTHERAPY INDUCED PANCYTOPENIA; T45.1X5A - ADVERSE EFFECT OF ANTINEOPLASTIC AND IMMUNOSUP DRUGS, INIT SNOMED Code(s): 126739551289572 (2) Small bowel obstruction Narrative/Plan: Low white blood cell count secondary to chemotherapy and leukemia impacting the mucosa of the small bowel. Patient continues to be asymptomatic, no rebound, un realistic tenderness or rigidity on exam again today. She continues to have BM. Would anticipate proportional improvement in GI function as patient's white blood cell increases. She is tolerating clear liquids. No advancement in the diet until improvement in white blood cell count. Patient is to report immediately any abdominal pain or discomfort and to be return to nothing by mouth status. Surgery following Current Visit: Yes Status: Acute Priority: High Code(s): K56.609 - UNSP INTESTNL OBST, UNSP TO PARTIAL VERSUS COMPLETE OBST SNOMED Code(s): 5926899 04 (3) Acute myeloid leukemia Narrative/Plan: Patient is status post induction chemotherapy with 7+3. She will be due for a bone marrow biopsy to confirm remission end of this week early next week, plans for the same to be based on her count recovery. Current Visit: Yes Status: Acute Priority: High Code(s): C92.00 - ACUTE MYELOBLASTIC LEUKEMIA, NOT HAVING ACHIEVED REMISSION SNOMED Code(s): 96987482 Plan: Claritin ordered for severe postnasal drip, some improvement in symptoms. Chest x-ray report reviewed. Possible worsening of CHF. Cardiology consulted
[2020-03-26 16:37] LABS: Glucose,Whole Blood 177 mg/dL (75-99)
[2020-03-26] MEDS ORDERED: VANCOMYCIN TROUGH DUE 1 EACH MISC MISCELLANE ONE (18:00)
[2020-03-26 20:39] LABS: Glucose,Whole Blood 201 mg/dL (75-99)
--- NOTE | 2020-03-27 03:03 | PN ---
PROGRESS NOTE DATE OF SERVICE: 03/26/2020 REASON FOR FOLLOWUP: Febrile neutropenia. INTERVAL HISTORY: The patient is currently afebrile. The patient is breathing comfortably. The patient denies having any chest pain, shortness of breath or cough. No nausea or vomiting. No abdominal pain and no diarrhea. PHYSICAL EXAMINATION: Blood pressure 120/55 with a pulse of 128, temperature 97.4. She is 93% on 2 L nasal cannula. General description is a an elderly female up in the chair in no distress. RESPIRATORY SYSTEM: Unlabored breathing, clear to auscultation anteriorly. HEART: S1, S2. Regular rate and rhythm. ABDOMEN: Soft, no tenderness. LABS: Hemoglobin 7.4, white count 0.4, BUN of 13, creatinine 0.79. DIAGNOSTIC IMPRESSION AND PLAN: Patient with febrile neutropenia in this patient with positive blood culture with Staphylococcus epidermidis, repeat has been negative. Also with a component of diverticulitis. Patient is covered with cefepime, Flagyl and vancomycin to continue and monitor clinical course closely. MMODL / IJN: [id number] /
[2020-03-27] MEDS: FUROSEMIDE 10 MG/ML 4 ML VIAL IV SCH (05:42)
[2020-03-27 06:12] LABS: Glucose,Whole Blood 113 mg/dL (75-99)
[2020-03-27 07:20] LABS: HCT 24.4 % (34.0-46.0); MCH 29.8 pg (25.0-35.0); MCHC 32.9 g/dL (31.0-37.0); MCV 90.7 fL (80.0-100.0); Mean Platelet Volume 9.3; RBC 2.69 m/uL (3.80-5.40); RDW 13.9 % (11.5-15.5)
[2020-03-27 07:26] LABS: WBC 0.8 k/uL (3.8-10.6)
[2020-03-27 07:27] LABS: Platelet Count 10 k/uL (150-450)
[2020-03-27 07:43] LABS: Magnesium 1.6 mg/dL (1.6-2.3)
[2020-03-27] MEDS: CEFEPIME 2 GM in SODIUM CHLORIDE 0.9% 100 ML IVPB SCH ×2 (07:44→20:52)
[2020-03-27 07:50] LABS: Potassium 2.7 mmol/L (3.5-5.1)
[2020-03-27] MEDS ORDERED: Potassium Replacement Protocol 1 EACH MISC MISCELLANE PRN (08:28)
[2020-03-27] MEDS: metroNIDAZOLE-NS PMX 500 MG in SALINE 1 100ML.BAG IVPB SCH ×2 (09:00→17:08)
[2020-03-27] MEDS: PANTOPRAZOLE 40 MG/10 ML VIAL IVP SCH (09:00)
[2020-03-27] MEDS: METOPROLOL TARTRATE 12.5 MG TAB PO SCH ×2 (09:02→20:52)
[2020-03-27] MEDS: NYSTATIN 100,000 UNIT/ML SUSP 500,000 UNIT/5 ML CUP PO SCH ×4 (09:02→20:52)
[2020-03-27] MEDS: FLUCONAZOLE 100 MG TAB PO SCH (09:03)
[2020-03-27] MEDS: POTASSIUM CHLORIDE ER 20 MEQ TAB.ER PO SCH ×3 (09:03→10:57)
[2020-03-27] MEDS: LORATADINE 10 MG TAB PO SCH (09:03)
[2020-03-27] MEDS: ACYCLOVIR 800 MG TAB PO SCH ×2 (09:04→20:52)
[2020-03-27] MEDS: CHOLESTYRAMINE (WITH SUGAR) 4 GM PACKET PO SCH ×3 (10:00→18:16)
[2020-03-27] MEDS: POTASSIUM CHLORIDE 10 MEQ in WATER FOR INJECTION 1 100ML.BAG IVPB SCH ×2 (11:00→12:25)
[2020-03-27 11:34] LABS: Glucose,Whole Blood 174 mg/dL (75-99)
--- NOTE | 2020-03-27 12:51 | P.PN ---
Subjective 60-year-old female admitted Acute upper and lower GI bleed secondary to severe pancytopenia secondary to chemotherapy for acute myeloid leukemia. had platelets of 2000 yesterday received platelet transfusion presently her platelets are 3000 still has coffee-ground emesis via NG tube patient received 1 unit of PRBC transfusion hemoglobin remained at 6.3 no evidence of lower GI bleed at this time. Patient will receive her transfer transfusion. Which will see transfusion today with irradiated cells. Patient on vancomycin and Zosyn Vanco mycin will be discontinued has there is no evidence of gram-positive sepsis CAT scan of the abdomen did show some enterocolitis and my limited colitis although patient will be started on oral Ceftin as her diverticulitis or colitis is minimal and most probably noninfectious and due to her pancytopenia I'll discontinue Zosyn and patient will be started on oral Ceftin. Patient looks really tired fa tigued.Constitutional: Denied any fatigue denied any fever. 03/21/2020 _Last night because patient has gram-positive cocci in the blood which turned out to be coagulase-negative staph because of which I discontinued vancomycin that was started last night patient doesn't have any coffee-ground emesis today patient hemoglobin main stable at around 6.7 patient received 2 units of blood transfusion yesterday 2 units day before. Patient received 10 units of blood transfusion platelets went up from 3 couple days ago to 39,000 patient remains neutropenic patient remains on Ceftin although there is no evidence of tear sepsis at this time patient is on empiric antibiotic, antivirals and antifungals because of neutropenia from oncology. Infectious disease will be consulted if patient still has an NG tube of less fatigued compared to yesterday 03/22/2020 Is presently on metronidazole and Rocephin, patient has significant decreased output from the NG tube patient had thousand cc last night but that today is pretty minimal because of which are NG tube will be removed. Patient was switched to D5 half-normal because of the potential hyponatremia and and hyperchloremia. Patient is feeling much better patient hemoglobin is 7.7 today with platelet count of 17,000 and a white blood cell count of 400. 03/23/2020 Patient had epistaxis as today after which patient received the platelet trans fusion patient is bit tachycardic appears to be sinus tachycardia continue with IV fluids appear to be improving at this time NG tube is out patient does have bowel sounds. Patient was having diarrhea C. diff was negative and the lesion will be started on Questran patient is bit to intravascular well repleted as of which patient became tachycardic continue with IV fluids which she is on at this time and it in the form of 0.45% saline at 100 mL per hour 03/24/2020 Patient is a bit volume overloaded after the chest x-ray which showed pulmonary edema patient given dose of Lasix patient will receive lactic platelet transfusion patient the IV fluids will be discontinued. Patient remains tachyc ardic 03/25/2020 Patient has crackles on lung exam IV fluids will be discontinued and patient will be given a dose of Lasix will repeat the chest x-ray. Patient's oral serum sodium has come down to 136. Patient had a fever last night blood cultures were obtained and vancomycin was added to her regimen patient is presently on vancomycin metronidazole and ceftriaxone. Patient white blood cell count remains at 300 hemoglobin 7.6 and platelet count is 32,000 patient did receive 10 units of platelets yesterday. Magnesium remains low which will be replaced. 03/27/2020 Patient is feeling bit better patient remains tachycardic patient REQUIREMENTS HAVE COME DOWN TO CHANGING LASIX TO 20 MG TWICE A DAY IV LASIX IS BEING DISCONTINUED NO CHEST PAIN. Her heart rate is still high Cardio vascular: No chest pain or palpitations Gastrointestinal denied any nausea vomiting Pulmonary: Denied any shortness of breath cough Neurologic denied any new focal deficits All inpatient medications were reviewed and appropriate changes in these medications as dictated in the interval history and assessment and plan. Objective - Vital Signs Vital signs: Vital Signs Temp 97.8 F 03/27/20 08:00 Pulse 121 H 03/27/20 08:00 Resp 18 03/27/20 08:00 BP 99/59 03/27/20 08:00 Pulse Ox 95 03/27/20 08:00 Intake & Output 03/26/20 03/27/20 03/27/20 18:59 06:59 18:59 Intake Total 1200 90 Output Total 1350 1900 400 Balance -150 -1900 -310 Weight 88.9 kg 88.3 kg Intake: Oral 1200 90 Output: Urine 1350 1900 400 Other: Voiding Method Bedside Commode Bedside Commode # Voids 1 1 # Bowel Movements 1 - Exam PHYSICAL EXAMINATION: GENERAL: The patient is alert and oriented x3, not in any acute distress. Appears to be really tired and fatigued HEENT: Pupils are round and equally reacting to light. EOMI. No scleral icterus. Does have conjunctival pallor. Normocephalic, atraumatic. No pharyngeal erythema. No thyromegaly. Patient has significant crusting in the nose consistent with yesterday's epistaxis CARDIOVASCULAR: S1 and S2 present. No murmurs, rubs, or gallops. PULMONARY: Chest is clear to auscultation, no wheezing or crackles. ABDOMEN: Soft, nontender, nondistended, normoactive bowel sounds. No palpable organomegaly. MUSCULOSKELETAL: No joint swelling or deformity. EXTREMITIES: No cyanosis, clubbing, or pedal edema. NEUROLOGICAL: Gross neurological examination did not reveal any focal deficits. SKIN: Multiple bruises in multiple areas. - Labs CBC & Chem 7: 03/27/20 06:03/27/20 06: Labs: Abnormal Lab Results - Last 24 Hours (Table) 03/26/20 03/26/20 03/27/20 Range/Units 16:35 20:37 06:11 WBC (3.8-10.6) k/uL RBC (3.80-5.40) m/uL Hgb (11.4-16.0) gm/dL Hct (34.0-46.0) % Plt Count (150-450) k/uL Sodium (137-145) mmol/L Potassium (3.5-5.1) mmol/L Glucose (74-99) mg/dL POC Glucose (mg/dL) 177 H 201 H 113 H (75-99) mg/dL Calcium (8.4-10.2) mg/dL 03/27/20 03/27/20 03/27/20 Range/Units 06:27 06:27 11:32 WBC 0.8 L* (3.8-10.6) k/uL RBC 2.69 L (3.80-5.40) m/uL Hgb 8.0 L (11.4-16.0) gm/dL Hct 24.4 L (34.0-46.0) % Plt Count 10 L* (150-450) k/uL Sodium 136 L (137-145) mmol/L Potassium 2.7 L* (3.5-5.1) mmol/L Glucose 107 H (74-99) mg/dL POC Glucose (mg/dL) 174 H (75-99) mg/dL Calcium 7.0 L (8.4-10.2) mg/dL Microbiology - Last 24 Hours (Table) 03/22/20 06:53 Blood Culture - Preliminary Blood No Growth after 120 hours 03/21/20 06:02 Blood Culture - Final Blood No Growth after 144 hours 03/24/20 18:15 Blood Culture - Preliminary Blood No Growth after 48 hours 03/24/20 18:35 Blood Culture - Preliminary Blood No Growth after 48 hours Assessment and Plan Plan: -Acute GI bleed secondary to severe thrombocytopenia, patient has a partial small bowel obstruction as well: Continue with Protonix patient will be supplemented with platelets and PRBC transfusion as needed today she will not need any of these transfusions. Lasix was switched to oral and patient's diet is being advanced -Fever and sepsis: Repeat blood cultures were obtained patient is being continued on ceftriaxone and metronidazole and vancomycin. -Pulmonary edema secondary to IV fluids patient will be given IV Lasix will order a chest x-ray. -Epistaxis secondary to thrombocytopenia improved after platelet transfusion -Partial small bowel obstruction patient is tolerating diet. -Severe pancytopenia patient is on Rocephin and metronidazole as per infectious disease for possibility of colitis -Enterocolitis and patient is an above-mentioned medications -Bacteremia with coagulase-negative staph this a contamination. -Severe pancytopenia: Secondary to chemotherapy -Hyponatremia resolved -lactic acidosis resolved -type 2 diabetes mellitus -Hypertension -Obesity -AML recently received chemo oncology is following the patient -Tachycardia: Because of severe thrombocytopenia we cannot use the heparin or any other anticoagulation DVT
--- NOTE | 2020-03-27 13:25 | P.PN ---
Subjective Progress Note Date: 03/27/20 Principal diagnosis: Ileus, bacteremia, pancytopenia secondary to chemotherapy, acute myeloid leukemia in follow-up today patient seems to be feeling better. She has an appetite, she is on full liquids, tolerating, no fevers, chest pains, she is asymptomatic from her tachycardia, this is noted to be slightly better today. No abdominal pain, cramping, her bowel movements are fewer in number, more solid in their composition, she denies any bleeding or swelling. Objective - Vital Signs Vital signs: Vital Signs Temp 97.7 F 03/27/20 12:00 Pulse 105 H 03/27/20 12:00 Resp 18 03/27/20 12:00 BP 97/56 03/27/20 12:00 Pulse Ox 97 03/27/20 12:00 Intake & Output 03/26/20 03/27/20 03/27/20 18:59 06:59 18:59 Intake Total 1200 330 Output Total 1350 1900 1000 Balance -150 -1900 -670 Weight 88.9 kg 88.3 kg Intake: Oral 1200 330 Output: Urine 1350 1900 1000 Other: Voiding Method Bedside Commode Bedside Commode # Voids 1 1 # Bowel Movements 1 - Constitutional General appearance: Present: average body habitus, cooperative, no acute distress - EENT EENT Comment(s): bilateral nare scabs from epistaxis Eyes: Present: anicteric sclerae, EOMI ENT: Present: hearing grossly normal, normal oropharynx - Respiratory Respiratory: bilateral: CTA, diminished (basis) - Cardiovascular Details: mild tachycardia, improved from yesterday Heart sounds: normal: S1, S2 Abnormal Heart Sounds: Absent: systolic murmur, diastolic murmur, rub, S3 Gallop, S4 Gallop, click, other - Peripheral edema leg Peripheral Edema: bilateral: None - Gastrointestinal General gastrointestinal: Present: normal bowel sounds, soft - Integumentary Integumentary Comment(s): bilateral jaquez petechiae/purpura continues to slowly improve - Neurologic Neurologic: Present: CNII-XII intact - Musculoskeletal Musculoskeletal: Present: generalized weakness, strength equal bilaterally - Psychiatric Psychiatric: Present: A&O x's 3, appropriate affect, intact judgment & insight - Labs CBC & Chem 7: 03/27/20 06:27 03/27/20 06:27 Labs: Abnormal Lab Results - Last 24 Hours (Table) 03/26/20 03/26/20 03/27/20 Range/Units 16:35 20:37 06:11 WBC (3.8-10.6) k/uL RBC (3.80-5.40) m/uL Hgb (11.4-16.0) gm/dL Hct (34.0-46.0) % Plt Count (150-450) k/uL Sodium (137-145) mmol/L Potassium (3.5-5.1) mmol/L Glucose (74-99) mg/dL POC Glucose (mg/dL) 177 H 201 H 113 H (75-99) mg/dL Calcium (8.4-10.2) mg/dL 03/27/20 03/27/20 03/27/20 Range/Units 06:27 06:27 11:32 WBC 0.8 L* (3.8-10.6) k/uL RBC 2.69 L (3.80-5.40) m/uL Hgb 8.0 L (11.4-16.0) gm/dL Hct 24.4 L (34.0-46.0) % Plt Count 10 L* (150-450) k/uL Sodium 136 L (137-145) mmol/L Potassium 2.7 L* (3.5-5.1) mmol/L Glucose 107 H (74-99) mg/dL POC Glucose (mg/dL) 174 H (75-99) mg/dL Calcium 7.0 L (8.4-10.2) mg/dL Microbiology - Last 24 Hours (Table) 03/22/20 06:53 Blood Culture - Preliminary Blood No Growth after 120 hours 03/21/20 06:02 Blood Culture - Final Blood No Growth after 144 hours 03/24/20 18:15 Blood Culture - Preliminary Blood No Growth after 48 hours 03/24/20 18:35 Blood Culture - Preliminary Blood No Growth after 48 hours - Imaging and Cardiology echo report reviewed Assessment and Plan (1) Pancytopenia due to antineoplastic chemotherapy Narrative/Plan: Anticipated pancytopenia secondary to chemotherapy. This is the week patient's counts should be recovering. We remain hopeful No G-CSF for low white blood cell count. Pending bone marrow biopsy for confirmation of remission status post induction. WBC 0.8 (double from yesterday!) Transfuse to keep hemoglobin 7 or higher unless symptomatic. No transfusion today for a hemoglobin of 8 (stable and slightly improved without transfusion) Transfuse to keep platelets greater than 10,000 unless symptomatic. Transfusing today for a platelet count of 10,000 as patient has had epistaxis. Only irradiated blood products please Current Visit: Yes Status: Acute Priority: High Code(s): D61.810 - ANTINEOPLASTIC CHEMOTHERAPY INDUCED PANCYTOPENIA; T45.1X5A - ADVERSE EFFECT OF ANTINEOPLASTIC AND IMMUNOSUP DRUGS, INIT SNOMED Code(s): 696098533769931 (2) Small bowel obstruction Narrative/Plan: Low white blood cell count secondary to chemotherapy and leukemia impacting the mucosa of the small bowel. Patient continues to be asymptomatic. She is tolerating full liquids. Recommended patient to take a very slow advancing of her diet. Patient is to report immediately any abdominal pain or discomfort and to be return to nothing by mouth status. Surgery following Current Visit: Yes Status: Acute Priority: High Code(s): K56.609 - UNSP INTESTNL OBST, UNSP TO PARTIAL VERSUS COMPLETE OBST SNOMED Code(s): 993825587 (3) Acute myeloid leukemia Narrative/Plan: Patient is status post induction chemotherapy with 7+3. She will be due for a bone marrow biopsy to confirm remission end of this week early next week, plans for the same to be based on her count recovery. Current Visit: Yes Status: Acute Priority: High Code(s): C92.00 - ACUTE MYELOBLASTIC LEUKEMIA, NOT HAVING ACHIEVED REMISSION SNOMED Code(s): 92254877 Plan: Claritin ordered for severe postnasal drip, some improvement in symptoms. Patient continues to require potassium supplementation, likely from poor oral intake as well as diarrhea. Most recent blood cultures are negative. ECHO report reviewed, ejection fraction 55-60%. Patient is noted to be on a beta tony and Lasix. Her heart rate is down a little bit. Patient's counts are starting to show stability with small improvement. Very positive for recovery. Daily follow-up. Daily labs
[2020-03-27] MEDS: VANCOMYCIN 1,500 MG in SODIUM CHLORIDE 0.9% 250 ML IVPB SCH (13:27)
--- NOTE | 2020-03-27 15:17 | PN ---
PROGRESS NOTE DATE OF SERVICE: 03/27/2020 REASON FOR FOLLOWUP: Febrile neutropenia. INTERVAL HISTORY: The patient is currently afebrile. Patient is breathing comfortably. Denies having any chest pain. No shortness of breath or cough. No nausea, no vomiting, no abdominal pain. Still has some diarrhea, but no worsening. PHYSICAL EXAMINATION: Blood pressure 97/56, pulse of 105m temperature is 97.7, he is 97% on room air. General description is an elderly female, up in the chair in no distress. RESPIRATORY SYSTEM: Unlabored breathing, clear to auscultation anteriorly. HEART: S1, S2. Regular rate and rhythm. ABDOMEN: Soft, no tenderness. LABS: Hemoglobin 8, white count 0.8, creatinine 0.88. Blood culture has been negative. DIAGNOSTIC IMPRESSION AND PLAN: Patient with febrile neutropenia and did have a component of diverticulitis with concern for possible PICC line infection. Repeat blood culture has been negative. Patient is covered with cefepime, Flagyl and vancomycin to continue and monitor clinical course closely. MMODL / IJN: [id number] /
[2020-03-27 16:40] LABS: Glucose,Whole Blood 122 mg/dL (75-99)
--- NOTE | 2020-03-27 16:42 | CDI ---
Documentation Clarification Form Date: 03/27/2020 04:11:43 PM From: Wendy Steven RN CCDS Admit Date: 03/19/2020 03:42:00 PM Patient Name: Cande Gallo Visit Number: [id number] Discharge Date: ATTENTION: The Clinical Documentation Specialists (CDI) and [facility] Coding Staff appreciate your assistance in clarifying documentation. Please respond to the clarification below the line at the bottom and electronically sign. The CDI & [facility] Coding staff will review the response and follow-up if needed. Please note: Queries are made part of the Legal Health Record. If you have any questions, please contact the author of this message via ITS. Dr. Madonna Angela Conflicting documentation has been found in the medical record: In your Progress Notes 03/25, 03/26 & 03/27 Fever and Sepsis In your Progress Notes 03/20 through 03/27 There is no evidence of gram-positive sepsis 03/19 H&P Neutropenic sepsis is also considered. History/Risk Factors: 65 y/o female presents to the ED Medical history DM, Fibromyalgia, HTN, recent diagnosis of Acute myeloid leukemia. Clinical Indicators: 03/19 Labs Wbc 0.2, Rbc 2.02, Hgb 6.3, Hct 18.2, Plt 2, Inr 1.4, Na 135, K 3.1, Lactic acid 3.2, Calcium 7.6, FOB positive ID Progress Note 03/27 Patient with febrile neutropenia and did have a component of diverticulitis with concern for possible PICC line infection. Treatment: 03/19 0.9ns 500cc/bolus, Zosyn Ivpb d/c 03/20, Vancomycin Ivpb dc 03/20, 03/22 Metronidazole Ivpb, 03/24 Vancomycin Ivpb, 03/27 Cefepime IVPB, In your opinion, what is the most clinically appropriate diagnosis for this patient? Sepsis POA (related to) Sepsis not POA (related to) Sepsis Ruled Out Other explanation of clinical findings Unable to determine (no explanation for clinical findings) (Last Revision: January 2018) Sepsis POA from colitis MTDD
[2020-03-27] MEDS: FUROSEMIDE 20 MG TAB PO SCH (17:05)
--- NOTE | 2020-03-27 18:20 | P.PN ---
Progress Note - Text Progress Note Date: 03/27/20 The patient feels better. Her abdomen soft. She has been tolerating full liquids. On exam her vital signs are stable. Her abdomen soft. It. Patient will have her diet increased to regular diet. Her ileus appears to be resolved.
[2020-03-28] MEDS: metroNIDAZOLE-NS PMX 500 MG in SALINE 1 100ML.BAG IVPB SCH ×3 (00:19→17:10)
[2020-03-28] MEDS: VANCOMYCIN 1,500 MG in SODIUM CHLORIDE 0.9% 250 ML IVPB SCH (05:17)
[2020-03-28 07:18] LABS: HCT 20.2 % (34.0-46.0); MCH 30.1 pg (25.0-35.0); MCHC 33.1 g/dL (31.0-37.0); Mean Platelet Volume 8.5; RBC 2.22 m/uL (3.80-5.40); RDW 14.1 % (11.5-15.5)
[2020-03-28 07:44] LABS: African American GFR (CKD) >90 (>60 ml/min/1.73 sqM); Anion Gap 7 mmol/L; Blood Urea Nitrogen 14 mg/dL (7-17); Calcium 7.1 mg/dL (8.4-10.2); Carbon Dioxide 26 mmol/L (22-30); Chloride 103 mmol/L (98-107); Glucose 90 mg/dL (74-99); Non-African American GFR(CKD) 83 (>60 ml/min/1.73 sqM); Potassium 2.9 mmol/L (3.5-5.1); Sodium 136 mmol/L (137-145)
[2020-03-28 07:50] LABS: WBC 0.8 k/uL (3.8-10.6)
[2020-03-28 07:52] LABS: HGB 6.7 gm/dL (11.4-16.0); Platelet Count 36 k/uL (150-450)
[2020-03-28] MEDS: CEFEPIME 2 GM in SODIUM CHLORIDE 0.9% 100 ML IVPB SCH (07:54)
[2020-03-28] MEDS: METOPROLOL TARTRATE 12.5 MG TAB PO SCH ×2 (08:39→19:58)
[2020-03-28] MEDS: FLUCONAZOLE 100 MG TAB PO SCH (08:39)
[2020-03-28] MEDS: FUROSEMIDE 20 MG TAB PO SCH ×2 (08:40→17:09)
[2020-03-28] MEDS: LORATADINE 10 MG TAB PO SCH (08:40)
[2020-03-28] MEDS: NYSTATIN 100,000 UNIT/ML SUSP 500,000 UNIT/5 ML CUP PO SCH ×4 (08:41→20:00)
[2020-03-28] MEDS: ACYCLOVIR 800 MG TAB PO SCH ×2 (08:43→19:58)
[2020-03-28] MEDS ORDERED: Potassium Replacement Protocol 1 EACH MISC MISCELLANE PRN (08:53)
[2020-03-28] MEDS: POTASSIUM CHLORIDE ER 20 MEQ TAB.ER PO SCH ×3 (09:35→11:38)
[2020-03-28] MEDS: PANTOPRAZOLE 40 MG/10 ML VIAL IVP SCH (10:26)
[2020-03-28] MEDS: CHOLESTYRAMINE (WITH SUGAR) 4 GM PACKET PO SCH ×3 (10:30→19:55)
--- NOTE | 2020-03-28 12:29 | P.PN ---
Subjective 60-year-old female admitted Acute upper and lower GI bleed secondary to severe pancytopenia secondary to chemotherapy for acute myeloid leukemia. had platelets of 2000 yesterday received platelet transfusion presently her platelets are 3000 still has coffee-ground emesis via NG tube patient received 1 unit of PRBC transfusion hemoglobin remained at 6.3 no evidence of lower GI bleed at this time. Patient will receive her transfer transfusion. Which will see transfusion today with irradiated cells. Patient on vancomycin and Zosyn Vanco mycin will be discontinued has there is no evidence of gram-positive sepsis CAT scan of the abdomen did show some enterocolitis and my limited colitis although patient will be started on oral Ceftin as her diverticulitis or colitis is minimal and most probably noninfectious and due to her pancytopenia I'll discontinue Zosyn and patient will be started on oral Ceftin. Patient looks really tired fa tigued.Constitutional: Denied any fatigue denied any fever. 03/21/2020 _Last night because patient has gram-positive cocci in the blood which turned out to be coagulase-negative staph because of which I discontinued vancomycin that was started last night patient doesn't have any coffee-ground emesis today patient hemoglobin main stable at around 6.7 patient received 2 units of blood transfusion yesterday 2 units day before. Patient received 10 units of blood transfusion platelets went up from 3 couple days ago to 39,000 patient remains neutropenic patient remains on Ceftin although there is no evidence of tear sepsis at this time patient is on empiric antibiotic, antivirals and antifungals because of neutropenia from oncology. Infectious disease will be consulted if patient still has an NG tube of less fatigued compared to yesterday 03/22/2020 Is presently on metronidazole and Rocephin, patient has significant decreased output from the NG tube patient had thousand cc last night but that today is pretty minimal because of which are NG tube will be removed. Patient was switched to D5 half-normal because of the potential hyponatremia and and hyperchloremia. Patient is feeling much better patient hemoglobin is 7.7 today with platelet count of 17,000 and a white blood cell count of 400. 03/23/2020 Patient had epistaxis as today after which patient received the platelet trans fusion patient is bit tachycardic appears to be sinus tachycardia continue with IV fluids appear to be improving at this time NG tube is out patient does have bowel sounds. Patient was having diarrhea C. diff was negative and the lesion will be started on Questran patient is bit to intravascular well repleted as of which patient became tachycardic continue with IV fluids which she is on at this time and it in the form of 0.45% saline at 100 mL per hour 03/24/2020 Patient is a bit volume overloaded after the chest x-ray which showed pulmonary edema patient given dose of Lasix patient will receive lactic platelet transfusion patient the IV fluids will be discontinued. Patient remains tachyc ardic 03/25/2020 Patient has crackles on lung exam IV fluids will be discontinued and patient will be given a dose of Lasix will repeat the chest x-ray. Patient's oral serum sodium has come down to 136. Patient had a fever last night blood cultures were obtained and vancomycin was added to her regimen patient is presently on vancomycin metronidazole and ceftriaxone. Patient white blood cell count remains at 300 hemoglobin 7.6 and platelet count is 32,000 patient did receive 10 units of platelets yesterday. Magnesium remains low which will be replaced. 03/27/2020 Patient is feeling bit better patient remains tachycardic patient REQUIREMENTS HAVE COME DOWN TO CHANGING LASIX TO 20 MG TWICE A DAY IV LASIX IS BEING DISCONTINUED NO CHEST PAIN. Her heart rate is still high 03/28/2020 his hemoglobin probably see 1 unit of PRBC transfusion patient the chloride will be replaced serum chloride is 2.9. Patient is feeling better but still quite weak will obtain PT and OT consultation. Patient the wanted to go home if needed with home physical therapy but does want go to rehabilitation. Cardio vascular: No chest pain or palpitations Gastrointestinal denied any nausea vomiting Pulmonary: Denied any shortness of breath cough Neurologic denied any new focal deficits All inpatient medications were reviewed and appropriate changes in these medications as dictated in the interval history and assessment and plan. Objective - Vital Signs Vital signs: Vital Signs Temp 97.5 F L 03/28/20 12:06 Pulse 101 H 03/28/20 12:06 Resp 16 03/28/20 12:06 BP 117/56 03/28/20 12:06 Pulse Ox 97 03/28/20 12:06 Intake & Output 03/27/20 03/28/20 03/28/20 18:59 06:59 18:59 Intake Total 1500 312 120 Output Total 2500 120 Balance -1000 192 120 Weight 90.1 kg Intake: IV 100 metroNIDAZOLE-NS PMX 500 100 mg In Saline 1 100ml.bag @ 100 mls/hr IVPB Q8HR [facility] Rx#:[id number] Intake, IV Titration 550 100 Amount Cefepime 2 gm In Sodium 100 100 Chloride 0.9% 100 ml @ 200 mls/hr IVPB Q12H [facility] Rx#:[id number] Potassium Chloride 10 meq 200 In Water For Injection 1 100ml.bag @ 100 mls/hr IVPB Q1H [facility] Rx#: [id number] Vancomycin 1,500 mg In 250 Sodium Chloride 0.9% 250 ml @ 125 mls/hr IVPB Q12H EL[facility] Rx#:[id number] Oral 850 120 Blood Product 212 0 Platelet Irr Pheresis 212 Acda1 Unit [id number] Rc Irr As1 Unit 0 [id number] Output: Urine 2500 120 Other: Voiding Method Bedside Commode Bedside Commode Bedside Commode # Voids 1 1 1 # Bowel Movements 1 1 - Exam PHYSICAL EXAMINATION: GENERAL: The patient is alert and oriented x3, not in any acute distress. Appears to be really tired and fatigued HEENT: Pupils are round and equally reacting to light. EOMI. No scleral icterus. Does have conjunctival pallor. Normocephalic, atraumatic. No pharyngeal erythema. No thyromegaly. Patient has significant crusting in the nose consistent with yesterday's epistaxis CARDIOVASCULAR: S1 and S2 present. No murmurs, rubs, or gallops. PULMONARY: Chest is clear to auscultation, no wheezing or crackles. ABDOMEN: Soft, nontender, nondistended, normoactive bowel sounds. No palpable organomegaly. MUSCULOSKELETAL: No joint swelling or deformity. EXTREMITIES: No cyanosis, clubbing, or pedal edema. NEUROLOGICAL: Gross neurological examination did not reveal any focal deficits. SKIN: Multiple bruises in multiple areas. - Labs CBC & Chem 7: 03/28/20 06:36 03/28/20 06:36 Labs: Abnormal Lab Results - Last 24 Hours (Table) 03/27/20 03/28/20 03/28/20 Range/Units 16:34 06:36 06:36 WBC 0.8 L* (3.8-10.6) k/uL RBC 2.22 L (3.80-5.40) m/uL Hgb 6.7 L* (11.4-16.0) gm/dL Hct 20.2 L (34.0-46.0) % Plt Count 36 L D (150-450) k/uL Sodium 136 L (137-145) mmol/L Potassium 2.9 L (3.5-5.1) mmol/L POC Glucose (mg/dL) 122 H (75-99) mg/dL Calcium 7.1 L (8.4-10.2) mg/dL Crossmatch 03/28/20 Range/Units 09:39 WBC (3.8-10.6) k/uL RBC (3.80-5.40) m/uL Hgb (11.4-16.0) gm/dL Hct (34.0-46.0) % Plt Count (150-450) k/uL Sodium (137-145) mmol/L Potassium (3.5-5.1) mmol/L POC Glucose (mg/dL) (75-99) mg/dL Calcium (8.4-10.2) mg/dL Crossmatch See Detail Microbiology - Last 24 Hours (Table) 03/22/20 06:53 Blood Culture - Final Blood No Growth after 144 hours 03/24/20 18:15 Blood Culture - Preliminary Blood No Growth after 72 hours 03/24/20 18:35 Blood Culture - Preliminary Blood No Growth after 72 hours 03/21/20 06:02 Blood Culture - Final Blood No Growth after 144 hours Assessment and Plan Plan: -Acute GI bleed secondary to severe thrombocytopenia, patient has a partial small bowel obstruction as well: Continue with Protonix patient will be supplemented with platelets and PRBC transfusion as needed today she will not need any of these transfusions. Lasix was switched to oral and patient's diet is being advanced -Fever and sepsis: Repeat blood cultures were obtained patient is being continued on ceftriaxone and metronidazole and vancomycin. -Pulmonary edema secondary to IV fluids patient will be given IV Lasix will order a chest x-ray. -Epistaxis secondary to thrombocytopenia improved after platelet transfusion -Partial small bowel obstruction patient is tolerating diet. -Severe pancytopenia patient is on Rocephin and metronidazole as per infectious disease for possibility of colitis -Enterocolitis and patient is an above-mentioned medications -Bacteremia with coagulase-negative staph this a contamination. -Severe pancytopenia: Secondary to chemotherapy -Hyponatremia resolved -lactic acidosis resolved -type 2 diabetes mellitus -Hypertension -Obesity -AML recently received chemo oncology is following the patient -Tachycardia: Because of severe thrombocytopenia we cannot use the heparin or any other anticoagulation DVT
--- NOTE | 2020-03-28 15:34 | P.PN ---
Progress Note - Text Progress Note Date: 03/28/20 Patient is resting comfortably in bed. She denies any significant abdominal pain. She's had bowel movements. She is tolerating full liquid diet. On exam her vital signs are stable. Abdomen soft. Resolving ileus. Patient liver diet advanced to regular diet.
--- NOTE | 2020-03-28 16:45 | P.PN ---
Subjective Progress Note Date: 03/28/20 Principal diagnosis: Ileus, bacteremia, pancytopenia secondary to chemotherapy, acute myeloid leukemia in follow-up today patient doing ok, she has advanced her diet, tolerated it, she denies fever, nausea, her post nasal drip persists but is a little better, less coughing and gagging on mucus, no chest pain, heart rate is lower, she remains asymptomatic, she does not recall the consistency of her last BM, no recent epistaxis, no other bleeding to report, no pain. Objective - Vital Signs Vital signs: Vital Signs Temp 97.4 F L 03/28/20 14:27 Pulse 113 H 03/28/20 14:27 Resp 16 03/28/20 14:27 BP 145/64 03/28/20 14:27 Pulse Ox 97 03/28/20 12:06 Intake & Output 03/27/20 03/28/20 03/28/20 18:59 06:59 18:59 Intake Total 4093 414 8772 Output Total 2500 120 Balance -4663 294 7101 Weight 90.1 kg Intake: IV 100 100 metroNIDAZOLE-NS PMX 500 100 100 mg In Saline 1 100ml.bag @ 100 mls/hr IVPB Q8HR [facility] Rx#:[id number] Intake, IV Titration 550 100 Amount Cefepime 2 gm In Sodium 100 100 Chloride 0.9% 100 ml @ 200 mls/hr IVPB Q12H [facility] Rx#:[id number] Potassium Chloride 10 meq 200 In Water For Injection 1 100ml.bag @ 100 mls/hr IVPB Q1H [facility] Rx#: [id number] Vancomycin 1,500 mg In 250 Sodium Chloride 0.9% 250 ml @ 125 mls/hr IVPB Q12H [facility] Rx#:[id number] Oral 850 510 Blood Product 212 620 Platelet Irr Pheresis 212 Acda1 Unit [id number] Rc Irr As1 Unit 310 [id number] Output: Urine 2500 120 Other: Voiding Method Bedside Commode Bedside Commode Bedside Commode # Voids 1 1 2 # Bowel Movements 1 1 - Constitutional General appearance: Present: average body habitus, cooperative, no acute distress - EENT Eyes: Present: anicteric sclerae, EOMI ENT: Present: hearing grossly normal, normal oropharynx - Respiratory Respiratory: bilateral: CTA - Cardiovascular Heart sounds: normal: S1, S2 Abnormal Heart Sounds: Absent: systolic murmur, diastolic murmur, rub, S3 Gallop, S4 Gallop, click, other - Peripheral edema leg Peripheral Edema: bilateral: None - Gastrointestinal General gastrointestinal: Present: normal bowel sounds, soft. Absent: absent bowel sounds, decreased bowel sounds, distended, hepatomegaly, hyperactive bowel sounds, organomegaly, rigid, scaphoid, splenomegaly, tenderness, umbilical hernia, ventral hernia - Integumentary Integumentary Comment(s): petechiae on shins continues to improve - Neurologic Neurologic: Present: CNII-XII intact - Musculoskeletal Musculoskeletal: Present: generalized weakness, strength equal bilaterally - Psychiatric Psychiatric: Present: A&O x's 3, appropriate affect, intact judgment & insight - Labs CBC & Chem 7: 03/28/20 06:36 03/28/20 06:36 Labs: Abnormal Lab Results - Last 24 Hours (Table) 03/27/20 03/28/20 03/28/20 Range/Units 16:34 06:36 06:36 WBC 0.8 L* (3.8-10.6) k/uL RBC 2.22 L (3.80-5.40) m/uL Hgb 6.7 L* (11.4-16.0) gm/dL Hct 20.2 L (34.0-46.0) % Plt Count 36 L D (150-450) k/uL Sodium 136 L (137-145) mmol/L Potassium 2.9 L (3.5-5.1) mmol/L POC Glucose (mg/dL) 122 H (75-99) mg/dL Calcium 7.1 L (8.4-10.2) mg/dL Crossmatch 03/28/20 Range/Units 09:39 WBC (3.8-10.6) k/uL RBC (3.80-5.40) m/uL Hgb (11.4-16.0) gm/dL Hct (34.0-46.0) % Plt Count (150-450) k/uL Sodium (137-145) mmol/L Potassium (3.5-5.1) mmol/L POC Glucose (mg/dL) (75-99) mg/dL Calcium (8.4-10.2) mg/dL Crossmatch See Detail Microbiology - Last 24 Hours (Table) 03/22/20 06:53 Blood Culture - Final Blood No Growth after 144 hours 03/24/20 18:15 Blood Culture - Preliminary Blood No Growth after 72 hours 03/24/20 18:35 Blood Culture - Preliminary Blood No Growth after 72 hours Assessment and Plan (1) Pancytopenia due to antineoplastic chemotherapy Narrative/Plan: Anticipated pancytopenia secondary to chemotherapy. This is the week patient's counts should be recovering. We remain hopeful No G-CSF for low white blood cell count. Pending bone marrow biopsy for confirmation of remission status post induction. WBC 0.8, stable today Transfuse to keep hemoglobin 7 or higher unless symptomatic. Transfusion today for a hemoglobin of 6.7 Transfuse to keep platelets greater than 10,000 unless symptomatic. No transfusion today for a platelet count of 36,000, post transfusion. Only irradiated blood products please Current Visit: Yes Status: Acute Priority: High Code(s): D61.810 - ANTINEOPLASTIC CHEMOTHERAPY INDUCED PANCYTOPENIA; T45.1X5A - ADVERSE EFFECT OF ANTINEOPLASTIC AND IMMUNOSUP DRUGS, INIT SNOMED Code(s): 238946295102872 (2) Small bowel obstruction Narrative/Plan: Low white blood cell count secondary to chemotherapy and leukemia impacting the mucosa of the small bowel. Patient continues to be asymptomatic. She is tolerating full liquids. Recommended patient to take a very slow advancing of her diet. Patient is to report immediately any abdominal pain or discomfort and to be return to nothing by mouth status. She is having BMs. Surgery following Current Visit: Yes Status: Acute Priority: High Code(s): K56.609 - UNSP INTESTNL OBST, UNSP TO PARTIAL VERSUS COMPLETE OBST SNOMED Code(s): 957006562 (3) Acute myeloid leukemia Narrative/Plan: Patient is status post induction chemotherapy with 7+3. Plan for bone marrow biopsy early next week to confirm remission Current Visit: Yes Status: Acute Priority: High Code(s): C92.00 - ACUTE MYELOBLASTIC LEUKEMIA, NOT HAVING ACHIEVED REMISSION SNOMED Code(s): 68949870
--- NOTE | 2020-03-29 03:45 | PN ---
PROGRESS NOTE DATE OF SERVICE: 03/28/2020 REASON FOR FOLLOWUP: Diverticulitis and febrile neutropenia. INTERVAL HISTORY: The patient is currently afebrile. Patient has been breathing comfortably. The patient denies having any chest pain or shortness of breath or cough. Abdominal pain is currently controlled. No nausea or vomiting. Still has some diarrhea. PHYSICAL EXAMINATION: Blood pressure 144/64 with a pulse of 113, temperature 97.4. She is 96% on room air. General description is an elderly female up in the chair in no distress. RESPIRATORY SYSTEM: Unlabored breathing, clear to auscultation anteriorly. HEART: S1, S2. Regular rate and rhythm. ABDOMEN: Soft, no tenderness. LABS: Hemoglobin 6.7, white count 0.8, BUN of 14, creatinine 0.76. Blood cultures have been negative. DIAGNOSTIC IMPRESSION AND PLAN: Patient with febrile neutropenia only positive finding has been the diverticulitis with ileus. So far culture has been negative for resistant pathogen. Antibiotic adjusted to Rocephin 2 grams daily with Flagyl which needs to be on discharge for another week and close outpatient followup. MMODL / IJN: [id number] /
[2020-03-29] MEDS: metroNIDAZOLE-NS PMX 500 MG in SALINE 1 100ML.BAG IVPB SCH ×3 (05:20→16:30)
[2020-03-29] MEDS: LORATADINE 10 MG TAB PO SCH (08:48)
[2020-03-29] MEDS: METOPROLOL TARTRATE 12.5 MG TAB PO SCH ×2 (08:48→20:21)
[2020-03-29] MEDS: PANTOPRAZOLE 40 MG TABLET PO SCH (08:49)
[2020-03-29] MEDS: ACYCLOVIR 800 MG TAB PO SCH ×2 (08:49→20:21)
[2020-03-29] MEDS: NYSTATIN 100,000 UNIT/ML SUSP 500,000 UNIT/5 ML CUP PO SCH ×4 (08:49→20:21)
[2020-03-29] MEDS: FUROSEMIDE 20 MG TAB PO SCH ×2 (08:49→16:29)
[2020-03-29 10:42] LABS: African American GFR (CKD) >90 (>60 ml/min/1.73 sqM); Anion Gap 8 mmol/L; Blood Urea Nitrogen 10 mg/dL (7-17); Calcium 7.5 mg/dL (8.4-10.2); Carbon Dioxide 22 mmol/L (22-30); Chloride 105 mmol/L (98-107); Glucose 128 mg/dL (74-99); Non-African American GFR(CKD) >90 (>60 ml/min/1.73 sqM); Potassium 3.7 mmol/L (3.5-5.1); Sodium 135 mmol/L (137-145)
[2020-03-29] MEDS: CHOLESTYRAMINE (WITH SUGAR) 4 GM PACKET PO SCH ×3 (10:48→18:02)
[2020-03-29] MEDS: FLUCONAZOLE 100 MG TAB PO SCH (10:48)
[2020-03-29] MEDS ORDERED: VANCOMYCIN TROUGH DUE 1 EACH MISC MISCELLANE ONE (11:00)
[2020-03-29 11:06] LABS: HGB 8.2 gm/dL (11.4-16.0); MCH 29.4 pg (25.0-35.0); MCHC 32.7 g/dL (31.0-37.0); Mean Platelet Volume 9.4; RBC 2.77 m/uL (3.80-5.40); RDW 14.3 % (11.5-15.5)
[2020-03-29 11:14] VITALS: BMI 34.0
[2020-03-29 11:17] LABS: WBC 1.3 k/uL (3.8-10.6)
[2020-03-29 11:18] LABS: Platelet Count 31 k/uL (150-450)
[2020-03-29] MEDS ORDERED: SALINE NASAL GEL 14.1 GM TUBE TOPICAL PRN (12:09)
--- NOTE | 2020-03-29 12:12 | P.PN ---
Subjective Progress Note Date: 03/29/20 Principal diagnosis: 60-year-old female admitted Acute upper and lower GI bleed secondary to severe pancytopenia secondary to chemotherapy for acute myeloid leukemia. had pl atelets of 1999 yesterday received platelet transfusion presently her platelets are 3000 still has coffee-ground emesis via NG tube patient received 1 unit of PRBC transfusion hemoglobin remained at 6.3 no evidence of lower GI bleed at this time. Patient will receive her transfer transfusion. Which will see transfusion today with irradiated cells. Patient on vancomycin and Zosyn Vanco mycin will be discontinued has there is no evidence of gram-positive sepsis CAT scan of the abdomen did show some enterocolitis and my limited colitis although patient will be started on oral Ceftin as her diverticulitis or colitis is minimal and most probably noninfectious and due to her pancytopenia I'll discontinue Zosyn and patient will be started on oral Ceftin. Patient looks really tired fatigued.Con stitutional: Denied any fatigue denied any fever. 03/21/2020 _Last night because patient has gram-positive cocci in the blood which turned out to be coagulase-negative staph because of which I discontinued vancomycin that was started last night patient doesn't have any coffee-ground emesis today patient hemoglobin main stable at around 6.7 patient received 2 units of blood transfusion yesterday 2 units day before. Patient received 10 units of blood transfusion platelets went up from 3 couple days ago to 39,000 patient remains neutropenic patient remains on Ceftin although there is no evidence of tear sepsis at this time patient is on empiric antibiotic, antivirals and antifungals because of neutropenia from oncology. Infectious disease will be consulted if patient still has an NG tube of less fatigued compared to yesterday 03/22/2020 Is presently on metronidazole and Rocephin, patient has significant decreased output from the NG tube patient had thousand cc last night but that today is pretty minimal because of which are NG tube will be removed. Patient was switched to D5 half-normal because of the potential hyponatremia and and hyperchloremia. Patient is feeling much better patient hemoglobin is 7.7 today with platelet count of 17,000 and a white blood cell count of 400. 03/23/2020 Patient had epistaxis as today after which patient received the platelet transfusion patient is bit tachycardic appears to be sinus tachycardia continue with IV fluids appear to be improving at this time NG tube is out patient does have bowel sounds. Patient was having diarrhea C. diff was negative and the lesion will be started on Questran patient is bit to intravascular well repleted as of which patient became tachycardic continue with IV fluids which she is on at this time and it in the form of 0.45% saline at 100 mL per hour 03/24/2020 Patient is a bit volume overloaded after the chest x-ray which showed pulmonary edema patient given dose of Lasix patient will receive lactic platelet transfusion patient the IV fluids will be discontinued. Patient remains tachycardic 03/25/2020 Patient has crackles on lung exam IV fluids will be discontinued and patient will be given a dose of Lasix will repeat the chest x-ray. Patient's oral serum sodium has come down to 136. Patient had a fever last night blood cultures were obtained and vancomycin was added to her regimen patient is presently on vancomycin metronidazole and ceftriaxone. Patient white blood cell count remain s at 300 hemoglobin 7.6 and platelet count is 32,000 patient did receive 10 units of platelets yesterday. Magnesium remains low which will be replaced. 03/27/2020 Patient is feeling bit better patient remains tachycardic patient REQUIREMENTS HAVE COME DOWN TO CHANGING LASIX TO 20 MG TWICE A DAY IV LASIX IS BEING DISCONTINUED NO CHEST PAIN. Her heart rate is still high 03/28/2020 his hemoglobin probably see 1 unit of PRBC transfusion patient the chloride will be replaced serum chloride is 2.9. Patient is feeling better but still quite weak will obtain PT and OT consultation. Patient the wanted to go home if needed with home physical therapy but does want go to rehabilitation. Cardio vascular: No chest pain or palpitations Gastrointestinal denied any nausea vomiting Pulmonary: Denied any shortness of breath cough Neurologic denied any new focal deficits All inpatient medications were reviewed and appropriate changes in these medications as dictated in the interval history and assessment and plan. 03/29/2020 Patient is seen and evaluated in follow-up sitting up in the chair and appears to be in no acute distress. Patient's hemoglobin is 8.2 today. Patient states she has been up with physical therapy to the bathroom and back with a walker and tolerating well. Patient continues to refuse rehab and states she will be going home once discharged. Hemoglobin is 8.2 today and sodium continues to be 135, potassium improved at 3.7 today. Patient is tolerating a regular diet with no reports of nausea or vomiting noted. Patient denies any chest pain, shortness of breath, or palpitations. Patient is afebrile. Objective - Vital Signs Vital signs: Vital Signs Temp 97.4 F L 03/29/20 04:25 Pulse 103 H 03/29/20 04:25 Resp 20 03/29/20 04:25 BP 130/75 03/29/20 04:25 Pulse Ox 95 03/29/20 04:25 Intake & Output 03/28/20 03/29/20 03/29/20 18:59 06:59 18:59 Intake Total 1470 Output Total 300 Balance 1170 Weight 90 kg 90 kg Intake: IV 100 metroNIDAZOLE-NS PMX 500 100 mg In Saline 1 100ml.bag @ 100 mls/hr IVPB Q8HR [facility] Rx#:[id number] Oral 750 Blood Product 620 Rc Irr As1 Unit 310 [id number] Output: Urine 300 Other: Voiding Method Bedside Commode Bedside Commode # Voids 2 1 # Bowel Movements 1 - Exam GENERAL: The patient is alert and oriented x3, not in any acute distress. Awake, sitting up in the chair, well-developed, well-nourished, talking on the phone HEENT: Pupils are round and equally reacting to light. EOMI. No scleral icterus. Does have conjunctival pallor. Normocephalic, atraumatic. No pharyngeal erythema. No thyromegaly. Nasal cannula noted CARDIOVASCULAR: S1 and S2 present. No murmurs, rubs, or gallops. PULMONARY: Chest is clear to auscultation, no wheezing or crackles. ABDOMEN: Soft, nontender, nondistended, normoactive bowel sounds. No palpable organomegaly. MUSCULOSKELETAL: No joint swelling or deformity. EXTREMITIES: No cyanosis, clubbing, or pedal edema. NEUROLOGICAL: Gross neurological examination did not reveal any focal deficits. SKIN: Multiple bruises in multiple areas noted. - Labs CBC & Chem 7: 03/29/20 10:07 03/29/20 10:07 Labs: Abnormal Lab Results - Last 24 Hours (Table) 03/28/20 03/29/20 03/29/20 Range/Units 09:39 10:07 10:07 RBC 2.77 L (3.80-5.40) m/uL Hgb 8.2 L D (11.4-16.0) gm/dL Hct 25.0 L (34.0-46.0) % Sodium 135 L (137-145) mmol/L Glucose 128 H (74-99) mg/dL Calcium 7.5 L (8.4-10.2) mg/dL Crossmatch See Detail Microbiology - Last 24 Hours (Table) 03/24/20 18:15 Blood Culture - Preliminary Blood No Growth after 96 hours 03/24/20 18:35 Blood Culture - Preliminary Blood No Growth after 96 hours 03/22/20 06:53 Blood Culture - Final Blood No Growth after 144 hours Assessment and Plan Assessment: -Acute GI bleed secondary to severe thrombocytopenia, patient has a partial small bowel obstruction as well: Continue with Protonix patient will be supplemented with platelets and PRBC transfusion as needed. Hemoglobin is 8.2 requiring no transfusion today. -Fever and sepsis: Repeat blood cultures were obtained patient is being co ntinued on ceftriaxone and metronidazole. Repeat blood cultures remain negative -Pulmonary edema secondary to IV fluids. Patient is maintained on oral Lasix twice daily -Epistaxis secondary to thrombocytopenia improved after platelet transfusion -Partial small bowel obstruction patient is tolerating diet. -Severe pancytopenia patient is on Rocephin and metronidazole as per infectious disease for possibility of colitis -Enterocolitis and patient is an above-mentioned medications -Bacteremia with coagulase-negative staph this a contamination. -Severe pancytopenia: Secondary to chemotherapy -Hyponatremia resolved -lactic acidosis resolved -type 2 diabetes mellitus -Hypertension -Obesity -AML recently received chemo oncology is following the patient -Tachycardia Plan: Diet his been advanced and tolerating well. Patient denies any nausea or vomiting. Continue current medications and symptomatic treatment. PT/OT following and patient is tolerating well. Patient continues to refuse rehab at this time. Case management and social work following for possible discharge planning needs once stabilized and discharged. Hemoglobin is stable at 8.2 requiring no transfusion at this time. Will repeat a.m. labs. Further recommendations to follow. Possible discharge in 24-48 hours.
[2020-03-29] MEDS ORDERED: SCOPOLAMINE 1.5MG/72HR PATCH TRANSDERM SCH (12:15)
--- NOTE | 2020-03-29 12:18 | P.PN ---
Subjective Progress Note Date: 03/29/20 Principal diagnosis: Ileus, bacteremia, pancytopenia secondary to chemotherapy, acute myeloid leukemia in follow-up today patient doing good, she had a regular diet breakfast this morning and tolerated well, no nausea, difficulty or painful swallowing, she continues to have intermittent episodes of severe postnasal mucus drainage, causes her to gag, she denies vomiting, it's spitting up/gagging on mucus. No bleeding, palpitations, anxiety, abdominal pain or cramping, patient continues to have difficulty describing her bowel movements, states they are not watery, no pain, hemorrhoids, hematochezia, melena, dysuria or hematuria. She has mild generalized weakness. She is getting up and around more. Objective - Vital Signs Vital signs: Vital Signs Temp 97.4 F L 03/29/20 04:25 Pulse 103 H 03/29/20 04:25 Resp 20 03/29/20 04:25 BP 130/75 03/29/20 04:25 Pulse Ox 95 03/29/20 04:25 Intake & Output 03/28/20 03/29/20 03/29/20 18:59 06:59 18:59 Intake Total 1470 Output Total 300 Balance 1170 Weight 90 kg 90 kg Intake: IV 100 metroNIDAZOLE-NS PMX 500 100 mg In Saline 1 100ml.bag @ 100 mls/hr IVPB Q8HR [facility] Rx#:[id number] Oral 750 Blood Product 620 Rc Irr As1 Unit 310 [id number] Output: Urine 300 Other: Voiding Method Bedside Commode Bedside Commode Bedside Commode # Voids 2 1 # Bowel Movements 1 - Constitutional General appearance: Present: average body habitus, cooperative, no acute distress - EENT EENT Comment(s): Bilateral nares have moderate scabbing from epistaxis Eyes: Present: anicteric sclerae, EOMI ENT: Present: hearing grossly normal, normal oropharynx - Respiratory Respiratory: bilateral: CTA - Cardiovascular Heart sounds: normal: S1, S2 Abnormal Heart Sounds: Absent: systolic murmur, diastolic murmur, rub, S3 Gallop, S4 Gallop, click, other - Peripheral edema leg Peripheral Edema: right: None, left: Trace - Gastrointestinal General gastrointestinal: Present: normal bowel sounds, soft. Absent: absent bowel sounds, decreased bowel sounds, distended, hepatomegaly, hyperactive bowel sounds, organomegaly, rigid, scaphoid, splenomegaly, tenderness, umbilical hernia, ventral hernia - Integumentary Integumentary Comment(s): Petechiae on bilateral shins, stable - Neurologic Neurologic: Present: CNII-XII intact - Musculoskeletal Musculoskeletal: Present: generalized weakness, strength equal bilaterally - Psychiatric Psychiatric: Present: A&O x's 3, appropriate affect, intact judgment & insight - Labs CBC & Chem 7: 03/29/20 10:07 03/29/20 10:07 Labs: Abnormal Lab Results - Last 24 Hours (Table) 03/28/20 03/29/20 03/29/20 Range/Units 09:39 10:07 10:07 RBC 2.77 L (3.80-5.40) m/uL Hgb 8.2 L D (11.4-16.0) gm/dL Hct 25.0 L (34.0-46.0) % Sodium 135 L (137-145) mmol/L Glucose 128 H (74-99) mg/dL Calcium 7.5 L (8.4-10.2) mg/dL Crossmatch See Detail Microbiology - Last 24 Hours (Table) 03/24/20 18:15 Blood Culture - Preliminary Blood No Growth after 96 hours 03/24/20 18:35 Blood Culture - Preliminary Blood No Growth after 96 hours 03/22/20 06:53 Blood Culture - Final Blood No Growth after 144 hours Assessment and Plan (1) Pancytopenia due to antineoplastic chemotherapy Narrative/Plan: Anticipated pancytopenia secondary to chemotherapy. This is the week patient's counts should be recovering. We remain hopeful No G-CSF for low white blood cell count. Pending bone marrow biopsy for confir mation of remission status post induction. WBC pending Transfuse to keep hemoglobin 7 or higher unless symptomatic. No transfusion today for a hemoglobin of 8.2 Transfuse to keep platelets greater than 10,000 unless symptomatic. Pending platelet count. Only irradiated blood products please Current Visit: Yes Status: Acute Priority: High Code(s): D61.810 - ANTINEOPLASTIC CHEMOTHERAPY INDUCED PANCYTOPENIA; T45.1X5A - ADVERSE EFFECT OF ANTINEOPLASTIC AND IMMUNOSUP DRUGS, INIT SNOMED Code(s): 580084050197197 (2) Small bowel obstruction Current Visit: Yes Status: Resolved Priority: High Code(s): K56.609 - UNSP INTESTNL OBST, UNSP TO PARTIAL VERSUS COMPLETE OBST SNOMED Code(s): 428553782 (3) Acute myeloid leukemia Narrative/Plan: Patient is status post induction chemotherapy with 7+3. Plan for bone marrow biopsy Thursday next week to confirm remission Current Visit: Yes Status: Acute Priority: High Code(s): C92.00 - ACUTE MYELOBLASTIC LEUKEMIA, NOT HAVING ACHIEVED REMISSION SNOMED Code(s): 21084648 Plan: Claritin ordered for severe postnasal drip, some improvement in symptoms. Added scopolamine, O2 humidification and normal saline nasal rinses ECHO report reviewed, ejection fraction 55-60%. Patient is noted to be on a beta tony and Lasix. Her heart rate is down a little bit. Patient's counts are starting to show stability with small improvement. Daily follow-up. Daily labs Encourage ambulation and activity. Encourage fluids
[2020-03-29 12:45] LABS: Lymphocytes # (M) 0.52 k/uL (1.0-4.8); Monocytes # (M) 0.16 k/uL (0-1.0); Neutrophils # (M) 0.62 k/uL (1.3-7.7); Neutrophils % (M) 48 %; Nucleated Red Blood Cells 0 /100 WBC (0-0); Total Cells Counted 100
--- NOTE | 2020-03-29 12:59 | PN ---
PROGRESS NOTE DATE OF SERVICE: 03/29/2020 REASON FOR FOLLOWUP: Febrile neutropenia and diverticulitis. INTERVAL HISTORY: The patient is currently afebrile. The patient is feeling better. Breathing comfortably. Denies having any chest pain. No shortness of breath. Occasional cough. No abdominal pain. Did have diarrhea but no worsening. PHYSICAL EXAMINATION: Blood pressure 130/75 with a pulse of 103, temperature 97.4. She is 95% on room air. General description is an elderly female, up in the chair in no distress. RESPIRATORY SYSTEM: Unlabored breathing, decreased breath sounds at the base. HEART: S1, S2. Regular rate and rhythm. ABDOMEN:: Soft, on tenderness. LABS: BUN of 10, creatinine 0.71. Blood cultures have been negative. DIAGNOSTIC IMPRESSION AND PLAN: Patient with febrile neutropenia. Only positive point has been diverticulitis in this patient admitted to the hospital with ileus. Currently on Rocephin 2 g daily and Flagyl can be switched to p.o. Continue with antibiotic for about a week to finish a course of therapy. Continue supportive care. MMODL / IJN: [id number] /
[2020-03-30] MEDS: metroNIDAZOLE-NS PMX 500 MG in SALINE 1 100ML.BAG IVPB SCH ×3 (00:18→15:06)
[2020-03-30 07:16] LABS: HCT 24.4 % (34.0-46.0); HGB 8.2 gm/dL (11.4-16.0); MCHC 33.6 g/dL (31.0-37.0); MCV 92.1 fL (80.0-100.0); RBC 2.65 m/uL (3.80-5.40); RDW 14.3 % (11.5-15.5)
[2020-03-30 07:21] LABS: Platelet Count 35 k/uL (150-450); WBC 1.6 k/uL (3.8-10.6)
[2020-03-30 07:30] LABS: African American GFR (CKD) >90 (>60 ml/min/1.73 sqM); Anion Gap 5 mmol/L; Blood Urea Nitrogen 10 mg/dL (7-17); Calcium 7.5 mg/dL (8.4-10.2); Carbon Dioxide 26 mmol/L (22-30); Chloride 103 mmol/L (98-107); Glucose 107 mg/dL (74-99); Non-African American GFR(CKD) 86 (>60 ml/min/1.73 sqM); Potassium 3.5 mmol/L (3.5-5.1); Sodium 134 mmol/L (137-145)
[2020-03-30 08:53] LABS: Anisocytosis (M) Present; Lymphocytes # (M) 0.64 k/uL (1.0-4.8); Monocytes # (M) 0.26 k/uL (0-1.0); Neutrophils % (M) 44 %; Nucleated Red Blood Cells 0 /100 WBC (0-0); Poikilocytosis (M) Present; Total Cells Counted 100
[2020-03-30] MEDS: PANTOPRAZOLE 40 MG TABLET PO SCH (08:55)
[2020-03-30] MEDS: NYSTATIN 100,000 UNIT/ML SUSP 500,000 UNIT/5 ML CUP PO SCH ×3 (08:55→17:14)
[2020-03-30] MEDS: FUROSEMIDE 20 MG TAB PO SCH ×2 (08:56→15:05)
[2020-03-30] MEDS: FLUCONAZOLE 100 MG TAB PO SCH (08:56)
[2020-03-30] MEDS: METOPROLOL TARTRATE 12.5 MG TAB PO SCH (08:56)
[2020-03-30] MEDS: ACYCLOVIR 800 MG TAB PO SCH (08:56)
[2020-03-30] MEDS: LORATADINE 10 MG TAB PO SCH (08:56)
[2020-03-30] MEDS: CHOLESTYRAMINE (WITH SUGAR) 4 GM PACKET PO SCH ×3 (08:57→17:14)
--- NOTE | 2020-03-30 10:56 | P.PN ---
Progress Note - Text Progress Note Date: 03/30/20 Patient feels better today. She is tolerating diet. She's had a bowel movement. She denies any significant abdominal pain. On exam her vital signs are stable. Her abdomen soft. Resolving ileus. Patient will be hopefully discharge home by the medical service.
--- NOTE | 2020-03-30 12:13 | P.PN ---
Subjective Progress Note Date: 03/30/20 Principal diagnosis: 60-year-old female admitted Acute upper and lower GI bleed secondary to severe pancytopenia secondary to chemotherapy for acute myeloid leukemia. had pl atelets of 1999 yesterday received platelet transfusion presently her platelets are 3000 still has coffee-ground emesis via NG tube patient received 1 unit of PRBC transfusion hemoglobin remained at 6.3 no evidence of lower GI bleed at this time. Patient will receive her transfer transfusion. Which will see transfusion today with irradiated cells. Patient on vancomycin and Zosyn Vanco mycin will be discontinued has there is no evidence of gram-positive sepsis CAT scan of the abdomen did show some enterocolitis and my limited colitis although patient will be started on oral Ceftin as her diverticulitis or colitis is minimal and most probably noninfectious and due to her pancytopenia I'll discontinue Zosyn and patient will be started on oral Ceftin. Patient looks really tired fatigued.Con stitutional: Denied any fatigue denied any fever. 03/21/2020 _Last night because patient has gram-positive cocci in the blood which turned out to be coagulase-negative staph because of which I discontinued vancomycin that was started last night patient doesn't have any coffee-ground emesis today patient hemoglobin main stable at around 6.7 patient received 2 units of blood transfusion yesterday 2 units day before. Patient received 10 units of blood transfusion platelets went up from 3 couple days ago to 39,000 patient remains neutropenic patient remains on Ceftin although there is no evidence of tear sepsis at this time patient is on empiric antibiotic, antivirals and antifungals because of neutropenia from oncology. Infectious disease will be consulted if patient still has an NG tube of less fatigued compared to yesterday 03/22/2020 Is presently on metronidazole and Rocephin, patient has significant decreased output from the NG tube patient had thousand cc last night but that today is pretty minimal because of which are NG tube will be removed. Patient was switched to D5 half-normal because of the potential hyponatremia and and hyperchloremia. Patient is feeling much better patient hemoglobin is 7.7 today with platelet count of 17,000 and a white blood cell count of 400. 03/23/2020 Patient had epistaxis as today after which patient received the platelet transfusion patient is bit tachycardic appears to be sinus tachycardia continue with IV fluids appear to be improving at this time NG tube is out patient does have bowel sounds. Patient was having diarrhea C. diff was negative and the lesion will be started on Questran patient is bit to intravascular well repleted as of which patient became tachycardic continue with IV fluids which she is on at this time and it in the form of 0.45% saline at 100 mL per hour 03/24/2020 Patient is a bit volume overloaded after the chest x-ray which showed pulmonary edema patient given dose of Lasix patient will receive lactic platelet transfusion patient the IV fluids will be discontinued. Patient remains tachycardic 03/25/2020 Patient has crackles on lung exam IV fluids will be discontinued and patient will be given a dose of Lasix will repeat the chest x-ray. Patient's oral serum sodium has come down to 136. Patient had a fever last night blood cultures were obtained and vancomycin was added to her regimen patient is presently on vancomycin metronidazole and ceftriaxone. Patient white blood cell count remain s at 300 hemoglobin 7.6 and platelet count is 32,000 patient did receive 10 units of platelets yesterday. Magnesium remains low which will be replaced. 03/27/2020 Patient is feeling bit better patient remains tachycardic patient REQUIREMENTS HAVE COME DOWN TO CHANGING LASIX TO 20 MG TWICE A DAY IV LASIX IS BEING DISCONTINUED NO CHEST PAIN. Her heart rate is still high 03/28/2020 his hemoglobin probably see 1 unit of PRBC transfusion patient the chloride will be replaced serum chloride is 2.9. Patient is feeling better but still quite weak will obtain PT and OT consultation. Patient the wanted to go home if needed with home physical therapy but does want go to rehabilitation. Cardio vascular: No chest pain or palpitations Gastrointestinal denied any nausea vomiting Pulmonary: Denied any shortness of breath cough Neurologic denied any new focal deficits All inpatient medications were reviewed and appropriate changes in these medications as dictated in the interval history and assessment and plan. 03/29/2020 Patient is seen and evaluated in follow-up sitting up in the chair and appears to be in no acute distress. Patient's hemoglobin is 8.2 today. Patient states she has been up with physical therapy to the bathroom and back with a walker and tolerating well. Patient continues to refuse rehab and states she will be going home once discharged. Hemoglobin is 8.2 today and sodium continues to be 135, potassium improved at 3.7 today. Patient is tolerating a regular diet with no reports of nausea or vomiting noted. Patient denies any chest pain, shortness of breath, or palpitations. Patient is afebrile. 03/30/2020 Patient is seen and evaluated in follow-up today with no acute overnight issues. Patient is tolerating diet with no reports of nausea or vomiting noted. Hemoglobin remained stable at 8.2 and platelets are 35 requiring no transfusions today. Patient was up and working with physical therapy today doing well. No reports of chest pain, shortness of breath, or palpitations. Patient is afebrile. Patient continues to refuse rehab but is agreeable to home care when stabilized and discharged. Objective - Vital Signs Vital signs: Vital Signs Temp 97.5 F L 03/30/20 05:30 Pulse 114 H 03/30/20 05:30 Resp 18 03/30/20 05:30 BP 134/75 03/30/20 05:30 Pulse Ox 96 03/30/20 05:30 Intake & Output 03/29/20 03/30/20 03/30/20 18:59 06:59 18:59 Intake Total 280 Balance 280 Weight 90 kg 89.6 kg Intake: IV 100 metroNIDAZOLE-NS PMX 500 100 mg In Saline 1 100ml.bag @ 100 mls/hr IVPB Q8HR [facility] Rx#:[id number] Oral 180 Other: Voiding Method Bedside Commode Bedside Commode # Voids 2 1 - Exam GENERAL: The patient is alert and oriented x3, not in any acute distress. Awake, sitting up in the chair, well-developed, well-nourished, talking on the phone HEENT: Pupils are round and equally reacting to light. EOMI. No scleral icterus. Normocephalic, atraumatic. No pharyngeal erythema. No thyromegaly. Nasal cannula noted CARDIOVASCULAR: S1 and S2 present. No murmurs, rubs, or gallops. PULMONARY: Diminished breath sounds bilaterally with no wheezing or crackles noted. ABDOMEN: Soft, nontender, nondistended, normoactive bowel sounds. No palpable organomegaly. MUSCULOSKELETAL: No joint swelling or deformity. EXTREMITIES: No cyanosis, clubbing, or pedal edema. NEUROLOGICAL: Gross neurological examination did not reveal any focal deficits. SKIN: Multiple bruises in multiple areas noted. - Labs CBC & Chem 7: 03/30/20 06:54 03/30/20 06:54 Labs: Abnormal Lab Results - Last 24 Hours (Table) 03/29/20 03/30/20 03/30/20 Range/Units 10:07 06:54 06:54 WBC 1.3 L* 1.6 L (3.8-10.6) k/uL RBC 2.65 L (3.80-5.40) m/uL Hgb 8.2 L (11.4-16.0) gm/dL Hct 24.4 L (34.0-46.0) % Plt Count 31 L 35 L (150-450) k/uL Neutrophils # (Manual) 0.62 L 0.70 L (1.3-7.7) k/uL Lymphocytes # (Manual) 0.52 L 0.64 L (1.0-4.8) k/uL Sodium 134 L (137-145) mmol/L Glucose 107 H (74-99) mg/dL Calcium 7.5 L (8.4-10.2) mg/dL Microbiology - Last 24 Hours (Table) 03/24/20 18:15 Blood Culture - Preliminary Blood No Growth after 120 hours 03/24/20 18:35 Blood Culture - Preliminary Blood No Growth after 120 hours Assessment and Plan Assessment: -Acute GI bleed secondary to severe thrombocytopenia, patient has a partial small bowel obstruction as well: Continue with Protonix patient will be supplemented with platelets and PRBC transfusion as needed. Hemoglobin is 8.2 requiring no transfusion today. Platelets are 35 today -Fever and sepsis: Repeat blood cultures were obtained patient is being continued on ceftriaxone and metronidazole. Repeat blood cultures remain negative -Pulmonary edema secondary to IV fluids. Patient is maintained on oral Lasix twice daily -Epistaxis secondary to thrombocytopenia improved after platelet transfusion -Partial small bowel obstruction patient is tolerating diet. -Severe pancytopenia patient is on Rocephin and metronidazole as per infectious disease for possibility of colitis -Enterocolitis and patient is an above-mentioned medications -Bacteremia with coagulase-negative staph this a contamination. -Severe pancytopenia: Secondary to chemotherapy -Hyponatremia resolved -lactic acidosis resolved -type 2 diabetes mellitus -Hypertension -Obesity -AML recently received chemo oncology is following the patient -Tachycardia Plan: Diet has been advanced and tolerating well. Patient denies any nausea or vomiting. Continue current medications and symptomatic treatment. PT/OT following and patient is tolerating well. Patient will be going home with home care. Case management and social work following for possible discharge planning needs once stabilized and discharged. Hemoglobin is stable at 8.2 requiring no transfusion at this time. Will repeat a.m. labs. Further recommendations to follow. Possible discharge in 24 hours.
[2020-03-30 15:13] VITALS: BP 121/71; RESP 16; TEMP 97.3
--- NOTE | 2020-03-30 15:14 | P.DS ---
Providers Date of admission: 03/19/20 15:42 Expected date of discharge: 03/30/20 Attending physician: Elizabeth Tse Consults: 03/19/20 16:21 Consult Physician Stat Consulting Provider: David Cedeno Consult Reason/Comments: AML, gi bleed, pancytopenia, SBO, acute diverticulitis Do you want consulting provider notified?: Yes 03/19/20 17:51 Consult Physician Routine Consulting Provider: Juan R Queen Consult Reason/Comments: malignancy Do you want consulting provider notified?: Yes 03/21/20 10:44 Consult Physician Routine Consulting Provider: Lui Kenyon Consult Reason/Comments: Bacteremia Do you want consulting provider notified?: Yes Primary care physician: Home Chambers Hospital Course: Final Diagnosis -Acute GI bleed secondary to severe thrombocytopenia -Partial small bowel obstruction -Diverticulitis as noted on CT -Fever and sepsis -Pulmonary edema secondary to IV fluids -Epistaxis secondary to thrombocytopenia -Severe pancytopenia -Enterocolitis -Bacteremia with coagulase-negative staph this a contamination. -Severe pancytopenia: Secondary to chemotherapy -Hyponatremia resolved -lactic acidosis resolved -type 2 diabetes mellitus -Hypertension -Obesity -AML recently received chemo oncology is following the patient -Tachycardia Discharge disposition Patient is being discharged in a stable condition with guarded prognosis to home and will continue with home care in the outpatient setting. Patient instructed to follow-up with oncology as scheduled along with Dr. Chambers and surgery in the outpatient setting. Patient will continue on a short course of oral antibiotics for the next 3 days and then may discontinue. Patient is scheduled for a bone marrow biopsy at [facility] and a prescription was also provided for repeat labs to monitor hemoglobin. Total time taken is 35 minutes. History of present illness This is a 65-year-old female who was recently admitted with acute upper and lower GI bleed secondary to severe pancytopenia secondary to chemotherapy for acute myeloid leukemia and was being closely monitored. Patient had a computed tomography scan done which showed some enterocolitis and diverticulitis and was seen and evaluated by surgery. Patient had a total of 4 units of PRBCs and 1 unit of platelets during hospitalization. Patient's hemoglobin is 8.2 and platelets are 35 requiring no transfusions. She will follow-up as scheduled outpatient with oncology and is also scheduled to have a bone marrow biopsy this Thursday at [facility] and will have repeat labs in a few days to monitor hemoglobin. Patient was quite weak and working with physical therapy recommending possible subacute rehab although she is refusing to go to rehab but is agreeable with home care. Currently no reports of chest pain, shortness of breath, or palpitations. Patient is afebrile. No reports of nausea or vomiting and patient is tolerating diet. Guarded prognosis. On exam vital signs are stable. Temp is 97.5F, pulse is 114, respirations are 18, blood pressure 134/75, oxygen saturation is 96% on 3 L via nasal cannula. Cardio S1, S2 are present. Respiratory system shows diminished breath sounds at the bases with some scattered rhonchi noted. Abdomen is soft, obese, nontender. Nervous system shows no focal deficits. Please refer to medication reconciliation sheet for a list of medications. Patient Condition at Discharge: Stable Plan - Discharge Summary Discharge Rx Participant: No New Discharge Prescriptions: New metroNIDAZOLE [Flagyl] 500 mg PO Q8HR #9 tab Levofloxacin [Levaquin] 500 mg PO DAILY 3 Days #3 tab Loratadine [Claritin] 5 mg PO DAILY 30 Days #30 tab Loperamide [Imodium] 2 mg PO QID PRN #20 cap PRN Reason: Diarrhea Furosemide [Lasix] 20 mg PO BID@0900,1600 30 Days #60 tab Metoprolol Tartrate [Lopressor] 12.5 mg PO BID 30 Days #60 tab Pantoprazole [Protonix] 40 mg PO DAILY 30 Days #30 tablet. Cholestyramine (with Sugar) [Questran Packet] 4 gm PO TID BETWEEN MEALS #20 packet Scopolamine 1.5MG/72Hr Patch [TransDerm Scop] 1 patch TRANSDERM Q72H #6 patch Acetaminophen Tab [Tylenol] 650 mg PO Q6HR PRN #30 tab PRN Reason: Fever And/ Or Pain Continue Famotidine [Pepcid] 20 mg PO BID tab Acyclovir [Zovirax] 800 mg PO BID Fluconazole [Diflucan] 100 mg PO DAILY Nystatin 100,000 Unit/ml Susp [Mycostatin Oral Susp] 5 ml PO QID Discontinued Lisinopril 20 mg PO DAILY Ibuprofen [Motrin] 800 mg PO TID PRN PRN Reason: Pain Ciprofloxacin HCl 500 mg PO DAILY Discharge Medication List Famotidine [Pepcid] 20 mg PO BID tab 05/12/20 [Rx] Acyclovir [Zovirax] 800 mg PO BID 03/19/20 [History] Fluconazole [Diflucan] 100 mg PO DAILY 03/19/20 [History] Nystatin 100,000 Unit/ml Susp [Mycostatin Oral Susp] 5 ml PO QID 03/19/20 [History] Acetaminophen Tab [Tylenol] 650 mg PO Q6HR PRN #30 tab 03/30/20 [Rx] Cholestyramine (with Sugar) [Questran Packet] 4 gm PO TID BETWEEN MEALS #20 packet 03/30/20 [Rx] Furosemide [Lasix] 20 mg PO BID@0900,1600 30 Days #60 tab 03/30/20 [Rx] Levofloxacin [Levaquin] 500 mg PO DAILY 3 Days #3 tab 03/30/20 [Rx] Loperamide [Imodium] 2 mg PO QID PRN #20 cap 03/30/20 [Rx] Loratadine [Claritin] 5 mg PO DAILY 30 Days #30 tab 03/30/20 [Rx] Metoprolol Tartrate [Lopressor] 12.5 mg PO BID 30 Days #60 tab 03/30/20 [Rx] Pantoprazole [Protonix] 40 mg PO DAILY 30 Days #30 tablet. 03/30/20 [Rx] Scopolamine 1.5MG/72Hr Patch [TransDerm Scop] 1 patch TRANSDERM Q72H #6 patch 03/30/20 [Rx] metroNIDAZOLE [Flagyl] 500 mg PO Q8HR #9 tab 03/30/20 [Rx] Follow up Appointment(s)/Referral(s): Home Chambers DO [Primary Care Provider] - 1-2 days [facility], [NON-STAFF] - [facility],Infusion [NON-STAFF] - David Cedeno MD [STAFF PHYSICIAN] - 1 Week Ambulatory/Diagnostic Orders: Complete Blood Count w/diff [LAB.AMB] Time Frame: 2 Days, Location: None Selected Activity/Diet/Wound Care/Special Instructions: activity Limited until follow-up continue current diet Continue with Antibiotics until finished Follow-up with primary care provider Follow-up with oncology as scheduled Discharge Disposition: HOME WITH HOME HEALTH SERVICES
--- NOTE | 2020-03-30 15:32 | PN ---
PROGRESS NOTE DATE OF SERVICE: 03/30/2020 REASON FOR FOLLOWUP: Febrile neutropenia with diverticulitis. INTERVAL HISTORY: The patient is currently afebrile, patient is breathing comfortably. Patient denies having any chest pain. No shortness of breath. No cough. Abdominal pain is currently controlled. No nausea, vomiting and diarrhea has improved. PHYSICAL EXAMINATION: On examination, her blood pressure is 134/75, pulse of 140 temperature 97.5. She is 96% on 2 L nasal cannula. General description is an elderly female, up in the chair in no distress. RESPIRATORY SYSTEM: Unlabored breathing, clear to auscultation anteriorly. HEART: S1, S2. Regular rate and rhythm. ABDOMEN: Soft. no tenderness. LABS: Hemoglobin 8.1, white count of 1.7, BUN of 10, creatinine 0.74. Blood culture has been negative. DIAGNOSTIC IMPRESSION AND PLAN: Patient with febrile neutropenia with the only abnormality seen so far is the diverticulitis. The patient currently covered with Rocephin and Flagyl, finish therapy for about a week. Antibiotic to continue and monitor clinical course closely. MMODL / IJN: [id number] /
[2020-03-30 15:39] VITALS: PULSE 110
--- NOTE | 2020-03-30 22:10 | P.PN ---
Subjective Progress Note Date: 03/30/20 Principal diagnosis: AML Sitting up in chair during follow-up visit, no acute complaints. Still with diarrhea, although improving. CBC is stable today Objective - Vital Signs Vital signs: Vital Signs Temp 97.5 F L 03/30/20 05:30 Pulse 111 H 03/30/20 08:00 Resp 18 03/30/20 08:00 BP 134/75 03/30/20 05:30 Pulse Ox 96 03/30/20 05:30 Intake & Output 03/29/20 03/30/20 03/30/20 18:59 06:59 18:59 Intake Total 280 1080 Output Total 300 Balance 280 780 Weight 90 kg 89.6 kg Intake: IV 100 metroNIDAZOLE-NS PMX 500 100 mg In Saline 1 100ml.bag @ 100 mls/hr IVPB Q8HR [facility] Rx#:[id number] Oral 180 1080 Output: Urine 300 Other: Voiding Method Bedside Commode Bedside Commode Bedside Commode # Voids 2 1 1 - Exam - Constitutional General appearance: Present: average body habitus, cooperative, no acute distress - EENT EENT Comment(s): Bilateral nares have moderate scabbing from epistaxis Eyes: Present: anicteric sclerae, EOMI ENT: Present: hearing grossly normal, normal oropharynx - Respiratory Respiratory: bilateral: CTA - Cardiovascular Heart sounds: normal: S1, S2 Abnormal Heart Sounds: Absent: systolic murmur, diastolic murmur, rub, S3 Gallop, S4 Gallop, click, other - Peripheral edema leg Peripheral Edema: right: None, left: Trace - Gastrointestinal General gastrointestinal: Present: normal bowel sounds, soft. Absent: absent bowel sounds, decreased bowel sounds, distended, hepatomegaly, hyperactive bowel sounds, organomegaly, rigid, scaphoid, splenomegaly, tenderness, umbilical hernia, ventral hernia - Integumentary Integumentary Comment(s): Petechiae on bilateral shins, stable - Neurologic Neurologic: Present: CNII-XII intact - Musculoskeletal Musculoskeletal: Present: generalized weakness, strength equal bilaterally - Psychiatric Psychiatric: Present: A&O x's 3, appropriate affect, intact judgment & insight - Labs CBC & Chem 7: 03/30/20 06:54 03/30/20 06:54 Labs: Abnormal Lab Results - Last 24 Hours (Table) 03/30/20 03/30/20 Range/Units 06:54 06:54 WBC 1.6 L (3.8-10.6) k/uL RBC 2.65 L (3.80-5.40) m/uL Hgb 8.2 L (11.4-16.0) gm/dL Hct 24.4 L (34.0-46.0) % Plt Count 35 L (150-450) k/uL Neutrophils # (Manual) 0.70 L (1.3-7.7) k/uL Lymphocytes # (Manual) 0.64 L (1.0-4.8) k/uL Sodium 134 L (137-145) mmol/L Glucose 107 H (74-99) mg/dL Calcium 7.5 L (8.4-10.2) mg/dL Microbiology - Last 24 Hours (Table) 03/24/20 18:15 Blood Culture - Preliminary Blood No Growth after 120 hours 03/24/20 18:35 Blood Culture - Preliminary Blood No Growth after 120 hours Assessment and Plan Plan: Assessment and Plan Pancytopenia due to antineoplastic chemotherapy - Improving - BOne Marrow Biopsy to re-evaluate chemotherapy effect on Tuesday 04/03/at 12:30, patient aware written and verbally - No GCSF secondary to no confirmed remission - Transfuse to keep hemoglobin 7 or higher unless symptomatic. No transfusion today for a hemoglobin of 8.2 - Transfuse to keep platelets greater than 10,000 unless symptomatic. Pending platelet count. - Only irradiated blood products please Small bowel obstruction Acute myeloid leukemia OK for discharge from oncology standpoint, will need prophylaxis antiviral, anti-ungal and Abx - Thursday for cbc check in office at 1pm - BM Biopsy - If discharge thursday check cbc prior to evaluate for transfusion support need prior Physician Attest: I have completed full history and physical and agree with above. Dictated as a scribe
== END 2020-03-30 20:44 | disposition home health service (06) | DRG 871 ==
LOC: EC 10:51 → 3SCARD 15:42 → 5NMEDONC 03-28 21:29
PROVIDERS: ADMIT Hospitalist; ATTEND Hospitalist
PROC: 6A551Z2 Pheresis of Platelets, Multiple (ICD-10-PCS; principal; 2020-03-19)
PROC: 30233N1 Transfusion of Nonautologous Red Blood Cells into Peripheral Vein, Percutaneous Approach (ICD-10-PCS; principal; 2020-03-19)
PROC: 30233K1 Transfusion of Nonautologous Frozen Plasma into Peripheral Vein, Percutaneous Approach (ICD-10-PCS; 2020-03-27)
DX: A41.9 Sepsis, unspecified organism (principal); K57.33 Diverticulitis of large intestine without perforation or abscess with bleeding; D61.810 Antineoplastic chemotherapy induced pancytopenia; C92.00 Acute myeloblastic leukemia, not having achieved remission; D68.9 Coagulation defect, unspecified; E44.1 Mild protein-calorie malnutrition; E87.1 Hypo-osmolality and hyponatremia; E87.2 Acidosis; J81.1 Chronic pulmonary edema; K56.600 Partial intestinal obstruction, unspecified as to cause; K56.7 Ileus, unspecified; E66.9 Obesity, unspecified; Z68.33 Body mass index [BMI] 33.0-33.9, adult; E87.6 Hypokalemia; E87.70 Fluid overload, unspecified; I10 Essential (primary) hypertension; E11.9 Type 2 diabetes mellitus without complications; K52.89 Other specified noninfective gastroenteritis and colitis; K76.0 Fatty (change of) liver, not elsewhere classified; M79.7 Fibromyalgia; R04.0 Epistaxis; R13.10 Dysphagia, unspecified; T45.1X5A Adverse effect of antineoplastic and immunosuppressive drugs, initial encounter; Z79.899 Other long term (current) drug therapy; Z20.828 Contact with and (suspected) exposure to other viral communicable diseases; R91.8 Other nonspecific abnormal finding of lung field
CPT/HCPCS: 36415; 36430; 71045; 74177; 76705; 80048; 80053; 80202; 81001; 82248; 82272; 83605; 83690; 83735; 84100; 85025; 85027; 85610; 85730; 86850; 86900; 86901; 86920; 87040; 87077; 87086; 87186; 87324; 93306; 96365; 96375; 99285

== ENCOUNTER 2020-04-03 11:24 | Day surgery (SDC) | payer MEDICARE ==
[2020-04-02 08:54] VITALS: BMI 34.0
[~2020-04-03 11:24] MED LIST: LACTATED RINGERS 1,000 ML IV SCH
[2020-04-03 11:52] VITALS: TEMP 96.2
[2020-04-03] MEDS ORDERED: LIDOCAINE 1% (10MG/ML) FOR IV START INTRADERMA ONE (12:03)
[2020-04-03 12:21] LABS: HCT 24.2 % (34.0-46.0); MCH 30.9 pg (25.0-35.0); MCHC 34.1 g/dL (31.0-37.0); MCV 90.8 fL (80.0-100.0); Mean Platelet Volume 9.3; RBC 2.67 m/uL (3.80-5.40); RDW 15.2 % (11.5-15.5); WBC 5.2 k/uL (3.8-10.6)
[2020-04-03 12:24] LABS: HGB 8.2 gm/dL (11.4-16.0); Platelet Count 165 k/uL (150-450)
[2020-04-03] MEDS ORDERED: PROPOFOL 10 MG/ML 20 ML VIAL IV ONE (12:42)
--- NOTE | 2020-04-03 13:02 | P.PCN ---
Date of Procedure: 04/03/20 Preoperative Diagnosis: Acute myeloid leukemia, status post induction chemotherapy Postoperative Diagnosis: Same Procedure(s) Performed: Bone marrow aspiration and biopsy Anesthesia: MAC Surgeon: Juan R Queen Access Registrar #1: Stated None Estimated Blood Loss (ml): 2 Pathology: other Condition: stable Disposition: same day Indications for Procedure: Acute myeloid leukemia, status post induction chemotherapy. Bone marrow aspiration biopsy being done for restaging Operative Findings: Adequate sample Description of Procedure: The procedure was explained in detail to the patient when she was admitted to the hospital recently. She presented to the outpatient endoscopy suite for IV access and informed consent was obtained. She was then placed in the left lateral decubitus position. The area over both posterior iliac crest was cleaned and prepped with chlorhexidine and sterile draping. IV sedation was then initiated. Local anesthesia was administered with lidocaine to the right posterior hilar crest. A Jamshidi needle was then inserted and bone marrow aspirate and biopsy obtained. On withdrawal of the needle hemostasis was easily achieved. Blood loss was minimal and recovery from sedation was satisfactory. She appeared to have tolerated the procedure well without any obvious immediate complications.
[2020-04-03 13:05] VITALS: RESP 17
[2020-04-03 13:10] LABS: Lymphocytes # (M) 2.24 k/uL (1.0-4.8); Monocytes # (M) 0.68 k/uL (0-1.0); Neutrophils # (M) 2.29 k/uL (1.3-7.7); Neutrophils % (M) 44 %; Nucleated Red Blood Cells 0 /100 WBC (0-0); Total Cells Counted 100
[2020-04-03 13:11] LABS: Polychromasia Present
[2020-04-03 13:12] VITALS: BP 112/59; PULSE 103
[2020-04-03 13:49] LABS: Reticulocyte % 1.5 % (0.5-2.0)
== END 2020-04-03 13:33 | disposition home or self-care (01) ==
LOC: OR 11:24
PROVIDERS: ATTEND Internal Medicine Hematology & Oncology
DX: C92.50 Acute myelomonocytic leukemia, not having achieved remission (principal); D64.9 Anemia, unspecified; E11.9 Type 2 diabetes mellitus without complications; I10 Essential (primary) hypertension; K21.9 Gastro-esophageal reflux disease without esophagitis; Z92.21 Personal history of antineoplastic chemotherapy; Z79.899 Other long term (current) drug therapy; Z79.1 Long term (current) use of non-steroidal anti-inflammatories (NSAID); Z98.890 Other specified postprocedural states; Z96.653 Presence of artificial knee joint, bilateral; Z90.89 Acquired absence of other organs; Z86.19 Personal history of other infectious and parasitic diseases; Z80.3 Family history of malignant neoplasm of breast; Z80.0 Family history of malignant neoplasm of digestive organs; Z80.1 Family history of malignant neoplasm of trachea, bronchus and lung
CPT/HCPCS: 85025; 85045; 38222; J2704

== ENCOUNTER → 2020-05-09 | Outpatient (CLI) | payer MEDICARE ==
--- NOTE | 2020-05-09 11:22 | US ---
EXAMINATION TYPE: US venous doppler duplex LE LT DATE OF EXAM: 05/09/2020 11:14 AM COMPARISON: Prior bilateral ultrasound February 18, 2020 CLINICAL HISTORY: M79.662,R22.42 PAIN AND SWELLING LT LOWER LEG. Pt states left leg pain/swelling SIDE PERFORMED: Left TECHNIQUE: The lower extremity deep venous system is examined utilizing real time linear array sonog ankur with graded compression, doppler sonography and color-flow sonography. VESSELS IMAGED: External Iliac Vein (EIV) Common Femoral Vein Deep Femoral Vein Greater Saphenous Vein * Femoral Vein Popliteal Vein Small Saphenous Vein * Proximal Calf Veins (* superficial vessels) Left Leg: Negative for DVT Results called to Patti at Dr's office at time of exam Grayscale, color doppler, spectral doppler imaging performed of the deep veins of the left lower extr emity. There is normal flow, compressibility, vascular waveforms. IMPRESSION: No ultrasound evidence for acute DVT in the left lower extremity.
== END | disposition home or self-care (01) ==
LOC: RADUSWWP 10:57
PROVIDERS: ATTEND Internal Medicine Hematology & Oncology
DX: M79.662 Pain in left lower leg (principal); R22.42 Localized swelling, mass and lump, left lower limb

== ENCOUNTER 2020-05-14 09:06 | Inpatient (IN) | payer MEDICARE ==
[~2020-05-14 09:06] MED LIST changes: -LACTATED RINGERS 1,000 ML IV SCH; +LORazepam 2 MG/ML INJ IV PRN; +ONDANSETRON 4 MG/2 ML VIAL IVP PRN; +SALT AND SODA MOUTHWASH 1,000 ML PO PRN
[2020-05-14] MEDS: SODIUM CHLORIDE 0.9% 1,000 ML IV SCH ×2 (10:13→17:11)
[2020-05-14 10:35] LABS: Anisocytosis Slight; Basophils % (A) 0 %; Eosinophils # (A) 0.1 k/uL (0-0.7); Eosinophils % (A) 1 %; HCT 24.1 % (34.0-46.0); HGB 7.7 gm/dL (11.4-16.0); Hypochromasia Moderate; Lymphocytes # (A) 1.4 k/uL (1.0-4.8); Lymphocytes % (A) 22 %; MCH 32.4 pg (25.0-35.0); MCHC 31.9 g/dL (31.0-37.0); Macrocytosis Moderate; Monocytes # (A) 0.3 k/uL (0-1.0); Monocytes % (A) 5 %; Neutrophils # (A) 4.3 k/uL (1.3-7.7); Neutrophils % (A) 70 %; Platelet Count 178 k/uL (150-450); RBC 2.38 m/uL (3.80-5.40); RDW 19.4 % (11.5-15.5); WBC 6.2 k/uL (3.8-10.6)
[2020-05-14 10:50] LABS: ALT 13 U/L (4-34); AST 18 U/L (14-36); African American GFR (CKD) >90 (>60 ml/min/1.73 sqM); Albumin 3.4 g/dL (3.5-5.0); Alkaline Phosphatase 159 U/L (38-126); Anion Gap 9 mmol/L; Blood Urea Nitrogen 11 mg/dL (7-17); Calcium 8.7 mg/dL (8.4-10.2); Carbon Dioxide 21 mmol/L (22-30); Chloride 111 mmol/L (98-107); Glucose 112 mg/dL (74-99); Non-African American GFR(CKD) >90 (>60 ml/min/1.73 sqM); Phosphorus 3.2 mg/dL (2.5-4.5); Potassium 3.4 mmol/L (3.5-5.1); Sodium 141 mmol/L (137-145); Total Bilirubin 0.8 mg/dL (0.2-1.3); Total Protein 6.6 g/dL (6.3-8.2); Uric Acid 4.2 mg/dL (3.7-7.4)
[2020-05-14 10:52] LABS: MCV 101.4 fL (80.0-100.0)
[2020-05-14] MEDS: DEXAMETHASONE SOD PHOSPHATE 10 MG/ML 1 ML VIAL IV SCH (11:04)
[2020-05-14] MEDS: prednisoLONE ACETATE 1% OPHTH DROPS 5 ML BTL BOTH EYES SCH ×4 (11:04→21:29)
[2020-05-14] MEDS: ONDANSETRON 16 MG in SODIUM CHLORIDE 0.9% 50 ML IVPB SCH (11:04)
[2020-05-14] MEDS: FAMOTIDINE 20 MG/2 ML VIAL IVP SCH (11:04)
[2020-05-14] MEDS: SALT AND SODA MOUTHWASH 1,000 ML PO SCH ×2 (11:56→17:11)
[2020-05-14] MEDS: CYTARABINE IV SCH (11:57)
[2020-05-14] MEDS: SODIUM CHLORIDE 0.9% IV SCH (11:57)
--- NOTE | 2020-05-14 13:58 | P.HPIM ---
History of Present Illness H&P Date: 05/14/20 Chief Complaint: Admit for consolidation with high-dose araC Mrs. rivera is admitted for first cycle of consolidation treatment with high- dose araC. On admit she has no fevers, oral irritation, sore throat, appetite is fair to good, she has persistent nausea that is decreased with the use of scopolamine as well as intermittent use of anti-emetic, no recent vomiting, hematocrit emesis, hemoptysis, shortness of breath or cough, patient has been instructed on the absolute importance of ambulation and maintaining strength, no current abdominal pain, cramping, distention, dysuria, hematuria, diarrhea or constipation. She has chronic left lower extremity swelling, she was recently checked for DVT, no blood clot. Patient also has a healing stage I decubitus ( says it pretty much healed over now), this was secondary to prolonged hospitalization after her induction chemotherapy. Patient is ready to proceed forward with treatment. Malignancy history: Patient was seen initially in consult 02/18/20. 2-3 weeks prior to admission patient was experiencing increased weakness, generalized achiness and heaviness in the legs, dyspnea on exertion. 2-3 days prior to admission she developed severe left upper quadrant pain. On admission WBC was 1:15, hemoglobin 6.3 platelets 126,000. Differential showed predominantly neutrophils, overall increase and also types and presence of immature cell forms including 3% blasts. Bone marrow biopsy and aspirate 02/22/20, started on Hydrea, sent for rehab. He was returned as acute myeloid leukemia. Induction with 7+3 was completed at the end of February. She had a prolonged hospitalization in March. She had a follow-up bone marrow biopsy 04/03/20 that showed a good response, patient was seen by bone marrow transplant team and felt to be a good candidate for consolidation treatment. She is just now felt to be rehabilitated enough to begin consolidation. 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-chemo last dose February ,diverticulosis History of Any Multi-Drug Resistant Organisms: None Reported Past Surgical History: Section, Orthopedic Surgery, Tonsillectomy Past Anesthesia/Blood Transfusion Reactions: No Reported Reaction Past Psychological History: No Psychological Hx Reported Smoking Status: Never smoker Past Alcohol Use History: None Reported Past Drug Use History: None Reported - Past Family History Mother Additional Family Medical History / Comment(s): MRSA infection in foot Medications and Allergies Home Medications Medication Instructions Recorded Confirmed Type Metoprolol Tartrate [Lopressor] 12.5 mg PO BID 30 Days #60 tab 03/30/20 05/14/20 Rx Scopolamine 1.5MG/72Hr Patch 1 patch TRANSDERM Q72H #6 patch 03/30/20 05/14/20 Rx [TransDerm Scop] Loratadine 10 mg PO DAILY 05/14/20 05/14/20 History Allergies Allergy/AdvReac Type Severity Reaction Status Date / Time No Known Allergies Allergy Verified 05/14/20 10:21 Physical Exam Vitals: Vital Signs Temp Pulse Resp BP Pulse Ox 05/14/20 10:02 98.1 F 98 17 118/69 95 Intake and Output 05/13/20 05/14/20 05/14/20 22:59 06:59 14:59 Intake Total 240 Balance 240 Intake: Oral 240 Other: Weight 85.275 kg - Constitutional General appearance: average body habitus, cooperative, no acute distress - EENT Eyes: anicteric sclerae, EOMI, poor dentition ENT: hearing grossly normal, normal oropharynx - Neck Neck: lymphadenopathy - Respiratory Respiratory: bilateral: CTA - Cardiovascular Rhythm: regular Heart sounds: normal: S1, S2 Abnormal Heart Sounds: no systolic murmur, no diastolic murmur, no rub, no S3 Gallop, no S4 Gallop, no click, no other - Gastrointestinal General gastrointestinal: no absent bowel sounds, no decreased bowel sounds, no distended, no hepatomegaly, no hyperactive bowel sounds, normal bowel sounds, no organomegaly, no rigid, no scaphoid, soft, no splenomegaly, no tenderness, no umbilical hernia, no ventral hernia - Integumentary Integumentary: pale - Neurologic Neurologic: CNII-XII intact - Musculoskeletal Musculoskeletal: strength equal bilaterally - Psychiatric Psychiatric: A&O x's 3, appropriate affect, intact judgment & insight Results CBC & Chem 7: 05/14/20 10:20 05/14/20 10:20 Labs: Abnormal Lab Results - Last 24 Hours (Table) 05/14/20 05/14/20 Range/Units 10:20 10:20 RBC 2.38 L (3.80-5.40) m/uL Hgb 7.7 L (11.4-16.0) gm/dL Hct 24.1 L (34.0-46.0) % MCV 101.4 H D (80.0-100.0) fL RDW 19.4 H (11.5-15.5) % Potassium 3.4 L (3.5-5.1) mmol/L Chloride 111 H (98-107) mmol/L Carbon Dioxide 21 L (22-30) mmol/L Glucose 112 H (74-99) mg/dL Alkaline Phosphatase 159 H (38-126) U/L Albumin 3.4 L (3.5-5.0) g/dL Thrombosis Risk Factor Assmnt - DVT/VTE Prophylaxis DVT/VTE Prophylaxis: Pharmacologic Prophylaxis ordered - Choose All That Apply Any of the Below Risk Factors Present?: Yes Each Factor Represents 1 point: Obesity (BMI >25) Other Risk Factors: Yes Each Risk Factor Represents 2 Points: Age 61-74 years, Malignancy Other congenital or acquired thrombophilia - If yes, enter type in comment: No Thrombosis Risk Factor Assessment Total Risk Factor Score: 5 Thrombosis Risk Factor Assessment Level: High Risk Assessment and Plan (1) Acute myeloid leukemia Narrative/Plan: Admit for first cycle of consolidation with high-dose araC. Chemotherapy orders reviewed. Supportive medications ordered. Labs daily while inpatient. Aggressive PT/OT, nonnegotiable. Patient is going to be admitted for treatment of acute leukemia she needs to comply with medical recommendations. PT/OT consulted Dietitian consulted to keep patient's nutritional status on track. Current food to be brought from home to keep patient eating. Current Visit: Yes Status: Chronic Priority: High Code(s): C92.00 - ACUTE MYELOBLASTIC LEUKEMIA, NOT HAVING ACHIEVED REMISSION SNOMED Code(s): 43382516 (2) Anemia Narrative/Plan: Moderate, multifactorial including leukemia and treatment of leukemia also recent acute prolonged illness. Transfuse for hemoglobin less than 7 unless patient is symptomatic. Irradiated blood products only Current Visit: Yes Status: Chronic Priority: Medium Code(s): D64.9 - ANEMIA, UNSPECIFIED SNOMED Code(s): 153773104 Plan: Daily follow-up. Internal medicine consulted for medical management.
[2020-05-14] MEDS: SCOPOLAMINE 1.5MG/72HR PATCH TRANSDERM SCH (15:23)
[2020-05-14 17:54] VITALS: BMI 32.2
[2020-05-14] MEDS: METOPROLOL TARTRATE 12.5 MG TAB PO SCH (21:29)
[2020-05-15] MEDS: SODIUM CHLORIDE 0.9% 1,000 ML IV SCH ×4 (00:14→20:12)
[2020-05-15] MEDS: SODIUM CHLORIDE 0.9% IV SCH (00:20)
[2020-05-15] MEDS: CYTARABINE IV SCH (00:20)
--- NOTE | 2020-05-15 00:30 | P.CONS ---
History of Present Illness - Reason for Consult Consult date: 05/14/20 Medical management - Chief Complaint Acute myeloid leukemia, Admitted for chemotherapy - History of Present Illness Patient is a 65-year-old female with known history of hypertension, diabetes type 2, recently diagnosed AML in February 2020 status post chemotherapy, diverticulosis and obesity with BMI 32.3 was admitted to hospital for chemotherapy. Patient had bone marrow biopsy done on 04/03/2020 showed good response. Patient was seen by bone marrow transplant team and felt to be a good candidate for consolidation treatment. Laboratory data showed WBC 6.2, hemoglobin 7.7, MCV 101.8 Platelets 178 Sodium 141, potassium 3.4, chloride 111, BUN 11 and creatinine 0.61 Alk phos 159 albumin 3.4 AST 18 and ALT 30 Vitals blood pressure is 120/60 pulse 99 respiration 18 and pulse ox 92% on room air. Review of Systems Constitutional: Patient denies any fever or chills . No generalized weakness or weight loss. Abdomen: Patient denied nausea vomiting and diarrhea and abdominal pain. Cardiovascular: Patient denies any chest pain or short of breath no palpitations. Respiratory: patient denied any cough is from production. No shortness of justin th Neurologic: Patient denied any numbness or tingling headache. Musculoskeletal: Patient denies any complaints of joint swelling or deformity. Skin: Negative Psychiatric: Negative Endocrine: No heat or cold intolerance. No recent weight gain. Genitourinary: No dysuria or hematuria. 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-chemo last dose February ,diverticulosis History of Any Multi-Drug Resistant Organisms: None Reported Past Surgical History: Section, Orthopedic Surgery, Tonsillectomy Past Anesthesia/Blood Transfusion Reactions: No Reported Reaction Past Psychological History: No Psychological Hx Reported Smoking Status: Never smoker Past Alcohol Use History: None Reported Past Drug Use History: None Reported - Past Family History Mother Additional Family Medical History / Comment(s): MRSA infection in foot Medications and Allergies Home Medications Medication Instructions Recorded Confirmed Type Metoprolol Tartrate [Lopressor] 12.5 mg PO BID 30 Days #60 tab 03/30/20 05/14/20 Rx Scopolamine 1.5MG/72Hr Patch 1 patch TRANSDERM Q72H #6 patch 03/30/20 05/14/20 Rx [TransDerm Scop] Loratadine 10 mg PO DAILY 05/14/20 05/14/20 History Allergies Allergy/AdvReac Type Severity Reaction Status Date / Time No Known Allergies Allergy Verified 05/14/20 10:21 Physical Exam Vitals: Vital Signs Temp Pulse Resp BP BP Pulse Ox 05/14/20 14:34 98.2 F 98 22 117/66 94 L 05/14/20 10:02 98.1 F 98 17 118/69 95 Intake and Output 05/13/20 05/14/20 05/14/20 22:59 06:59 14:59 Intake Total 240 Balance 240 Intake: Oral 240 Other: Weight 85.275 kg PHYSICAL EXAMINATION: Patient is lying in the bed comfortably, no acute distress, awake alert and oriented.. HEENT: Normocephalic. Neck is supple. Pupils reactive. Nostrils clear. Oral cavity is moist. Ears reveal no drainage. Neck reveals no JVD, carotid bruits, or thyromegaly. CHEST EXAMINATION: Trachea is central. Symmetrical expansion. Lung pham clear to auscultation and percussion. CARDIAC: Normal S1, S2 with no gallops. No murmurs ABDOMEN: Soft. Bowel sounds normal. No organomegaly. No abdominal bruits. Extremities: Bilateral lower extremity trace edema. No clubbing or cyanosis Neurologically awake, alert, oriented x3 with well-coordinated movements. No focal deficits noted Skin: No rash or skin lesions. Psychiatric: Coperative. Nonsuicidal Musculoskeletal: No joint swelling or deformity. Normal range of motion. Results CBC & Chem 7: 05/14/20 10:20 05/14/20 10:20 Labs: Abnormal Lab Results - Last 24 Hours (Table) 05/14/20 05/14/20 Range/Units 10:20 10:20 RBC 2.38 L (3.80-5.40) m/uL Hgb 7.7 L (11.4-16.0) gm/dL Hct 24.1 L (34.0-46.0) % MCV 101.4 H D (80.0-100.0) fL RDW 19.4 H (11.5-15.5) % Potassium 3.4 L (3.5-5.1) mmol/L Chloride 111 H (98-107) mmol/L Carbon Dioxide 21 L (22-30) mmol/L Glucose 112 H (74-99) mg/dL Alkaline Phosphatase 159 H (38-126) U/L Albumin 3.4 L (3.5-5.0) g/dL Assessment and Plan Assessment: Acute myelomonocytic leukemia. Currently admitted for consolidation chemotherapy History of chemotherapy in February 2020, induction with 7+3 completed. 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 Continue with pain management. Bowel regimen. Oncology is starting on consolidation chemotherapy. We will continue to follow with you and further recommendations based on the clinical course. Monitor H&H and transfuse if the hemoglobin is less than 7. PT OT will be consulted. Thank you for your consult.
[2020-05-15] MEDS: ENOXAPARIN 40 MG/0.4 ML SYRINGE SQ SCH (07:33)
[2020-05-15] MEDS: SALT AND SODA MOUTHWASH 1,000 ML PO SCH ×3 (07:33→18:14)
[2020-05-15] MEDS: LORATADINE 10 MG TAB PO SCH (07:34)
[2020-05-15] MEDS: METOPROLOL TARTRATE 12.5 MG TAB PO SCH ×2 (07:34→20:12)
[2020-05-15] MEDS: prednisoLONE ACETATE 1% OPHTH DROPS 5 ML BTL BOTH EYES SCH ×4 (07:34→20:13)
[2020-05-15 08:55] LABS: Anisocytosis Slight; Basophils % (A) 0 %; Eosinophils % (A) 0 %; HCT 20.6 % (34.0-46.0); Hypochromasia Marked; Lymphocytes # (A) 0.7 k/uL (1.0-4.8); Lymphocytes % (A) 10 %; MCH 32.5 pg (25.0-35.0); MCHC 31.5 g/dL (31.0-37.0); MCV 103.3 fL (80.0-100.0); Macrocytosis Marked; Mean Platelet Volume 7.7; Monocytes # (A) 0.2 k/uL (0-1.0); Monocytes % (A) 3 %; Neutrophils # (A) 6.2 k/uL (1.3-7.7); Neutrophils % (A) 87 %; Platelet Count 146 k/uL (150-450); RBC 1.99 m/uL (3.80-5.40); RDW 19.6 % (11.5-15.5); WBC 7.1 k/uL (3.8-10.6)
[2020-05-15 09:23] LABS: HGB 6.5 gm/dL (11.4-16.0)
[2020-05-15 09:28] LABS: ALT 15 U/L (4-34); AST 20 U/L (14-36); African American GFR (CKD) >90 (>60 ml/min/1.73 sqM); Albumin 2.7 g/dL (3.5-5.0); Alkaline Phosphatase 129 U/L (38-126); Anion Gap 4 mmol/L; Blood Urea Nitrogen 15 mg/dL (7-17); Carbon Dioxide 21 mmol/L (22-30); Chloride 117 mmol/L (98-107); Glucose 119 mg/dL (74-99); Non-African American GFR(CKD) 89 (>60 ml/min/1.73 sqM); Phosphorus 3.1 mg/dL (2.5-4.5); Sodium 142 mmol/L (137-145); Total Bilirubin 0.6 mg/dL (0.2-1.3); Total Protein 5.5 g/dL (6.3-8.2); Uric Acid 5.8 mg/dL (3.7-7.4)
--- NOTE | 2020-05-15 17:16 | P.PN ---
Subjective Progress Note Date: 05/15/20 Principal diagnosis: consolidation chemotherapy with high-dose araC, AML In follow-up today patient is in very good spirits, she is getting up and walking around, she denies any fevers, oral irritation, food is still tasting pretty good right now, mild nausea well controlled though, no vomiting, cough, shortness of breath, indigestion, heartburn, abdominal pain or cramping, di arrhea, constipation, swelling in her left leg is stable Objective - Vital Signs Vital signs: Vital Signs Temp 98.3 F 05/15/20 16:40 Pulse 96 05/15/20 16:40 Resp 18 05/15/20 16:40 BP 112/60 05/15/20 16:40 Pulse Ox 94 L 05/15/20 13:59 Intake & Output 05/14/20 05/15/20 05/15/20 18:59 06:59 18:59 Intake Total 740 2500 1990 Output Total 400 1350 800 Balance 340 1150 1190 Weight 85.275 kg 87.997 kg Intake: Intake, IV Titration 500 2300 1200 Amount Cytarabine/Pf 5,700 mg In 500 Sodium Chloride 0.9% 500 ml 500 ml @ 185.667 mls/ hr IV Q48H ELISEO Rx#: [id number] Cytarabine/Pf 5,700 mg In 500 Sodium Chloride 0.9% 500 ml 500 ml @ 185.667 mls/ hr IV Q48H [facility] Rx#: [id number] Sodium Chloride 0.9% 1, 1800 1200 000 ml @ 150 mls/hr IV . Q6H40M [facility] Rx#:[id number] Oral 240 200 480 Blood Product 310 Rc Irr As1 Unit 310 [id number] Output: Urine 400 1350 800 Other: Voiding Method Toilet # Bowel Movements 1 - Constitutional General appearance: Present: cooperative, no acute distress, obese - EENT Eyes: Present: anicteric sclerae, EOMI, poor dentition ENT: Present: hearing grossly normal, normal oropharynx - Respiratory Respiratory: bilateral: CTA - Cardiovascular Rhythm: regular Heart sounds: normal: S1, S2 Abnormal Heart Sounds: Absent: systolic murmur, diastolic murmur, rub, S3 Gallop, S4 Gallop, click, other - Peripheral edema leg Peripheral Edema: right: None, left: Trace - Gastrointestinal General gastrointestinal: Present: normal bowel sounds, soft - Neurologic Neurologic: Present: CNII-XII intact - Musculoskeletal Musculoskeletal: Present: generalized weakness, strength equal bilaterally - Psychiatric Psychiatric: Present: A&O x's 3, appropriate affect, intact judgment & insight - Labs CBC & Chem 7: 05/15/20 08:22 05/15/20 08:22 Labs: Abnormal Lab Results - Last 24 Hours (Table) 05/15/20 05/15/20 05/15/20 Range/Units 08:22 08:22 11:03 RBC 1.99 L (3.80-5.40) m/uL Hgb 6.5 L* (11.4-16.0) gm/dL Hct 20.6 L (34.0-46.0) % MCV 103.3 H (80.0-100.0) fL RDW 19.6 H (11.5-15.5) % Plt Count 146 L (150-450) k/uL Lymphocytes # 0.7 L (1.0-4.8) k/uL Macrocytosis Marked A Chloride 117 H (98-107) mmol/L Carbon Dioxide 21 L (22-30) mmol/L Glucose 119 H (74-99) mg/dL Calcium 8.0 L (8.4-10.2) mg/dL Alkaline Phosphatase 129 H (38-126) U/L Total Protein 5.5 L (6.3-8.2) g/dL Albumin 2.7 L (3.5-5.0) g/dL Crossmatch See Detail Assessment and Plan (1) Acute myeloid leukemia Narrative/Plan: Admit for first cycle of consolidation with high-dose araC. Chemotherapy orders reviewed. Supportive medications ordered. Labs daily while inpatient. Aggressive PT/OT, nonnegotiable. Patient is going to be admitted for treatment of acute leukemia she needs to comply with medical recommendations. PT/OT consulted. Patient did very well with this as of 05/15/20 Dietitian consulted to keep patient's nutritional status on track. Current food to be brought from home to keep patient eating. Current Visit: Yes Status: Chronic Priority: High Code(s): C92.00 - ACUTE MYELOBLASTIC LEUKEMIA, NOT HAVING ACHIEVED REMISSION SNOMED Code(s): 10095902 (2) Anemia Narrative/Plan: Moderate, multifactorial including leukemia and treatment of leukemia also recent acute prolonged illness. Transfuse for hemoglobin less than 7 unless patient is symptomatic. Irradiated blood products only. Transfuse for hemoglobin 6.5 today Current Visit: Yes Status: Chronic Priority: Medium Code(s): D64.9 - ANEMIA, UNSPECIFIED SNOMED Code(s): 498055603 Plan: Daily follow-up. Internal medicine consulted for medical management.
[2020-05-16] MEDS: SODIUM CHLORIDE 0.9% 1,000 ML IV SCH ×4 (02:09→20:45)
[2020-05-16 07:38] LABS: Anisocytosis Slight; Basophils % (A) 0 %; Eosinophils % (A) 1 %; HCT 25.2 % (34.0-46.0); HGB 7.7 gm/dL (11.4-16.0); Hypochromasia Marked; Lymphocytes # (A) 1.2 k/uL (1.0-4.8); Lymphocytes % (A) 25 %; MCH 31.4 pg (25.0-35.0); MCHC 30.5 g/dL (31.0-37.0); MCV 103.2 fL (80.0-100.0); Macrocytosis Marked; Mean Platelet Volume 7.9; Monocytes # (A) 0.1 k/uL (0-1.0); Monocytes % (A) 2 %; Neutrophils # (A) 3.5 k/uL (1.3-7.7); Neutrophils % (A) 71 %; Platelet Count 151 k/uL (150-450); Poikilocytosis Slight; RBC 2.45 m/uL (3.80-5.40); RDW 19.2 % (11.5-15.5); WBC 4.9 k/uL (3.8-10.6)
[2020-05-16] MEDS: ENOXAPARIN 40 MG/0.4 ML SYRINGE SQ SCH (07:48)
[2020-05-16] MEDS: prednisoLONE ACETATE 1% OPHTH DROPS 5 ML BTL BOTH EYES SCH ×4 (07:49→20:44)
[2020-05-16] MEDS: SALT AND SODA MOUTHWASH 1,000 ML PO SCH ×3 (07:49→17:20)
[2020-05-16] MEDS: LORATADINE 10 MG TAB PO SCH (07:49)
[2020-05-16] MEDS: METOPROLOL TARTRATE 12.5 MG TAB PO SCH ×2 (07:49→20:45)
[2020-05-16 08:11] LABS: ALT 20 U/L (4-34); AST 27 U/L (14-36); African American GFR (CKD) >90 (>60 ml/min/1.73 sqM); Albumin 2.8 g/dL (3.5-5.0); Alkaline Phosphatase 128 U/L (38-126); Anion Gap 5 mmol/L; Blood Urea Nitrogen 15 mg/dL (7-17); Calcium 7.9 mg/dL (8.4-10.2); Carbon Dioxide 19 mmol/L (22-30); Chloride 119 mmol/L (98-107); Glucose 74 mg/dL (74-99); Non-African American GFR(CKD) >90 (>60 ml/min/1.73 sqM); Phosphorus 3.5 mg/dL (2.5-4.5); Potassium 4.1 mmol/L (3.5-5.1); Sodium 143 mmol/L (137-145); Total Bilirubin 1.2 mg/dL (0.2-1.3); Total Protein 5.8 g/dL (6.3-8.2)
[2020-05-16] MEDS: DEXAMETHASONE SOD PHOSPHATE 10 MG/ML 1 ML VIAL IV SCH (09:48)
[2020-05-16] MEDS: ONDANSETRON 16 MG in SODIUM CHLORIDE 0.9% 50 ML IVPB SCH (09:49)
[2020-05-16] MEDS: FAMOTIDINE 20 MG/2 ML VIAL IVP SCH (09:49)
[2020-05-16] MEDS: CYTARABINE IV SCH ×2 (10:36→22:45)
[2020-05-16] MEDS: SODIUM CHLORIDE 0.9% IV SCH ×2 (10:36→22:45)
--- NOTE | 2020-05-16 11:36 | P.PN ---
Subjective Progress Note Date: 05/16/20 Principal diagnosis: consolidation chemotherapy with high-dose araC, AML In follow-up today patient continues to do very well. She is doing exercises in the bed, with the chair and getting up and walking around, denies any fevers, oral irritation, tolerating oral intake, no uncontrolled nausea, vomiting, cough, shortness of breath, indigestion, heartburn, abdominal pain or cramping, diarrhea, constipation, swelling in her left leg is stable Objective - Vital Signs Vital signs: Vital Signs Temp 98.4 F 05/16/20 08:00 Pulse 86 05/16/20 08:00 Resp 18 05/16/20 08:00 BP 122/71 05/16/20 08:00 Pulse Ox 94 L 05/16/20 08:00 Intake & Output 05/15/20 05/16/20 05/16/20 18:59 06:59 18:59 Intake Total 2110 2000 998 Output Total 1100 2000 550 Balance 1010 0 448 Weight 89.953 kg Intake: Intake, IV Titration 1200 1800 50 Amount Ondansetron 16 mg In 50 Sodium Chloride 0.9% 50 ml @ 232 mls/hr IVPB Q48H [facility] Rx#:[id number] Sodium Chloride 0.9% 1, 1200 1800 000 ml @ 150 mls/hr IV . Q6H40M [facility] Rx#:[id number] Oral 600 200 948 Blood Product 310 Rc Irr As1 Unit 310 [id number] Output: Urine 1100 2000 550 Other: Voiding Method Toilet - Constitutional General appearance: Present: cooperative, no acute distress, obese - EENT Eyes: Present: anicteric sclerae, EOMI ENT: Present: hearing grossly normal, normal oropharynx - Respiratory Respiratory: bilateral: CTA - Cardiovascular Rhythm: regular Heart sounds: normal: S1, S2 Abnormal Heart Sounds: Absent: systolic murmur, diastolic murmur, rub, S3 Gallop, S4 Gallop, click, other - Peripheral edema leg Peripheral Edema: right: None, left: Trace - Gastrointestinal General gastrointestinal: Present: normal bowel sounds, soft - Neurologic Neurologic: Present: CNII-XII intact - Musculoskeletal Musculoskeletal: Present: strength equal bilaterally - Psychiatric Psychiatric: Present: A&O x's 3, appropriate affect, intact judgment & insight - Labs CBC & Chem 7: 05/16/20 06:51 05/16/20 06:51 Labs: Abnormal Lab Results - Last 24 Hours (Table) 05/15/20 05/16/20 05/16/20 Range/Units 11:03 06:51 06:51 RBC 2.45 L (3.80-5.40) m/uL Hgb 7.7 L (11.4-16.0) gm/dL Hct 25.2 L (34.0-46.0) % MCV 103.2 H (80.0-100.0) fL MCHC 30.5 L (31.0-37.0) g/dL RDW 19.2 H (11.5-15.5) % Macrocytosis Marked A Chloride 119 H (98-107) mmol/L Carbon Dioxide 19 L (22-30) mmol/L Calcium 7.9 L (8.4-10.2) mg/dL Alkaline Phosphatase 128 H (38-126) U/L Total Protein 5.8 L (6.3-8.2) g/dL Albumin 2.8 L (3.5-5.0) g/dL Crossmatch See Detail Assessment and Plan (1) Acute myeloid leukemia Narrative/Plan: Admit for first cycle of consolidation with high-dose araC. Continue chemotherapy without adjustment. Supportive medications ordered. Labs daily while inpatient. Aggressive PT/OT, patient has been very compliant with the same. She is doing very well with this. Dietitian consulted to keep patient's nutritional status on track. Continue food brought from home to keep patient eating. Current Visit: Yes Status: Chronic Priority: High Code(s): C92.00 - ACUTE MYELOBLASTIC LEUKEMIA, NOT HAVING ACHIEVED REMISSION SNOMED Code(s): 07053825 (2) Anemia Narrative/Plan: Moderate, multifactorial including leukemia and treatment of leukemia also recent acute prolonged illness. Transfuse for hemoglobin less than 7 unless patient is symptomatic. Irradiated blood products only. Hemoglobin 7.7 today, appropriate response to a unit of packed red blood cells. Current Visit: Yes Status: Chronic Priority: Medium Code(s): D64.9 - ANEMIA, UNSPECIFIED SNOMED Code(s): 449145488 Plan: Daily follow-up. Internal medicine consulted for medical management. Doctor attests: I performed a history and physical examination of this patient, developed impression and plan of care. Discussed with dictator. I agree with dictators note, documented as a scribe.
[2020-05-17] MEDS: SODIUM CHLORIDE 0.9% 1,000 ML IV SCH ×4 (03:31→23:18)
[2020-05-17 06:47] LABS: Anisocytosis Slight; Basophils % (A) 0 %; Eosinophils % (A) 0 %; HCT 22.2 % (34.0-46.0); Hypochromasia Marked; Lymphocytes # (A) 0.4 k/uL (1.0-4.8); Lymphocytes % (A) 8 %; MCHC 30.3 g/dL (31.0-37.0); MCV 102.3 fL (80.0-100.0); Macrocytosis Moderate; Mean Platelet Volume 7.6; Monocytes # (A) 0.1 k/uL (0-1.0); Monocytes % (A) 1 %; Neutrophils # (A) 4.3 k/uL (1.3-7.7); Neutrophils % (A) 91 %; Platelet Count 117 k/uL (150-450); RBC 2.17 m/uL (3.80-5.40); RDW 18.7 % (11.5-15.5); WBC 4.7 k/uL (3.8-10.6)
[2020-05-17 06:58] LABS: ALT 23 U/L (4-34); AST 26 U/L (14-36); African American GFR (CKD) >90 (>60 ml/min/1.73 sqM); Albumin 2.5 g/dL (3.5-5.0); Alkaline Phosphatase 120 U/L (38-126); Anion Gap 4 mmol/L; Blood Urea Nitrogen 14 mg/dL (7-17); Calcium 7.9 mg/dL (8.4-10.2); Carbon Dioxide 19 mmol/L (22-30); Chloride 120 mmol/L (98-107); Glucose 118 mg/dL (74-99); Non-African American GFR(CKD) >90 (>60 ml/min/1.73 sqM); Phosphorus 3.2 mg/dL (2.5-4.5); Potassium 3.8 mmol/L (3.5-5.1); Sodium 143 mmol/L (137-145); Total Bilirubin 0.6 mg/dL (0.2-1.3); Total Protein 5.2 g/dL (6.3-8.2)
[2020-05-17 06:59] LABS: HGB 6.7 gm/dL (11.4-16.0)
[2020-05-17] MEDS: METOPROLOL TARTRATE 12.5 MG TAB PO SCH ×2 (07:41→20:27)
[2020-05-17] MEDS: ENOXAPARIN 40 MG/0.4 ML SYRINGE SQ SCH (07:41)
[2020-05-17] MEDS: LORATADINE 10 MG TAB PO SCH (07:41)
[2020-05-17] MEDS: SALT AND SODA MOUTHWASH 1,000 ML PO SCH ×3 (07:42→16:55)
[2020-05-17] MEDS: prednisoLONE ACETATE 1% OPHTH DROPS 5 ML BTL BOTH EYES SCH ×4 (07:42→21:19)
--- NOTE | 2020-05-17 09:56 | P.PN ---
Subjective Progress Note Date: 05/17/20 Principal diagnosis: consolidation chemotherapy with high-dose araC, AML In follow-up today patient continues to do very well. She denies any uncontrolled side effects from chemotherapy, she is being active, she is using all of the recommended preventative measures to avoid side effects from treatment. She continues to be in good spirits. Nothing new to report today Objective - Vital Signs Vital signs: Vital Signs Temp 98.2 F 05/17/20 09:48 Pulse 92 05/17/20 09:48 Resp 17 05/17/20 09:48 BP 145/74 05/17/20 09:48 Pulse Ox 97 05/17/20 09:48 Intake & Output 05/16/20 05/17/20 05/17/20 18:59 06:59 18:59 Intake Total 2748 2500 0 Output Total 1200 1700 200 Balance 1548 800 -200 Weight 96.615 kg Intake: Intake, IV Titration 1800 2300 Amount Cytarabine/Pf 5,700 mg In 500 500 Sodium Chloride 0.9% 500 ml 500 ml @ 185.667 mls/ hr IV Q48H [facility] Rx#: [id number] Ondansetron 16 mg In 100 Sodium Chloride 0.9% 50 ml @ 232 mls/hr IVPB Q48H [facility] Rx#:[id number] Sodium Chloride 0.9% 1, 1200 1800 000 ml @ 150 mls/hr IV . Q6H40M [facility] Rx#:[id number] Oral 948 200 Blood Product 0 Rc Irr As1 Unit 0 [id number] Output: Urine 1200 1700 200 Other: Voiding Method Toilet Toilet # Voids 1 - Constitutional General appearance: Present: cooperative, no acute distress, obese - EENT Eyes: Present: anicteric sclerae, EOMI, poor dentition ENT: Present: hearing grossly normal, normal oropharynx - Respiratory Respiratory: bilateral: CTA - Cardiovascular Rhythm: regular Heart sounds: normal: S1, S2 Abnormal Heart Sounds: Absent: systolic murmur, diastolic murmur, rub, S3 Gallop, S4 Gallop, click, other - Peripheral edema leg Peripheral Edema: right: None, left: Trace - Gastrointestinal General gastrointestinal: Present: normal bowel sounds, soft. Absent: absent bowel sounds, decreased bowel sounds, distended, hepatomegaly, hyperactive bowel sounds, organomegaly, rigid, scaphoid, splenomegaly, tenderness, umbilical hernia, ventral hernia - Neurologic Neurologic: Present: CNII-XII intact - Musculoskeletal Musculoskeletal: Present: strength equal bilaterally - Psychiatric Psychiatric: Present: A&O x's 3, appropriate affect, intact judgment & insight - Labs CBC & Chem 7: 05/17/20 06:19 05/17/20 06:19 Labs: Abnormal Lab Results - Last 24 Hours (Table) 05/15/20 05/17/20 05/17/20 Range/Units 11:03 06:19 06:19 RBC 2.17 L (3.80-5.40) m/uL Hgb 6.7 L* (11.4-16.0) gm/dL Hct 22.2 L (34.0-46.0) % MCV 102.3 H (80.0-100.0) fL MCHC 30.3 L (31.0-37.0) g/dL RDW 18.7 H (11.5-15.5) % Plt Count 117 L (150-450) k/uL Lymphocytes # 0.4 L (1.0-4.8) k/uL Chloride 120 H (98-107) mmol/L Carbon Dioxide 19 L (22-30) mmol/L Glucose 118 H (74-99) mg/dL Calcium 7.9 L (8.4-10.2) mg/dL Total Protein 5.2 L (6.3-8.2) g/dL Albumin 2.5 L (3.5-5.0) g/dL Crossmatch See Detail Assessment and Plan (1) Acute myeloid leukemia Narrative/Plan: Admit for first cycle of consolidation with high-dose araC. Continue chemotherapy without adjustment. Supportive medications ordered. Labs daily while inpatient. Aggressive PT/OT, patient has been very compliant with the same. She is doing very well with this. Dietitian consulted to keep patient's nutritional status on track. Continue food brought from home to keep patient eating. Current Visit: Yes Status: Chronic Priority: High Code(s): C92.00 - ACUTE MYELOBLASTIC LEUKEMIA, NOT HAVING ACHIEVED REMISSION SNOMED Code(s): 63741905 (2) Anemia Narrative/Plan: Moderate, multifactorial including leukemia and treatment of leukemia also recent acute prolonged illness. Transfuse for hemoglobin less than 7 unless patient is symptomatic. Irradiated blood products only. Hemoglobin 6.7 today, 1 unit irradiated PRBCs ordered. Current Visit: Yes Status: Chronic Priority: Medium Code(s): D64.9 - ANEMIA, UNSPECIFIED SNOMED Code(s): 395057993 Plan: Daily follow-up. Internal Medicine consulted for medical management. Will plan for conditional discharge on Thursday as patient's chemotherapy will be completing near midnight on Thursday night. Patient has a follow-up in the office on Thursday morning. Doctor attests: I performed a history and physical examination of this patient, developed impression and plan of care. Discussed with dictator. I agree with d ictators note, documented as a scribe.
[2020-05-17] MEDS: SCOPOLAMINE 1.5MG/72HR PATCH TRANSDERM SCH (14:49)
--- NOTE | 2020-05-18 00:42 | P.PN ---
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 Patient had bone marrow biopsy done on 04/03/2020 showed good response. Patient was seen by bone marrow transplant team and felt to be a good candidate for consolidation treatment. Laboratory data showed WBC 6.2, hemoglobin 7.7, MCV 101.8 Platelets 178 Sodium 141, potassium 3.4, chloride 111, BUN 11 and creatinine 0.61 Alk phos 159 albumin 3.4 AST 18 and ALT 30 Vitals blood pressure is 120/60 pulse 99 respiration 18 and pulse ox 92% on room air. 05/15/2020 Patient is currently lying in bed comfortably. Patient was started on chemotherapy yesterday. Hemoglobin did drop to 6.5 and is being transfused with 1 unit of PRBC. Denied any complaints of chest pain or shortness of breath. No nausea vomiting or diarrhea. No fever no chills. Current medications reviewed. Objective - Vital Signs Vital signs: Vital Signs Temp 98.5 F 05/15/20 19:19 Pulse 93 05/15/20 19:19 Resp 16 05/15/20 19:19 BP 117/59 05/15/20 19:19 Pulse Ox 94 L 05/15/20 19:19 Intake & Output 05/15/20 05/15/20 05/16/20 06:59 18:59 06:59 Intake Total 2500 2110 Output Total 1350 1100 250 Balance 1150 1010 -250 Weight 87.997 kg Intake: Intake, IV Titration 2300 1200 Amount Cytarabine/Pf 5,700 mg In 500 Sodium Chloride 0.9% 500 ml 500 ml @ 185.667 mls/ hr IV Q48H [facility] Rx#: [id number] Sodium Chloride 0.9% 1, 1800 1200 000 ml @ 150 mls/hr IV . Q6H40M [facility] Rx#:[id number] Oral 200 600 Blood Product 310 Rc Irr As1 Unit 310 [id number] Output: Urine 1350 1100 250 Other: Voiding Method Toilet # Bowel Movements 1 - Exam PHYSICAL EXAMINATION: Patient is lying in the bed comfortably, no acute distress, awake alert and oriented.. HEENT: Normocephalic. Neck is supple. Pupils reactive. Nostrils clear. Oral cavity is moist. Ears reveal no drainage. Neck reveals no JVD, carotid bruits, or thyromegaly. CHEST EXAMINATION: Trachea is central. Symmetrical expansion. Lung pham clear to auscultation and percussion. CARDIAC: Normal S1, S2 with no gallops. No murmurs ABDOMEN: Soft. Bowel sounds normal. No organomegaly. No abdominal bruits. Extremities: Bilateral lower extremity trace edema. No clubbing or cyanosis Neurologically awake, alert, oriented x3 with well-coordinated movements. No f ocal deficits noted Skin: No rash or skin lesions. Psychiatric: Coperative. Nonsuicidal Musculoskeletal: No joint swelling or deformity. Normal range of motion. - Labs CBC & Chem 7: 05/17/20 06:19 05/17/20 06:19 Labs: Abnormal Lab Results - Last 24 Hours (Table) 05/15/20 05/15/20 05/15/20 Range/Units 08:22 08:22 11:03 RBC 1.99 L (3.80-5.40) m/uL Hgb 6.5 L* (11.4-16.0) gm/dL Hct 20.6 L (34.0-46.0) % MCV 103.3 H (80.0-100.0) fL RDW 19.6 H (11.5-15.5) % Plt Count 146 L (150-450) k/uL Lymphocytes # 0.7 L (1.0-4.8) k/uL Macrocytosis Marked A Chloride 117 H (98-107) mmol/L Carbon Dioxide 21 L (22-30) mmol/L Glucose 119 H (74-99) mg/dL Calcium 8.0 L (8.4-10.2) mg/dL Alkaline Phosphatase 129 H (38-126) U/L Total Protein 5.5 L (6.3-8.2) g/dL Albumin 2.7 L (3.5-5.0) g/dL Crossmatch See Detail Assessment and Plan Assessment: Acute myelomonocytic leukemia. Currently started on consolidation chemotherapy on 05/14 History of chemotherapy in February 2020, induction with 7+3 completed. 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 Continue with pain management. Bowel regimen. Oncology started on consolidation chemotherapy. We will continue to follow with you and further recommendations based on the clinical course. Monitor H&H and transfuse if the hemoglobin is less than 7. PT OT will be consulted. Thank you for your consult. Time with Patient: Greater than 30
--- NOTE | 2020-05-18 00:43 | P.PN ---
Subjective Progress Note Date: 05/16/20 Principal diagnosis: Acute myelomonocytic leukemia. 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 Patient had bone marrow biopsy done on 04/03/2020 showed good response. Patient was seen by bone marrow transplant team and felt to be a good candidate for consolidation treatment. Laboratory data showed WBC 6.2, hemoglobin 7.7, MCV 101.8 Platelets 178 Sodium 141, potassium 3.4, chloride 111, BUN 11 and creatinine 0.61 Alk phos 159 albumin 3.4 AST 18 and ALT 30 Vitals blood pressure is 120/60 pulse 99 respiration 18 and pulse ox 92% on room air. 05/15/2020 Patient is currently lying in bed comfortably. Patient was started on chemotherapy yesterday. Hemoglobin did drop to 6.5 and is being transfused with 1 unit of PRBC. Denied any complaints of chest pain or shortness of breath. No nausea vomiting or diarrhea. No fever no chills. 11/16/2019 Patient is currently lying in the bed comfortably. No complaints of chest pain or shortness of breath. No fever no chills. No nausea vomiting abdominal pain or diarrhea. No other acute overnight issues. Laboratory data showed WBC 4.9, hemoglobin 7.7 and platelets 151 BUN 15 creatinine 0.67 Alk phos 128 and albumin 2.8 Current medications reviewed. Objective - Vital Signs Vital signs: Vital Signs Temp 97.9 F 05/16/20 20:00 Pulse 91 05/16/20 20:00 Resp 16 05/16/20 20:00 BP 123/77 05/16/20 20:00 Pulse Ox 94 L 05/16/20 20:00 Intake & Output 05/16/20 05/16/20 05/17/20 06:59 18:59 06:59 Intake Total 1999 2748 Output Total 1999 1200 500 Balance 0 1548 -500 Weight 89.953 kg Intake: Intake, IV Titration 1800 1800 Amount Cytarabine/Pf 5,700 mg In 500 Sodium Chloride 0.9% 500 ml 500 ml @ 185.667 mls/ hr IV Q48H [facility] Rx#: [id number] Ondansetron 16 mg In 100 Sodium Chloride 0.9% 50 ml @ 232 mls/hr IVPB Q48H [facility] Rx#:[id number] Sodium Chloride 0.9% 1, 1800 1200 000 ml @ 150 mls/hr IV . Q6H40M [facility] Rx#:[id number] Oral 200 948 Output: Urine 2000 1200 500 Other: Voiding Method Toilet - Exam PHYSICAL EXAMINATION: Patient is lying in the bed comfortably, no acute distress, awake alert and oriented.. HEENT: Normocephalic. Neck is supple. Pupils reactive. Nostrils clear. Oral c avity is moist. Ears reveal no drainage. Neck reveals no JVD, carotid bruits, or thyromegaly. CHEST EXAMINATION: Trachea is central. Symmetrical expansion. Lung pham clear to auscultation and percussion. CARDIAC: Normal S1, S2 with no gallops. No murmurs ABDOMEN: Soft. Bowel sounds normal. No organomegaly. No abdominal bruits. Extremities: Bilateral lower extremity trace edema. No clubbing or cyanosis Neurologically awake, alert, oriented x3 with well-coordinated movements. No focal deficits noted Skin: No rash or skin lesions. Psychiatric: Coperative. Nonsuicidal Musculoskeletal: No joint swelling or deformity. Normal range of motion. - Labs CBC & Chem 7: 05/17/20 06:19 05/17/20 06:19 Labs: Abnormal Lab Results - Last 24 Hours (Table) 05/16/20 05/16/20 Range/Units 06:51 06:51 RBC 2.45 L (3.80-5.40) m/uL Hgb 7.7 L (11.4-16.0) gm/dL Hct 25.2 L (34.0-46.0) % MCV 103.2 H (80.0-100.0) fL MCHC 30.5 L (31.0-37.0) g/dL RDW 19.2 H (11.5-15.5) % Macrocytosis Marked A Chloride 119 H (98-107) mmol/L Carbon Dioxide 19 L (22-30) mmol/L Calcium 7.9 L (8.4-10.2) mg/dL Alkaline Phosphatase 128 H (38-126) U/L Total Protein 5.8 L (6.3-8.2) g/dL Albumin 2.8 L (3.5-5.0) g/dL Assessment and Plan Assessment: Acute myelomonocytic leukemia. Currently started on consolidation chemotherapy on 05/14 History of chemotherapy in February 2020, induction with 7+3 completed. 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 Continue with pain management. Bowel regimen. Oncology started on consolidation chemotherapy. We will continue to follow with you and further recommendations based on the clinical course. Monitor H&H and transfuse if the hemoglobin is less than 7. PT OT will be consulted. Thank you for your consult.
--- NOTE | 2020-05-18 00:46 | P.PN ---
Subjective Progress Note Date: 05/17/20 Principal diagnosis: Acute myelomonocytic leukemia. 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 Patient had bone marrow biopsy done on 04/03/2020 showed good response. Patient was seen by bone marrow transplant team and felt to be a good candidate for consolidation treatment. Laboratory data showed WBC 6.2, hemoglobin 7.7, MCV 101.8 Platelets 178 Sodium 141, potassium 3.4, chloride 111, BUN 11 and creatinine 0.61 Alk phos 159 albumin 3.4 AST 18 and ALT 30 Vitals blood pressure is 120/60 pulse 99 respiration 18 and pulse ox 92% on room air. 05/15/2020 Patient is currently lying in bed comfortably. Patient was started on rashaun motherapy yesterday. Hemoglobin did drop to 6.5 and is being transfused with 1 unit of PRBC. Denied any complaints of chest pain or shortness of breath. No nausea vomiting or diarrhea. No fever no chills. 11/16/2019 Patient is currently lying in the bed comfortably. No complaints of chest pain or shortness of breath. No fever no chills. No nausea vomiting abdominal pain or diarrhea. No other acute overnight issues. Laboratory data showed WBC 4.9, hemoglobin 7.7 and platelets 151 BUN 15 creatinine 0.67 Alk phos 128 and albumin 2.8 05/17/2020 Patient is currently lying in the bed comfortably. Denied any nausea vomiting or abdominal pain or diarrhea. Tolerating chemotherapy. No fever no chills. No abdominal pain. No other acute overnight issues. Patient is being continued on chemotherapy. Laboratory data showed WBC 4.7, hemoglobin 6.7 and platelets 117 Current medications reviewed. Objective - Vital Signs Vital signs: Vital Signs Temp 98.2 F 05/17/20 19:15 Pulse 87 05/17/20 19:15 Resp 18 05/17/20 19:15 BP 147/81 05/17/20 19:15 Pulse Ox 99 05/17/20 19:15 Intake & Output 05/17/20 05/17/20 05/18/20 06:59 18:59 06:59 Intake Total 2500 310 Output Total 1700 1900 Balance 800 -1590 Weight 96.615 kg Intake: Intake, IV Titration 2300 Amount Cytarabine/Pf 5,700 mg In 500 Sodium Chloride 0.9% 500 ml 500 ml @ 185.667 mls/ hr IV Q48H [facility] Rx#: [id number] Sodium Chloride 0.9% 1, 1800 000 ml @ 150 mls/hr IV . Q6H40M [facility] Rx#:[id number] Oral 200 Blood Product 310 Rc Irr As1 Unit 310 [id number] Output: Urine 1700 1900 Other: Voiding Method Toilet Toilet # Voids 1 # Bowel Movements 1 - Exam PHYSICAL EXAMINATION: Patient is lying in the bed comfortably, no acute distress, awake alert and o riented.. HEENT: Normocephalic. Neck is supple. Pupils reactive. Nostrils clear. Oral cavity is moist. Ears reveal no drainage. Neck reveals no JVD, carotid bruits, or thyromegaly. CHEST EXAMINATION: Trachea is central. Symmetrical expansion. Lung pham clear to auscultation and percussion. CARDIAC: Normal S1, S2 with no gallops. No murmurs ABDOMEN: Soft. Bowel sounds normal. No organomegaly. No abdominal bruits. Extremities: Bilateral lower extremity trace edema. No clubbing or cyanosis Neurologically awake, alert, oriented x3 with well-coordinated movements. No focal deficits noted Skin: No rash or skin lesions. Psychiatric: Coperative. Nonsuicidal Musculoskeletal: No joint swelling or deformity. Normal range of motion. - Labs CBC & Chem 7: 05/17/20 06:19 05/17/20 06:19 Labs: Abnormal Lab Results - Last 24 Hours (Table) 05/15/20 05/17/20 05/17/20 Range/Units 11:03 06:19 06:19 RBC 2.17 L (3.80-5.40) m/uL Hgb 6.7 L* (11.4-16.0) gm/dL Hct 22.2 L (34.0-46.0) % MCV 102.3 H (80.0-100.0) fL MCHC 30.3 L (31.0-37.0) g/dL RDW 18.7 H (11.5-15.5) % Plt Count 117 L (150-450) k/uL Lymphocytes # 0.4 L (1.0-4.8) k/uL Chloride 120 H (98-107) mmol/L Carbon Dioxide 19 L (22-30) mmol/L Glucose 118 H (74-99) mg/dL Calcium 7.9 L (8.4-10.2) mg/dL Total Protein 5.2 L (6.3-8.2) g/dL Albumin 2.5 L (3.5-5.0) g/dL Crossmatch See Detail Assessment and Plan Assessment: Acute myelomonocytic leukemia. Currently started on consolidation chemotherapy on 05/14 History of chemotherapy in February 2020, induction with 7+3 completed. 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 Continue with pain management. Bowel regimen. Oncology started on consolidation chemotherapy. We will continue to follow with you and further recommendations based on the clinical course. Monitor H&H and transfuse if the hemoglobin is less than 7. PT OT will be consulted.
[2020-05-18] MEDS: SODIUM CHLORIDE 0.9% 1,000 ML IV SCH ×3 (04:48→19:11)
[2020-05-18] MEDS: LORATADINE 10 MG TAB PO SCH (08:16)
[2020-05-18] MEDS: METOPROLOL TARTRATE 12.5 MG TAB PO SCH ×2 (08:16→20:29)
[2020-05-18] MEDS: SALT AND SODA MOUTHWASH 1,000 ML PO SCH ×3 (08:17→17:50)
[2020-05-18] MEDS: prednisoLONE ACETATE 1% OPHTH DROPS 5 ML BTL BOTH EYES SCH ×4 (08:17→21:56)
[2020-05-18] MEDS: ENOXAPARIN 40 MG/0.4 ML SYRINGE SQ SCH (08:17)
[2020-05-18] MEDS: ONDANSETRON 16 MG in SODIUM CHLORIDE 0.9% 50 ML IVPB SCH (08:21)
[2020-05-18] MEDS: DEXAMETHASONE SOD PHOSPHATE 10 MG/ML 1 ML VIAL IV SCH (08:22)
[2020-05-18] MEDS: FAMOTIDINE 20 MG/2 ML VIAL IVP SCH (08:22)
[2020-05-18 08:27] LABS: Anisocytosis Slight; Basophils % (A) 0 %; Eosinophils % (A) 1 %; HCT 26.2 % (34.0-46.0); Hypochromasia Moderate; Lymphocytes # (A) 0.5 k/uL (1.0-4.8); Lymphocytes % (A) 13 %; MCH 31.2 pg (25.0-35.0); MCHC 31.4 g/dL (31.0-37.0); MCV 99.2 fL (80.0-100.0); Macrocytosis Moderate; Mean Platelet Volume 7.9; Monocytes % (A) 1 %; Neutrophils % (A) 85 %; Platelet Count 105 k/uL (150-450); Poikilocytosis Slight; RBC 2.64 m/uL (3.80-5.40); RDW 18.7 % (11.5-15.5); WBC 3.5 k/uL (3.8-10.6)
[2020-05-18 08:44] LABS: HGB 8.2 gm/dL (11.4-16.0)
[2020-05-18 08:54] LABS: ALT 39 U/L (4-34); AST 39 U/L (14-36); African American GFR (CKD) >90 (>60 ml/min/1.73 sqM); Albumin 2.7 g/dL (3.5-5.0); Alkaline Phosphatase 129 U/L (38-126); Anion Gap 5 mmol/L; Blood Urea Nitrogen 12 mg/dL (7-17); Calcium 8.1 mg/dL (8.4-10.2); Carbon Dioxide 21 mmol/L (22-30); Chloride 117 mmol/L (98-107); Glucose 79 mg/dL (74-99); Non-African American GFR(CKD) >90 (>60 ml/min/1.73 sqM); Potassium 3.7 mmol/L (3.5-5.1); Sodium 143 mmol/L (137-145); Total Bilirubin 1.1 mg/dL (0.2-1.3); Total Protein 5.5 g/dL (6.3-8.2)
[2020-05-18] MEDS: SODIUM CHLORIDE 0.9% IV SCH ×2 (10:05→21:55)
[2020-05-18] MEDS: CYTARABINE IV SCH ×2 (10:05→21:55)
--- NOTE | 2020-05-18 15:30 | P.DS ---
Providers Date of admission: 05/14/20 09:06 Expected date of discharge: 05/18/20 Attending physician: Juan R Queen Consults: 05/14/20 13:59 Consult Physician Routine Consulting Provider: Jake Willams Consult Reason/Comments: medical management Do you want consulting provider notified?: Yes Primary care physician: Stated None Hospital Course: Timed Chemotherapy Plan - Discharge Summary Discharge Rx Participant: No New Discharge Prescriptions: No Action Metoprolol Tartrate [Lopressor] 12.5 mg PO BID 30 Days #60 tab Scopolamine 1.5MG/72Hr Patch [TransDerm Scop] 1 patch TRANSDERM Q72H #6 patch Loratadine 10 mg PO DAILY Discharge Medication List Metoprolol Tartrate [Lopressor] 12.5 mg PO BID 30 Days #60 tab 03/30/20 [Rx] Scopolamine 1.5MG/72Hr Patch [TransDerm Scop] 1 patch TRANSDERM Q72H #6 patch 03/30/20 [Rx] Loratadine 10 mg PO DAILY 05/14/20 [History] Follow up Appointment(s)/Referral(s): Juan R Queen MD [STAFF PHYSICIAN] - 05/21/20 10:00 am (This is for GCSF adminstration. Additional appts to be made at that time. ) [facility], [NON-STAFF] - 1 Week Activity/Diet/Wound Care/Special Instructions: Activity as tolerated. Continue exercises prescribed by PT/OT Diet as tolerated. Monitor for fever. Report to physician fever of 100.5 or higher. Continue steroid eyedrops until prescription is completed Continue salt and soda and diligent oral care. Discharge Disposition: HOME SELF-CARE
[2020-05-19] MEDS: SODIUM CHLORIDE 0.9% 1,000 ML IV SCH ×2 (01:18→09:13)
[2020-05-19] MEDS: LORATADINE 10 MG TAB PO SCH (09:13)
[2020-05-19] MEDS: ENOXAPARIN 40 MG/0.4 ML SYRINGE SQ SCH (09:13)
[2020-05-19] MEDS: METOPROLOL TARTRATE 12.5 MG TAB PO SCH (09:13)
[2020-05-19] MEDS: SALT AND SODA MOUTHWASH 1,000 ML PO SCH ×3 (09:13→18:14)
[2020-05-19] MEDS: prednisoLONE ACETATE 1% OPHTH DROPS 5 ML BTL BOTH EYES SCH ×3 (09:14→18:15)
[2020-05-19 12:40] VITALS: BP 135/80; PULSE 75; RESP 16; TEMP 98.5
[2020-05-19 15:19] LABS: Anisocytosis Slight; Basophils % (A) 0 %; Eosinophils % (A) 1 %; HCT 22.8 % (34.0-46.0); HGB 7.2 gm/dL (11.4-16.0); Hypochromasia Slight; Lymphocytes # (A) 0.4 k/uL (1.0-4.8); Lymphocytes % (A) 10 %; MCH 31.2 pg (25.0-35.0); MCHC 31.8 g/dL (31.0-37.0); MCV 98.1 fL (80.0-100.0); Macrocytosis Slight; Mean Platelet Volume 7.7; Monocytes # (A) 0.1 k/uL (0-1.0); Monocytes % (A) 1 %; Neutrophils # (A) 3.2 k/uL (1.3-7.7); Neutrophils % (A) 87 %; Poikilocytosis Slight; RBC 2.32 m/uL (3.80-5.40); RDW 18.3 % (11.5-15.5); WBC 3.6 k/uL (3.8-10.6)
[2020-05-19 15:20] LABS: Platelet Count 81 k/uL (150-450)
[2020-05-19 15:26] LABS: ALT 49 U/L (4-34); AST 50 U/L (14-36); African American GFR (CKD) >90 (>60 ml/min/1.73 sqM); Albumin 2.6 g/dL (3.5-5.0); Alkaline Phosphatase 124 U/L (38-126); Anion Gap 6 mmol/L; Blood Urea Nitrogen 12 mg/dL (7-17); Carbon Dioxide 21 mmol/L (22-30); Chloride 116 mmol/L (98-107); Glucose 103 mg/dL (74-99); Non-African American GFR(CKD) >90 (>60 ml/min/1.73 sqM); Potassium 3.2 mmol/L (3.5-5.1); Sodium 143 mmol/L (137-145); Total Bilirubin 0.8 mg/dL (0.2-1.3); Total Protein 5.2 g/dL (6.3-8.2)
[2020-05-19] MEDS ORDERED: POTASSIUM CHLORIDE ER 20 MEQ TAB.ER PO STA (17:38)
== END 2020-05-19 19:16 | disposition home or self-care (01) | DRG 839 ==
LOC: 5NMEDONC 09:06
PROVIDERS: ADMIT Internal Medicine Hematology & Oncology; ATTEND Internal Medicine Hematology & Oncology
PROC: XW043B3 Introduction of Cytarabine and Daunorubicin Liposome Antineoplastic into Central Vein, Percutaneous Approach, New Technology Group 3 (ICD-10-PCS; principal; 2020-05-14)
PROC: 30233N1 Transfusion of Nonautologous Red Blood Cells into Peripheral Vein, Percutaneous Approach (ICD-10-PCS; 2020-05-14)
DX: Z51.11 Encounter for antineoplastic chemotherapy (principal); C92.50 Acute myelomonocytic leukemia, not having achieved remission; E66.9 Obesity, unspecified; I10 Essential (primary) hypertension; E11.9 Type 2 diabetes mellitus without complications; D63.0 Anemia in neoplastic disease; T45.1X5A Adverse effect of antineoplastic and immunosuppressive drugs, initial encounter; D69.59 Other secondary thrombocytopenia; Z87.19 Personal history of other diseases of the digestive system; Z83.1 Family history of other infectious and parasitic diseases; Z98.891 History of uterine scar from previous surgery; Z68.32 Body mass index [BMI] 32.0-32.9, adult; Z90.89 Acquired absence of other organs; Z98.890 Other specified postprocedural states
CPT/HCPCS: 80053; 84100; 84550; 85025; 86850; 86900; 86901; 86920